=== PATIENT | male | born 1965 | race Caucasian/White ===

== ENCOUNTER → 2020-04-09 08:10 | Outpatient (CLI) | payer OTHER, SELFPAY ==
[2020-04-08 13:08] VITALS: BMI 35.2
[2020-04-09 12:15] LABS: Absolute Lymphocyte Count 1.61 X10^3/uL (0.83-4.51); Absolute Neutrophil Count 5.6 X10^3/uL (2.0-7.7); Basophil# 0.04 X10^3/uL; Basophil% 0.5 % (0-1); Eosinophil# 0.46 X10^3/uL; Eosinophils% 5.5 % (0-5); Hematocrit 54.6 % (40-54); Hemoglobin 17.6 g/dL (13.0-16.5); Lymphocyte # 1.61 X10^3/ul (4.0); Lymphocyte % 19.3 % (19-41); Mean Corp Hgb Conc 32.2 g/dL (32-36); Mean Corpuscular Hgb 27.2 pg (27.0-32.0); Mean Corpuscular Volume 84.3 fL (80-94); Monocyte# 0.58 X10^3/uL; Monocyte% 6.9 % (0-10); NRBC Flagged by Analyzer 0 % (0-5); Neutrophil % 67.1 % (47-70); Platelet Count 259 K/mm3 (150-450); RBC Distribution Width CV 13.7 % (11.6-14.6); RBC Distribution Width SD 42.1 fl (35.1-43.9); Red Blood Count 6.48 M/mm3 (4.6-6.2); White Blood Count 8.4 K/mm3 (4.4-11.0)
[2020-04-09 12:41] LABS: Hemoglobin A1c 6.2 % (3.8-5.6)
[2020-04-09 13:09] LABS: AST(SGOT) 15 U/L (15-37); Alanine Aminotransfer ALT/SGPT 43 U/L (16-61); Albumin, Serum 3.6 g/dL (3.2-5.0); Alkaline Phosphatase 104 U/L (45-117); Anion Gap 8 (5-15); BUN 17 mg/dL (7-18); BUN/Creat Ratio 13.2 RATIO (10-20); Chloride 106 mmol/L (98-107); Cholesterol 209 mg/dL (200); Creatinine, Serum 1.29 mg/dL (0.70-1.30); EST Glomerular Filtration Rate 62 mL/min (>60); Est Glom Filt Rate - Afr Amer 75 mL/min (>60); Globulin 3.7 g/dL (2.2-4.2); Glucose 115 mg/dL (74-106); High Density Lipoprotein 46 mg/dL; PSA,Total - Annual Screen 1.01 ng/mL (0.00-4.00); Potassium 4.3 mmol/L (3.5-5.1); Protein, Total 7.3 g/dL (6.4-8.2); Sodium Level 141 mmol/L (136-145); Thyroid Stim Hormone (TSH) 1.46 uIU/mL (0.358-3.74); Triglycerides 148 mg/dL; Very Low Density Lipoprotein 30 mg/dL (5-40)
[2020-04-12 07:54] LABS: Erythropoietin 3.3 mIU/mL (2.6-18.5)
== END ==
PROVIDERS: PCP Internal Medicine; Referring Provider Internal Medicine; Visit Provider Internal Medicine
DX: I10 Essential (primary) hypertension (principal); D58.2 Other hemoglobinopathies; E66.9 Obesity, unspecified; Z12.5 Encounter for screening for malignant neoplasm of prostate
CPT/HCPCS: 36415; 80053; 80061; 82668; 83036; 84153; 84443; 85025; G0103

== ENCOUNTER → 2020-04-18 08:31 | Outpatient (CLI) | payer OTHER, SELFPAY ==
[2020-04-18 07:59] VITALS: BMI 35.3
[2020-04-18 10:15] LABS: Ferritin 308 ng/mL (26-388); Iron 86 ug/dL (65-175); Iron Binding Capacity,Total 378 ug/dL (250-450); PERCENT IRON SATURATION 22.8 % (15.0-55.0)
== END ==
PROVIDERS: PCP Internal Medicine; Referring Provider Internal Medicine; Visit Provider Internal Medicine
DX: D58.2 Other hemoglobinopathies (principal)
CPT/HCPCS: 36415; 81270; 82728; 83540; 83550

== ENCOUNTER 2020-05-10 05:55 | Day surgery (SDC) | payer OTHER, SELFPAY ==
[2020-04-18 07:59] VITALS: BMI 35.3
[2020-05-06 16:03] VITALS: BMI 35.3
[2020-05-10] VITALS (7 sets, daily range): BP systolic 97–139; BP diastolic 60–85; PULSE 52–62; RESP 16; TEMP 36.4–36.8; O2SAT 95–97; BMI 33.8
--- NOTE | 2020-05-10 | IMM_PTH ---
PATIENT: ARTEM MCDERMOTT LOC: EN U#:[id number] AGE/SX: 54/M ROOM: RE05/10/[address]: Dr. Nathan Ritchie MD : 1965 BED: DIS: 05/10/2020 SPEC #: [id number] RECD: 05/13/20 12:04 STATUS: AYDEE TORIE #: [id number] CHARLES: 05/10/20 00:[address]: Nathan Ritchie DEPT: IMMUNOHISTOCHEMISTRY RECD BY: Jackelin Watson ENTERED: 05/13/20 12:05 SP TYPE: IMMUNO OTHR DR: Dr. Debora Orourke MD Tissues: D - Rectum, NOS Procedures: P53 (initial) SMA (add) DESMIN (add) KI-67 (add) SMM (add) PHYSICIAN & INSTITUTION [place] [address] SPECIMEN INFORMATION: Tissue Source: D - Rectum polyp Clinical Info: Screening; umbilical hernia; diastasis recti; rectal bleeding, elevated hemoglobin Specimen Number: [id number] CPT code: 27114, 99657 x4 METHODOLOGY: Deparaffinized sections of prefer/formalin-fixed tissue or PAP/DQ stained slides are incubated with monoclonal/polyclonal antibodies/oligonucleotide probes. Localization is made via biotin free immunoperoxidase method. Appropriate controls are performed and reacted as expected. Results on target cell population are indicated in the following table: RESULTS: ANTIBODY / CLONE RESULT Block D P53 (DO-7) positive, 2% Ki-67 (30-9) positive, moderate Actin (1A4) negative Desmin (CE-R-11) negative Myosin (simms1) negative These tests were developed and their performance characteristics determined by [facility]. They may not have been cleared or approved by the U.S. Food and Drug Administration. The FDA has determined that such clearance or approval is not necessary. The above immunohistochemical/dualISH markers are ordered and reviewed by the Pathologist. INTERPRETATION: Asad. Rectum polyp, biopsy: Consistent with intramucosal adenocarcinoma. AM:sruthi 05/14/2020
--- NOTE | 2020-05-10 06:22 | HP.PCM_ITS ---
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 Nathan Ritchie MD) Elevated hemoglobin (Acute) Rectal bleeding (Acute) Diastasis recti (Acute) Umbilical hernia without obstruction and without gangrene (Acute) Screening for malignant neoplasm of intestine (Acute) Hypertension (Chronic) Obesity (BMI 30-39.9) (Chronic) Back pain (Acute) Knee pain (Acute) Osteoarthritis (Acute) Surgical History (Updated 04/18/20 @ 07:59 by Danielle Saavedra) Broken wrist (Acute) History of tonsillectomy (Acute) Family History (Updated 04/18/20 @ 07:59 by Danielle Saavedra) Brother Dementia Hypertension Father Hypertension Mother Hypertension Daughter Diabetes Social History (Updated 04/18/20 @ 08:[address] Nathan Ritchie MD) Smokeless tobacco user: chewing tobacco alcohol intake: never substance use type: does not use caffeine: Yes HPI HPI HPI: ARTEM MCDERMOTT, is a 54 M who presents to the office today for surgical consultation regarding need for colonoscopy. The patient is referred by Dr. Debora Orourke and a written copy of my surgical consult and recommendations will return to him. Is a 54-year-old gentleman. I have assisted his with risk issues. Also assisted the family with her carotid issue. The patient's been evaluated by Dr. Debora Orourke. There is some intermittent rectal bleeding. Patient also of note has an elevated hemoglobin hematocrit with a hemoglobin of 17.6. He does chew tobacco. Does not smoke. He denies myocardial infarction or stroke or diabetes. Is never had a DVT. He is not on any anticoagulation. He states he has not been exposed anyone with COVID-19 of which she is aware. He has not had any personal symptoms. 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 There is no family history of colon cancer. He has never had a previous colonoscopy. He does have an umbilical hernia for which she is seeing me in the past. He has had that for an extended period of time. HPI HPI HPI: ARTEM MCDERMOTT, is a 54 M who presents to the office today for ROS General General: No weight change, appetite, fatigue, colon cancer, breast cancer or weakness HEENT HEENT: No difficulty swallowing, eye injury, eye surgery, swollen glands or hoarseness Endo Endocrine: No thyroid disease, diabetes mellitus, thyroid cancer, Hair loss, heat intolerance or cold intolerance Musc Musculoskeletal: Yes back problems and arthritis; no rheumatoid arthritis, gout or joint pain Cardio Cardiovascular: Yes high blood pressure; no murmur, pacemaker, heart disease, atrial fibrillation, heart attack, heart stent, palpitations, shortness of breat with exertion or chest pain Psych Psychiatric: No depression, anxiety or hearing voices Resp Respiratory: No shortness of breath, No sleep apnea, No cough, No COPD, No asthma, No emphysema, No wheezing Gastro Gastrointestinal: No abdominal pain, No nausea or vomiting, No diarrhea, No constipation, No blood in stool, No acid reflux, No hemorrhoids, No ulcers, No gallbladder problem, No black,tarry stools Additional Details: blood on tissue intermittently Eddie Hematologic: No blood thinners, No blood disorders, No bleeding, No anemia, No blood clots Neuro Neurologic: No weakness Exam Const General: cooperative, healthy appearing, comfortable, no acute distress Nutritional Appearance: obese Orientation: alert, awake [facility] Head: normal to inspection Eyes General: appearance normal, both eyes and all related structures Resp Effort & Inspection: normal respiratory effort Auscultation: clear to auscultation bilaterally Cardio Rate: regular rate Rhythm: regular rhythm Heart Sounds: no murmurs GI Palpation: soft, no hepatosplenomegaly Other: Diastases recti noted 2 cm umbilical hernia nontender and reducible Musc Cervical Spine: normal cervical lordosis Skin General: no rashes or lesions noted Neuro Cognition: normal cognition Extrem General: no calf tenderness Psych Appearance: grossly normal Assessment & Plan Problems 1. Screening for malignant neoplasm of intestine Z12.10 2. Umbilical hernia without obstruction and without gangrene K42.9 3. Diastasis recti M62.08 4. Rectal bleeding K62.5 5. Elevated hemoglobin D58.2 Plan I recommended the patient a colonoscopy with possible biopsy or polypectomy as indicated. He is aware of the technique, benefit, risk, alternatives. Because of his elevated hemoglobin I recommend initiating low-dose aspirin therapy 81 mg orally daily. He is aware that this may aggravate rectal bleeding and if so he will need to stop. Regarding his elevated his hemoglobin I have encouraged him to continue his f ollow-up with Dr. Debora Orourke Regarding diastases recti and the umbilical hernia neither require treatment at this time. I have educated him that the diastases recti is not a surgical condition. He has had an opportunity to ask no questions answered. I very much appreciate the kind opportunity of assisting with his surgical care. We will schedule and proceed as noted. Copy: Dr. Debora Ritchie M.D., F.A.C.S. I have re-examined the patient. There are no clinical changes since date of exam. Procedure Criteria Procedure Type: Elective COVID Risk Discussion: The surgeon/proceduralist and patient have discussed in detail the risk of exposure to and/or potential harm posed by the COVID-19 virus with having a surgery/procedure at this time versus the risk of delaying the surgery/procedure. It is not possible to know either the risk of delaying the surgery or procedure or chance of getting an infection with perfect accuracy, but a joint decision was made between the patient and the surgeon/proceduralist to proceed at this time with the scheduled surgery/procedure as indicated on the consent form.
[2020-05-10] MEDS: Lactated Ringers 1,000 ML 100 ML IV (06:27)
--- NOTE | 2020-05-10 07:00 | COLBX_PTH ---
PATIENT: ARTEM MCDERMOTT LOC: EN U#:[id number] AGE/SX: 54/M ROOM: RE05/10/[address]: Dr. Nathan Ritchie MD : 1965 BED: DIS: 05/10/2020 SPEC #: [id number] RECD: 05/10/20 09:59 STATUS: AYDEE VOGT #: [id number] CHARLES: 05/10/20 07:[address]: Nathan Ritchie DEPT: SURGICAL PATHOLOGY RECD BY: Bess Guzman ENTERED: 05/10/20 11:16 SP TYPE: COLON BX OTHR DR: Dr. Debora Orourke MD Tissues: A - Transverse colon B - Transverse colon C - Sigmoid colon biopsy D - Rectum, NOS E - Rectum, NOS Procedures: Surgery Specimen Level IV HEADER OPERATION: Colonoscopy (MAC) PRE-OP DIAGNOSIS: Screening for malignant neoplasm of intestine; umbilical hernia; diastasis recti; rectal bleeding; elevated hemoglobin TISSUE SUBMITTED: A - Biopsy of proximal transverse colon polyp, B - Biopsy of distal transverse colon polyp, C - Proximal sigmoid polyp, D - Rectum polyp, E - Rectum polyp base 4 cm from anorectal verge MICROSCOPIC DIAGNOSIS A. Proximal transverse colon polyp, biopsy: Fragments of tubular adenoma. B. Distal transverse colon polyp, biopsy: Fragments of hyperplastic polyp. C. Proximal sigmoid colon polyp, biopsy: Tubular adenoma. D. 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 See comment. E. Rectal polyp base, biopsy: Benign colonic tissue. See comment. AM:sruthi 05/17/2020 COMMENT D. Immunohistochemistry ([id number]) supports the above diagnosis. The intramucosal adenocarcinoma measures 3 mm in greatest dimension and is present close to the luminal surface.This case is reviewed in consultation with of [facility] (complete report viewable in EMR). E. Adenomatous change is not identified. There is no evidence of carcinoma. MICROSCOPIC DESCRIPTION Slides are reviewed. GROSS DESCRIPTION A - Received in fixative is one container labeled with the patient's name and designated proximal transverse colon polyp. The specimen consists of two irregular fragments of light glasgow soft tissue that in aggregate measure 0.6 x 0.5 x 0.1 cm. The specimen is totally submitted in one cassette. B - Received in fixative is one container labeled with the patient's name and designated distal transverse colon polyp biopsy. The specimen consists of multiple irregular fragments of light glasgow soft tissue that in aggregate measure 0.6 x 0.3 x 0.1 cm. The specimen is totally submitted in one cassette. C - Received in fixative is one container labeled with the patient's name and designated proximal sigmoid polyp. The specimen consists of one irregular fragment of light glasgow soft tissue that measures 0.6 x 0.5 x 0.2 cm. The specimen is totally submitted in one cassette. D - Received in fixative is one container labeled with the patient's name and designated rectum polyp. The specimen consists of multiple irregular fragments of light glasgow soft tissue ranging in size from 0.1 to 1.6 cm. The largest fragment is bisected and totally submitted along with the smaller fragments in one cassette. E - Received in fixative is one container labeled with the patient's name and designated rectal polyp base. The specimen consists of one irregular fragment of light glasgow soft tissue that measures 0.9 x 0.6 x 0.2 cm. The specimen is totally submitted in one cassette. / AM:sruthi 05/10/20 TC:0 CPT: 88112 x5
--- NOTE | 2020-05-10 08:08 | OP.CCLET_ITS ---
05/10/2020 Debora Orourke [facility] [address] [place] [address] Re : Colonoscopy procedure for Gigi Cook Dear Dr. Orourke This procedure was performed on Sunday, May 10, 2020. My impressions and recommendations are as follows: Impressions : - Non-thrombosed internal hemorrhoids and internal hemorrhoids that prolapse with straining, but require manual replacement into the anal canal (Grade III) found on digital rectal exam. - One 5 mm polyp in the proximal transverse colon. Biopsied. - One 6 mm polyp in the distal transverse colon, removed with a cold biopsy forceps. Resected and retrieved. - One 9 mm polyp in the proximal sigmoid colon, removed with a hot snare. Resected and retrieved. - One 20 mm polyp in the rectum, removed piecemeal using a hot snare. 4 cm from anal verge. Final resection sent separately and marked as base of resection. Resected and retrieved. - Diverticulosis in the sigmoid colon. Recommendations : - Discharge patient to home. - Resume previous diet. - Continue present medications. - Repeat colonoscopy in 1 year for surveillance based on pathology results. - Telephone my office for pathology results in 1 week. My findings are described in the full procedure note, which is enclosed. If I can be of further assistance, please feel free to contact me at Doctor phone number(s): Work: . Sincerely, Nathan Ritchie MD 05/10/2020 8:07:49 AM This report has been signed electronically.
--- NOTE | 2020-05-10 08:08 | OP.COLON_ITS ---
Patient Name: Gigi Cook Procedure Date: 05/10/2020 7:08 AM Date of : 1965 Age: 54 Procedure: Colonoscopy Indications: Screening for colorectal malignant neoplasm Providers: Nathan Ritchie MD Referring MD: Debora Orourke Medicines: See the Anesthesia note for documentation of the administered medications Patient Profile: Last Colonoscopy: none. The patient's first colonoscopy is today. Complications: No immediate complications. Procedure: Pre-Anesthesia Assessment: - Prior to the procedure, a History and Physical was performed, and patient medications and allergies were reviewed. The patient's tolerance of previous anesthesia was also reviewed. The risks and benefits of the procedure and the sedation options and risks were discussed with the patient. All questions were answered, and informed consent was obtained. Prior Anticoagulants: The patient has taken no previous anticoagulant or antiplatelet agents. ASA Grade Assessment: II - A patient with mild systemic disease. After reviewing the risks and benefits, the patient was deemed in satisfactory condition to undergo the procedure. After I obtained informed consent, the scope was passed under direct vision. Throughout the procedure, the patient's blood pressure, pulse, and oxygen saturations were monitored continuously. The Colonoscope was introduced through the anus and advanced to the cecum, identified by appendiceal orifice and ileocecal valve. The colonoscopy was performed without difficulty. The patient tolerated the procedure well. The quality of the bowel preparation was adequate to identify polyps. The ileocecal valve and the appendiceal orifice were photographed. The ileocecal valve and the appendiceal orifice were photographed. Scope In: 7:19:17 AM Scope Withdrawal Time 0 hours 26 minutes 36 seconds Scope Out: 7:49:32 AM Total Procedure Duration Time 0 hours 30 minutes 15 seconds Findings: The digital rectal exam findings include non-thrombosed internal hemorrhoids and internal hemorrhoids that prolapse with straining, but require manual replacement into the anal canal (Grade III). Pertinent negatives include normal prostate (size, shape, and consistency). A 5 mm polyp was found in the proximal transverse colon. The polyp was sessile. Biopsies were taken with a cold forceps for histology. A 6 mm polyp was found in the distal transverse colon. The polyp was sessile. The polyp was removed with a cold biopsy forceps. Resection and retrieval were complete. A 9 mm polyp was found in the proximal sigmoid colon. The polyp was pedunculated. The polyp was removed with a hot snare. Resection and retrieval were complete. A 20 mm polyp was found in the rectum. The polyp was sessile. The polyp was removed with a piecemeal technique using a hot snare. Resection and retrieval were complete. Multiple diverticula were found in the sigmoid colon. Impression: - Non-thrombosed internal hemorrhoids and internal hemorrhoids that prolapse with straining, but require manual replacement into the anal canal (Grade III) found on digital rectal exam. - One 5 mm polyp in the proximal transverse colon. Biopsied. - One 6 mm polyp in the distal transverse colon, removed with a cold biopsy forceps. Resected and retrieved. - One 9 mm polyp in the proximal sigmoid colon, removed with a hot snare. Resected and retrieved. - One 20 mm polyp in the rectum, removed piecemeal using a hot snare. 4 cm from anal verge. Final resection sent separately and marked as base of resection. Resected and retrieved. - Diverticulosis in the sigmoid colon. Recommendation: - Discharge patient to home. - Resume previous diet. - Continue present medications. - Repeat colonoscopy in 1 year for surveillance based on pathology results. - Telephone my office for pathology results in 1 week. Procedure Code(s): --- Professional --- 73991, Colonoscopy, flexible; with removal of tumor(s), polyp(s), or other lesion(s) by snare technique 88249, 59, Colonoscopy, flexible; with biopsy, single or multiple Diagnosis Code(s): --- Professional --- Z12.11, Encounter for screening for malignant neoplasm of colon K64.2, Third degree hemorrhoids D12.3, Benign neoplasm of transverse colon (hepatic flexure or splenic flexure) D12.5, Benign neoplasm of sigmoid colon K62.1, Rectal polyp K57.30, Diverticulosis of large intestine without perforation or abscess without bleeding CPT copyright 2017 [employer]. All rights reserved. The codes documented in this report are preliminary and upon agency appointments supervisor review may be revised to meet current compliance requirements. Nathan Ritchie MD 05/10/2020 8:07:49 AM This report has been signed electronically. Number of Addenda: 0 Note Initiated On: 05/10/2020 7:08 AM
== END 2020-05-10 08:42 | disposition home or self-care (01) ==
LOC: EN 05:56 → AC 05:56
PROVIDERS: PCP Internal Medicine; Referring Provider Internal Medicine; Visit Provider Surgery
PROC: 0DJD8ZZ Inspection of Lower Intestinal Tract, Via Natural or Artificial Opening Endoscopic (ICD-10-PCS; CPT 45378; principal; 2020-05-10 06:55)
DX: Z12.11 Encounter for screening for malignant neoplasm of colon (principal); C20 Malignant neoplasm of rectum; D12.3 Benign neoplasm of transverse colon; D12.5 Benign neoplasm of sigmoid colon; K62.1 Rectal polyp; K57.30 Diverticulosis of large intestine without perforation or abscess without bleeding; K64.2 Third degree hemorrhoids; K42.9 Umbilical hernia without obstruction or gangrene; M62.08 Separation of muscle (nontraumatic), other site; D58.2 Other hemoglobinopathies; I10 Essential (primary) hypertension; M19.90 Unspecified osteoarthritis, unspecified site; F17.220 Nicotine dependence, chewing tobacco, uncomplicated; E66.9 Obesity, unspecified; Z68.33 Body mass index [BMI] 33.0-33.9, adult; Z79.899 Other long term (current) drug therapy
CPT/HCPCS: 45380; 45385; 87426; 88305; 88341; 88342; C9803; J7120; J2405

== ENCOUNTER → 2020-06-27 13:29 | Outpatient (CLI) | payer OTHER, SELFPAY ==
[2020-05-29 16:40] VITALS: BMI 35.3
== END ==
PROVIDERS: PCP Internal Medicine; Visit Provider Internal Medicine
DX: G47.33 Obstructive sleep apnea (adult) (pediatric) (principal); I10 Essential (primary) hypertension; D58.2 Other hemoglobinopathies; E66.9 Obesity, unspecified
CPT/HCPCS: 95806

== ENCOUNTER 2020-08-23 07:24 | Day surgery (SDC) | payer OTHER, SELFPAY ==
[2020-05-29 16:40] VITALS: BMI 35.3
[2020-08-08 16:17] VITALS: BMI 35.3
[2020-08-23] VITALS (7 sets, daily range): BP systolic 93–119; BP diastolic 64–73; PULSE 52–67; RESP 16; TEMP 36.1–37; O2SAT 96–100; BMI 32.1
--- NOTE | 2020-08-23 | COLBX_PTH ---
PATIENT: ARTEM MCDERMOTT LOC: EN U#:[id number] AGE/SX: 54/M ROOM: RE08/23/[address]: Dr. Nathan Ritchie MD : 1965 BED: DIS: 08/23/2020 SPEC #: [id number] RECD: 08/23/20 12:35 STATUS: AYDEE VOGT #: [id number] CHARLES: 08/23/20 00:[address]: Nathan Ritchie DEPT: SURGICAL PATHOLOGY RECD BY: Aries Betancur ENTERED: 08/23/20 12:36 SP TYPE: COLON BX OTHR DR: Dr. Debora Orourke MD Tissues: Sigmoid colon biopsy Procedures: Surgery Specimen Level IV HEADER OPERATION: Colonoscopy (MAC) PRE-OP DIAGNOSIS: Rectal cancer TISSUE SUBMITTED: Biopsy of mid sigmoid colon MICROSCOPIC DIAGNOSIS Mid sigmoid colon, biopsy: Focal mucosal ulceration with associated acute inflammation and granulation. No evidence of malignancy. AM:sruthi 08/26/2020 COMMENT Reference is made to the previous case ([id number]) rectal polyp, biopsy with a diagnosis of moderately differentiated intramucosal adenocarcinoma. MICROSCOPIC DESCRIPTION Slides are reviewed. GROSS DESCRIPTION Received in fixative is one container labeled with the patient's name and designated biopsy of mid sigmoid colon. The specimen consists of multiple irregular fragments of light glasgow soft tissue that in aggregate measure 0.7 x 0.5 x 0.1 cm. The specimen is totally submitted in one cassette. / SJ:sruthi 08/23/20 TC:2 CPT: 38349
--- NOTE | 2020-08-23 07:47 | PCM.HP.STD ---
HPI - General General Date of Admission: 05/10/20 HPI Narrative ARTEM MCDERMOTT, is a 54 M who presents for a colonoscopy. He has had a history of invasive cancer within a rectal polyp. Intake Visit Reasons: DISCUSS PATHOLOGY RESULTS Chief Complaint: discuss c-scope Rigging Slinger Required: No Is patient in pain?: No Allergies No Known Allergies Allergy (Verified 05/22/20 15:08) [facility] Medical History (Updated 05/22/20 @ 15:[address] Nathan Ritchie MD) Rectal cancer (Acute) Elevated hemoglobin (Acute) Rectal bleeding (Acute) Diastasis recti (Acute) Umbilical hernia without obstruction and without gangrene (Acute) Screening for malignant neoplasm of intestine (Acute) Hypertension (Chronic) Obesity (BMI 30-39.9) (Chronic) Back pain (Acute) Knee pain (Acute) Osteoarthritis (Acute) Surgical History (Updated 05/22/20 @ 15:07 by Danielle Saavedra) Broken wrist (Acute) History of colonoscopy (Acute ~05/2020) History of tonsillectomy (Acute) Family History Brother Dementia Hypertension Father Hypertension Mother Hypertension Daughter Diabetes Social History (Updated 05/22/20 @ 15:[address] Nathan Ritchie MD) Smoking Status: Current every day smoker Smokeless tobacco user: chewing tobacco alcohol intake: never substance use type: does not use caffeine: Yes HPI HPI HPI: ARTEM MCDERMOTT is a 54 M who presents to the office today for postoperative discussion status post a screening colonoscopy that I performed for him on May 10, 2020. At that time for different polyps were identified. Pathology returns as follows Proximal transverse colon polyp cold forcep removed tubular adenoma Distal transverse colon polyp cold forceps removed hyperplastic polyp Proximal sigmoid colon polyp hot snare removed tubular adenoma 20 mm rectal polyp removed piecemeal with hot snare 4 cm from the anal verge with a final hot snare resection of the very base of the lesion sent separately demonstrates a 3 mm intramucosal area of moderately differentiated adenocarcinoma which arose in a tubulovillous adenoma. The malignancy is close to the luminal surface. The separately sent resection base suggests no adenomatous changes identified and no evidence of carcinoma HPI HPI HPI: ARTEM MCDERMOTT, is a 54 M who presents to the office today for Assessment & Plan Problems 1. Rectal cancer C20 Plan Intramucosal moderately differentiated adenocarcinoma 3 mm in greatest dimension with in a tubulovillous adenoma of the rectum 4 cm from the anal verge with clear resection margins I have discussed this finding with the patient. I believe that follow-up with colonoscopy at 3 months would be appropriate. Based upon the pathology suggesting this was a intramucosal lesion without penetration and with a clear endoscopic resection margin I do not believe that additional treatment will be required at this time. I recommended the patient hematology oncology referral and they request Dr. Gerson Cifuentes. We will make the appropriate referral. If there are additional concerns then I would recommend tertiary colorectal surgery referral. He has had an opportunity to ask and have questions answered. He has been provided a copy of his pathology. It is of note that I have assisted his with breast cancer. He will pursue as noted. Copy: Dr. Debora Orourke [facility] Medical History (Updated 08/20/20 @ 15:21 by Edwige Jimenez) Back pain CPAP (continuous positive airway pressure) dependence Diastasis recti Elevated hemoglobin Hypertension Knee pain Obesity (BMI 30-39.9) Osteoarthritis Plantar fasciitis, bilateral Rectal bleeding Rectal cancer Screening for malignant neoplasm of intestine Smoker Umbilical hernia without obstruction and without gangrene Wears glasses Home Medications loratadine 10 mg PO DAILY 04/30/20 [History Last Taken Unknown] lisinopril 20 mg tablet 20 mg PO BID #60 tab 07/29/20 [Rx Last Taken 08/23/20 06:00] lactobacillus combination no.9 4 billion cell capsule 4,000 mmu cells PO DAILY 08/08/20 [History Last Taken Unknown] Allergy/AdvReac Type Severity Reaction Status Date / Time No Known Allergies Allergy Verified 08/20/20 15:12 Family History Brother Dementia Hypertension Father Hypertension Mother Hypertension Daughter Diabetes Surgical History (Updated 05/27/20 @ 15:[address] Gerson Cifuentes MD) Broken wrist History of colonoscopy (~05/2020) History of tonsillectomy Social History Smoking Status: Current every day smoker Smokeless tobacco user: chewing tobacco alcohol intake: never substance use type: does not use caffeine: Yes ROS Constitutional Constitutional: Reports systems reviewed and no addt'l complaints, except as documented Cardiovascular Cardiovascular: Denies chest pain Respiratory/Chest Respiratory/Chest: Denies shortness of breath at rest Gastrointestinal Gastrointestinal: Denies abdominal pain, change in bowel habits, hematochezia or melena Physical Exam Const alert, oriented x3 and no apparent distress General Appearance: cooperative and comfortable Eyes General Eye: normal appearance of both eyes Neck General: normal visual inspection Chest inspection of chest normal Resp Effort and Inspection: able to speak in complete sentences and symmetric chest movement Auscultation: clear to auscultation bilaterally Cardio regular rate and regular rhythm GI soft to palpation, non-tender and non-distended Extremity no calf tenderness Neuro oriented x3 Psych thought process normal Assessment & Plan Assessment/Plan (1) Rectal cancer: PLAN: Plan to proceed with a colonoscopy with possible biopsy or polypectomy as indicated. The patient is aware of the technique, benefit, risk, alternatives. He has had an opportunity to ask and have questions answered. We will proceed as noted. Nathan Ritchie M.D., F.A.C.S.
[2020-08-23] MEDS: Lactated Ringers 1,000 ML 100 ML IV (07:53)
--- NOTE | 2020-08-23 09:23 | OP.COLON_ITS ---
Patient Name: Gigi Cook Procedure Date: 08/23/2020 8:50 AM Date of : 1965 Age: 54 Procedure: Colonoscopy Indications: High risk colon cancer surveillance: Personal history of colon cancer Providers: Nathan Ritchie MD Medicines: See the Anesthesia note for documentation of the administered medications Patient Profile: Last Colonoscopy: April 2018. Complications: No immediate complications. Procedure: Pre-Anesthesia Assessment: - Prior to the procedure, a History and Physical was performed, and patient medications and allergies were reviewed. The patient's tolerance of previous anesthesia was also reviewed. The risks and benefits of the procedure and the sedation options and risks were discussed with the patient. All questions were answered, and informed consent was obtained. Prior Anticoagulants: The patient has taken no previous anticoagulant or antiplatelet agents. ASA Grade Assessment: II - A patient with mild systemic disease. After reviewing the risks and benefits, the patient was deemed in satisfactory condition to undergo the procedure. After I obtained informed consent, the scope was passed under direct vision. Throughout the procedure, the patient's blood pressure, pulse, and oxygen saturations were monitored continuously. The adult colonoscope was introduced through the anus and advanced to the cecum, identified by appendiceal orifice and ileocecal valve. The colonoscopy was performed without difficulty. The patient tolerated the procedure well. The quality of the bowel preparation was adequate to identify polyps. The ileocecal valve and the appendiceal orifice were photographed. Scope In: 8:58:24 AM Scope Withdrawal Time 0 hours 13 minutes 14 seconds Scope Out: 9:15:26 AM Total Procedure Duration Time 0 hours 17 minutes 2 seconds Findings: Hemorrhoids were found on perianal exam. Multiple diverticula were found in the sigmoid colon and descending colon. Biopsies were taken with a cold forceps for histology. The exam was otherwise without abnormality. Impression: - Hemorrhoids found on perianal exam. - Diverticulosis in the sigmoid colon and in the descending colon. Biopsied as it was erythematous. - The examination was otherwise normal. Recommendation: - Discharge patient to home. - Resume previous diet. - Continue present medications. - Repeat colonoscopy in 1 year for surveillance. - Telephone my office for pathology results in 1 week. Procedure Code(s): --- Professional --- 22535, Colonoscopy, flexible; with biopsy, single or multiple Diagnosis Code(s): --- Professional --- Z85.038, Personal history of other malignant neoplasm of large intestine K64.9, Unspecified hemorrhoids K57.30, Diverticulosis of large intestine without perforation or abscess without bleeding CPT copyright 2017 [employer]. All rights reserved. The codes documented in this report are preliminary and upon manufacturing quality inspector review may be revised to meet current compliance requirements. Nathan Ritchie MD 08/23/2020 9:22:33 AM This report has been signed electronically. Number of Addenda: 0 Note Initiated On: 08/23/2020 8:50 AM
--- NOTE | 2020-08-23 09:23 | OP.CCLET_ITS ---
08/26/2020 Gerson Cifuentes [address] [place] [address] Re : Colonoscopy procedure for Gigi Cook Dear Dr. Cifuentes This procedure was performed on Sunday, August 23, 2020. My impressions and recommendations are as follows: Impressions : - Hemorrhoids found on perianal exam. - Diverticulosis in the sigmoid colon and in the descending colon. Biopsied as it was erythematous. - The examination was otherwise normal. Recommendations : - Discharge patient to home. - Resume previous diet. - Continue present medications. - Repeat colonoscopy in 1 year for surveillance. - Telephone my office for pathology results in 1 week. My findings are described in the full procedure note, which is enclosed. If I can be of further assistance, please feel free to contact me at Doctor phone number(s): Work: . Sincerely, Nathan Ritchie MD 08/23/2020 9:22:33 AM This report has been signed electronically.
== END 2020-08-23 10:27 ==
LOC: EN 07:25 → AC 07:27
PROVIDERS: PCP Internal Medicine; Referring Provider Internal Medicine; Visit Provider Surgery
PROC: 0DJD8ZZ Inspection of Lower Intestinal Tract, Via Natural or Artificial Opening Endoscopic (ICD-10-PCS; CPT 45378; principal; 2020-08-23 08:25)
DX: Z12.11 Encounter for screening for malignant neoplasm of colon (principal); K57.30 Diverticulosis of large intestine without perforation or abscess without bleeding; K64.9 Unspecified hemorrhoids; K42.9 Umbilical hernia without obstruction or gangrene; Z20.822 Contact with and (suspected) exposure to COVID-19; I10 Essential (primary) hypertension; M19.90 Unspecified osteoarthritis, unspecified site; E66.9 Obesity, unspecified; F17.200 Nicotine dependence, unspecified, uncomplicated; Z79.899 Other long term (current) drug therapy; Z85.048 Personal history of other malignant neoplasm of rectum, rectosigmoid junction, and anus
CPT/HCPCS: 45380; 87426; 88305; C9803; J7120; J2405

== ENCOUNTER 2021-05-29 13:55 | Outpatient (CLI) | payer OTHER, SELFPAY ==
[2021-05-29 15:16] LABS: Absolute Lymphocyte Count 2.06 X10^3/uL (0.83-4.51); Absolute Neutrophil Count 5.8 X10^3/uL (2.0-7.7); Basophil# 0.04 X10^3/uL; Basophil% 0.4 % (0-1); Eosinophil# 0.39 X10^3/uL; Eosinophils% 4.3 % (0-5); Hematocrit 54.3 % (40-54); Hemoglobin 17.9 g/dL (13.0-16.5); Lymphocyte # 2.06 X10^3/ul (0.83-4.51); Mean Corpuscular Volume 84.8 fL (80-94); Mean Platelet Vol. 9.6 fl (6.2-12.0); Monocyte# 0.63 X10^3/uL; NRBC Flagged by Analyzer 0 % (0-5); Neutrophil # 5.79 X10^3/uL (2.7-7.7); Neutrophil % 64.6 % (47-70); Platelet Count 263 K/mm3 (150-450); RBC Distribution Width CV 13.6 % (11.6-14.6); RBC Distribution Width SD 41.9 fl (35.1-43.9)
[2021-05-29 15:37] LABS: Hemoglobin A1c 6.1 % (3.8-5.6)
[2021-05-29 15:53] LABS: ALB/GLOB Ratio 1.1 RATIO (0.9-2.4); AST(SGOT) 28 U/L (15-37); Alanine Aminotransfer ALT/SGPT 50 U/L (16-61); Albumin, Serum 4.1 g/dL (3.2-5.0); Alkaline Phosphatase 88 U/L (45-117); Anion Gap 6 (5-15); BUN 16 mg/dL (7-18); Calcium,Total 9.2 mg/dL (8.5-10.1); Chloride 104 mmol/L (98-107); Cholesterol 223 mg/dL (200); Creatinine, Serum 1.33 mg/dL (0.70-1.30); EST Glomerular Filtration Rate 59 mL/min (>60); Est Glom Filt Rate - Afr Amer 72 mL/min (>60); Globulin 3.8 g/dL (2.2-4.2); Glucose 100 mg/dL (74-106); High Density Lipoprotein 46 mg/dL; Potassium 4.6 mmol/L (3.5-5.1); Protein, Total 7.9 g/dL (6.4-8.2); Sodium Level 134 mmol/L (136-145); Thyroid Stim Hormone (TSH) 0.95 uIU/mL (0.358-3.74); Triglycerides 133 mg/dL; Very Low Density Lipoprotein 27 mg/dL (5-40)
== END 2021-05-29 23:59 | disposition home or self-care (01) ==
LOC: BIMLAB 13:56
PROVIDERS: PCP Internal Medicine; Referring Provider Internal Medicine; Visit Provider Internal Medicine
DX: R73.09 Other abnormal glucose (principal); D58.2 Other hemoglobinopathies; I10 Essential (primary) hypertension; E66.9 Obesity, unspecified; E55.9 Vitamin D deficiency, unspecified
CPT/HCPCS: 36415; 80053; 80061; 82306; 83036; 84443; 85025

== ENCOUNTER 2021-10-17 07:45 | Day surgery (SDC) | payer OTHER, SELFPAY ==
[2021-10-17] VITALS (8 sets, daily range): BP systolic 83–147; BP diastolic 59–116; PULSE 48–65; RESP 16–18; TEMP 36.4–36.6; O2SAT 95–100; BMI 32.3
--- NOTE | 2021-10-17 | COLBX_PTH ---
PATIENT: ARTEM MCDERMOTT LOC: [facility] U#:[id number] AGE/SX: 56/M ROOM: RE10/17/[address]: Dr. Nathan Ritchie MD : 1965 BED: DIS: 10/17/2021 SPEC #: [id number] RECD: 10/17/21 12:00 STATUS: AYDEE MARINTim #: [id number] CHARLES: 10/17/21 00:[address]: Nathan Ritchie DEPT: SURGICAL PATHOLOGY RECD BY: Aries Betancur ENTERED: 10/17/21 12:00 SP TYPE: COLON BX JOSE DR: Dr. Debora Orourke MD Tissues: A - Transverse colon B - Rectum, NOS Procedures: Surgery Specimen Level IV HEADER OPERATION: Colonoscopy with polypectomy and clip application ? open access PRE-OP DIAGNOSIS: Rectal cancer TISSUE SUBMITTED: A ? Mid transverse colon polyp, B ? Rectum polyp MICROSCOPIC DIAGNOSIS A. Mid transverse colon polyp, biopsy: Tubular adenoma. B. Rectal polyp, biopsy: Colonic mucosa with hyperplastic change. AM:sruthi 10/20/2021 MICROSCOPIC DESCRIPTION Slides are reviewed. GROSS DESCRIPTION A - Received in fixative is one container labeled with the patient's name and designated mid transverse colon polyp. The specimen consists of one irregular fragment of light [place] soft tissue that measures 0.3 x 0.3 x 0.1 cm. The specimen is totally submitted in one cassette. B - Received in fixative is one container labeled with the patient's name and designated rectum polyp. The specimen consists of two irregular fragments of light [place] soft tissue that in aggregate measure 0.4 x 0.3 x 0.1 cm. The specimen is totally submitted in one cassette. / SJ:sruthi 10/17/2021 TC:5 [facility]: [id number] x2
[2021-10-17] MEDS: Lactated Ringers 1,000 ML 15 ML IV (08:00)
--- NOTE | 2021-10-17 08:25 | PCM.HP.STD ---
[facility] - General General Date of Service: 10/17/21 Chief Complaint: History of rectal cancer [facility] Narrative ARTEM MCDERMOTT, is a 56 M who presents for a surveillance colonoscopy. He presents via open access. August 26, 2020 I did a colonoscopy and detected a rectal polyp which was a tubulovillous adenoma with a 3 mm area of intramucosal rectal carcinoma. He presents for follow-up. He has no specific complaints. Otherwise feeling well. No abdominal pain no bright red blood per rectum no melena. [facility] Medical History (Updated 10/15/21 @ 12:36 by Hailee Brewer) Back pain Back pain CPAP (continuous positive airway pressure) dependence Diastasis recti Hypertension Knee pain Loose, teeth Obesity (BMI 30-39.9) SOPHIE (obstructive sleep apnea) Osteoarthritis Plantar fasciitis, bilateral 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, secondary Rectal bleeding Rectal cancer Screening for malignant neoplasm of intestine Smoker Umbilical hernia without obstruction and without gangrene Wears glasses Wears glasses Home Medications loratadine 10 mg capsule 10 mg PO DAILY 04/30/20 [History Last Taken Unknown] lactobacillus combination no.9 4 billion cell capsule (Adult 50 Plus Probiotic) 4,000 mmu cells PO DAILY 08/08/20 [History Last Taken Unknown] cholecalciferol (vitamin D3) 50 mcg (2,000 unit) capsule 50 mcg PO DAILY 08/28/21 [History Last Taken Unknown] lisinopril 20 mg tablet 20 mg PO BID #180 tabs 10/03/21 [Rx Last Taken 10/17/21] Allergy/AdvReac Type Severity Reaction Status Date / Time No Known Allergies Allergy Verified 10/15/21 12:32 Family History Brother Dementia Hypertension Father Hypertension Mother Hypertension Daughter Diabetes Surgical History Broken wrist History of colonoscopy (~05/2020) History of tonsillectomy Social History Smoking Status: Never smoker Tobacco: How many years used: 35 Smokeless tobacco user: chewing tobacco second hand exposure: No alcohol intake: never substance use type: does not use caffeine: Yes Type: coffee eating out: 1-3 times/week seatbelt use: always do you feel safe at home: Yes ROS Constitutional Constitutional: Reports systems reviewed and no addt'l complaints, except as documented Cardiovascular Cardiovascular: Denies chest pain Respiratory/Chest Respiratory/Chest: Denies shortness of breath at rest Gastrointestinal Gastrointestinal: Denies abdominal pain, change in bowel habits, hematochezia or melena Vital Signs Vital Signs Vital Signs: 10/17/21 08:20 10/17/21 08:20 Temperature 98 F Temperature Source Temporal Pulse Rate 48 L Respiratory Rate 18 Respiratory Pattern Normal Blood Pressure 117/87 H Blood Pressure Mean 97 Blood Pressure Source Monitor Blood Pressure Position Semi-Fowlers Blood Pressure Location Right Arm Pulse Ox 97 Oxygen Delivery Method Room Air Weight Weight: 232 lb Body Mass Index (BMI) 32.3 Physical Exam Const alert, oriented x3 and no apparent distress General Appearance: cooperative and comfortable Eyes General Eye: normal appearance of both eyes Neck General: normal visual inspection Chest inspection of chest normal Resp Effort and Inspection: able to speak in complete sentences and symmetric chest movement Auscultation: clear to auscultation bilaterally Cardio regular rate and regular rhythm GI soft to palpation, non-tender and non-distended Extremity no calf tenderness Neuro oriented x3 Psych thought process normal Assessment & Plan Assessment/Plan (1) Rectal cancer: PLAN: 56-year-old gentleman with a personal history of rectal cancer. Previous colonoscopy August 26, 2020. Rectal cancer resected May 2020. He is aware of the technique, benefit, risk, alternatives. He presents via open access. We will proceed as noted. Nathan Ritchie M.D., F.A.C.S.
--- NOTE | 2021-10-17 10:28 | OP.COLON_ITS ---
Patient Name: Gigi Cook Procedure Date: 10/17/2021 9:55 AM Date of : 1965 Age: 56 Procedure: Colonoscopy Indications: High risk colon cancer surveillance: Personal history of colon cancer Providers: Nathan Ritchie MD Medicines: See the Anesthesia note for documentation of the administered medications Patient Profile: Last Colonoscopy: 1 year ago. Complications: No immediate complications. Procedure: Pre-Anesthesia Assessment: - Prior to the procedure, a History and Physical was performed, and patient medications and allergies were reviewed. The patient's tolerance of previous anesthesia was also reviewed. The risks and benefits of the procedure and the sedation options and risks were discussed with the patient. All questions were answered, and informed consent was obtained. Prior Anticoagulants: The patient has taken no previous anticoagulant or antiplatelet agents. ASA Grade Assessment: II - A patient with mild systemic disease. After reviewing the risks and benefits, the patient was deemed in satisfactory condition to undergo the procedure. After I obtained informed consent, the scope was passed under direct vision. Throughout the procedure, the patient's blood pressure, pulse, and oxygen saturations were monitored continuously. The Colonoscope was introduced through the anus and advanced to the cecum, identified by appendiceal orifice and ileocecal valve. The colonoscopy was performed without difficulty. The patient tolerated the procedure well. The quality of the bowel preparation was good. The ileocecal valve and the appendiceal orifice were photographed. Scope In: 9:58:37 AM Scope Withdrawal Time 0 hours 18 minutes 48 seconds Scope Out: 10:21:39 AM Total Procedure Duration Time 0 hours 23 minutes 2 seconds Findings: The digital rectal exam findings include non-thrombosed external hemorrhoids, non-thrombosed internal hemorrhoids and internal hemorrhoids that prolapse with straining, but spontaneously regress to the resting position (Grade II). Pertinent negatives include normal prostate (size, shape, and consistency). A 5 mm polyp was found in the mid transverse colon. The polyp was sessile. The polyp was removed with a hot snare. Resection and retrieval were complete. To prevent bleeding post-intervention, one hemostatic clip was successfully placed. There was no bleeding at the end of the procedure. A 6 mm polyp was found in the rectum. The polyp was sessile. The polyp was removed with a cold biopsy forceps. Resection and retrieval were complete. The exam was otherwise without abnormality. Impression: - Non-thrombosed external hemorrhoids, non-thrombosed internal hemorrhoids and internal hemorrhoids that prolapse with straining, but spontaneously regress to the resting position (Grade II) found on digital rectal exam. - One 5 mm polyp in the mid transverse colon, removed with a hot snare. Resected and retrieved. Clip was placed. - One 6 mm polyp in the rectum, removed with a cold biopsy forceps. Resected and retrieved. - The examination was otherwise normal. Recommendation: - Discharge patient to home. - Resume previous diet. - Continue present medications. - Telephone my office for pathology results in 1 week. - Repeat colonoscopy in 1 year for surveillance based on pathology results. Procedure Code(s): --- Professional --- 28027, Colonoscopy, flexible; with removal of tumor(s), polyp(s), or other lesion(s) by snare technique 05781, 59, Colonoscopy, flexible; with biopsy, single or multiple Diagnosis Code(s): --- Professional --- Z85.038, Personal history of other malignant neoplasm of large intestine K64.1, Second degree hemorrhoids K64.4, Residual hemorrhoidal skin tags D12.3, Benign neoplasm of transverse colon (hepatic flexure or splenic flexure) K62.1, Rectal polyp CPT copyright 2017 [employer]. All rights reserved. The codes documented in this report are preliminary and upon production weigher review may be revised to meet current compliance requirements. Nathan Ritchie MD 10/17/2021 10:27:47 AM This report has been signed electronically. Number of Addenda: 0 Note Initiated On: 10/17/2021 9:55 AM
--- NOTE | 2021-10-17 10:29 | OP.CCLET_ITS ---
10/17/2021 Debora Orourke [facility] [address] [place] [address] Re : Colonoscopy procedure for Gigi Cook Dear Dr. Orourke This procedure was performed on Sunday, October 17, 2021. My impressions and recommendations are as follows: Impressions : - Non-thrombosed external hemorrhoids, non-thrombosed internal hemorrhoids and internal hemorrhoids that prolapse with straining, but spontaneously regress to the resting position (Grade II) found on digital rectal exam. - One 5 mm polyp in the mid transverse colon, removed with a hot snare. Resected and retrieved. Clip was placed. - One 6 mm polyp in the rectum, removed with a cold biopsy forceps. Resected and retrieved. - The examination was otherwise normal. Recommendations : - Discharge patient to home. - Resume previous diet. - Continue present medications. - Telephone my office for pathology results in 1 week. - Repeat colonoscopy in 1 year for surveillance based on pathology results. My findings are described in the full procedure note, which is enclosed. If I can be of further assistance, please feel free to contact me at Doctor phone number(s): Work: . Sincerely, Nathan Ritchie MD 10/17/2021 10:27:47 AM This report has been signed electronically.
== END 2021-10-17 11:19 | disposition home or self-care (01) ==
LOC: EN 07:46 → AC 08:05
PROVIDERS: PCP Internal Medicine; Referring Provider Internal Medicine; Visit Provider Surgery
PROC: 0DJD8ZZ Inspection of Lower Intestinal Tract, Via Natural or Artificial Opening Endoscopic (ICD-10-PCS; CPT 45378; principal; 2021-10-17 08:55)
DX: Z12.11 Encounter for screening for malignant neoplasm of colon (principal); D12.3 Benign neoplasm of transverse colon; I10 Essential (primary) hypertension; K63.5 Polyp of colon; K62.1 Rectal polyp; K64.1 Second degree hemorrhoids; K64.4 Residual hemorrhoidal skin tags; G47.33 Obstructive sleep apnea (adult) (pediatric); Z79.899 Other long term (current) drug therapy; Z90.49 Acquired absence of other specified parts of digestive tract; Z85.048 Personal history of other malignant neoplasm of rectum, rectosigmoid junction, and anus
CPT/HCPCS: 45385; 45380; 88305; J7120; J2405

== ENCOUNTER → 2022-05-26 | Outpatient (CLI) | payer OTHER, SELFPAY ==
[2022-05-26 16:10] LABS: Hemoglobin A1c 6.4 % (3.8-5.6)
[2022-05-26 16:27] LABS: Insulin 230.4 mU/L (2.6-37.6)
== END | disposition home or self-care (01) ==
LOC: PAVLAB 15:24
PROVIDERS: PCP Internal Medicine; Referring Provider Internal Medicine; Visit Provider Internal Medicine
DX: R73.9 Hyperglycemia, unspecified (principal); E88.81 Metabolic syndrome and other insulin resistance
CPT/HCPCS: 36415; 83036; 83525

== ENCOUNTER 2022-10-16 07:13 | Day surgery (SDC) | payer OTHER, SELFPAY ==
[2022-10-16] VITALS (7 sets, daily range): BP systolic 78–127; BP diastolic 43–86; PULSE 60–75; RESP 16–20; TEMP 36.2; O2SAT 93–96; BMI 34.1
[2022-10-16] MEDS: Lactated Ringers 1,000 ML 15 ML IV (07:43)
--- NOTE | 2022-10-16 08:09 | HP.PCM_ITS ---
[facility] - General General Date of Service: 10/16/22 Chief Complaint: Personal history of colon polyps, surveillance colonoscopy, history of rectal cancer [facility] Narrative ARTEM MCDERMOTT, is a 57 M who presents via open access for surveillance colonoscopy. He has a personal history of rectal cancer and personal history of colon polyps. He has been in good health. Has no complaints. No change in bowel habits. He denies any cardiopulmonary issues. [facility] Medical History (Updated 10/14/22 @ 12:09 by Edwige Jimenez) Back pain Back pain Chewing tobacco nicotine dependence CPAP (continuous positive airway pressure) dependence Diastasis recti Hypertension Knee pain Loose, teeth Obesity (BMI 30-39.9) SOPHIE (obstructive sleep apnea) Osteoarthritis Plantar fasciitis, bilateral 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, secondary Rectal bleeding Rectal cancer Screening for malignant neoplasm of intestine Umbilical hernia without obstruction and without gangrene Wears glasses Home Medications loratadine 10 mg capsule 10 mg PO DAILY 04/30/20 [History Last Taken Unknown] lactobacillus combination no.9 4 billion cell capsule (Adult 50 Plus Probiotic) 4,000 mmu cells PO DAILY 08/08/20 [History Last Taken Unknown] cholecalciferol (vitamin D3) 50 mcg (2,000 unit) capsule 50 mcg PO DAILY 08/28/21 [History Last Taken Unknown] aspirin 81 mg tablet,delayed release (Adult Low Dose Aspirin) 81 mg PO DAILY 02/26/22 [History Last Taken Unknown] lisinopril 20 mg tablet 20 mg PO BID #180 tabs 05/28/22 [Rx Last Taken 10/16/22] Allergy/AdvReac Type Severity Reaction Status Date / Time No Known Allergies Allergy Verified 10/16/22 07:34 Family History Brother Dementia Hypertension Father Hypertension Mother Hypertension Daughter Diabetes Surgical History Broken wrist History of colonoscopy (~05/2020) History of tonsillectomy Social History Smoking Status: Never smoker Tobacco: How many years used: 35 Smokeless tobacco user: chewing tobacco second hand exposure: No alcohol intake: never substance use type: does not use caffeine: Yes Type: coffee eating out: 1-3 times/week seatbelt use: always do you feel safe at home: Yes ROS Constitutional Constitutional: Reports systems reviewed and no addt'l complaints, except as documented Cardiovascular Cardiovascular: Denies chest pain Respiratory/Chest Respiratory/Chest: Denies shortness of breath at rest Gastrointestinal Gastrointestinal: Denies abdominal pain, change in bowel habits, hematochezia or melena Vital Signs Vital Signs Vital Signs: 10/16/22 07:35 10/16/22 07:35 Temperature 97.2 F L Temperature Source Temporal Pulse Rate 60 Respiratory Rate 20 H Respiratory Pattern Normal Blood Pressure 127/86 H Blood Pressure Mean 99 Blood Pressure Source Monitor Blood Pressure Position Semi-Fowlers Blood Pressure Location Right Arm Pulse Ox 96 Oxygen Delivery Method Room Air Weight Weight: 244 lb 7.882 oz Body Mass Index (BMI) 34.1 Physical Exam Const alert, oriented x3 and no apparent distress General Appearance: cooperative and comfortable Eyes General Eye: normal appearance of both eyes Neck General: normal visual inspection Chest inspection of chest normal Resp Effort and Inspection: able to speak in complete sentences and symmetric chest movement Auscultation: clear to auscultation bilaterally Cardio regular rate and regular rhythm GI soft to palpation, non-tender and non-distended Extremity no calf tenderness Neuro oriented x3 Psych thought process normal Assessment & Plan Assessment/Plan (1) Rectal cancer: PLAN: Patient presents for a surveillance colonoscopy with a personal history of colon cancer. I recommend to him a colonoscopy with possible biopsy or polypectomy as indicated. He presents via open access. Previous colonoscopy was October 17, 2021. Nathan Ritchie M.D., F.A.C.S.
--- NOTE | 2022-10-16 08:15 | COLBX_PTH ---
PATIENT: ARTEM MCDERMOTT LOC: EN U#:[id number] AGE/SX: 57/M ROOM: RE10/16/[address]: Dr. Nathan Ritchie MD : 1965 BED: DIS: 10/16/2022 SPEC #: [id number] RECD: 10/16/22 09:56 STATUS: AYDEE MARINTim #: [id number] CHARLES: 10/16/22 08:[address]: Nathan Ritchie DEPT: SURGICAL PATHOLOGY RECD BY: Bess Guzman ENTERED: 10/16/22 10:52 SP TYPE: COLON BX OTHR DR: Dr. Debora Orourke MD Tissues: SPLENIC FLEXURE Procedures: Surgery Specimen Level IV HEADER OPERATION: Colonoscopy with biopsy - open access (MAC) PRE-OP DIAGNOSIS: Rectal cancer TISSUE SUBMITTED: Splenic flexure biopsy MICROSCOPIC DIAGNOSIS Splenic flexure, biopsy: Tubular adenoma. SJ: 10/19/2022 MICROSCOPIC DESCRIPTION Slides are reviewed. GROSS DESCRIPTION Received in fixative is one container labeled with the patient's name and designated splenic flexure biopsy. The specimen consists of one irregular fragment of light glasgow soft tissue that measures 04 x 0.3 x 0.1 cm. The specimen is totally submitted in one cassette. / SJ:rg 10/16/2022 TC:1 CPT: 09454
--- NOTE | 2022-10-16 08:40 | OP.COLON_ITS ---
Patient Name: Gigi Cook Procedure Date: 10/16/2022 8:11 AM Date of : 1965 Age: 57 Procedure: Colonoscopy Indications: High risk colon cancer surveillance: Personal history of colon cancer Providers: Nathan Ritchie MD Referring MD: Debora Orourke Medicines: See the Anesthesia note for documentation of the administered medications Patient Profile: Last Colonoscopy: 1 year ago. Complications: No immediate complications. Procedure: Pre-Anesthesia Assessment: - Prior to the procedure, a History and Physical was performed, and patient medications and allergies were reviewed. The patient's tolerance of previous anesthesia was also reviewed. The risks and benefits of the procedure and the sedation options and risks were discussed with the patient. All questions were answered, and informed consent was obtained. Prior Anticoagulants: The patient has taken no previous anticoagulant or antiplatelet agents. ASA Grade Assessment: II - A patient with mild systemic disease. After reviewing the risks and benefits, the patient was deemed in satisfactory condition to undergo the procedure. After I obtained informed consent, the scope was passed under direct vision. Throughout the procedure, the patient's blood pressure, pulse, and oxygen saturations were monitored continuously. The colonoscope was introduced through the anus and advanced to the cecum, identified by appendiceal orifice and ileocecal valve. The colonoscopy was performed without difficulty. The patient tolerated the procedure well. The quality of the bowel preparation was good. The ileocecal valve and the appendiceal orifice were photographed. Scope In: 8:20:40 AM Scope Withdrawal Time 0 hours 10 minutes 6 seconds Scope Out: 8:34:25 AM Total Procedure Duration Time 0 hours 13 minutes 45 seconds Findings: Hemorrhoids were found on perianal exam. A 5 mm polyp was found in the splenic flexure. The polyp was sessile. The polyp was removed with a cold biopsy forceps. Resection and retrieval were complete Very minimal anal irritation. No palpable or visible lesions. Impression: - Hemorrhoids found on perianal exam. - One 5 mm polyp at the splenic flexure, removed with a cold biopsy forceps. Resected and retrieved. Recommendation: - Await pathology results. - Repeat colonoscopy in 1 year for surveillance. - Telephone my office for pathology results in 1 week. - Continue present medications. Procedure Code(s): --- Professional --- 72991, Colonoscopy, flexible; with biopsy, single or multiple Diagnosis Code(s): --- Professional --- Z85.038, Personal history of other malignant neoplasm of large intestine K64.9, Unspecified hemorrhoids D12.3, Benign neoplasm of transverse colon (hepatic flexure or splenic flexure) CPT copyright 2017 [employer]. All rights reserved. The codes documented in this report are preliminary and upon servicing rep review may be revised to meet current compliance requirements. Nathan Ritchie MD 10/16/2022 8:40:13 AM This report has been signed electronically. Number of Addenda: 0 Note Initiated On: 10/16/2022 8:11 AM
--- NOTE | 2022-10-16 08:40 | OP.CCLET_ITS ---
10/16/2022 Gerson Cifuentes [address] [place] [address] Re : Colonoscopy procedure for Gigi Cook Dear Dr. Cifuentes This procedure was performed on Sunday, October 16, 2022. My impressions and recommendations are as follows: Impressions : - Hemorrhoids found on perianal exam. - One 5 mm polyp at the splenic flexure, removed with a cold biopsy forceps. Resected and retrieved. Recommendations : - Await pathology results. - Repeat colonoscopy in 1 year for surveillance. - Telephone my office for pathology results in 1 week. - Continue present medications. My findings are described in the full procedure note, which is enclosed. If I can be of further assistance, please feel free to contact me at Doctor phone number(s): Work: . Sincerely, Nathan Ritchie MD 10/16/2022 8:40:13 AM This report has been signed electronically.
== END 2022-10-16 09:19 | disposition home or self-care (01) ==
LOC: EN 07:16 → AC 07:17
PROVIDERS: PCP Internal Medicine; Referring Provider Internal Medicine; Visit Provider Surgery
PROC: 0DJD8ZZ Inspection of Lower Intestinal Tract, Via Natural or Artificial Opening Endoscopic (ICD-10-PCS; CPT 45378; principal; 2022-10-16 08:10)
DX: Z12.11 Encounter for screening for malignant neoplasm of colon (principal); Z85.038 Personal history of other malignant neoplasm of large intestine; Z86.010 Personal history of colon polyps; I10 Essential (primary) hypertension; K64.9 Unspecified hemorrhoids; Z79.82 Long term (current) use of aspirin; Z79.899 Other long term (current) drug therapy; D12.3 Benign neoplasm of transverse colon; E66.9 Obesity, unspecified
CPT/HCPCS: 45380; 88305; J7120; J2405

== ENCOUNTER 2022-11-23 15:41 | Outpatient (CLI) | payer OTHER, SELFPAY ==
[2022-11-23 16:01] LABS: Absolute Lymphocyte Count 1.84 X10^3/uL (0.83-4.51); Basophil# 0.03 X10^3/uL; Basophil% 0.3 % (0-1); Eosinophil# 0.11 X10^3/uL; Eosinophils% 1.1 % (0-5); Hematocrit 51.5 % (40-54); Hemoglobin 16.9 g/dL (13.0-16.5); Lymphocyte # 1.84 X10^3/ul (0.83-4.51); Mean Corp Hgb Conc 32.8 g/dL (32-36); Mean Corpuscular Hgb 28.5 pg (27.0-32.0); Mean Corpuscular Volume 86.8 fL (80-94); Mean Platelet Vol. 9.6 fl (6.2-12.0); Monocyte# 0.65 X10^3/uL; Monocyte% 6.7 % (0-10); NRBC Flagged by Analyzer 0 % (0-5); Neutrophil # 6.99 X10^3/uL (2.7-7.7); Neutrophil % 72.2 % (47-70); Platelet Count 253 K/mm3 (150-450); RBC Distribution Width SD 44.6 fl (35.1-43.9); Red Blood Count 5.93 M/mm3 (4.6-6.2); White Blood Count 9.7 K/mm3 (4.4-11.0)
[2022-11-23 16:29] LABS: Insulin 196.8 mU/L (2.6-37.6)
[2022-11-23 16:33] LABS: Hemoglobin A1c 8.1 % (3.8-5.6)
[2022-11-23 16:35] LABS: AST(SGOT) 20 U/L (15-37); Alanine Aminotransfer ALT/SGPT 43 U/L (16-61); Albumin, Serum 3.5 g/dL (3.2-5.0); Alkaline Phosphatase 74 U/L (45-117); Anion Gap 7 (5-15); BUN 24 mg/dL (7-18); BUN/Creat Ratio 17.5 RATIO (10-20); Calcium,Total 8.7 mg/dL (8.5-10.1); Chloride 105 mmol/L (98-107); Creatinine, Serum 1.37 mg/dL (0.70-1.30); EST Glomerular Filtration Rate 57 mL/min (>60); Est Glom Filt Rate - Afr Amer 69 mL/min (>60); Estimated Creatinine Clearance 63.36 ml/min; Globulin 3.6 g/dL (2.2-4.2); Glucose 324 mg/dL (74-106); PSA,Total - Annual Screen 1.01 ng/mL (0.00-4.00); Potassium 4.2 mmol/L (3.5-5.1); Protein, Total 7.1 g/dL (6.4-8.2); Sodium Level 136 mmol/L (136-145)
== END 2022-11-23 23:59 | disposition home or self-care (01) ==
LOC: PAVLAB 15:42
PROVIDERS: PCP Internal Medicine; Referring Provider Internal Medicine; Visit Provider Internal Medicine
DX: I10 Essential (primary) hypertension (principal); E11.9 Type 2 diabetes mellitus without complications; E66.9 Obesity, unspecified; Z12.5 Encounter for screening for malignant neoplasm of prostate
CPT/HCPCS: 36415; 80053; 83036; 83525; 84153; 85025; G0103

== ENCOUNTER → 2023-03-17 | Outpatient (CLI) | payer OTHER, SELFPAY ==
[2023-03-17 17:29] LABS: Hemoglobin A1c 6.8 % (3.8-5.6)
[2023-03-17 17:55] LABS: ALB/GLOB Ratio 0.9 RATIO (0.9-2.4); AST(SGOT) 17 U/L (15-37); Alanine Aminotransfer ALT/SGPT 36 U/L (16-61); Albumin, Serum 3.5 g/dL (3.2-5.0); Alkaline Phosphatase 78 U/L (45-117); Anion Gap 6 (5-15); BUN 22 mg/dL (7-18); BUN/Creat Ratio 13.8 RATIO (10-20); Calcium,Total 9.5 mg/dL (8.5-10.1); Chloride 107 mmol/L (98-107); Creatinine, Serum 1.59 mg/dL (0.70-1.30); EST Glomerular Filtration Rate 48 mL/min (>60); Est Glom Filt Rate - Afr Amer 58 mL/min (>60); Globulin 3.7 g/dL (2.2-4.2); Glucose 226 mg/dL (74-106); Potassium 3.9 mmol/L (3.5-5.1); Protein, Total 7.2 g/dL (6.4-8.2); Sodium Level 137 mmol/L (136-145)
[2023-03-17 17:58] LABS: Insulin 140.7 mU/L (2.6-37.6)
== END | disposition home or self-care (01) ==
LOC: LAB 16:39
PROVIDERS: PCP Internal Medicine; Referring Provider Internal Medicine; Visit Provider Internal Medicine
DX: E11.9 Type 2 diabetes mellitus without complications (principal); E88.818 Other insulin resistance; E88.810 Metabolic syndrome; R79.89 Other specified abnormal findings of blood chemistry
CPT/HCPCS: 36415; 80053; 83036; 83525

== ENCOUNTER → 2023-06-14 | Outpatient (CLI) | payer OTHER, SELFPAY ==
[2023-06-14 15:45] LABS: ALB/GLOB Ratio 1.1 RATIO (0.9-2.4); AST(SGOT) 20 U/L (15-37); Alanine Aminotransfer ALT/SGPT 43 U/L (16-61); Albumin, Serum 3.9 g/dL (3.2-5.0); Alkaline Phosphatase 75 U/L (45-117); Anion Gap 7 (5-15); BUN 23 mg/dL (7-18); BUN/Creat Ratio 16.9 RATIO (10-20); Calcium,Total 10.1 mg/dL (8.5-10.1); Chloride 110 mmol/L (98-107); Creatinine, Serum 1.36 mg/dL (0.70-1.30); EST Glomerular Filtration Rate 57 mL/min (>60); Est Glom Filt Rate - Afr Amer 69 mL/min (>60); Globulin 3.4 g/dL (2.2-4.2); Glucose 154 mg/dL (74-106); Potassium 3.8 mmol/L (3.5-5.1); Protein, Total 7.3 g/dL (6.4-8.2); Sodium Level 141 mmol/L (136-145)
[2023-06-14 16:22] LABS: Hemoglobin A1c 7.3 % (3.8-5.6)
== END | disposition home or self-care (01) ==
LOC: PAVLAB 14:58
PROVIDERS: PCP Internal Medicine; Referring Provider Internal Medicine; Visit Provider Internal Medicine
DX: E11.9 Type 2 diabetes mellitus without complications (principal); E88.810 Metabolic syndrome; R79.89 Other specified abnormal findings of blood chemistry; E55.9 Vitamin D deficiency, unspecified; G47.33 Obstructive sleep apnea (adult) (pediatric)
CPT/HCPCS: 36415; 80053; 83036

== ENCOUNTER → 2023-10-09 | Outpatient (CLI) | payer OTHER, SELFPAY ==
[2023-10-09 09:40] LABS: Absolute Lymphocyte Count 2.26 X10^3/uL (0.83-4.51); Absolute Neutrophil Count 5.3 X10^3/uL (2.0-7.7); Basophil# 0.06 X10^3/uL; Basophil% 0.7 % (0-1); Eosinophil# 0.27 X10^3/uL; Eosinophils% 3.1 % (0-5); Hematocrit 49.6 % (40-54); Hemoglobin 16.1 g/dL (13.0-16.5); Lymphocyte # 2.26 X10^3/ul (0.83-4.51); Lymphocyte % 26.2 % (19-41); Mean Corp Hgb Conc 32.5 g/dL (32-36); Mean Corpuscular Hgb 28.1 pg (27.0-32.0); Mean Corpuscular Volume 86.7 fL (80-94); Mean Platelet Vol. 9.5 fl (6.2-12.0); Monocyte# 0.63 X10^3/uL; Monocyte% 7.3 % (0-10); NRBC Flagged by Analyzer 0 % (0-5); Neutrophil # 5.33 X10^3/uL (2.7-7.7); Neutrophil % 61.7 % (47-70); Platelet Count 242 K/mm3 (150-450); RBC Distribution Width CV 13.3 % (11.6-14.6); Red Blood Count 5.72 M/mm3 (4.6-6.2); White Blood Count 8.6 K/mm3 (4.4-11.0)
[2023-10-09 10:12] LABS: Hemoglobin A1c 7.1 % (3.8-5.6)
[2023-10-09 10:49] LABS: ALB/GLOB Ratio 1.1 RATIO (0.9-2.4); AST(SGOT) 17 U/L (15-37); Alanine Aminotransfer ALT/SGPT 40 U/L (16-61); Albumin, Serum 3.4 g/dL (3.2-5.0); Alkaline Phosphatase 72 U/L (45-117); Anion Gap 7 (5-15); BUN 24 mg/dL (7-18); BUN/Creat Ratio 18.6 RATIO (10-20); Calcium,Total 8.9 mg/dL (8.5-10.1); Chloride 110 mmol/L (98-107); Cholesterol 194 mg/dL (200); Creatinine, Serum 1.29 mg/dL (0.70-1.30); EST Glomerular Filtration Rate 61 mL/min (>60); Est Glom Filt Rate - Afr Amer 74 mL/min (>60); Globulin 3.2 g/dL (2.2-4.2); Glucose 118 mg/dL (74-106); High Density Lipoprotein 55 mg/dL; Potassium 4.2 mmol/L (3.5-5.1); Protein, Total 6.6 g/dL (6.4-8.2); Sodium Level 140 mmol/L (136-145); Thyroid Stim Hormone (TSH) 1.89 uIU/mL (0.358-3.74); Triglycerides 159 mg/dL; Very Low Density Lipoprotein 32 mg/dL (5-40)
[2023-10-11 08:29] LABS: Vitamin D,25 Hydroxy 44.6 ng/mL
== END | disposition home or self-care (01) ==
LOC: LAB 09:17
PROVIDERS: PCP Internal Medicine; Referring Provider Internal Medicine; Visit Provider Internal Medicine
DX: Z12.5 Encounter for screening for malignant neoplasm of prostate (principal); E11.9 Type 2 diabetes mellitus without complications; E88.810 Metabolic syndrome; I10 Essential (primary) hypertension; E66.9 Obesity, unspecified; Z13.220 Encounter for screening for lipoid disorders; E55.9 Vitamin D deficiency, unspecified
CPT/HCPCS: 36415; 80053; 80061; 82306; 83036; 84443; 85025

== ENCOUNTER 2023-10-29 05:29 | Day surgery (SDC) | payer OTHER, SELFPAY ==
[2023-10-29] VITALS (8 sets, daily range): BP systolic 85–131; BP diastolic 64–82; PULSE 55–77; RESP 14–16; TEMP 36.1–36.8; O2SAT 93–96; BMI 33.7
--- NOTE | 2023-10-29 | COLBX_PTH ---
PATIENT: ARTEM MCDERMOTT LOC: EN U#:[id number] AGE/SX: 58/M ROOM: RE10/29/[address]: Dr. Nathan Ritchie MD : 1965 BED: DIS: 10/29/2023 SPEC #: [id number] RECD: 10/29/23 13:46 STATUS: AYDEE RETim #: [id number] CHARLES: 10/29/23 00:[address]: Nathan Ritchie DEPT: SURGICAL PATHOLOGY RECD BY: Aries Betancur ENTERED: 10/29/23 13:46 SP TYPE: COLON BX OTHR DR: Dr. Debora Orourke MD Tissues: Rectum, NOS Procedures: Surgery Specimen Level IV HEADER OPERATION: Colonoscopy with biopsy PRE-OP DIAGNOSIS: Encounter for screening for malignant neoplasm of colon TISSUE SUBMITTED: Rectal biopsy MICROSCOPIC DIAGNOSIS Rectal biopsy: Fragments of anorectal mucosa with focal congestion, hemorrhage and nonspecific chronic inflammation. SJ/ 11/01/2023 MICROSCOPIC DESCRIPTION Slides are reviewed. GROSS DESCRIPTION Received in fixative is one container labeled with the patient's name and designated Rectal biopsy. The specimen consists of multiple irregular fragments of light glasgow soft tissue that in aggregate measure 0.6 x 0.3 x 0.1 cm. The specimen is totally submitted in one cassette. / 10/29/2023 TC:5 CPT:97499
--- NOTE | 2023-10-29 05:53 | HP.PCM_ITS ---
[facility] - General General Date of Service: 10/29/23 HPI Narrative ARTEM MCDERMOTT, is a 58 M who presents for surveillance colonoscopy. History of rectal cancer April 2020. Most recent colonoscopy October 16, 2022. He had a 5 mm polyp at the splenic flexure at that time. He presents for an open access. He has no specific concerns or complaints at this time.He enjoys good health and has had no recent hospitalizations. [facility] Medical History Chewing tobacco nicotine dependence Wears glasses Loose, teeth Back pain 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, secondary SOPHIE (obstructive sleep apnea) CPAP (continuous positive airway pressure) dependence Plantar fasciitis, bilateral Rectal cancer Rectal bleeding Diastasis recti Umbilical hernia without obstruction and without gangrene Screening for malignant neoplasm of intestine Osteoarthritis Hypertension Obesity (BMI 30-39.9) Back pain Knee pain Home Medications ?Medication ?Instructions ?Recorded ?Last Taken ?Type loratadine 10 mg capsule 10 mg PO DAILY 04/30/20 10/28/23 History lactobacillus combination no.9 4 4,000 mmu cells PO DAILY 08/08/20 10/28/23 History billion cell capsule (Adult 50 Plus Probiotic) cholecalciferol (vitamin D3) 50 50 mcg PO DAILY 08/28/21 10/28/23 History mcg (2,000 unit) capsule aspirin 81 mg tablet,delayed 81 mg PO DAILY 02/26/22 10/26/23 History release (Adult Low Dose Aspirin) lisinopril 20 mg tablet 20 mg PO BID #180 tabs 11/25/22 10/28/23 Rx metformin 1,000 mg tablet 1,000 mg PO BID #180 tabs 06/17/23 10/27/23 Rx Allergy/AdvReac Type Severity Reaction Status Date / Time No Known Allergies Allergy Verified 10/29/23 05:49 Family History Brother Dementia Hypertension Father Hypertension Mother Hypertension Daughter Diabetes Surgical History History of colonoscopy (~05/2020) History of tonsillectomy Broken wrist Social History Smoking Status: Never smoker Tobacco: How many years used: 35 Smokeless tobacco user: chewing tobacco second hand exposure: No alcohol intake: never substance use type: does not use caffeine: Yes Type: coffee eating out: 1-3 times/week seatbelt use: always do you feel safe at home: Yes ROS Constitutional Constitutional: Reports systems reviewed and no addt'l complaints, except as documented Cardiovascular Cardiovascular: Denies chest pain Respiratory/Chest Respiratory/Chest: Denies shortness of breath at rest Gastrointestinal Gastrointestinal: Denies abdominal pain, change in bowel habits, hematochezia or melena Vital Signs Vital Signs Vital Signs: 10/29/23 05:51 Respiratory Pattern Normal Physical Exam Const alert, oriented x3 and no apparent distress General Appearance: cooperative and comfortable Eyes General Eye: normal appearance of both eyes Neck General: normal visual inspection Chest inspection of chest normal Resp Effort and Inspection: able to speak in complete sentences and symmetric chest movement Auscultation: clear to auscultation bilaterally Cardio regular rate and regular rhythm GI soft to palpation, non-tender and non-distended Extremity no calf tenderness Neuro oriented x3 Psych thought process normal Assessment & Plan Assessment/Plan (1) Encounter for screening for malignant neoplasm of colon: PLAN: The patient presents via open access today for surveillance colonoscopy. He is aware of the technique, benefit, risk and alternatives. Has had an opportunity to ask and have questions answered. We will proceed as noted. Nathan Ritchie M.D., F.A.C.S.
[2023-10-29] MEDS: Lactated Ringers 1,000 ML 15 ML IV (06:01)
--- NOTE | 2023-10-29 06:19 | PCM.PRE.AN2 ---
ASA Classification* ASA Classification ASA Classification: 2 Assessment & Plan Anesthesia* Anesthesia Assessment Anesthesia Assessment: Discussed sedation and/or anesthesia options, risks, benefits, and alternatives with patient/parents/legal guardian/POA. Questions invited. The patient/parents/legal guardian/POA seems to understand and agrees to proceed with anesthesia plan. Reviewed the physical assessment, medical history, allergy history and patient home medications list prior to surgery/procedure/anesthetic and documented any changes. Performed airway and anesthesia risk assessments. Anesthesia Type Anesthesia Type: MAC History Source History Obtained from:: Patient and Chart Anesthesia Focused Assessment* Temperature: 97.0 F Pulse Rate: 55 Blood Pressure: 131/82 Respiratory Rate: 16 Pulse Ox: 93 Airway Assessment Mouth opens: >3 cm Mallampati Score: II Teeth Condition: Intact Neck Range of motion (ROM): Full ROM Focused Labs Anesthesia Preop lab: CBC WBC 8.6 K/mm3 (4.4-11.0) 10/09/23 09:22 RBC 5.72 M/mm3 (4.6-6.2) 10/09/23 09:22 Hgb 16.1 g/dL (13.0-16.5) 10/09/23 09:22 Hct 49.6 % (40-54) 10/09/23 09:22 Plt Count 242 K/mm3 (150-450) 10/09/23 09:22 CHEMISTRY Potassium 4.2 mmol/L (3.5-5.1) 10/09/23 09:22 Sodium 140 mmol/L (136-145) 10/09/23 09:22 BUN 24 mg/dL (7-18) H 10/09/23 09:22 Creatinine 1.29 mg/dL (0.70-1.30) 10/09/23 09:22 Glucose 118 mg/dL (74-106) H 10/09/23 09:22 TSH 1.89 uIU/mL (0.358-3.74) 10/09/23 09:22 COAG Pre-Assessment Diagnosis/Proposed Procedure Planned Operative Procedure(s): CSCOPE Anesthesia History Anesthesia History - home demonstration agent: Anesthesia History - home demonstration agent Hx Hospitalization No 10/27/23 10:22 Any Problems With Anesthesia No 10/27/23 10:22 Cholinesterase deficiency No 10/27/23 10:22 You/Your Family Experience No 10/27/23 10:22 fever (hyperthermia) with Relationship Recent Exposure to Contagious No 10/29/23 05:51 Disease Does patient have nerve No 10/27/23 10:22 stimulator Patient instructed to have device shut off --Does patient have Pacemaker No 10/29/23 05:53 or ICD? When Was Last Pacemaker Check QUESTION #4 FULL TEXT: You/Your Family Experience fever (hyperthermia) with Anesthesia Last Oral Intake Last Oral intake: Last Oral Intake NPO since 02:30 10/29/23 05:53 Meds taken in AM with sips of No 10/29/23 05:53 water? Meds patient instructed to take am of surgery PONV PONV - home demonstration agent: PONV - home demonstration agent Female No 10/27/23 10:22 HX of Motion Sickness No 10/27/23 10:22 HX of N/V After Surgery No 10/27/23 10:22 Non-Smoker Yes 10/27/23 10:22 Duration of Surgery greater No 10/27/23 10:22 than 60 minutes Number of Risk Factors 1 10/27/23 10:22 PONV Score Low Risk 10/27/23 10:22 Height & Weight Height & Weight: Anesthesia: Height & Weight Height 5 ft 11 in 10/29/23 05:53 Weight: 109.86 kg 10/29/23 05:53 Body Mass Index (BMI) 33.7 10/29/23 05:53 Respiratory Assessment Respiratory Assessment - home demonstration agent: Respiratory Tract Infection Hx - home demonstration agent Hx Respiratory Tract Infection No 10/27/23 10:22 STOP Sleep Apnea STOP Sleep Apnea - home demonstration agent: STOP Sleep Apnea - home demonstration agent Hx Hypertension Yes: CONTROLLED WITH MED 10/27/23 10:22 Hx Sleep Apnea Yes 10/27/23 10:22 CPAP Yes: NONCOMPLIANT 10/27/23 10:22 BIPAP No 10/27/23 10:22 Do you snore loudly (louder than talking or can be heard Do you often feel tired/ fatigued/ sleepy during daytime? Has anyone observed you stop breathing during sleep? STOP Results Positive 10/27/23 10:22 QUESTION #5 FULL TEXT : Do you snore loudly (louder than talking or can be heard through closed doors)? Tobacco Use History Tobacco Use History - home demonstration agent: Tobacco Use History - home demonstration agent Tobacco Use Chew 08/20/20 15:12 Smoking Status Never smoker 10/27/23 10:22 Hx Tobacco Use Yes 10/27/23 10:22 Years Smoking Packs Smoked per Day Smoking Cessation Date was within the last 15 years Hx Smoking Cessation Date Hx Smoking Cessation No 10/27/23 10:22 Counseling Hematologic Medial History Hematologic Hx - home demonstration agent: Hematologic Medical Hx - documentation manager Hx of Blood Transfusion No 10/27/23 10:22 Hx of Transfusion in last 3 No 10/27/23 10:22 Months Date of Last Transfusion (if within last 3 months) Ever experience any problems No 10/27/23 10:22 with transfusion(s)? Specify any problems Hx of Preganancy in last 3 N/A 10/27/23 10:22 Months Nurse Filling Out Transfusion NBUCHER 10/27/23 10:22 & Questions: Date: 10/27/23 10/27/23 10:22 Time: 10:23 10/27/23 10:22 Patient unable to answer at this time (ie. confused, unrespo /Reproduction History /Reproductive History - home demonstration agent: /Reproductive Hx- home demonstration agent Hx Now Gestational Age (in weeks): EDC: Hx Hx Para Hx Section SAB No 10/27/23 10:22 Active Medications Active Medications: Current Medications Generic Name Dose Route Start Last Admin Trade Name Freq PRN Reason Stop Dose Admin Lactated Ringer's 1,000 mls @ 15 mls/hr 10/29/23 05:45 10/29/23 06:01 IV 15 mls/hr .Q48H SILVANA Administration PFSH Medical History Chewing tobacco nicotine dependence Wears glasses Loose, teeth Back pain 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, secondary SOPHIE (obstructive sleep apnea) CPAP (continuous positive airway pressure) dependence Plantar fasciitis, bilateral Rectal cancer Rectal bleeding Diastasis recti Umbilical hernia without obstruction and without gangrene Screening for malignant neoplasm of intestine Osteoarthritis Hypertension Obesity (BMI 30-39.9) Back pain Knee pain Home Medications ?Medication ?Instructions ?Recorded ?Last Taken ?Type loratadine 10 mg capsule 10 mg PO DAILY 04/30/20 10/28/23 History lactobacillus combination no.9 4 4,000 mmu cells PO DAILY 08/08/20 10/28/23 History billion cell capsule (Adult 50 Plus Probiotic) cholecalciferol (vitamin D3) 50 50 mcg PO DAILY 08/28/21 10/28/23 History mcg (2,000 unit) capsule aspirin 81 mg tablet,delayed 81 mg PO DAILY 02/26/22 10/26/23 History release (Adult Low Dose Aspirin) lisinopril 20 mg tablet 20 mg PO BID #180 tabs 11/25/22 10/28/23 Rx metformin 1,000 mg tablet 1,000 mg PO BID #180 tabs 06/17/23 10/27/23 Rx Allergy/AdvReac Type Severity Reaction Status Date / Time No Known Allergies Allergy Verified 10/29/23 05:49 Family History Brother Dementia Hypertension Father Hypertension Mother Hypertension Daughter Diabetes Surgical History History of colonoscopy (~05/2020) History of tonsillectomy Broken wrist Social History Smoking Status: Never smoker Tobacco: How many years used: 35 Smokeless tobacco user: chewing tobacco second hand exposure: No alcohol intake: never substance use type: does not use caffeine: Yes Type: coffee eating out: 1-3 times/week seatbelt use: always do you feel safe at home: Yes Review of Systems (Anesthesia) ROS Narrative System reviewed and no additional complaints, except as documented.
--- NOTE | 2023-10-29 06:29 | PCM.PRE.AN2 ---
ASA Classification* ASA Classification ASA Classification: 3 Assessment & Plan Anesthesia* Anesthesia Assessment Anesthesia Assessment: Discussed sedation and/or anesthesia options, risks, benefits, and alternatives with patient/parents/legal guardian/POA. Questions invited. The patient/parents/legal guardian/POA seems to understand and agrees to proceed with anesthesia plan. Reviewed the physical assessment, medical history, allergy history and patient home medications list prior to surgery/procedure/anesthetic and documented any changes. Performed airway and anesthesia risk assessments. Anesthesia Type Anesthesia Type: MAC Anesthesia Focused Assessment* Temperature: 97.0 F Pulse Rate: 55 Blood Pressure: 131/82 Respiratory Rate: 16 Pulse Ox: 93 Airway Assessment Mouth opens: >3 cm Mallampati Score: II Focused Labs Anesthesia Preop lab: CBC WBC 8.6 K/mm3 (4.4-11.0) 10/09/23 09:22 RBC 5.72 M/mm3 (4.6-6.2) 10/09/23 09:22 Hgb 16.1 g/dL (13.0-16.5) 10/09/23 09:22 Hct 49.6 % (40-54) 10/09/23 09:22 Plt Count 242 K/mm3 (150-450) 10/09/23 09:22 CHEMISTRY Potassium 4.2 mmol/L (3.5-5.1) 10/09/23 09:22 Sodium 140 mmol/L (136-145) 10/09/23 09:22 BUN 24 mg/dL (7-18) H 10/09/23 09:22 Creatinine 1.29 mg/dL (0.70-1.30) 10/09/23 09:22 Glucose 118 mg/dL (74-106) H 10/09/23 09:22 TSH 1.89 uIU/mL (0.358-3.74) 10/09/23 09:22 COAG Pre-Assessment Diagnosis/Proposed Procedure Planned Operative Procedure(s): CSCOPE Anesthesia History 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 When Was Last Pacemaker Check QUESTION #4 FULL TEXT: You/Your Family Experience fever (hyperthermia) with Anesthesia Last Oral Intake Last Oral intake: Last Oral Intake NPO since 02:30 10/29/23 05:53 Meds taken in AM with sips of No 10/29/23 05:53 water? Meds patient instructed to take am of surgery PONV PONV - seafood processor: PONV - seafood processor Female No 10/27/23 10:22 HX of Motion Sickness No 10/27/23 10:22 HX of N/V After Surgery No 10/27/23 10:22 Non-Smoker Yes 10/27/23 10:22 Duration of Surgery greater No 10/27/23 10:22 than 60 minutes Number of Risk Factors 1 10/27/23 10:22 PONV Score Low Risk 10/27/23 10:22 Height & Weight Height & Weight: Anesthesia: Height & Weight Height 5 ft 11 in 10/29/23 05:53 Weight: 109.86 kg 10/29/23 05:53 Body Mass Index (BMI) 33.7 10/29/23 05:53 Respiratory Assessment Respiratory Assessment - seafood processor: Respiratory Tract Infection Hx - seafood processor Hx Respiratory Tract Infection No 10/27/23 10:22 STOP Sleep Apnea STOP Sleep Apnea - seafood processor: STOP Sleep Apnea - seafood processor Hx Hypertension Yes: CONTROLLED WITH MED 10/27/23 10:22 Hx Sleep Apnea Yes 10/27/23 10:22 CPAP Yes: NONCOMPLIANT 10/27/23 10:22 BIPAP No 10/27/23 10:22 Do you snore loudly (louder than talking or can be heard Do you often feel tired/ fatigued/ sleepy during daytime? Has anyone observed you stop breathing during sleep? STOP Results Positive 10/27/23 10:22 QUESTION #5 FULL TEXT : Do you snore loudly (louder than talking or can be heard through closed doors)? 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 Specify any problems Hx of Preganancy in last 3 N/A 10/27/23 10:22 Months Nurse Filling Out Transfusion NBUCHER 10/27/23 10:22 & Questions: Date: 10/27/23 10/27/23 10:22 Time: 10:23 10/27/23 10:22 Patient unable to answer at this time (ie. confused, unrespo /Reproduction History /Reproductive History - seafood processor: /Reproductive Hx- seafood processor Hx Now Gestational Age (in weeks): EDC: Hx Hx Para Hx Section SAB No 10/27/23 10:22 Active Medications Active Medications: Current Medications Generic Name Dose Route Start Last Admin Trade Name Freq PRN Reason Stop Dose Admin Lactated Ringer's 1,000 mls @ 15 mls/hr 10/29/23 05:45 10/29/23 06:01 IV 15 mls/hr .Q48H SILVANA Administration PFSH Medical History Chewing tobacco nicotine dependence Wears glasses Loose, teeth Back pain 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, secondary SOPHIE (obstructive sleep apnea) CPAP (continuous positive airway pressure) dependence Plantar fasciitis, bilateral Rectal cancer Rectal bleeding Diastasis recti Umbilical hernia without obstruction and without gangrene Screening for malignant neoplasm of intestine Osteoarthritis Hypertension Obesity (BMI 30-39.9) Back pain Knee pain Home Medications ?Medication ?Instructions ?Recorded ?Last Taken ?Type loratadine 10 mg capsule 10 mg PO DAILY 04/30/20 10/28/23 History lactobacillus combination no.9 4 4,000 mmu cells PO DAILY 08/08/20 10/28/23 History billion cell capsule (Adult 50 Plus Probiotic) cholecalciferol (vitamin D3) 50 50 mcg PO DAILY 08/28/21 10/28/23 History mcg (2,000 unit) capsule aspirin 81 mg tablet,delayed 81 mg PO DAILY 02/26/22 10/26/23 History release (Adult Low Dose Aspirin) lisinopril 20 mg tablet 20 mg PO BID #180 tabs 11/25/22 10/28/23 Rx metformin 1,000 mg tablet 1,000 mg PO BID #180 tabs 06/17/23 10/27/23 Rx Allergy/AdvReac Type Severity Reaction Status Date / Time No Known Allergies Allergy Verified 10/29/23 05:49 Family History Brother Dementia Hypertension Father Hypertension Mother Hypertension Daughter Diabetes Surgical History History of colonoscopy (~05/2020) History of tonsillectomy Broken wrist Social History Smoking Status: Never smoker Tobacco: How many years used: 35 Smokeless tobacco user: chewing tobacco second hand exposure: No alcohol intake: never substance use type: does not use caffeine: Yes Type: coffee eating out: 1-3 times/week seatbelt use: always do you feel safe at home: Yes Review of Systems (Anesthesia) ROS Narrative System reviewed and no additional complaints, except as documented.
--- NOTE | 2023-10-29 06:57 | OP.COLON_ITS ---
Patient Name: Gigi Cook Procedure Date: 10/29/2023 6:19 AM Date of : 1965 Age: 58 Procedure: Colonoscopy Indications: High risk colon cancer surveillance: Personal history of colon cancer Providers: Nathan Ritchie MD Referring MD: Debora Orourke Medicines: See the Anesthesia note for documentation of the administered medications Patient Profile: Last Colonoscopy: 1 year ago. Complications: No immediate complications. Procedure: Pre-Anesthesia Assessment: - Prior to the procedure, a History and Physical was performed, and patient medications and allergies were reviewed. The patient's tolerance of previous anesthesia was also reviewed. The risks and benefits of the procedure and the sedation options and risks were discussed with the patient. All questions were answered, and informed consent was obtained. Prior Anticoagulants: The patient has taken no anticoagulant or antiplatelet agents. ASA Grade Assessment: II - A patient with mild systemic disease. After reviewing the risks and benefits, the patient was deemed in satisfactory condition to undergo the procedure. After I obtained informed consent, the scope was passed under direct vision. Throughout the procedure, the patient's blood pressure, pulse, and oxygen saturations were monitored continuously. The adult colonoscope was introduced through the anus and advanced to the cecum, identified by appendiceal orifice and ileocecal valve. The colonoscopy was performed without difficulty. The patient tolerated the procedure well. The quality of the bowel preparation was good. The ileocecal valve and the appendiceal orifice were photographed. Scope In: 6:35:21 AM Scope Withdrawal Time 0 hours 11 minutes 41 seconds Scope Out: 6:50:58 AM Total Procedure Duration Time 0 hours 15 minutes 37 seconds Findings: The digital rectal exam findings include non-thrombosed external hemorrhoids, non-thrombosed internal hemorrhoids and internal hemorrhoids that prolapse with straining, but spontaneously regress to the resting position (Grade II). Pertinent negatives include normal prostate (size, shape, and consistency). A single diverticulum was found in the sigmoid colon. A localized area of mildly erythematous mucosa was found in the distal rectum. Biopsies were taken with a cold forceps for histology. The exam was otherwise without abnormality. Impression: - Non-thrombosed external hemorrhoids, non-thrombosed internal hemorrhoids and internal hemorrhoids that prolapse with straining, but spontaneously regress to the resting position (Grade II) found on digital rectal exam. - Diverticulosis in the sigmoid colon. - Erythematous mucosa in the distal rectum. Biopsied. Findings suggest mild hemorrhoidal inflamation - The examination was otherwise normal. Recommendation: - Discharge patient to home. - Resume previous diet. - Continue present medications. - Repeat colonoscopy in 3 years for surveillance based on pathology results. - Telephone my office for pathology results in 1 week. Procedure Code(s): --- Professional --- 96970, Colonoscopy, flexible; with biopsy, single or multiple Diagnosis Code(s): --- Professional --- Z85.038, Personal history of other malignant neoplasm of large intestine K64.1, Second degree hemorrhoids K64.4, Residual hemorrhoidal skin tags K62.89, Other specified diseases of anus and rectum K57.30, Diverticulosis of large intestine without perforation or abscess without bleeding CPT copyright 2021 [employer]. All rights reserved. The codes documented in this report are preliminary and upon handstitching machine armhole feller review may be revised to meet current compliance requirements. Nathan Ritchie MD 10/29/2023 6:56:32 AM This report has been signed electronically. Number of Addenda: 0 Note Initiated On: 10/29/2023 6:19 AM
--- NOTE | 2023-10-29 06:57 | OP.CCLET_ITS ---
10/29/2023 Debora Orourke [facility] [address] [place] [address] Re : Colonoscopy procedure for Gigi Cook Dear Dr. Orourke This procedure was performed on Sunday, October 29, 2023. My impressions and recommendations are as follows: Impressions : - Non-thrombosed external hemorrhoids, non-thrombosed internal hemorrhoids and internal hemorrhoids that prolapse with straining, but spontaneously regress to the resting position (Grade II) found on digital rectal exam. - Diverticulosis in the sigmoid colon. - Erythematous mucosa in the distal rectum. Biopsied. Findings suggest mild hemorrhoidal inflamation - The examination was otherwise normal. Recommendations : - Discharge patient to home. - Resume previous diet. - Continue present medications. - Repeat colonoscopy in 3 years for surveillance based on pathology results. - Telephone my office for pathology results in 1 week. My findings are described in the full procedure note, which is enclosed. If I can be of further assistance, please feel free to contact me at Doctor phone number(s): Work: . Sincerely, Nathan Ritchie MD 10/29/2023 6:56:32 AM This report has been signed electronically.
--- NOTE | 2023-10-29 06:59 | PCM.POST.ANE ---
Anesthesia: Postop Eval I Current Vital Signs Temperature: 97.2 F Pulse Rate: 67 Blood Pressure: 85/64 Respiratory Rate: 16 Pulse Ox: 96 Oxygen Delivery Method: Room Air Assessment Airway patent: Yes Spontaneous unlabored respirations: Yes Mental status: Awake and Calm nausea: No Vomiting: No Anesthesia Complication: No Fluid Hydration Crystalloid volume administer (ml): 600 Total IV fluid infused: 600 Progress Note Anesthesia document: Postop Eval 1 completed: Yes
[2023-10-29 07:18] LABS: Bedside Glucose 121 mg/dL (74-106)
--- NOTE | 2023-10-29 07:45 | PCM.POSTANE2 ---
Anesthesia Postop Eval I Sum Postop Eval Completion status Anesthesia document: Postop Eval 1 completed: Yes Anesthesia Postop Eval I Summary Anesthesia Postop Eval I Summary: Anesthesia Postop Eval I: Assessment Summary Airway patent Yes 10/29/23 07:00 [email or web address] Spontaneous unlabored Yes 10/29/23 07:00 [email or web address] respirations Mental status Awake,Calm 10/29/23 07:00 [email or web address] nausea No 10/29/23 07:00 [email or web address] Vomiting No 10/29/23 07:00 [email or web address] Anesthesia Postop Eval I: Fluid Summary Crystalloid volume administer 600 10/29/23 07:00 [email or web address] (ml) Colloids volume administered ( ml) Blood Product volume administered (ml) Total IV fluid infused 600 10/29/23 07:00 [email or web address] Anesthesia Postop Eval I: Summary Notes Anesthesia Complication No 10/29/23 07:00 [email or web address] Anesthesia Complication Comment: Post-operative progress note Anesthesia: Postop Eval II Evaluation Mental status: Awake Pain Level: 0 nausea: No Vomiting: No
== END 2023-10-29 07:34 | disposition home or self-care (01) ==
LOC: EN 05:31 → AC 05:31
PROVIDERS: PCP Internal Medicine; Referring Provider Internal Medicine; Visit Provider Surgery
PROC: 0DJD8ZZ Inspection of Lower Intestinal Tract, Via Natural or Artificial Opening Endoscopic (ICD-10-PCS; CPT 45378; principal; 2023-10-29 06:25)
DX: Z12.11 Encounter for screening for malignant neoplasm of colon (principal); K57.30 Diverticulosis of large intestine without perforation or abscess without bleeding; Z79.82 Long term (current) use of aspirin; Z85.048 Personal history of other malignant neoplasm of rectum, rectosigmoid junction, and anus; K63.5 Polyp of colon; G47.33 Obstructive sleep apnea (adult) (pediatric); Z99.89 Dependence on other enabling machines and devices; I10 Essential (primary) hypertension; Z79.899 Other long term (current) drug therapy; K64.1 Second degree hemorrhoids; K62.89 Other specified diseases of anus and rectum; K64.4 Residual hemorrhoidal skin tags; K64.8 Other hemorrhoids
CPT/HCPCS: 45380; 82962; 88305; J7120; J2405

== ENCOUNTER → 2024-04-21 | Outpatient (CLI) | payer OTHER, SELFPAY | END | disposition home or self-care (01) | PROVIDERS: PCP Internal Medicine; Referring Provider Internal Medicine; Visit Provider Internal Medicine | DX: G47.33 Obstructive sleep apnea (adult) (pediatric) (principal); I10 Essential (primary) hypertension; E66.9 Obesity, unspecified | CPT/HCPCS: 95811 ==

== ENCOUNTER → 2024-09-25 | Outpatient (CLI) | payer OTHER, SELFPAY ==
[2024-09-25 15:31] LABS: Hemoglobin A1c 7.1 % (<=5.6)
== END | disposition home or self-care (01) ==
PROVIDERS: PCP Internal Medicine; Referring Provider Internal Medicine; Visit Provider Internal Medicine
DX: R73.9 Hyperglycemia, unspecified (principal)
CPT/HCPCS: 36415; 83036

== ENCOUNTER 2025-03-02 14:58 | Inpatient (IN) | payer OTHER, SELFPAY ==
[2025-03-02] VITALS (19 sets, daily range): BP systolic 81–94; BP diastolic 50–60; PULSE 66–80; RESP 13–23; TEMP 36.1–36.8; O2SAT 92–98; BMI 33.2; BMI 33.0
--- NOTE | 2025-03-02 15:38 | EDS_ITS ---
HPI History of Present Illness Chief Complaint: Diarrhea Informant: patient Onset/Context/Timing Onset: Days (5) Context: Sudden Onset Timing: Continuous Quality: Dull Location: Lower abdomen Worsened by: Nothing Relieved by: Nothing Narrative Narrative: Patient presents with diarrhea that has been constant for the past 5 days. Patient states it is watery. Patient states he has been having some mild pain in his lower abdomen. Patient states nothing makes it worse and nothing makes it better. Patient denies any recent travel. Patient denies any recent antibiotic use. Patient admits to questionable fever while he was driving. Patient did not take his temperature. Patient was to some mild nausea but denies any vomiting. Patient denies any melena or hematochezia. Patient states he has been feeling weak over the past couple days. [facility] Medical History Chewing tobacco nicotine dependence Wears glasses Loose, teeth Back pain 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, secondary SOPHIE (obstructive sleep apnea) CPAP (continuous positive airway pressure) dependence Plantar fasciitis, bilateral Rectal cancer Rectal bleeding Diastasis recti Umbilical hernia without obstruction and without gangrene Screening for malignant neoplasm of intestine Osteoarthritis Hypertension Obesity (BMI 30-39.9) Back pain Knee pain Home Medications ?Medication ?Instructions ?Recorded ?Last Taken ?Type lactobacillus combination no.9 4 4,000 mmu cells PO DA KENZIE 08/08/20 10/28/23 History billion cell capsule (Adult 50 Plus Probiotic) cholecalciferol (vitamin D3) 50 50 mcg PO DAILY 10/28/23 History mcg (2,000 unit) capsule aspirin 81 mg tablet,delayed 81 mg PO DAILY 02/26/22 0 10/26/23 History release (Adult Low Dose Aspirin) lisinopril 40 mg tablet 40 mg PO QDAY #90 tabs 05/25 Unknown Rx metformin 500 mg tablet 500 mg PO BID #180 tabs 01/04 Unknown Rx loratadine 10 mg capsule 10 mg PO DAILY 12/07/24 Unkn own History semaglutide 1 mg/dose (4 mg/3 mL) 1 mg (0.75 mL) subcu t QWEEK #3 mL 02/08/25 Unknown Rx subcutaneous pen injector ciprofloxacin HCl 500 mg tablet 500 mg PO BID #10 tabs 03/02/25 Unknown Rx Allergy/AdvReac Type Severity Reaction Status Date / Time No Known Allergies Allergy Verified 03/02/25 14:58 Family History Brother Dementia Hypertension Father Hypertension Mother Hypertension Daughter Diabetes Surgical History History of colonoscopy (~05/2020) History of tonsillectomy Broken wrist Social History Smoking Status: Never smoker Tobacco: How many years used: 35 Smokeless tobacco user: chewing tobacco second hand exposure: No alcohol intake: never substance use type: does not use caffeine: Yes Type: coffee eating out: 1-3 times/week seatbelt use: always do you feel safe at home: Yes ROS ROS ED Constitutional Constitutional ED: Denies chills or fever(s) Eyes Eyes: Denies blurry vision or change in vision ENT ENT ED: Denies rhinorrhea or sore throat Cardiovascular Cardiovascular: Denies chest pain or palpitations Respiratory/Chest Respiratory/Chest: Denies cough or dyspnea Gastrointestinal Gastrointestinal: Reports abdominal pain, diarrhea and nausea; Denies melena or vomiting Genitourinary Genitourinary ED: Denies dysuria or hematuria Musculoskeletal Musculoskeletal: Denies back pain or neck pain Integumentary Denies abscess or rash Neurologic Neurologic: Reports weakness; Denies headache(s) Allergic/Immunologic Allergic/Immunologic ED: Denies mouth swelling or urticaria EXAM Physical Exam Const Vital Signs: 03/02/25 14:58 03/02/25 15:41 03/02/25 15:42 Temperature 96.9 F L Temperature Source Temporal Pulse Rate 80 79 Respiratory Rate 18 15 Respiratory Effort Normal Respiratory Pattern Normal Blood Pressure 88/57 L Blood Pressure Mean 67 Pulse Ox 96 98 Oxygen Delivery Method Room Air 03/02/25 15:45 03/02/25 16:00 03/02/25 16:00 Temperature Temperature Source Pulse Rate 73 72 Respiratory Rate 13 23 H Respiratory Effort Respiratory Pattern Blood Pressure 81/60 L 86/55 L 86/55 L Blood Pressure Mean 68 65 65 Pulse Ox 92 Oxygen Delivery Method 03/02/25 16:00 03/02/25 16:15 03/02/25 16:30 Temperature Temperature Source Pulse Rate 75 72 Respiratory Rate 21 H 21 H Respiratory Effort Respiratory Pattern Blood Pressure 86/55 L 85/54 L 82/52 L Blood Pressure Mean 65 64 61 Pulse Ox Oxygen Delivery Method 03/02/25 16:41 Temperature 97.6 F L Temperature Source Oral Pulse Rate 68 Respiratory Rate 22 H Respiratory Effort Respiratory Pattern Blood Pressure 82/52 L Blood Pressure Mean 62 Pulse Ox 93 Oxygen Delivery Method Positive well nourished and well developed Constitutional Narrative: BMI is 33.2. General Appearance ED: well developed and NAD HEENT Reports moist mucous membranes Neck supple and no JVD Resp normal respiratory effort and clear to auscultation bilaterally Cardio regular rate and regular rhythm GI non-distended Palpation: soft and tender LLQ, RLQ and LUQ; Negative for guarding or rebound tenderness present Neuro oriented x3, CN's II-XII intact bilaterally and no sensory deficits noted Sensorium / Orientation: alert Motor Exam: strength 5/5 throughout Psych mental status grossly normal MDM MDM MDM Narrative Medical decision making narrative: Differential diagnosis includes dehydration, electrolyte abnormality, kidney injury, diverticulitis, colitis, diabetic ketoacidosis, urinary tract infection, and viral illness. CBC will be obtained to assess for leukocytosis and anemia. Urinalysis will be obtained to assess for urinary tract infection and hematuria. CT scan of the abdomen and pelvis will be obtained to assess for diverticulitis and colitis. Venous blood gas will be obtained to assess for acidosis. Serum lactate will be obtained to assess for sepsis and lactic acidosis. Serum ketones will be obtained to assess for ketoacidosis. Comprehensive metabolic profile was obtained as an outpatient earlier today. History & Record Review Additional record(s) reviewed:: Prior outpatient record and Prior labs Lab Data Attestation: I reviewed the patient's lab results. Lab results narrative: Comprehensive metabolic profile was reviewed from earlier today. BUN was elevated at 75 and creatinine was elevated at 5.39. CO2 was low at 14.1 and potassium is elevated at 6.0. Glucose was minimally elevated at 128. CBC was reviewed. There is a leukocytosis of 14.7. Hemoglobin slightly elevated at 17.6. Platelets were normal. Serum lactate was reviewed and was normal at 1.1. Beta hydroxybutyrate was reviewed and is minimally elevated at 0.4. Labs: Laboratory Results - last 24 hr 03/02/25 15:40 WBC 14.7 H RBC 6.22 H Hgb 17.6 H Hct 53.7 MCV 86.3 MCH 28.3 MCHC 32.8 RDW Std Deviation 45.7 H RDW Coeff of Timbo 14.8 H Plt Count 319 MPV 9.8 Immature Gran % (Auto) 1.600 H Neut % (Auto) 78.6 H Lymph % (Auto) 9.9 L Lee % (Auto) 7.6 Eos % (Auto) 1.6 Baso % (Auto) 0.7 Absolute Neuts (auto) 11.6 H Absolute Lymphs (auto) 1.46 Nucleated RBC % 0 Lactic Acid 1.1 b-Hydroxybutyric mmol/L 0.4 H ABG Data Attestation: I personally reviewed and interpreted this ABG as follows: Interpretation: Venous blood gas was reviewed. pH was 7.197. pCO2 was 37.8, pO2 was 25.7, bicarb was 14.7, and oxygen saturation was 35.3. This was a venous specimen. ABG results: ABG 03/02/25 16:36 Specimen Type JOSUE Sample Site Not entered VBG pH 7.20 L VBG pO2 26 VBG HCO3 15 L VBG Total CO2 16 L VBG O2 Sat (Calc) 35 L VBG Base Excess -13 L POC Mix VBG pCO2 Pt Tmp 37.8 L O2 Delivery Device Not entered Crit Call To/Read Back Yes Blood Gas Notified Whom ER PHYISICAN Blood Gas Notified Time 16:40:55 Radiography Diagnostic Testing: Clinical Impression(s) from Imaging Studies Abdomen/Pelvis CT 03/02/25 16:00 IMPRESSION: Acute uncomplicated descending colon diverticulitis. Reading Location: [address] scan of the abdomen and pelvis was obtained. There is evidence of diverticulitis in the descending colon. There is no abscess or perforation noted. This was interpreted by the radiologist. I also independently reviewed the images. I did not see any free air or free fluid. EKG Initial EKG: Attestation: I personally reviewed and interpreted this EKG as follows: Interpretation: Sinus Rhythm (70) and No Acute Injury Pattern Comments: EKG was obtained. On my independent interpretation, it showed a normal sinus rhythm with a rate of 70. MI interval, QRS interval, and QTc intervals were all normal. [place] was normal. There are no acute ST or T wave changes. Prior EKG tracings: not available for review Prior: No Prior Treatment and Re-Evaluation :: Patient was given IV fluids. Patient was started on Zosyn. Patient is given calcium, insulin, and glucose. Patient was advised of his findings. Patient was advised of the need for hospitalization. Case was discussed with the hospitalist. He recommended giving the patient 1/3 L of normal saline. He he also recommended giving the patient 2 ampules of bicarb. He will admit the patient to PCU. Patient and spouse understood and were agreeable with the plan. All questions were answered. Critical Care Time Critical Care Time: Yes Critical care time (excluding procedures): 30-74 minutes (34), Including time spent:, Discussing w/Patient &/or Family/Private Investigator, Discussing w/Consultants, Arranging Admission or Transfer and Performing Direct Patient Care at Bedside Discharge Plan Dx/Rx/DC Orders Clinical Impression: Acute kidney injury, Hyperkalemia, Metabolic acidosis, Diverticulitis, Type 2 diabetes mellitus Disposition Disposition: Acute Care Hospital [facility]
[2025-03-02] MEDS: 0.9% Normal Saline (1000mL) 1,000 ML 1000 ML IV ×3 (15:55→19:14)
--- NOTE | 2025-03-02 16:00 | CT_ITS ---
PROCEDURE: ABDOMEN/PELVIS WITHOUT CONT 03/02/2025 REASON FOR EXAM: DIARRHEA TECHNIQUE: Procedure Code: [id number] Modality: CT Procedure: ABDOMEN/PELVIS WITHOUT CONT Noncontrast technique limits evaluation of the abdominal and pelvic viscera. Coronal and Sagittal reconstruction series were provided. One or more dose reduction techniques were used (e.g., Automated exposure control, adjustment of the mA and/or kV according to patient size, use of iterative reconstruction technique). RADIATION DOSE SUMMARY: CTDlvol: 17 mGy DLP: 154 mGycm FINDINGS: The lung bases are clear. The peripheral soft tissues unremarkable. Normal caliber abdominal aorta. No suspicious lymphadenopathy. The liver, gallbladder, pancreas, and adrenals are unremarkable. Right kidney interpolar nonobstructive 3 mm calculus. Descending colon diverticulum with mild associated inflammatory changes compatible with acute uncomplicated descending colon diverticulitis. No evidence of obstruction. Normal caliber appendix. CT/Abdomen/Pelvis without Cont IMPRESSION: Acute uncomplicated descending colon diverticulitis. Reading Location: [id number]
[2025-03-02 16:10] LABS: Hematocrit 53.7 % (40-54); Hemoglobin 17.6 g/dL (13.0-16.5); Immature Granulocytes Count 0.230 X10^3/uL (0.0-0.0); Mean Corp Hgb Conc 32.8 g/dL (32-36); Mean Corpuscular Volume 86.3 fL (80-94); Mean Platelet Vol. 9.8 fl (6.2-12.0); NRBC Flagged by Analyzer 0 % (0-5); Platelet Count 319 K/mm3 (150-450); RBC Distribution Width CV 14.8 % (11.6-14.6); RBC Distribution Width SD 45.7 fl (35.1-43.9); Red Blood Count 6.22 M/mm3 (4.6-6.2); White Blood Count 14.7 K/mm3 (4.4-11.0)
[2025-03-02 16:31] LABS: BETA-HYDROXYBUTYRATE 0.4 mmol/L (0.0-0.3)
[2025-03-02 16:43] LABS: SITE Not entered; VBG BASE EXCESS -13 mmol/L (-1.0-3.5); VBG PO2 26 mmHg (25-40); VBG SO2 35 % (50-70); VBG TCO2 16 mmol/L (23-33)
--- NOTE | 2025-03-02 17:03 | EKG12_ITS ---
Test Reason : Blood Pressure : */* mmHG Vent. Rate : 70 BPM Atrial Rate : 70 BPM P-R Int : 150 ms QRS Dur : 96 ms QT Int : 390 ms P-R-T Axes : 8 -7 19 degrees QTcB Int : 421 ms Normal sinus rhythm Possible Anterior infarct , age undetermined Abnormal ECG Confirmed by ANN MONTENEGRO, MEGAN ([id number]), associate entertainment editor COLEEN MICHAEL ([id number]) on 03/05/2025 1:30:54 PM Referred By: Confirmed By: MEGAN JUAREZ MD
--- NOTE | 2025-03-02 17:27 | HP.PCM.HOS_ITS ---
HPI - General General Date of Admission: 03/02/25 Date of Service: 03/02/25 Chief Complaint: Profuse diarrhea with dehydration and mild abdominal pain HPI Narrative ARTEM MCDERMOTT, is a 59 M who presented to [facility] ED on 03/02/2025 with profuse diarrhea with dehydration and mild abdominal pain. Medical history significant for type 2 diabetes mellitus, diverticulitis, and hypertension. Lives at home with his , has good functional status at baseline. He began having diarrhea on Wednesday. He had roughly 15 bowel movements per day for about 3 days, and it has slowed down to 5-8 small bowel movements over the past few days. Stools have been watery brown appearing, no blood noted. He has developed some lower abdominal pain over the past 1 to 2 days now. Denies any fevers or chills. Has had decreased appetite over this time and has not been drinking much. Has had intermittent nausea but no episodes of vomiting. No recent antibiotics. No history of C. difficile. No recent sick contacts. He has been on Ozempic for type 2 diabetes since June. He did have some abdominal cramping issues when escalated to several months ago so it was backed down to a lower dose. He was then ramped back up to the highest dose about 4 weeks ago now. Denies any abdominal cramping issues or diarrhea until Wednesday. He has been on metformin for over a year now as well. In the ED he was hypotensive to the 80s over 50s, was otherwise in normal sinus rhythm, afebrile and stable on room air at rest. Labs notable for WBC count 14, sodium 134, potassium 6.0, chloride 100, bicarb 14, creatinine 5.39, BUN 75, beta-hydroxybutyrate 0.4. VBG with pH 7.20, pCO2 16. Lactic acid 1.1. CT abdomen pelvis without contrast showed acute uncomplicated descending colon diverticulitis. He was given 3 L IV fluids, IV Zosyn, 2 hours of bicarb and was treated medically for hyperkalemia. Hospitalist was not contacted for admission. I saw the patient at bedside in the ED, was present. Patient was mildly fatigued and flushed appearing but otherwise sitting back comfortably in bed, conversing normally, in no acute distress. Reports very mild lower abdominal pain currently. Last episode of diarrhea was shortly before coming to the ED. Denies any lightheadedness or dizziness. No other acute concerns currently. Will be admitted for further management. [facility] Medical History Chewing tobacco nicotine dependence Wears glasses Loose, teeth Back pain 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, secondary SOPHIE (obstructive sleep apnea) CPAP (continuous positive airway pressure) dependence Plantar fasciitis, bilateral Rectal cancer Rectal bleeding Diastasis recti Umbilical hernia without obstruction and without gangrene Screening for malignant neoplasm of intestine Osteoarthritis Hypertension Obesity (BMI 30-39.9) Back pain Knee pain Home Medications ?Medication ?Instructions ?Recorded ?Last Taken ?Type lactobacillus combination no.9 4 4,000 mmu cells PO DA KENZIE 08/08/20 10/28/23 History billion cell capsule (Adult 50 Plus Probiotic) cholecalciferol (vitamin D3) 50 50 mcg PO DAILY 10/28/23 History mcg (2,000 unit) capsule aspirin 81 mg tablet,delayed 81 mg PO DAILY 02/26/22 0 10/26/23 History release (Adult Low Dose Aspirin) lisinopril 40 mg tablet 40 mg PO QDAY #90 tabs 05/25 Unknown Rx metformin 500 mg tablet 500 mg PO BID #180 tabs 01/04 Unknown Rx loratadine 10 mg capsule 10 mg PO DAILY 12/07/24 Unkn own History semaglutide 1 mg/dose (4 mg/3 mL) 1 mg (0.75 mL) subcu t QWEEK #3 mL 02/08/25 Unknown Rx subcutaneous pen injector ciprofloxacin HCl 500 mg tablet 500 mg PO BID #10 tabs 03/02/25 Unknown Rx Allergy/AdvReac Type Severity Reaction Status Date / Time No Known Allergies Allergy Verified 03/02/25 14:58 Family History Brother Dementia Hypertension Father Hypertension Mother Hypertension Daughter Diabetes Surgical History History of colonoscopy (~05/2020) History of tonsillectomy Broken wrist Social History Smoking Status: Never smoker Tobacco: How many years used: 35 Smokeless tobacco user: chewing tobacco second hand exposure: No alcohol intake: never substance use type: does not use caffeine: Yes Type: coffee eating out: 1-3 times/week seatbelt use: always do you feel safe at home: Yes ROS Constitutional Constitutional: Denies chills, fatigue, fever(s) or weakness Eyes Eyes: Denies change in vision Cardiovascular Cardiovascular: Denies chest pain Respiratory/Chest Respiratory/Chest: Denies shortness of breath at rest Gastrointestinal Gastrointestinal: Reports abdominal pain, diarrhea and loose stools; Denies constipation, hematochezia, melena, nausea or vomiting Genitourinary Genitourinary: Denies dysuria Musculoskeletal Musculoskeletal: Denies arthralgias or myalgias Neurologic Neurologic: Denies dizziness, focal weakness or headache(s) Vital Signs Vital Signs Vital Signs: 03/02/25 14:58 03/02/25 15:41 03/02/25 15:42 Temperature 96.9 F L Temperature Source Temporal Pulse Rate 80 79 Respiratory Rate 18 15 Respiratory Effort Normal Respiratory Pattern Normal Blood Pressure 88/57 L Blood Pressure Mean 67 Pulse Ox 96 98 Oxygen Delivery Method Room Air 03/02/25 15:45 03/02/25 16:00 03/02/25 16:00 Temperature Temperature Source Pulse Rate 73 72 Respiratory Rate 13 23 H Respiratory Effort Respiratory Pattern Blood Pressure 81/60 L 86/55 L 86/55 L Blood Pressure Mean 68 65 65 Pulse Ox 92 Oxygen Delivery Method 03/02/25 16:00 03/02/25 16:15 03/02/25 16:30 Temperature Temperature Source Pulse Rate 75 72 Respiratory Rate 21 H 21 H Respiratory Effort Respiratory Pattern Blood Pressure 86/55 L 85/54 L 82/52 L Blood Pressure Mean 65 64 61 Pulse Ox Oxygen Delivery Method 03/02/25 16:41 Temperature 97.6 F L Temperature Source Oral Pulse Rate 68 Respiratory Rate 22 H Respiratory Effort Respiratory Pattern Blood Pressure 82/52 L Blood Pressure Mean 62 Pulse Ox 93 Oxygen Delivery Method Weight Weight: 107.955 kg Body Mass Index (BMI) 33.2 Physical Exam Const alert, oriented x3 and no apparent distress Constitutional Narrative: Pleasant upper middle-age male, class I obesity, mildly fatigued and flushed appearing, otherwise sitting back fairly comfortably in bed, conversing normally, in no acute distress. General Appearance: cooperative and comfortable HEENT normocephalic, head/scalp atraumatic, hearing grossly normal bilaterally, nasal mucous membranes and turbinates normal and moist oral mucous membranes Eyes PERRL, EOMs intact bilaterally and conjunctivae normal Neck full ROM Chest inspection of chest normal Resp normal respiratory effort, normal air movement, no use of accessory muscles and clear to auscultation bilaterally Cardio regular rate, regular rhythm, no murmurs and peripheral pulses 2+ throughout GI GI Narrative: Mild tenderness to palpation in lower abdomen diffusely. Abdomen otherwise soft and nondistended. Back/Spine normal ROM Extremity normal to inspection, full ROM and no pedal edema Skin no rashes or lesions noted Psych mental status grossly normal Results Lab / Micro Data 03/02/25 15:40 Labs: Laboratory Results - last 24 hr 03/02/25 15:40: WBC 14.7 H, RBC 6.22 H, Hgb 17.6 H, Hct 53.7, MCV 86.3, MCH 28.3, MCHC 32.8, RDW Std Deviation 45.7 H, RDW Coeff of Timbo 14.8 H, Plt Count 319, MPV 9.8, Immature Gran % (Auto) 1.600 H, Neut % (Auto) 78.6 H, Lymph % (Auto) 9.9 L, Nance % (Auto) 7.6, Eos % (Auto) 1.6, Baso % (Auto) 0.7, Absolute Neuts (auto) 11.6 H, Absolute Lymphs (auto) 1.46, Nucleated RBC % 0, Lactic Acid 1.1, b-Hydroxybutyric mmol/L 0.4 H ABG Data ABG results: ABG 03/02/25 16:36 Specimen Type JOSUE Sample Site Not entered VBG pH 7.20 L VBG pO2 26 VBG HCO3 15 L VBG Total CO2 16 L VBG O2 Sat (Calc) 35 L VBG Base Excess -13 L POC Mix VBG pCO2 Pt Tmp 37.8 L O2 Delivery Device Not entered Crit Call To/Read Back Yes Blood Gas Notified Whom ER PHYISICAN Blood Gas Notified Time 16:40:55 Imaging Radiology Impression Abdomen/Pelvis CT 03/02/25 16:00 IMPRESSION: Acute uncomplicated descending colon diverticulitis. Reading Location: [address] Assessment & Plan Assessment/Plan (1) Acute kidney injury: (2) Metabolic acidosis: (3) Hyperkalemia: (4) Diverticulitis: PLAN: Plan Patient is a 59-year-old male who presented to [facility] ED on 03/02/2025 with profuse diarrhea with dehydration and mild abdominal pain. 1. Severe JOE with metabolic acidosis and hyperkalemia ? Admit under inpatient status to PCU. Creatinine 5.39, BUN 75, bicarb 14, anion gap 20, potassium 6.0 on admit. VBG with pH 7.20. Baseline creatinine appears to be around 1.2-1.3. Suspect prerenal due to significant GI losses from diarrhea as below, with hyperkalemia precipitated by home lisinopril. CT abdomen pelvis with no renal or bladder abnormalities noted. Urine studies ordered. Given 3 L of IV fluids, 2 amp of bicarb and treated medically for hyperkalemia in the ED. Will obtain repeat BMP tonight, then again tomorrow morning. Monitor urine output. Hold home lisinopril. Can consider nephrology consult as needed. 2. Diarrhea and abdominal pain, acute uncomplicated diverticulitis ? Patient with profuse diarrhea with approximate 15 stools per day from 02/26- 02/28, has slowed to 5-8 stools daily since then. Stools brown and watery appearing, no dark or blood stools noted. Has had poor p.o. intake but no nausea or vomiting noted. CT abdomen pelvis with acute uncomplicated descending colon diverticulitis. 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 Stool PCR panel negative, C. difficile pending. He was escalated to full dose of Ozempic about 4 weeks prior to admission so I suspect this may be contributing. Follow-up C. difficile testing. Will treat with IV Zosyn for now. 3. Hypotension in setting of essential hypertension ? Patient hypotensive to the 80s over 50s in the ED. Given 3 L of IV fluids with only mild improvement in blood pressure to the 90s over 60s. Patient mentating well and no orthostatic symptoms noted. Will push fluids and can give further IV fluids as needed. Hold home lisinopril. 4. Type 2 diabetes mellitus ? Glucose 128 on admit. A1c 6.9%. Has been on metformin 500 mg twice daily for a little over a year. Has been on Ozempic since June; was escalated to highest dose over the summer but had abdominal cramping, so dose was lowered for a period of time and it was just increased back to highest dose about 4 weeks prior to this admission. Hold metformin and Ozempic. Will treat with sliding scale insulin with meals while inpatient, adjust as needed. 5. History of malignant rectal polyp ? Follows with oncology. 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 He is on surveillance for colon cancer with CEA every 6 months. Had surveillance colonoscopy in October 2023 with no polyps, next colonoscopy planned for 2026. No inpatient needs, continue outpatient follow-up. 6. Tobacco dependence ? Uses chewing tobacco. Nicotine replacement therapy available per patient request. Discussed cessation of discharge. 7. Class I obesity with SOPHIE ? Follows with pulmonology. Continue home PAP therapy at night. BMI 33 on admit, complicates hospital course and care. 8. Chronic secondary polycythemia ? Hemoglobin 17.6 on admit, stable at baseline. Continue home aspirin. DVT prophylaxis: Heparin subcu CODE STATUS: Full code, verified Expected disposition: Home, TBD Total clinical time spent by myself addressing the patient's medical issues, reviewing all the data, and collaborating with patient's care team: 82 minutes. Charges/Coding Visit Charges Inpatient E&M: 40173 Init Hosp L3
[2025-03-02] MEDS: Insulin Lispro 10 UNIT in Syringe 0 ML 6 UNIT IV (18:17)
[2025-03-02] MEDS: Calcium Gluconate IV 3 GM in Syringe 1 EACH IV (18:17)
--- OUTSIDE RECORDS SUMMARY | 2025-03-02 18:24 | XMS RPT_ITS | CCD ---
Author Organization [facility] Care Team Providers Care Percher Name Role Phone JENNIFER MITTAL Unavailable Unavailable JENNIFER MITTAL Unavailable Unavailable JORDYN DRISCOLL Unavailable Unavailable Dr. Debora Orourke Primary Care Provider Dr. Debora Orourke Referring Provider Dr. Gerson Cifuentes Attending Provider Traci Santizo Attending Provider Unavailable Dr. Nathan Ritchie Attending Provider Dr. Nathan Ritchie Other Provider Dr. Debora Orourke Primary Care Provider Dr. Debora Orourke Referring Provider Dr. Gerson Cifuentes Attending Provider Traci Santizo Attending Provider Unavailable Dr. Nathan Ritchie Attending Provider Dr. Nathan Ritchie Other Provider Dr. Debora Orourke Attending Provider Dr. Debora Orourke Attending Provider Dr. Tayo Carvalho Primary Care Provider [phone] Dr. Debora Orourke Primary Care Provider Dr. Debora Orourke Referring Provider Dr. Gerson Cfiuentes Attending Provider Dr. Debora Orourke MD Primary Care Provider Dr. Gerson Cifuentes MD Attending Provider Dr. Nathan Ritchie MD Referring Provider Haven MONTENEGRO, Dr. Cazares Referring Provider Haven MONTENEGRO, Dr. Cazares Attending Provider Genet WELDON-C, Re Attending Provider Haven MONTENEGRO, Dr. Cazares Primary Care Provider Haven MONTENEGRO, Dr. Cazares Attending Provider Haven MONTENEGRO, Dr. Cazares Referring Provider Vane MONTENEGRO, Dr. Nieto Attending Provider Erma MONTENEGRO, Dr. Nathan Kamara Referring Provider Debora Orourke Primary Care Unavailable Gerson Cifuentes Attending Unavailable Debora Orourke Referring Unavailable Haven, Debora Primary Care Unavailable Debora Orourke Attending Unavailable Genet WELDON, Re Attending Unavailable Haven, Debora Primary Care Unavailable Debora Orourke Referring Unavailable Gerson Cifuentes Attending Unavailable Debora Orourke Primary Care Unavailable Nathan Ritchie Referring Unavailable Gerson Cifuentes Attending Unavailable Haven, Debora Primary Care Unavailable Haven, Debora Referring Unavailable Haven, Debora Primary Care Unavailable Debora Orourke Attending Unavailable Haven, Debora Primary Care Unavailable Debora Orourke Attending Unavailable Debora Orourke Referring Unavailable IsckarGerson quintanilla Attending Unavailable Haven, Debora Primary Care Unavailable Haven, Edbora Primary Care Unavailable HavenDebora Attending Unavailable Haven, Debora Referring Unavailable Haven, Debora Referring Unavailable HavenDebora Primary Care Unavailable Debora Orourke Attending Unavailable Medications Current Medications Medication Drug Class(es) Dates Sig (Normalized) Sig (Original) aspirin 81 mg delayed release oral tablet (6 sources) Platelet Aggregation Inhibitor, Nonsteroidal Anti-inflammatory Drug Start: 02-26-2022 Aspirin (Adult Low Dose Aspirin) 81 mg tablet,delayed release (DR/EC) Active 81 mg PO DAILY February 26, 2022 1:00am cholecalciferol 0.05 mg oral capsule (7 sources) Vitamin D Start: 08-28-2021 take 1 capsule by mouth once daily Cholecalciferol (Vitamin D3) 50 mcg (2,000 unit) capsule Active 50 ug PO DAILY August 28, 2021 12:00am Lactobacillus Combination No.9 (Adult 50 Plus Probiotic) 4 billion cell capsule (7 sources) Start: 08-08-2020 take 4 capsules by mouth once daily Lactobacillus Combination No.9 (Adult 50 Plus Probiotic) 4 billion cell capsule Active 4000 NMA PO DAILY August 08, 2020 12:00am administer with a meal Start: 08-08-2020 take 4 capsules by m outh once daily Lactobacillus Combination No.9 (Adult 50 Plus Probiotic) 4 billion cell capsule Active 4000 MMU CELLS PO DAILY August 07, 2020 11:00pm administer with a meal Start: 08-08-2020 take 4 capsules by m outh once daily Lactobacillus Combination No.9 (Adult 50 Plus Probiotic) 4 billion cell capsule Active 4000 MMU CELLS PO DAILY August 08, 2020 12:00am administer with a meal lisinopril 40 mg oral tablet (20 sources) Angiotensin Converting Enzyme Inhibitor Start: 05-25-2024 take 1 tablet by mouth once daily Lisinopril 40 mg tablet Active 40 mg PO daily 90 May 25, 2024 12:37pm Start: 04-18-2020 End: 05-25-2024 take 1 tablet by mouth twice daily Lisinopril 20 mg tablet Discontinued 20 mg PO TWICE A DAY 180 December 06, 2023 3:50pm March 02, 2024 5:44pm Start: 04-08-2020 End: 04-18-2020 take 1 tablet by mouth once daily Lisinopril 20 mg tablet Discontinued 20 mg PO DAILY 30 April 08, 2020 1:00am April 18, 2020 9:00am loratadine 10 mg oral capsule (9 sources) Start: 04-30-2020 End: 12-07-2024 take 1 capsule by mouth once daily Loratadine 10 mg capsule Active 10 mg PO DAILY December 07, 2024 3:52pm metFORMIN hydrochloride 500 mg oral tablet (19 sources) Biguanide Start: 09-18-2024 take 1 tablet by mouth twice daily Metformin 500 mg tablet Active 500 mg PO TWICE A DAY 180 September 18, 2024 9:23am Start: 07-11-2024 End: 09-18-2024 Metformin 1,000 mg tablet Discontinued 500 mg PO TWICE A DAY July 11, 2024 3:28pm September 18, 2024 9:23am Start: 11-24-2022 End: 07-11-2024 take 1 tablet by mouth twice daily Metformin 1,000 mg tablet Discontinued 1000 mg PO TWICE A DAY 180 3 June 17, 2023 5:37pm July 11, 2024 3:28pm Semaglutide (5 sources) Start: 10-16-2024 Semaglutide 1 mg/dose (4 mg/3 mL) pen injector Active 1 mg SC EVERY WEEK 3 October 16, 2024 9:50am Start: 06-26-2024 End: 07-20-2024 Semaglutide 1 mg/dose (4 mg/ 3 mL) pen injector Discontinued 1 mg SC EVERY WEEK 3 June 26, 2024 9:43am July 20, 2024 4:21pm Start: 06-26-2024 End: 07-20-2024 Semaglutide 1 mg/dose (4 mg/ 3 mL) pen injector Discontinued 1 mg SC EVERY WEEK June 26, 2024 9:43am July 20, 2024 4:21pm Completed/Discontinued Medications Medication Drug Class(es) Dates Sig (Normalized) Sig (Original) ciprofloxacin 500 mg oral tablet (7 sources) Quinolone Antimicrobial Start: 08-23-2020 End: 11-27-2020 take 1 tablet by mouth twice daily Ciprofloxacin Hcl (Cipro) 500 mg tablet Discontinued 500 mg PO TWICE A DAY 14 August 23, 2020 12:00am November 27, 2020 2:50pm metroNIDAZOLE 500 mg oral tablet (7 sources) Nitroimidazole Antimicrobial Start: 08-23-2020 End: 11-27-2020 take 1 tablet by mouth three times daily Metronidazole 500 mg tablet Discontinued 500 mg PO THREE TIMES A DAY 21 August 23, 2020 12:00am November 27, 2020 2:50pm Semaglutide (6 sources) Start: 05-25-2024 End: 06-26-2024 Semaglutide (Ozempic) 0.25 mg or 0.5 mg (2 mg/3 mL) pen injector Discontinued 0.5 mg SC EVERY WEEK 3 May 25, 2024 1:01pm June 26, 2024 9:44am for 4 weeks Start: 05-25-2024 End: 06-26-2024 Semaglutide (Ozempic) 0.25 m g or 0.5 mg (2 mg/3 mL) pen injector Discontinued 0.5 mg SC EVERY WEEK 3 May 25, 2024 1:01pm June 26, 2024 9:44am for 4 weeks Start: 03-02-2024 End: 05-25-2024 Semaglutide (Ozempic) 0.25 m g or 0.5 mg (2 mg/3 mL) pen injector Discontinued 0.25 mg SC EVERY WEEK 3 March 02, 2024 1:00am May 25, 2024 1:02pm for 4 weeks Start: 03-02-2024 End: 05-25-2024 Semaglutide (Ozempic) 0.25 m g or 0.5 mg (2 mg/3 mL) pen injector Discontinued 0.25 mg SC EVERY WEEK 3 March 02, 2024 1:00am May 25, 2024 1:02pm for 4 weeks Semaglutide 0.25 mg or 0.5 m g (2 mg/3 mL) pen injector (3 sources) Start: 07-20-2024 End: 10-16-2024 Semaglutide 0.25 mg or 0.5 m g (2 mg/3 mL) pen injector Discontinued 0.5 mg SC EVERY WEEK 3 July 20, 2024 4:20pm October 16, 2024 9:51am Start: 07-20-2024 Semaglutide 0. 25 mg or 0.5 mg (2 mg/3 mL) pen injector Active 0.5 mg SC EVERY WEEK July 20, 2024 4:20pm Problems Active Problems Problem Classification Problem Date Documented Da te Episodic/Chronic Abdominal hernia (7 sources) Umbilical hernia; Translations: [Umbilical hernia without obstruction or gangrene] 04-18-2020 Episodic Cancer of rectum and anus (20 sources) Malignant tumor of rectum; Translations: [Malignant neoplasm of rectum] Onset: 12-20-2024 Chronic Diabetes mellitus without complication (13 sources) Type 2 diabetes mellitus; Translations: [Type 2 diabetes mellitus without complications] Onset: 03-23-2024 11-26-2022 Chronic Diabetes mellitus without complication (9 sources) High hemoglobin A1c level; Translations: [Other abnormal glucose] Onset: 2024 05-29-2020 Episodic Essential hypertension (13 sources) Hypertensive disorder; Translations: [Essential (primary) hypertension] Onset: 03-23-2024 08-20-2020 Chronic Comment on above: CONTROLLED WITH MED Fracture of upper limb (9 sources) Displaced comminuted fracture of shaft of radius, left arm, initial encounter for closed fracture; Translations: [Displaced fracture of left ulna styloid process, initial encounter for closed fracture] Onset: 05-26-2017 05-10-2020 Episodic Gastrointestinal hemorrhage (7 sources) Rectal hemorrhage; Translations: [Hemorrhage of anus and rectum] 04-18-2020 Episodic Nutritional deficiencies (12 sources) Vitamin D deficiency; Translations: [Vitamin D deficiency, unspecified] Onset: 12-20-2024 11-20-2021 Chronic Other connective tissue disease (7 sources) Plantar fasciitis; Translations: [Plantar fascial fibromatosis] 08-08-2020 Episodic Other connective tissue disease (7 sources) Diastasis recti; Translations: [Separation of muscle (nontraumatic), other site] 04-18-2020 Episodic Other hematologic conditions (8 sources) Secondary polycythemia; Translations: [Secondary polycythemia] 05-29-2021 Episodic Comment on above: SOPHIE Other non-traumatic joint disorders (7 sources) Pain in unspecified knee; Translations: [Knee pain] 05-10-2020 Episodic Other nutritional; endocrine; and metabolic disorders (9 sources) Body mass index 30+ - obesity; Translations: [Obesity, unspecified] 05-10-2020 Chronic Other nutritional; endocrine; and metabolic disorders (10 sources) Insulin resistance; Translations: [Metabolic syndrome] 05-22-2022 Chronic Other nutritional; endocrine; and metabolic disorders (2 sources) Metabolic syndrome; Translations: [Dysmetabolic syndrome X] Onset: 12-20-2024 11-25-2022 Chronic Other nutritional; endocrine; and metabolic disorders (3 sources) Obesity, unspecified; Translations: [Obesity, unspecified] Onset: 03-23-2024 11-25-2022 Chronic Other screening for suspected conditions (not mental disorders or infectious disease) (20 sources) Patient encounter status; Translations: [Encounter for screening for malignant neoplasm of colon] Onset: 12-20-2024 09-01-2021 Episodic Residual codes; unclassified (10 sources) Obstructive sleep apnea syndrome; Translations: [Obstructive sleep apnea (adult) (pediatric)] 10-14-2022 Chronic Comment on above: BiPAP 8/5 Residual codes; unclassified (2 sources) Obstructive sleep apnea (adult) (pediatric); Translations: [Obstructive sleep apnea (adult)(pediatric)] Onset: 05-15-2024 Chronic Residual codes; unclassified (1 source) Sleep apnea, unspecified; Translations: [Sleep apnea, unspecified] Onset: 03-23-2024 Chronic Spondylosis; intervertebral disc disorders; other back problems (7 sources) Backache; Translations: [Dorsalgia, unspecified] 08-20-2020 Episodic Comment on above: CHRONIC Unclassified (1 source) Insulin resistance, unspecified; Translations: [Insulin resistance, unspecified] Onset: 03-23-2024 Past or Other Problems Problem Classification Problem Date Documented Da te Episodic/Chronic Other hematologic conditions (6 sources) Secondary polycythemia; Translations: [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, secondary] Onset: 03-23-2024 Episodic Results Test Name Value Interpretation Reference Range Facility Oncology Visit Reporton 12-11 Oncology Visit Report [facility] [address] [address] OFFICE VISIT Date of Service: 12/20/24 1552 MR#: [id number] Acct: [id number] Name: ARTEM MCDERMOTT Rep #: [id number] : 1965 From: Gerson Cifuentes MD Age/Sex: 59/M [place] [facility] [place]: Signed HPI Subjective Date of Service 12/20/24 Chief Complaint Rectal cancer follow-up History of Present Illness 58 YOM with no FH of colon cancer who underwent his first screening colonoscopy 2020 MICROSCOPIC DIAGNOSIS A. Proximal transverse colon polyp, biopsy: Fragments of tubular adenoma. B. Distal transverse colon polyp, biopsy: Fragments of hyperplastic polyp. C. Proximal sigmoid colon polyp, biopsy: Tubular adenoma. D. 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 See comment. E. Rectal polyp base, biopsy: Benign colonic tissue. COMMENT D. Immunohistochemistry ([id number]) supports the above diagnosis. The intramucosal adenocarcinoma measures 3 mm in greatest dimension and is present close to the luminal surface. [facility] Medical History Chewing tobacco nicotine dependence Wears glasses Loose, teeth Back pain 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, secondary SOPHIE (obstructive sleep apnea) CPAP (continuous positive airway pressure) dependence Plantar fasciitis, bilateral Rectal cancer Rectal bleeding Diastasis recti Umbilical hernia without obstruction and without gangrene Screening for malignant neoplasm of intestine Osteoarthritis Hypertension Obesity (BMI 30-39.9) Back pain Knee pain Surgical History History of colonoscopy ( 05/2020) History of tonsillectomy Broken wrist Family History Brother Dementia Hypertension Father Hypertension Mother Hypertension Daughter Diabetes Social History Smoking Status: Never smoker Tobacco: How many years used: 35 Smokeless tobacco user: chewing tobacco second hand exposure: No alcohol intake: never substance use type: does not use caffeine: Yes Type: coffee eating out: 1-3 times/week seatbelt use: always do you feel safe at home: Yes ROS ROS Narrative Started using CPAP almost daily April 2024 Constitutional Constitutional: Reports systems reviewed and no addt'l complaints, except as documented; Denies anorexia, fatigue or fever(s) Eyes Eyes: Reports systems reviewed and no addt'l complaints, except as documented ENT HEENT: Reports systems reviewed and no addt'l complaints, except as documented; Denies headache(s) Cardiovascular Cardiovascular: Reports systems reviewed and no addt'l complaints, except as documented; Denies chest pain with activity or edema Respiratory/Chest Respiratory/Chest: Reports systems reviewed and no addt'l complaints, except as documented; Denies cough or dyspnea on exertion Gastrointestinal Gastrointestinal: Reports systems reviewed and no addt'l complaints, except as documented and other; Denies abdominal pain, change in bowel habits, hematochezia or melena Genitourinary Genitourinary: Reports systems reviewed and no addt'l complaints, except as documented; Denies dysuria Musculoskeletal Musculoskeletal: Reports systems reviewed and no addt'l complaints, except as documented, back pain and other Details: Chronic back pain, has good days and bad days Integumentary Integumentary: Reports systems reviewed and no addt'l complaints, except as documented; Denies rash Neurologic Neurologic: Reports systems reviewed and no addt'l complaints, except as documented; Denies focal weakness Psychiatric Psychiatric: Reports systems reviewed and no addt'l complaints, except as documented Endocrine Endocrinology: Reports systems reviewed and no addt'l complaints, except as documented Hematologic/Lymphatic Hematologic/Lymphatic: Reports systems reviewed and no addt'l complaints, except as documented Allergic/Immunologic Allergic/Immunologic: Reports systems reviewed and no addt'l complaints, except as documented Intake Vital Signs 06/07/24 15:30 12/07/24 15:53 12/20/24 15:54 12/20/24 15:59 Height 5 ft 11 in 5 ft 11 in 5 ft 11 in 5 ft 11 in Weight: 109.826 kg BMI 33.7 BP 131/79 H Blood Pressure Location Lt brachial Position Sitting Respiration 16 Pulse 68 Pulse Source Monitor Temp 98.0 F Temperature Source Temporal Artery Pulse Oximetry (%) 95 Oxygen Delivery Method room air Intake Allergies No Known Allergies Allergy (Verified 12/20/24 15:57) Medications ???Medication ???Instructions ???Recorded ???Confirmed ???Type lactobacillus combination no.9 4 4,000 mmu cells PO (more content not included)... Normal [facility] MR/BMS.Bon 12-07-2024 MR/BMS.IMB [facility] [address] [place] [address] OFFICE VISIT Date of Service: 12/07/24 MR#: [id number] Acct: [id number] Name: ARTEM MCDERMOTT Rep #: [id number] : 1965 Provider: Dr. 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 Accompanied by: Self Is patient in pain?: No Allergies No Known Allergies Allergy (Verified 12/07/24 15:50) Medications ???Medication ???Instructions ???Recorded ???Confirmed ???Type lactobacillus combination no.9 4 4,000 mmu cells PO DAILY 08/08/20 12/07/24 History billion cell capsule (Adult 50 Plus Probiotic) cholecalciferol (vitamin D3) 50 50 mcg PO DAILY 08/28/21 12/07/24 History mcg (2,000 unit) capsule aspirin 81 mg tablet,delayed 81 mg PO DAILY 02/26/22 12/07/24 H istory release (Adult Low Dose Aspirin) lisinopril 40 mg tablet 40 mg PO QDAY #90 tabs 05/25/24 Rx metformin 500 mg tablet 500 mg PO BID #180 tabs 09/18/24 0 12/07/24 Rx semaglutide 1 mg/dose (4 mg/3 mL) 1 mg (0.75 mL) subcut QWEEK #3 mL 10/16/24 12/07/24 Rx subcutaneous pen injector loratadine 10 mg capsule 10 mg PO DAILY 12/07/24 12/07/24 H istory PFSH Medical History Chewing tobacco nicotine dependence Wears glasses Loose, teeth Back pain 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, secondary SOPHIE (obstructive sleep apnea) CPAP (continuous positive airway pressure) dependence Plantar fasciitis, bilateral Rectal cancer Rectal bleeding Diastasis recti Umbilical hernia without obstruction and without gangrene Screening for malignant neoplasm of intestine Osteoarthritis Hypertension Obesity (BMI 30-39.9) Back pain Knee pain Surgical History History of colonoscopy ( 05/2020) History of tonsillectomy Broken wrist Family History Brother Dementia Hypertension Father Hypertension Mother Hypertension Daughter Diabetes Social History Smoking Status: Never smoker Tobacco: How many years used: 35 Smokeless tobacco user: chewing tobacco second hand exposure: No alcohol intake: never substance use type: does not use caffeine: Yes Type: coffee eating out: 1-3 times/week seatbelt use: always do you feel safe at home: Yes HPI HPI Details: ARTEM MCDERMOTT, is a 59 M who presents to the office today for 6-month follow-up, diabetic, insulin resistance, vitamin D deficiency. He also has SOPHIE which is doing much better on CPAP. Hypertension overall stable, doing better. He remains on metformin 500 mg p.o. twice daily, lisinopril 40 mg daily, vitamin D, aspirin for primary prevention and Ozempic, currently at 1 mg. At 1 point, we went through the titration he was doing well but started to have some side effects at 1 mg and we reduced it to 0.5, subsequently able to go back to 1. He is noting some constipation symptoms for 2 sometimes up to 3 days postinjection that is getting a bit bothersome. He has lost about 26 pounds. His current A1c is at 7.1. He continues to be largely eating a good high-quality diet. Recently had a trip, and on the road was not eating as well he states but generally speaking he eats adequate fruits and vegetables now and is feeling much better, particularly in terms of the waist, and has improved a number of sizes down to a 36. No other concerns right now. Review of systems per chart. Physical exam. Vital signs on chart. No cervical or supraclavicular lymph nodes enlarged or tender. No clear thyromegaly. No thyroid nodules readily palpable. Lungs are without wheeze, rhonchi, rales. No E/A changes are heard. Heart is regular. Not tachycardic. No clear murmur, rub, or gallop is identified. The abdomen is soft. Bowel sounds are present. Nontender nondistended abdomen. N ROS Const Constitutional: No body ache, chills, excessive sweating, fatigue, fever(s), frequent falls, headache(s), snoring, weakness or change in appetite Eyes Eyes: No blurry vision, change in vision, eye pain or Light sensitivity ENT ENT: No abnormal hearing, ear or mastoid pain, tinnitu (more content not included)... Normal [facility] Carcinoembryonic Antigenon 0 12-06-2024 CEA 1.9 ng/mL Normal 0.0-4.7 [facility] Comment on above: Result Comment: Nons mokers <3.9 Smokers <5.6 [facility] Electrochemiluminescence Immunoassay (ECLIA) Values obtained with different assay methods or kits cannot be used interchangeably. Results cannot be interpreted as absolute evidence of the presence or absence of malignant disease. Performed at: [facility] [id number] Tableau Report Developer: Esteban Page PhD, Phone: [phone] Performed By: #### L 3100.8638, L500.5260, L100.0100 #### [facility] [address] [place], [address] Absolute lymphocyte countOrd ered By: Gerson Cifuentes on 12-04-2024 Lymphocytes Auto (Unsp spec) [#/Vol] 1.67 10*3/uL 0.83-4.51 [facility] Absolute neutrophil countOrd ered By: Gerson Cifuentes on 12-04-2024 Neutrophils (Bld) [#/Vol] 7.5 10*3/uL 2.0-7.7 [facility] Anion gap in Serum or Plasma Ordered By: Gerson Cifuentes on 12-04-2024 Anion gap [Moles/Vol] 15 mmol/L 5-15 [facility] Automated lymphocyte count a s percentage of total leukocytesOrdered By: Gerson Cifuentes on 12-04-2024 Lymphocytes/100 WBC Auto (Unsp spec) 16.4 % Low 19-41 [facility] BUN/creatinine ratioOrdered By: Gerson Cifuentes on 12-04-2024 Urea nitrogen/Creatinine [Mass ratio] 16.8 mg/mg 10-20 [facility] Basophil percentageOrdered B y: Gerson Cifuentes on 12-04-2024 Basophils/100 WBC (Bld) 0.4 % 0-1 [facility] Bilirubin, totalOrdered By: Gerson Cifuentes on 12-04-2024 Bilirubin [Mass/Vol] 0.36 mg/dL 0.00-1.30 [facility] CBC W/Diff, Automatedon 11-11 Absolute Lymph 1.67 X10 3/uL Normal 0.83-4.51 [facility] Comment on above: Performed By: #### L 3100.2300, L500.4050, L100.0100 #### [facility] [address] [place], [address] Absolute Neut 7.5 X10 3/uL Normal 2.0-7.7 [facility] Comment on above: Performed By: #### L 3100.2300, L500.4050, L100.0100 #### [facility] [address] [place], [address] Basophils/100 WBC (Bld) 0.4 % Normal 0-1 [facility] Comment on above: Performed By: #### L 3100.2300, L500.4050, L100.0100 #### [facility] [address] [place], [address] Eosinophils/100 WBC (Bld) 2.3 % Normal 0-5 [facility] Comment on above: Performed By: #### L 3100.2300, L500.4050, L100.0100 #### [facility] [address] [place], [address] Erythrocyte distribution width (RBC) [Ratio] 14.3 % Normal 11.6-14.6 [facility] Comment on above: Performed By: #### L 3100.2300, L500.4050, L100.0100 #### [facility] [address] [place], [address] Hematocrit (Bld) [Volume fraction] 50.5 % Normal 40-54 [facility] Comment on above: Performed By: #### L 3100.2300, L500.4050, L100.0100 #### [facility] [address] [place], [address] Hemoglobin (Bld) [Mass/Vol] 17.1 g/dL High 13.0-16.5 [facility] Comment on above: Performed By: #### L 3100.2300, L500.4050, L100.0100 #### [facility] [address] [place], [address] IG% 0.600 Normal 0.0-0.9 [facility] Comment on above: Result Comment: IG% - Immature Granulocytes (promyelocytes, myelocytes and metamyelocytes) > 1% indicates that a LEFT SHIFT is Present. Performed By: #### L 3100.2300, L500.4050, L100.0100 #### [facility] [address] [place], [address] Lymphocytes/100 WBC (Bld) 16.4 % Low 19-41 [facility] Comment on above: Performed By: #### L 3100.2300, L500.4050, L100.0100 #### [facility] [address] [place], [address] MCH (RBC) [Entitic mass] 28.4 pg Normal 27.0-32.0 [facility] Comment on above: Performed By: #### L 3100.2300, L500.4050, L100.0100 #### [facility] [address] [place], [address] MCHC (RBC) [Mass/Vol] 33.9 g/dL Normal 32-36 [facility] Comment on above: Performed By: #### L 3100.2300, L500.4050, L100.0100 #### [facility] [address] [place], [address] MCV (RBC) [Entitic vol] 83.9 fL Normal 80-94 [facility] Comment on above: Performed By: #### L 3100.2300, L500.4050, L100.0100 #### [facility] [address] [place], [address] Monocytes/100 WBC (Bld) 7.3 % Normal 0-10 [facility] Comment on above: Performed By: #### L 3100.2300, L500.4050, L100.0100 #### [facility] [address] [place], [address] Neutrophils/100 WBC (Bld) 73.0 % High 47-70 [facility] Comment on above: Performed By: #### L 3100.2300, L500.4050, L100.0100 #### [facility] [address] [place], [address] Nucleated RBC (Bld) [#/Vol] 0 10*3/uL Normal 0-5 [facility] Comment on above: Performed By: #### L 3100.2300, L500.4050, L100.0100 #### [facility] [address] [place], [address] Platelet mean volume (Bld) [Entitic vol] 9.4 fL Normal 6.2-12.0 [facility] Comment on above: Performed By: #### L 3100.2300, L500.4050, L100.0100 #### [facility] [address] [place], [address] Platelets (Bld) [#/Vol] 292 10*3/uL Normal 150-450 [facility] Comment on above: Performed By: #### L 3100.2300, L500.4050, L100.0100 #### [facility] [address] [place], [address] RBC (Bld) [#/Vol] 6.02 10*6/uL Normal 4.6-6.2 [facility] Comment on above: Performed By: #### L 3100.2300, L500.4050, L100.0100 #### [facility] [address] [place], [address] RDW SD 43.4 fl Normal 35.1-43.9 [facility] Comment on above: Performed By: #### L 3100.2300, L500.4050, L100.0100 #### [facility] [address] [place], [address] WBC (Bld) [#/Vol] 10.2 10*3/uL Normal 4.4-11.0 [facility] Comment on above: Performed By: #### L 3100.2300, L500.4050, L100.0100 #### [facility] [address] [place], [address] Calculated very low density lipoprotein (VLDL) cholesterol measurementOrdered By: Debora Orourke on 12-04-2024 Calculated very low density lipoprotein (VLDL) cholesterol measurement 42 mg/dL High 5-40 [facility] Carbon dioxide, total [Moles /volume] in Central venous bloodOrdered By: Gerson Cifuentes on 12-04-2024 CO2 [Moles/Vol] 21.3 mmol/L 21.0-32.0 [facility] Chloride assayOrdered By: Robin Cifuentes on 12-04-2024 Chloride [Moles/Vol] 103 mmol/L 98-108 [facility] Comprehensive Metabolic Prof ilon 12-04-2024 Albumin [Mass/Vol] 4.2 g/dL Normal 3.5-5.0 [facility] Comment on above: Performed By: #### L 3100.2300, L500.4050, L100.0100 #### [facility] [address] [place], [address] Albumin/Globulin [Mass ratio] 1.7 {ratio} Normal 0.9-2.4 [facility] Comment on above: Performed By: #### L 3100.2300, L500.4050, L100.0100 #### [facility] [address] [place], [address] ALK PHOS 81 U/L Normal 40-129 [facility] Comment on above: Performed By: #### L 3100.2300, L500.4050, L100.0100 #### [facility] [address] [place], [address] ALT [Catalytic activity/Vol] 27 U/L Normal <=46 [facility] Comment on above: Performed By: #### L 3100.2300, L500.4050, L100.0100 #### [facility] [address] [place], [address] AST [Catalytic activity/Vol] 26 U/L Normal <=37 [facility] Comment on above: Performed By: #### L 3100.2300, L500.4050, L100.0100 #### [facility] [address] [place], [address] Bilirubin [Mass/Vol] 0.36 mg/dL Normal 0.00-1.30 [facility] Comment on above: Performed By: #### L 3100.2300, L500.4050, L100.0100 #### [facility] [address] [place], [address] BUN/CRE 16.8 RATIO Normal 10-20 [facility] Comment on above: Performed By: #### L 3100.2300, L500.4050, L100.0100 #### [facility] [address] [place], [address] Calcium [Mass/Vol] 9.2 mg/dL Normal 7.6-11.0 [facility] Comment on above: Performed By: #### L 3100.2300, L500.4050, L100.0100 #### [facility] [address] [place], [address] Chloride [Moles/Vol] 103 mmol/L Normal 98-108 [facility] Comment on above: Performed By: #### L 3100.2300, L500.4050, L100.0100 #### [facility] [address] [place], [address] CO2 [Moles/Vol] 21.3 mmol/L Normal 21.0-32.0 [facility] Comment on above: Performed By: #### L 3100.2300, L500.4050, L100.0100 #### [facility] [address] [place], [address] Creatinine [Mass/Vol] 1.20 mg/dL Normal 0.70-1.20 [facility] Comment on above: Performed By: #### L 3100.2300, L500.4050, L100.0100 #### [facility] [address] [place], [address] ECRCL 85.45 ml/min Normal 50-250 [facility] Comment on above: Performed By: #### L 3100.2300, L500.4050, L100.0100 #### [facility] [address] [place], [address] GAP 15 Normal 5-15 [facility] Comment on above: Performed By: #### L 3100.2300, L500.4050, L100.0100 #### [facility] [address] [place], [address] GFR/1.73 sq M.predicted among non-blacks MDRD (S/P/Bld) [Vol rate/Area] 70 mL/min/{1.73_m2} Normal >60 [facility] Comment on above: Result Comment: mL/m in/1.73m2 CKD-EPI Creatinine Equation (2020) Performed By: #### L 3100.2300, L500.4050, L100.0100 #### [facility] [address] [place], [address] Globulin (S) [Mass/Vol] 2.5 g/dL Normal 2.2-4.2 [facility] Comment on above: Performed By: #### L 3100.2300, L500.4050, L100.0100 #### [facility] [address] [place], [address] Glucose [Mass/Vol] 169 mg/dL High 70-99 [facility] Comment on above: Performed By: #### L 3100.2300, L500.4050, L100.0100 #### [facility] [address] [place], [address] Potassium [Moles/Vol] 4.5 mmol/L Normal 3.3-5.1 [facility] Comment on above: Performed By: #### L 3100.2300, L500.4050, L100.0100 #### [facility] [address] [place], [address] Sodium [Moles/Vol] 140 mmol/L Normal 133-145 [facility] Comment on above: Performed By: #### L 3100.2300, L500.4050, L100.0100 #### [facility] [address] [place], [address] T PROT 6.7 g/dL Normal 5.9-8.4 [facility] Comment on above: Performed By: #### L 3100.2300, L500.4050, L100.0100 #### [facility] [address] [place], [address] Urea nitrogen [Mass/Vol] 20 mg/dL High 4-19 [facility] Comment on above: Performed By: #### L 3100.2300, L500.4050, L100.0100 #### [facility] [address] [place], [address] Eosinophil percentageOrdered By: Gerson Cifuentes on 12-04-2024 Eosinophils/100 WBC (Bld) 2.3 % 0-5 [facility] Erythrocyte distribution wid th ratioOrdered By: [facility] on 12-04-2024 Erythrocyte distribution width (RBC) [Ratio] 14.3 % 11.6-14.6 [facility] Erythrocyte distribution wid th standard deviationOrdered By: [facility]ane on 12-04-2024 Erythrocyte distribution width (RBC) [Ratio] 43.4 fl 35.1-43.9 [facility] Glomerular filtration rate ( GFR) estimation/1.73 sq m using serum, plasma, or whole bOrdered By: [facility] on 12-04-2024 GFR/1.73 sq M.predicted among non-blacks MDRD (S/P/Bld) [Vol rate/Area] 70 mL/min/{1.73_m2} >60 [facility] Comment on above: mL/min/1.73m2 CKD-EP I Creatinine Equation (2020) Hematocrit Auto (Bld) [Volum e fraction]Ordered By: Gerson Cifuentes on 12-04-2024 Hematocrit (Bld) [Volume fraction] 50.5 % 40-54 [facility] Hemoglobin A1con 12-04-2024 HbA1c (Bld) [Mass fraction] 7.1 % High <=5.6 [facility] Comment on above: Result Comment: Norm al < 5.7 % Prediabetic 5.7 - 6.4 % Diabetic >or= 6.5 % Please note range changes. Performed By: #### L 3100.2300 #### [facility] [address] [place], [address] Hemoglobin A1c percentageOrd ered By: Debora Orourke on 12-04-2024 HbA1c (Bld) [Mass fraction] 7.1 % High <5.7 [facility] Comment on above: Normal < 5.7 % Predi abetic 5.7 - 6.4 % Diabetic >or= 6.5 % Please note range changes. Hemoglobin measurementOrdere d By: Gerson Cifuentes on 12-04-2024 Hemoglobin (Bld) [Mass/Vol] 17.1 g/dL High 13.0-16.5 [facility] Immature granulocytes/100 WB C Auto (Bld)Ordered By: Gerson Cifuentes on 12-04-2024 Immature granulocytes/100 WBC (Bld) 0.600 % 0.0-0.9 [facility] Comment on above: IG% - Immature Granu locytes (promyelocytes, myelocytes and metamyelocytes) > 1% indicates that a LEFT SHIFT is Present. LDL calc ser/plasOrdered By: Debora Orourke on 12-04-2024 Cholesterol in LDL [Mass/Vol] 106 mg/dL [facility] Comment on above: Jbkbbxtbuj=262-740 m g/dL & Higher Bqvl=622 mg/dL or greaterFriedwald Equation for LDL-C Laboratory - Chemistry and C hemistry - challengeOrdered By: Gerson Cifuentes on 12-04-2024 AST [Catalytic activity/Vol] 26 U/L <38 [facility] Lipid Profileon 12-04-2024 CHOL:HDL 3.66 Normal [facility] Comment on above: Performed By: #### L 500.4100, L501.9985, L501.9910, L506.1001, L501.9520 #### [facility] [address] [place], [address] Cholesterol [Mass/Vol] 204 mg/dL High <=200 [facility] Comment on above: Result Comment: Chol esterol level, Desirable <200 mg/dL Borderline high cholesterol 200-239 mg/dL High cholesterol >=240 mg/dL Recommendations of the NCEP Adult Treatment Panel for the following risk-cutoff thresholds for the [place] population. Performed By: #### L 500.4100, L501.9985, L501.9910, L506.1001, L501.9520 #### [facility] [address] [place], [address] Cholesterol in HDL [Mass/Vol] 56 mg/dL Normal [facility] Comment on above: Result Comment: Thea onal Cholesterol Education Program (NCEP) guidelines: <40 mg/dL: Low HDL-cholesterol (major risk factor for CHD) >= 60 mg/dL: High HDL-cholesterol (negative risk factor for CHD) HDL-cholesterol is affected by a number of factors, e.g. smoking, exercise, hormones, sex and age. Performed By: #### L 500.4100, L501.9985, L501.9910, L506.1001, L501.9520 #### [facility] [address] [place], [address] Cholesterol in LDL [Mass/Vol] 106 mg/dL Normal [facility] Comment on above: Result Comment: Bord pkjifn=596-394 mg/dL Higher Bmhh=842 mg/dL or greater Friedwald Equation for LDL-C Performed By: #### L 500.4100, L501.9985, L501.9910, L506.1001, L501.9520 #### [facility] [address] [place], [address] Cholesterol in VLDL [Mass/Vol] 42 mg/dL High 5-40 [facility] Comment on above: Performed By: #### L 500.4100, L501.9985, L501.9910, L506.1001, L501.9520 #### [facility] [address] [place], [address] Triglyceride [Mass/Vol] 212 mg/dL High [facility] Comment on above: Result Comment: The drugs N-Acetylcysteine and Metamizole may falsely depress this assay. Normal range: <150 mg/dL Borderline High: 150-199 mg/dL High: 200-499 mg/dL Very High: >500 mg/dL Performed By: #### L 500.4100, L501.9985, L501.9910, L506.1001, L501.9520 #### [facility] [address] [place], [address] MCV (mean corpuscular volume ) determinationOrdered By: Andieloyd Cifuentes on 12-04-2024 MCV (RBC) [Entitic vol] 83.9 fL 80-94 [facility] Mean corpuscular hemoglobin (MCH) determinationOrdered By: Andieloyd Cifuentes on 12-04-2024 MCH (RBC) [Entitic mass] 28.4 pg 27.0-32.0 [facility] Mean corpuscular hemoglobin concentration (MCHC) determinationOrdered By: Andieloyd Cifuentes on 12-04-2024 MCHC (RBC) [Mass/Vol] 33.9 g/dL 32-36 [facility] Mean platelet volume determi nationOrdered By: Andieloyd Cifuentes on 12-04-2024 Platelet mean volume (Bld) [Entitic vol] 9.4 fL 6.2-12.0 [facility] Monocyte percentageOrdered B y: Andieloyd Cifuentes on 12-04-2024 Monocytes/100 WBC (Bld) 7.3 % 0-10 [facility] Neutrophil percentageOrdered By: [facility] on 12-04-2024 Neutrophils/100 WBC (Bld) 73.0 % High 47-70 [facility] Nucleated red blood cell per centageOrdered By: [facility] on 12-04-2024 Nucleated RBC/100 WBC (Bld) [Ratio] 0 % 0-5 [facility] PSA,Total - Annual Screenon 12-04-2024 PSA,TOT SCREEN 1.05 ng/mL Normal 0.02-4.00 [facility] Comment on above: Result Comment: This test was performed using the [employer] tPSA method. Measured values of a patient??sample can vary depending on the testing procedure used. PSA values determined on patient samples by different testing procedures cannot be used interchangeably. If there is a change in PSA assays while monitoring therapy, sequential testing should be performed to confirm baseline values. Performed By: #### L 3100.2300 #### [facility] [address] [place], [address] Platelet countOrdered By: Robin Cifuentes on 12-04-2024 Platelets (Bld) [#/Vol] 292 10*3/uL 150-450 [facility] Potassium measurement (mass/ volume)Ordered By: Gerson Cifuentes on 12-04-2024 Potassium (Unsp spec) [Mass/Vol] 4.5 mmol/L 3.3-5.1 [facility] RBC Auto (Bld) [#/Vol]Ordere d By: Gerson Cifuentes on 12-04-2024 RBC (Bld) [#/Vol] 6.02 10*6/uL 4.6-6.2 [facility] Screening total cholesterol/ high density lipoprotein (HDL) cholesterol ratioOrdered By: Debora Orourke on 12-04-2024 Cholesterol.total/Cho lesterol in HDL [Mass ratio] 3.66 {ratio} [facility] Serum creatinine measurement (mass/volume)Ordered By: Gerson Cifuentes on 12-04-2024 Creatinine [Mass/Vol] 1.20 mg/dL 0.70-1.20 [facility] Serum globulin measurementOr dered By: Gerson Cifuentes on 12-04-2024 Globulin (S) [Mass/Vol] 2.5 g/dL 2.2-4.2 [facility] Serum glucose measurement (m ass/volume)Ordered By: Gerson Cifuentes on 12-04-2024 Glucose [Mass/Vol] 169 mg/dL High 70-99 [facility] Serum or plasma alanine rodriguez otransferase (ALT) measurementOrdered By: Gerson Cifuentes on 12-04-2024 ALT [Catalytic activity/Vol] 27 U/L <47 [facility] Serum or plasma albumin ivelisse urement (mass/volume)Ordered By: Gerson Cifuentes on 12-04-2024 Albumin [Mass/Vol] 4.2 g/dL 3.5-5.0 [facility] Serum or plasma albumin/glob ulin mass ratioOrdered By: Gerson Cifuentes on 12-04-2024 Albumin/Globulin [Mass ratio] 1.7 {ratio} 0.9-2.4 [facility] Serum or plasma alkaline ilir sphatase measurementOrdered By: Gerson Cifuentes on 12-04-2024 ALP [Catalytic activity/Vol] 81 U/L 40-129 [facility] Serum or plasma calcium ivelisse urement (mass/volume)Ordered By: Gerson Cifuentes on 12-04-2024 Calcium [Mass/Vol] 9.2 mg/dL 7.6-11.0 [facility] Serum or plasma carcinoembry onic antigen measurement (mass/volume)Ordered By: Gerson Cifuentes on 12-04-2024 Carcinoembryonic Ag [Mass/Vol] 1.9 ng/mL 0.0-4.7 [facility] Comment on above: Nonsmokers <3.9 Smok ers <5.6[employer] Electrochemiluminescence Immunoassay(ECLIA)Values obtained with different assay methods or kitscannot be used interchangeably. Results cannot beinterpreted as absolute evidence of the presence orabsence of malignant disease.Performed at: [facility] [id number] Director: Esteban Page PhD, Phone: [phone] Serum or plasma cholesterol in HDL measurement (mass/volume)Ordered By: Debora Orourke on 12-04-2024 Cholesterol in HDL [Mass/Vol] 56 mg/dL >40 [facility] Comment on above: National Cholesterol Education Program (NCEP) guidelines:<40 mg/dL: Low HDL-cholesterol (major risk factor for CHD)>= 60 mg/dL: High HDL-cholesterol (negative risk factor for CHD)HDL-cholesterol is affected by a number of factors, e.g. smoking, exercise, hormones, sex and age. Serum or plasma cholesterol measurement (mass/volume)Ordered By: Debora Orourke on 12-04-2024 Cholesterol [Mass/Vol] 204 mg/dL High <201 [facility] Comment on above: Cholesterol level, D esirable <200 mg/dLBorderline high cholesterol 200-239 mg/dLHigh cholesterol >=240 mg/dLRecommendations of the NCEP Adult Treatment Panel for the following risk-cutoff thresholds for the [place] population. Serum or plasma urea nitroge n measurement (mass/volume)Ordered By: Gerson Cifuentes on 12-04-2024 Urea nitrogen [Mass/Vol] 20 mg/dL High 4-19 [facility] Sodium levelOrdered By: Andie Cifuentes on 12-04-2024 Sodium [Moles/Vol] 140 mmol/L 133-145 [facility] TSH DL <= 0.005 mIU/L QnOrde red By: Debora Orourke on 12-04-2024 TSH Qn 0.923 uIU/mL 0.300-4.20 0 [facility] Thyroid Stim Hormone (TSH)on 12-04-2024 TSH 0.923 uIU/mL Normal 0.300-4.20 0 [facility] Comment on above: Performed By: #### L 500.4100, L501.9985, L501.9910, L506.1001, L501.9520 #### [facility] [address] [place], [address] Total proteinOrdered By: Kevin Cifuentes on 12-04-2024 Protein [Mass/Vol] 6.7 g/dL 5.9-8.4 [facility] Triglycerides measurementOrd ered By: Debora Orourke on 12-04-2024 Triglyceride [Mass/Vol] 212 mg/dL High <199 [facility] Comment on above: The drugs N-Acetylcy steine and Metamizole may falsely depress this assay. Normal range: <150 mg/dLBorderline High: 150-199 mg/dLHigh: 200-499 mg/dLVery High: >500 mg/dL Vitamin D,25 Hydroxyon 12-04 Vitamin D 25-OH 46.7 ng/mL Normal 30-100 [facility] Comment on above: Result Comment: Danae min D Status Deficiency: <20 ng/mL (50nmol/L) Insufficiency: 20-30 ng/mL (50-75 nmol/L) Sufficiency: 30-100 ng/mL (75-250 nmol/L) Toxicity: >100 ng/mL (>250 nmol/L) Performed By: #### L 3100.2300 #### [facility] [address] [place], [place], [address] White blood cell (WBC) count Ordered By: Gerson Cifuentes on 12-04-2024 WBC (Bld) [#/Vol] 10.2 10*3/uL 4.4-11.0 [facility] Hemoglobin A1con 09-25-2024 HbA1c (Bld) [Mass fraction] 7.1 % High <=5.6 [facility] Comment on above: Result Comment: Norm al < 5.7 % Prediabetic 5.7 - 6.4 % Diabetic >or= 6.5 % Please note range changes. Performed By: #### L 501.9985 #### [facility] [address] [place], [address] Hemoglobin A1c percentageOrd ered By: Debora Orourke on 09-25-2024 HbA1c (Bld) [Mass fraction] 7.1 % High <5.7 [facility] Comment on above: Normal < 5.7 % Predi abetic 5.7 - 6.4 % Diabetic >or= 6.5 % Please note range changes. Pulmonary Visit Reporton Pulmonary Visit Report [facility] [address] [place] [address] OFFICE VISIT Date of Service: 07/11/24 MR#: [id number] Acct: [id number] Name: BALDEMARARTEM OROZCO Rep #: [id number] : 1965 Provider: CHIQUITA De León Age/Sex: 58/M Location: [facility] Status: Signed Assessment and Plan Assessment and Plan (1) SOPHIE (obstructive sleep apnea): Status: Chronic Comment: BiPAP 11/14 Plan: He is using and benefiting from Pap therapy. No indication for titration study at this time. Encourage a minimum of 4 hours nightly, ideally he should wear the BiPAP any time spent sleeping. Contact the office for any new or worsening symptoms in the meantime. Follow-up in March. (2) Obesity (BMI 30-39.9): Status: Chronic Plan: We discussed relationship between obesity and obstructive sleep apnea. Encourage healthy weight loss. He is currently on his semaglutide, with at least a 20% weight loss he may be able to utilize a lower pressure. Ultimately, with enough weight loss he could eliminate his obstructive sleep apnea. (3) Type 2 diabetes mellitus: Status: Chronic Qualifiers: Diabetes mellitus terminal operations supervisor insulin use: without terminal operations supervisor use Diabetes mellitus complication status: without complication Qualified Code(s): E11.9 - Type 2 diabetes mellitus without complications Plan: Better compliance with PAP therapy could have a positive impact on the control of his type 2 diabetes. We discussed the relationship and the office visit today. He conveys understanding. (4) 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, secondary: Status: Chronic Comment: SOPHIE Plan: Monitored by hematology. Better compliance with PAP therapy will have a positive impact on hemoglobin count. (5) Hypertension: Status: Chronic Qualifiers: Hypertension type: primary hypertension Qualified Code(s): I10 - Essential (primary) hypertension Comment: CONTROLLED WITH MED Plan: Complicates exam, plan, care and prognosis. Discussed with the patient that better compliance with PAP therapy will have a positive impact on hypertension, ultimately he could have medications reduced. Plan Details Follow Up: 03/12/25 ([facility]) HPI Sleep concern Chief Complaint: Sleep apnea HPI Comments Details: This patient presents to the office today for initial consultation regarding concern for obstructive sleep apnea. He is ambulatory and currently on room air. The patient reports he was initially diagnosed with obstructive sleep apnea approximately 4 years ago. He was first treated with a CPAP and had a difficult time tolerating it. In April, he was prescribed BiPAP. He reports that he is doing much better acclimating to the BiPAP. He is using a nasal interface. At times, the nasal interface seems to stick to the inside of the nostrils which can be uncomfortable. Overall, he wakes feeling more rested and refreshed. He is not requiring naps. He is not nodding off to sleep unintentionally. He is not snoring through the device. He has about 1 episode of nocturia nightly. He denies any difficulty with morning headaches. 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 He also reports that in the very near future he will be very busy with work and will not be able to follow-up in the office until likely March. He has never been seen by a solar tech. He is a lifelong never smoker. He has never been prescribed an inhaler. Past medical family history is significant for: Mother has hypertension. Father has diabetes type 2, hypertension. His brother 3 years ago of early onset dementia. He has a sister who has had female problems and gallbladder issues. He has 3 daughters, one of them was diagnosed with juvenile diabetes at the age of 9. The other 2 daughters have experience some difficulty with miscarriages due to some genetic gene that my and I both have. He denies any difficulty with shortness of breath. He denies any cough, sputum production or hemoptysis. He denies any wheezing, chest tightness, chest pain or palpitations. He has not had any fever, chills or body aches. Compliance report available for review shows 100% use for the past 30 days with an average use of 4 hours and 34 minutes per night. Current setting is 8/5 cmH2O with residual AHI 1.2 events per hour. Leaks do not appear to be problematic. Intake Vital Signs 03/02/24 15:53 07/11/24 08:55 Height 5 ft 11 in 5 ft 11 in Weight: 248 lb BMI 34.5 BP 142/92 H Blood Pressure Location Lt brachial Position Sitting Respiration 18 Pulse 64 Pulse Source Monitor Temp 97.4 F L Temperature Source Temporal Artery Pulse Oxi (more content not included)... Normal [facility] MR/BMS.[facility] 06-07-2024 MR/BMS.[facility] [address] [place] [address] OFFICE VISIT Date of Service: 06/07/24 MR#: [id number] Acct: [id number] Name: ARTEM MCDERMOTT Rep #: [id number] : 1965 Provider: Dr. 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 Accompanied by: Self Is patient in pain?: No Allergies No Known Allergies Allergy (Verified 06/07/24 16:02) Medications ???Medication ???Instructions ???Recorded ???Confirmed ???Type loratadine 10 mg capsule 10 mg PO DAILY 04/30/20 06/07/24 H istory lactobacillus combination no.9 4 4,000 mmu cells PO DAILY 08/08/20 06/07/24 History billion cell capsule (Adult 50 Plus Probiotic) cholecalciferol (vitamin D3) 50 50 mcg PO DAILY 08/28/21 06/07/24 History mcg (2,000 unit) capsule aspirin 81 mg tablet,delayed 81 mg PO DAILY 02/26/22 06/07/24 H istory release (Adult Low Dose Aspirin) metformin 1,000 mg tablet 1,000 mg PO BID #180 tabs 06/17/23 06/07/24 Rx lisinopril 40 mg tablet 40 mg PO QDAY #90 tabs 05/25/24 Rx semaglutide 0.25 mg or 0.5 mg (2 0.5 mg (0.736 mL) subcut QWEEK #3 05/25/24 06/07/24 Rx mg/3 mL) subcutaneous pen injector mL (Ozempic) [facility] Medical History Chewing tobacco nicotine dependence Wears glasses Loose, teeth Back pain 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, secondary SOPHIE (obstructive sleep apnea) CPAP (continuous positive airway pressure) dependence Plantar fasciitis, bilateral Rectal cancer Rectal bleeding Diastasis recti Umbilical hernia without obstruction and without gangrene Screening for malignant neoplasm of intestine Osteoarthritis Hypertension Obesity (BMI 30-39.9) Back pain Knee pain Surgical History History of colonoscopy ( 05/2020) History of tonsillectomy Broken wrist Family History Brother Dementia Hypertension Father Hypertension Mother Hypertension Daughter Diabetes Social History Smoking Status: Never smoker Tobacco: How many years used: 35 Smokeless tobacco user: chewing tobacco second hand exposure: No alcohol intake: never substance use type: does not use caffeine: Yes Type: coffee eating out: 1-3 times/week seatbelt use: always do you feel safe at home: Yes HPI HPI Chief Complaint: 3 M FU Details: ARTEM MCDERMOTT, is a 58 M who presents to the office today for short-term follow-up, after starting Ozempic. We initially started with 0.25 for a month, now he is on the first dose of the 0.5 regimen. Thus far, no significant difficulties or intolerance has been noted. He is not having any nausea, vomiting. He has noted a little bit of decrease in appetite, and some element of early satiety, feeling of fullness, and overall then eating less. He just notes that for several days, after the dose and then it starts to wane. That was on the low dose. Again thus far just had 1 dose of the 0.5 regimen. We discussed that extensively. The intent is to try and get up to 1 mg after the 0.5 for 1 month. He has appropriate number of syringes. He would update us in 3 weeks on how he is doing with that and we can increase at that point if no difficulties. He has reduced the metformin to 500 mg p.o. twice daily and at this point would likely keep it there for now. He is continuing to do good high-quality diet for the most part. Review of systems per chart. Has noticed some sense of irritability, particularly in the afternoons apparently. Has not caused any issues but he just notes that he gets snappy and irritable at times. He does have a fair amount of stress at work, as well as family, particularly with his aging parents. Apparently has been infrequently reported with Ozempic so it is at least a consideration. Will continue monitoring for now. Physical exam. Vital signs on chart. I have not performed any significant physical exam today. See my previous notes. His this was a visit to follow-up Ozempic started up. ROS Const Constitutional: No body ache, chills, excessive sweating, fatigue, fever(s), frequent falls, headache(s), snoring, weakness or change in appetite Eyes Eyes: No blurry vision, change in vision, eye pain or Light sensitivity (more content not included)... Normal [facility] Oncology Visit Reporton 05-14 Oncology Visit Report [facility] [address] [place] [address] OFFICE VISIT Date of Service: 06/07/24 1525 MR#: [id number] Acct: [id number] Name: ARTEM MCDERMOTT Rep #: [id number] : 1965 From: Gerson Cifuentes MD Age/Sex: 58/M [place] [facility]: Signed HPI Subjective Date of Service 06/07/24 Chief Complaint Rectal cancer follow-up History of Present Illness 58 YOM with no FH of colon cancer who underwent his first screening colonoscopy 2020 MICROSCOPIC DIAGNOSIS A. Proximal transverse colon polyp, biopsy: Fragments of tubular adenoma. B. Distal transverse colon polyp, biopsy: Fragments of hyperplastic polyp. C. Proximal sigmoid colon polyp, biopsy: Tubular adenoma. D. 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 See comment. E. Rectal polyp base, biopsy: Benign colonic tissue. COMMENT D. Immunohistochemistry ([id number]) supports the above diagnosis. The intramucosal adenocarcinoma measures 3 mm in greatest dimension and is present close to the luminal surface. [facility] Medical History Chewing tobacco nicotine dependence Wears glasses Loose, teeth Back pain 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, secondary SOPHIE (obstructive sleep apnea) CPAP (continuous positive airway pressure) dependence Plantar fasciitis, bilateral Rectal cancer Rectal bleeding Diastasis recti Umbilical hernia without obstruction and without gangrene Screening for malignant neoplasm of intestine Osteoarthritis Hypertension Obesity (BMI 30-39.9) Back pain Knee pain Surgical History History of colonoscopy ( 05/2020) History of tonsillectomy Broken wrist Family History Brother Dementia Hypertension Father Hypertension Mother Hypertension Daughter Diabetes Social History Smoking Status: Never smoker Tobacco: How many years used: 35 Smokeless tobacco user: chewing tobacco second hand exposure: No alcohol intake: never substance use type: does not use caffeine: Yes Type: coffee eating out: 1-3 times/week seatbelt use: always do you feel safe at home: Yes KARMEN Tolentino Started using CPAP almost daily April 2024 Constitutional Constitutional: Reports systems reviewed and no addt'l complaints, except as documented; Denies anorexia, fatigue or fever(s) Eyes Eyes: Reports systems reviewed and no addt'l complaints, except as documented ENT HEENT: Reports systems reviewed and no addt'l complaints, except as documented; Denies headache(s) Cardiovascular Cardiovascular: Reports systems reviewed and no addt'l complaints, except as documented; Denies chest pain with activity or edema Respiratory/Chest Respiratory/Chest: Reports systems reviewed and no addt'l complaints, except as documented; Denies cough or dyspnea on exertion Gastrointestinal Gastrointestinal: Reports systems reviewed and no addt'l complaints, except as documented and other; Denies abdominal pain, change in bowel habits, hematochezia or melena Genitourinary Genitourinary: Reports systems reviewed and no addt'l complaints, except as documented; Denies dysuria Musculoskeletal Musculoskeletal: Reports systems reviewed and no addt'l complaints, except as documented, back pain and other Details: Chronic back pain, has good days and bad days Integumentary Integumentary: Reports systems reviewed and no addt'l complaints, except as documented; Denies rash Neurologic Neurologic: Reports systems reviewed and no addt'l complaints, except as documented; Denies focal weakness Psychiatric Psychiatric: Reports systems reviewed and no addt'l complaints, except as documented Endocrine Endocrinology: Reports systems reviewed and no addt'l complaints, except as documented Hematologic/Lymphatic Hematologic/Lymphatic: Reports systems reviewed and no addt'l complaints, except as documented Allergic/Immunologic Allergic/Immunologic: Reports systems reviewed and no addt'l complaints, except as documented Intake Vital Signs 03/02/24 15:53 06/07/24 15:28 06/07/24 15:30 Height 5 ft 11 in 5 ft 11 in 5 ft 11 in Weight: 116.63 kg 114.929 kg BMI 35.9 35.3 BP 135/88 H 141/90 H Blood Pressure Location Lt brachial Lt brachial Position Sitting Sitting Respiration 16 16 Pulse 77 73 Pulse Source Monitor Monitor Temp 98.0 F 98.0 F Temperature Source Temporal Artery Pulse Oximetry (%) 92 93 Oxygen Delivery Method room air room air Intake Is patient in pain?: No Allergies No Known Allergies Allergy (Verified 06/07/24 15:27) Medications ???Medication ???Instructions ???Recorded ? (more content not included)... Normal [facility] Carcinoembryonic Antigenon 0 06-03-2024 CEA 1.6 ng/mL Normal 0.0-4.7 [facility] Comment on above: Result Comment: Nons mokers <3.9 Smokers <5.6 [facility] Electrochemiluminescence Immunoassay (ECLIA) Values obtained with different assay methods or kits cannot be used interchangeably. Results cannot be interpreted as absolute evidence of the presence or absence of malignant disease. Performed at: [facility] [address] [id number] Tableau Report Developer: Esteban Page PhD, Phone: [phone] Performed By: #### L 3100.2300 #### [facility] [address] [place], [address] Albumin to globulin ratioOrd ered By: Debora Orourke on 06-01-2024 Albumin/Globulin [Mass ratio] 0.9 {ratio} 0.9-2.4 [facility] Bilirubin, totalOrdered By: Debora Orourke on 06-01-2024 Bilirubin [Mass/Vol] 0.40 mg/dL 0.20-1.00 [facility] Comment on above: For patients on eltr ombopag therapy, use of Dimension Herrick TBIL is not recommended. Blood urea nitrogen (BUN)/cr eatinine ratioOrdered By: Debora Orourke on 06-01-2024 Urea nitrogen/Creatinine [Mass ratio] 16.9 mg/mg 10- [facility] Carbon dioxide measurementOr dered By: Debora Orourke on 06-01-2024 CO2 [Moles/Vol] 24.0 mmol/L 21.0-32.0 [facility] Chloride measurementOrdered By: Debora Orourke on 06-01-2024 Chloride [Moles/Vol] 107 mmol/L 98-107 [facility] Comprehensive Metabolic Prof ilon 06-01-2024 Albumin [Mass/Vol] 3.5 g/dL Normal 3.2-5.0 [facility] Comment on above: Performed By: #### L 500.4050, L501.9985 #### [facility] [address] [place], [address] Albumin/Globulin [Mass ratio] 0.9 {ratio} Normal 0.9-2.4 [facility] Comment on above: Performed By: #### L 500.4050, L501.9985 #### [facility] [address] [place], [address] ALK P 84 U/L Normal 45-117 [facility] Comment on above: Performed By: #### L 500.4050, L501.9985 #### [facility] [address] [place], [address] ALT [Catalytic activity/Vol] 44 U/L Normal 16-61 [facility] Comment on above: Performed By: #### L 500.4050, L501.9985 #### [facility] [address] [place], [address] AST [Catalytic activity/Vol] 17 U/L Normal 15-37 [facility] Comment on above: Performed By: #### L 500.4050, L501.9985 #### [facility] [address] [place], [address] Bilirubin [Mass/Vol] 0.40 mg/dL Normal 0.20-1.00 [facility] Comment on above: Result Comment: For patients on eltrombopag therapy, use of Dimension Herrick TBIL is not recommended. Performed By: #### L 500.4050, L501.9985 #### [facility] [address] [place], [address] BUN/CRE 16.9 RATIO Normal 10-20 [facility] Comment on above: Performed By: #### L 500.4050, [id number] #### [facility] [address] [place], [address] CA,Total 9.4 mg/dL Normal 8.5-10.1 [facility] Comment on above: Performed By: #### L 500.4050, [id number] #### [facility] [address] [place], [address] Chloride [Moles/Vol] 107 mmol/L Normal 98-107 [facility] Comment on above: Performed By: #### L 500.4050, [id number] #### [facility] [address] [place], [address] CO2 [Moles/Vol] 24.0 mmol/L Normal 21.0-32.0 [facility] Comment on above: Performed By: #### L 500.4050, L501.9985 #### [facility] [address] [place], [address] Creatinine [Mass/Vol] 1.54 mg/dL High 0.70-1.30 [facility] Comment on above: Result Comment: The validity of the calculated GFR GFRAA in patients over 70 years has not been determined. Clinical correlation is essential. Performed By: #### L 500.4050, [id number] #### [facility] [address] [place], [address] ECRCL 67.43 ml/min Normal [facility] Comment on above: Performed By: #### L 500.4050, [id number] #### [facility] [address] [place], [address] EST GFR - AA 60 mL/min Normal >60 [facility] Comment on above: Result Comment: Afri can Norwegian GFR Calc Performed By: #### L 500.4050, [id number] #### [facility] [address] [place], [address] GAP 8 Normal 5-15 [facility] Comment on above: Performed By: #### L 500.4050, [id number] #### [facility] [address] [place], [address] GFR/1.73 sq M.predicted among non-blacks MDRD (S/P/Bld) [Vol rate/Area] 49 mL/min/{1.73_m2} Low >60 [facility] Comment on above: Result Comment: Non- GFR Calc Performed By: #### L 500.4050, L501.9985 #### [facility] [address] [place], [address] Globulin (S) [Mass/Vol] 3.7 g/dL Normal 2.2-4.2 [facility] Comment on above: Performed By: #### L 500.4050, [id number] #### [facility] [address] [place], [address] Glucose [Mass/Vol] 231 mg/dL High 74-106 [facility] Comment on above: Result Comment: Gluc ose result greater than or equal to 200 mg/dL suggests DIABETES MELLITUS per A.D.A. criteria. Performed By: #### L 500.4050, L501.9985 #### [facility] [address] [place], [address] Potassium [Moles/Vol] 4.0 mmol/L Normal 3.5-5.1 [facility] Comment on above: Performed By: #### L 500.4050, [id number] #### [facility] [address] [place], [address] Sodium [Moles/Vol] 139 mmol/L Normal 136-145 [facility] Comment on above: Performed By: #### L 500.4050, [id number] #### [facility] [address] [place], [address] T PROT 7.2 g/dL Normal 6.4-8.2 [facility] Comment on above: Performed By: #### L 500.4050, [id number] #### [facility] [address] [place], [address] Urea nitrogen [Mass/Vol] 26 mg/dL High 7-18 [facility] Comment on above: Performed By: #### L 500.4050, [id number] #### [facility] [address] [place], [address] Glomerular filtration rate ( GFR) estimationOrdered By: Debora Orourke on 06-01-2024 GFR/1.73 sq M.predicted among non-blacks MDRD (S/P/Bld) [Vol rate/Area] 49 mL/min/{1.73_m2} Low >60 [facility] Comment on above: Non- GFR Calc Glucose measurementOrdered B y: Debora Orourke on 06-01-2024 Glucose [Mass/Vol] 231 mg/dL High 74-106 [facility] Comment on above: Glucose result great er than or equal to 200 mg/dLsuggests DIABETES MELLITUS per A.D.A. criteria. Hemoglobin A1con 06-01-2024 HbA1c (Bld) [Mass fraction] 7.8 % High 3.8-5.6 [facility] Comment on above: Result Comment: Norm al < 5.7 % Prediabetic 5.7 - 6.4 % Diabetic >or= 6.5 % Please note range changes. Performed By: #### L 500.4050, L501.9985 #### [facility] [address] [place], [address] Hemoglobin A1c percentageOrd ered By: Debora Orourke on 06-01-2024 HbA1c (Bld) [Mass fraction] 7.8 % High 3.8-5.6 [facility] Comment on above: Normal < 5.7 % Predi abetic 5.7 - 6.4 % Diabetic >or= 6.5 % Please note range changes. Laboratory - Chemistry and C hemistry - challengeOrdered By: Debora Orourke on 06-01-2024 AST [Catalytic activity/Vol] 17 U/L 15-37 [facility] Potassium measurementOrdered By: Debora Orourke on 06-01-2024 Potassium [Moles/Vol] 4.0 mmol/L 3.5-5.1 [facility] Serum anion gap measurementO rdered By: Debora Orourke on 06-01-2024 Anion gap [Moles/Vol] 8 mmol/L 5-15 [facility] Serum globulin measurementOr dered By: Debora Orourke on 06-01-2024 Globulin (S) [Mass/Vol] 3.7 g/dL 2.2-4.2 [facility] Serum or plasma alanine rodriguez otransferase (ALT) measurementOrdered By: Debora Orourke on 06-01-2024 ALT [Catalytic activity/Vol] 44 U/L 16-61 [facility] Serum or plasma albumin ivelisse urement (mass/volume)Ordered By: Debora Orourke on 06-01-2024 Albumin [Mass/Vol] 3.5 g/dL 3.2-5.0 [facility] Serum or plasma alkaline ilir sphatase measurementOrdered By: Debora Orourke on 06-01-2024 ALP [Catalytic activity/Vol] 84 U/L 45-117 [facility] Serum or plasma calcium ivelisse urement (mass/volume)Ordered By: Debora Orourke on 06-01-2024 Calcium [Mass/Vol] 9.4 mg/dL 8.5-10.1 [facility] Serum or plasma carcinoembry onic antigen measurement (mass/volume)Ordered By: Gerson Cifuentes on 06-01-2024 Carcinoembryonic Ag [Mass/Vol] 1.6 ng/mL 0.0-4.7 [facility] Comment on above: Nonsmokers <3.9 Smok ers <5.6[facility] Electrochemiluminescence Immunoassay(ECLIA)Values obtained with different assay methods or kitscannot be used interchangeably. Results cannot beinterpreted as absolute evidence of the presence orabsence of malignant disease.Performed at: [facility] [address] [id number] Director: Esteban Page PhD, Phone: [phone] Serum or plasma creatinine m easurement (mass/volume)Ordered By: Debora Orourke on 06-01-2024 Creatinine [Mass/Vol] 1.54 mg/dL High 0.70-1.30 [facility] Comment on above: The validity of the calculated GFR & GFRAA in patients over 70 years has not been determined. Clinical correlation is essential. Serum or plasma urea nitroge n measurement (mass/volume)Ordered By: Debora Orourke on 06-01-2024 Urea nitrogen [Mass/Vol] 26 mg/dL High 7-18 [facility] Sodium levelOrdered By: Calista Orourke on 06-01-2024 Sodium [Moles/Vol] 139 mmol/L 136-145 [facility] Total proteinOrdered By: Sarah Orourke on 06-01-2024 Protein [Mass/Vol] 7.2 g/dL 6.4-8.2 [facility] MR/BMS.[facility] 03-02-2024 MR/BMS.[facility] [address] [place] [address] OFFICE VISIT Date of Service: 03/02/24 MR#: [id number] Acct: [id number] Name: ARTEM MCDERMOTT Rep #: [id number] : 1965 Provider: Dr. 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 Accompanied by: Self Is patient in pain?: No Allergies No Known Allergies Allergy (Verified 03/02/24 15:51) Medications ???Medication ???Instructions ???Recorded ???Confirmed ???Type loratadine 10 mg capsule 10 mg PO DAILY 04/30/20 03/02/24 History lactobacillus combination no.9 4 4,000 mmu cells PO DAILY 08/08/20 03/02/24 History billion cell capsule (Adult 50 Plus Probiotic) cholecalciferol (vitamin D3) 50 50 mcg PO DAILY 08/28/21 03/02/24 History mcg (2,000 unit) capsule aspirin 81 mg tablet,delayed 81 mg PO DAILY 02/26/22 03/02/24 History release (Adult Low Dose Aspirin) metformin 1,000 mg tablet 1,000 mg PO BID #180 tabs 06/17/23 03/02/24 Rx lisinopril 20 mg tablet 20 mg PO BID #180 tabs 03/02/24 03/02/24 Rx semaglutide 0.25 mg or 0.5 mg (2 0.25 mg (0.368 mL) subcut QWEEK #3 03/02/24 03/02/24 Rx mg/3 mL) subcutaneous pen injector mL (Ozempic) [facility] Medical History Chewing tobacco nicotine dependence Wears glasses Loose, teeth Back pain 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, secondary SOPHIE (obstructive sleep apnea) CPAP (continuous positive airway pressure) dependence Plantar fasciitis, bilateral Rectal cancer Rectal bleeding Diastasis recti Umbilical hernia without obstruction and without gangrene Screening for malignant neoplasm of intestine Osteoarthritis Hypertension Obesity (BMI 30-39.9) Back pain Knee pain Surgical History History of colonoscopy ( 05/2020) History of tonsillectomy Broken wrist Family History Brother Dementia Hypertension Father Hypertension Mother Hypertension Daughter Diabetes Social History Smoking Status: Never smoker Tobacco: How many years used: 35 Smokeless tobacco user: chewing tobacco second hand exposure: No alcohol intake: never substance use type: does not use caffeine: Yes Type: coffee eating out: 1-3 times/week seatbelt use: always do you feel safe at home: Yes HPI HPI Chief Complaint: 4 m fu Details: ARTEM BALDEMAR, is a 58 M who presents to the office today for 4-month follow-up. Type 2 diabetes, insulin resistance, hypertension. He has obstructive sleep apnea but has been somewhat intolerant to his CPAP. 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 He would like to do more full evaluation so hopefully he can get back onto treatment for the sleep apnea. He would like to do studies in the wintertime while he has more time away from work. April. I will place order and then he will schedule at his convenience. In regards to his diabetes, generally things have been about stable. He is unfortunately continuing to slowly gain weight. He tries to eat a good high-quality dietary pattern although very active throughout the summer, with a fair amount of travel for work, that has impacted his diet. When he is at home he does pretty well but he does again eat some food on the road so to speak that has hampered things and probably is led to increased weight gain as well. He is on metformin we discussed options. We discussed starting Ozempic for better diabetes control but also hopefully the secondary benefits of potential weight stability or weight loss and improvement of insulin resistance from that standpoint, depending on how he does. He would be in agreement with starting medication i.e. GLP-1 agonist. I would not expect any specific problems with doing so. Review of systems per chart. Physical exam. Vital signs on chart. PERRLA. Sclera are clear. TMs are unremarkable with normal light reflexes. Canals are unremarkable. Posterior pharynx is unremarkable. Good dentition. No cervical or supraclavicular lymph nodes enlarged or tender. No clear thyromegaly. No thyroid nodules readily palpable. Lungs are without wheeze, rhonchi, rales. No E/A changes are heard. Heart is regular. Not tachycardic. No clear murmur, rub, or hudson (more content not included)... Normal [facility] Oncology Visit Reporton 12-12 Oncology Visit Report [facility] [facility] [address] [place] [address] OFFICE VISIT Date of Service: 01/04/24 1525 MR#: [id number] Acct: [id number] Name: ARTEM MCDERMOTT Rep #: [id number] : 1965 From: Gerson Cifuentes MD Age/Sex: 58/M Location: [facility] Status: Signed HPI Subjective Date of Service 01/04/24 Chief Complaint Rectal cancer follow-up History of Present Illness 58 YOM with no FH of colon cancer who underwent his first screening colonoscopy 2020 MICROSCOPIC DIAGNOSIS A. Proximal transverse colon polyp, biopsy: Fragments of tubular adenoma. B. Distal transverse colon polyp, biopsy: Fragments of hyperplastic polyp. C. Proximal sigmoid colon polyp, biopsy: Tubular adenoma. D. 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 See comment. E. Rectal polyp base, biopsy: Benign colonic tissue. COMMENT D. Immunohistochemistry ([id number]) supports the above diagnosis. The intramucosal adenocarcinoma measures 3 mm in greatest dimension and is present close to the luminal surface. [facility] Medical History Chewing tobacco nicotine dependence Wears glasses Loose, teeth Back pain 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, secondary SOPHIE (obstructive sleep apnea) CPAP (continuous positive airway pressure) dependence Plantar fasciitis, bilateral Rectal cancer Rectal bleeding Diastasis recti Umbilical hernia without obstruction and without gangrene Screening for malignant neoplasm of intestine Osteoarthritis Hypertension Obesity (BMI 30-39.9) Back pain Knee pain Surgical History History of colonoscopy ( 05/2020) History of tonsillectomy Broken wrist Family History Brother Dementia Hypertension Father Hypertension Mother Hypertension Daughter Diabetes Social History Smoking Status: Never smoker Tobacco: How many years used: 35 Smokeless tobacco user: chewing tobacco second hand exposure: No alcohol intake: never substance use type: does not use caffeine: Yes Type: coffee eating out: 1-3 times/week seatbelt use: always do you feel safe at home: Yes ROS Constitutional Constitutional: Reports systems reviewed and no addt'l complaints, except as documented, snoring and weight loss; Denies anorexia, fatigue or fever(s) Eyes Eyes: Reports systems reviewed and no addt'l complaints, except as documented ENT HEENT: Reports systems reviewed and no addt'l complaints, except as documented; Denies headache(s) Cardiovascular Cardiovascular: Reports systems reviewed and no addt'l complaints, except as documented; Denies chest pain with activity or edema Respiratory/Chest Respiratory/Chest: Reports systems reviewed and no addt'l complaints, except as documented; Denies cough or dyspnea on exertion Gastrointestinal Gastrointestinal: Reports systems reviewed and no addt'l complaints, except as documented and other; Denies abdominal pain, change in bowel habits, hematochezia or melena Genitourinary Genitourinary: Reports systems reviewed and no addt'l complaints, except as documented; Denies dysuria Musculoskeletal Musculoskeletal: Reports systems reviewed and no addt'l complaints, except as documented, back pain and other Details: Chronic back pain, has good days and bad days Integumentary Integumentary: Reports systems reviewed and no addt'l complaints, except as documented; Denies rash Neurologic Neurologic: Reports systems reviewed and no addt'l complaints, except as documented; Denies focal weakness Psychiatric Psychiatric: Reports systems reviewed and no addt'l complaints, except as documented Endocrine Endocrinology: Reports systems reviewed and no addt'l complaints, except as documented Hematologic/Lymphatic Hematologic/Lymphatic: Reports systems reviewed and no addt'l complaints, except as documented Allergic/Immunologic Allergic/Immunologic: Reports systems reviewed and no addt'l complaints, except as documented Intake Vital Signs 06/02/23 15:08 10/29/23 05:53 01/04/24 15:30 01/04/24 15:33 Height 5 ft 11 in 5 ft 11 in 5 ft 11 in 5 ft 11 in Weight: 114.986 kg BMI 35.3 BP 149/84 H Blood Pressure Location Lt brachial Position Sitting Respiration 16 Pulse 70 Pulse Source Monitor Temp 98.5 F Temperature Source Temporal Artery Pulse Oximetry (%) 94 Oxygen Delivery Method room air Intake Is patient in pain?: No Allergies No Known Allergies Allergy (Verified 01/04/24 15:28) Medications ???Medication ???Instructions ???Recorded ???Confirmed ???Type loratadine 10 mg capsule 10 mg PO DAILY 04/30/20 01/04/24 Histo (more content not included)... Normal [facility] Carcinoembryonic Antigenon 0 01-01-2024 CEA 1.8 ng/mL Normal 0.0-4.7 [facility] Comment on above: Result Comment: Nons mokers <3.9 Smokers <5.6 [facility] Electrochemiluminescence Immunoassay (ECLIA) Values obtained with different assay methods or kits cannot be used interchangeably. Results cannot be interpreted as absolute evidence of the presence or absence of malignant disease. Performed at: [facility] [id number] Tableau Report Developer: Esteban Page PhD, Phone: [phone] Performed By: #### L 3100.2300 #### [facility] [address], [address] Basophil percentageOrdered B y: Debora Orourke on 06-14-2023 Bilirubin [Mass/Vol] 0.60 mg/dL 0.20-1.00 [facility] Comment on above: For patients on eltr ombopag therapy, use of Dimension Herrick TBIL is not recommended. Chloride [Moles/Vol] 110 mmol/L 98-107 [facility] Glucose [Mass/Vol] 154 mg/dL 74-106 [facility] Comment on above: Fasting Glucose resu lt greater than or equal to 126 mg/dL suggests DIABETES MELLITUS per A.D.A. criteria. Potassium [Moles/Vol] 3.8 mmol/L 3.5-5.1 [facility] Protein [Mass/Vol] 7.3 g/dL 6.4-8.2 [facility] Sodium [Moles/Vol] 141 mmol/L 136-145 [facility] - Chemistry and C hemistry - challengeOrdered By: Debora Orourke on 06-14-2023 Albumin/Globulin [Mass ratio] 1.1 {ratio} 0.9-2.4 [facility] ALP [Catalytic activity/Vol] 75 U/L 45-117 [facility] ALT [Catalytic activity/Vol] 43 U/L 16-61 [facility] CO2 [Moles/Vol] 24.0 mmol/L 21.0-32.0 [facility] Globulin (S) [Mass/Vol] 3.4 g/dL 2.2-4.2 [facility] Urea nitrogen/Creatinine [Mass ratio] 16.9 mg/mg 10-20 [facility] No Panel InformationOrdered By: Debora Orourke on 06-14-2023 Estimated GFR (MDRD) Amer 69 mL/min >60 [facility] Comment on above: GFR Calc Estimated GFR (MDRD) Non-Af Amer 57 mL/min >60 [facility] Comment on above: Non- GFR Calc Serum or plasma calcium ivelisse urement (mass/volume)Ordered By: Debora Orourke on 06-14-2023 Calcium [Mass/Vol] 10.1 mg/dL 8.5-10.1 [facility] Serum or plasma creatinine m easurement (mass/volume)Ordered By: Debora Orourke on 06-14-2023 Creatinine [Mass/Vol] 1.36 mg/dL 0.70-1.30 [facility] Comment on above: The validity of the calculated GFR & GFRAA in patients over 70 years has not been determined. Clinical correlation is essential. Serum or plasma urea nitroge n measurement (mass/volume)Ordered By: Debora Orourke on 06-14-2023 Urea nitrogen [Mass/Vol] 23 mg/dL 7-18 [facility] Thin prep Papanicolaou smear with manual screeningOrdered By: Debora Orourke on 06-14-2023 Thin prep Papanicolaou smear with manual screening 3.9 g/dL 3.2-5.0 [facility] Thin prep Papanicolaou smear with manual screening 20 U/L 15-37 [facility] Thin prep Papanicolaou smear with manual screening 7 5-15 [facility] Whole blood hemoglobin A1c/t otal hemoglobin ratio (mass fraction)Ordered By: Debora Orourke on 06-14-2023 HbA1c (Bld) [Mass fraction] 7.3 % 3.8-5.6 [facility] Comment on above: Normal < 5.7 % Predi abetic 5.7 - 6.4 % Diabetic >or= 6.5 % Please note range changes. Serum or plasma carcinoembry onic antigen measurement (mass/volume)Ordered By: Gerson Cifuentes on 05-27-2023 Carcinoembryonic Ag [Mass/Vol] 1.8 ng/mL 0.0-4.7 [facility] Comment on above: Nonsmokers <3.9 Smok ers <5.6[facility] Electrochemiluminescence Immunoassay(ECLIA)Values obtained with different assay methods or kitscannot be used interchangeably. Results cannot beinterpreted as absolute evidence of the presence orabsence of malignant disease.Performed at: - [address] [id number] Director: Esteban Page PhD, Phone: [phone] Basophil percentageOrdered B y: Debora Orourke on 03-17-2023 Bilirubin [Mass/Vol] 0.60 mg/dL 0.20-1.00 [facility] Comment on above: For patients on eltr ombopag therapy, use of Dimension Herrick TBIL is not recommended. Chloride [Moles/Vol] 107 mmol/L 98-107 [facility] Glucose [Mass/Vol] 226 mg/dL 74-106 [facility] Comment on above: Glucose result great er than or equal to 200 mg/dLsuggests DIABETES MELLITUS per A.D.A. criteria. Potassium [Moles/Vol] 3.9 mmol/L 3.5-5.1 [facility] Protein [Mass/Vol] 7.2 g/dL 6.4-8.2 [facility] Sodium [Moles/Vol] 137 mmol/L 136-145 [facility] - Chemistry and C hemistry - challengeOrdered By: Debora Orourke on 03-17-2023 ALP [Catalytic activity/Vol] 78 U/L 45-117 [facility] ALT [Catalytic activity/Vol] 36 U/L 16-61 [facility] CO2 [Moles/Vol] 24.0 mmol/L 21.0-32.0 [facility] Globulin (S) [Mass/Vol] 3.7 g/dL 2.2-4.2 [facility] Urea nitrogen/Creatinine [Mass ratio] 13.8 mg/mg 10-20 [facility] No Panel InformationOrdered By: Debora Orourke on 03-17-2023 Estimated GFR (MDRD) Amer 58 mL/min >60 [facility] Comment on above: GFR Calc Estimated GFR (MDRD) Non-Af Amer 48 mL/min >60 [facility] Comment on above: Non- GFR Calc Insulin Level 140.7 mU/L 2.6-37.6 [facility] Serum or plasma albumin ivelisse urement (mass/volume)Ordered By: Debora Orourke on 03-17-2023 Albumin [Mass/Vol] 3.5 g/dL 3.2-5.0 [facility] Serum or plasma albumin/glob ulin mass ratioOrdered By: Debora Orourke on 03-17-2023 Albumin/Globulin [Mass ratio] 0.9 {ratio} 0.9-2.4 [facility] Serum or plasma calcium ivelisse urement (mass/volume)Ordered By: Debora Orourke on 03-17-2023 Calcium [Mass/Vol] 9.5 mg/dL 8.5-10.1 [facility] Serum or plasma creatinine m easurement (mass/volume)Ordered By: Debora Orourke on 03-17-2023 Creatinine [Mass/Vol] 1.59 mg/dL 0.70-1.30 [facility] Comment on above: The validity of the calculated GFR & GFRAA in patients over 70 years has not been determined. Clinical correlation is essential. Serum or plasma urea nitroge n measurement (mass/volume)Ordered By: Debora Orourke on 03-17-2023 Urea nitrogen [Mass/Vol] 22 mg/dL 7-18 [facility] Thin prep Papanicolaou smear with manual screeningOrdered By: Debora Orourke on 03-17-2023 Thin prep Papanicolaou smear with manual screening 17 U/L 15-37 [facility] Thin prep Papanicolaou smear with manual screening 6 5-15 [facility] Whole blood hemoglobin A1c/t otal hemoglobin ratio (mass fraction)Ordered By: Debora Orourke on 03-17-2023 HbA1c (Bld) [Mass fraction] 6.8 % 3.8-5.6 [facility] Comment on above: Normal < 5.7 % Predi abetic 5.7 - 6.4 % Diabetic >or= 6.5 % Please note range changes. Absolute lymphocyte countOrd ered By: Debora Orourke on 11-23-2022 Lymphocytes Auto (Unsp spec) [#/Vol] 1.84 10*3/uL 0.83-4.51 [facility] Basophil percentageOrdered B y: Debora Orourke on 11-23-2022 Basophils/100 WBC (Bld) 0.3 % 0-1 [facility] Bilirubin [Mass/Vol] 0.40 mg/dL 0.20-1.00 [facility] Comment on above: For patients on eltr ombopag therapy, use of Dimension Herrick TBIL is not recommended. Chloride [Moles/Vol] 105 mmol/L 98-107 [facility] Eosinophils/100 WBC (Bld) 1.1 % 0-5 [facility] Glucose [Mass/Vol] 324 mg/dL 74-106 [facility] Comment on above: Glucose result great er than or equal to 200 mg/dLsuggests DIABETES MELLITUS per A.D.A. criteria. Neutrophils (Bld) [#/Vol] 7.0 10*3/uL 2.0-7.7 [facility] Neutrophils/100 WBC (Bld) 72.2 % 47-70 [facility] Potassium [Moles/Vol] 4.2 mmol/L 3.5-5.1 [facility] Comment on above: Slight Hemolysis, Re sult may be falsely increased. Protein [Mass/Vol] 7.1 g/dL 6.4-8.2 [facility] Sodium [Moles/Vol] 136 mmol/L 136-145 [facility] WBC (Bld) [#/Vol] 9.7 10*3/uL 4.4-11.0 [facility] Blood erythrocytes count (nu mber/volume)Ordered By: Debora Orourke on 11-23-2022 RBC (Bld) [#/Vol] 5.93 10*6/uL 4.6-6.2 [facility] Blood hemoglobin measurement (mass/volume)Ordered By: Debora Orourke on 11-23-2022 Hemoglobin (Bld) [Mass/Vol] 16.9 g/dL 13.0-16.5 [facility] Blood lymphocytes/100 leukoc ytesOrdered By: Debora Orourke on 11-23-2022 Lymphocytes/100 WBC (Bld) 19.0 % 19-41 [facility] Blood monocytes/100 leukocyt esOrdered By: Debora Orourke on 11-23-2022 Monocytes/100 WBC (Bld) 6.7 % 0-10 [facility] Blood platelet mean volumeOr dered By: Debora Orourke on 11-23-2022 Platelet mean volume (Bld) [Entitic vol] 9.6 fL 6.2-12.0 [facility] Determination of erythrocyte mean corpuscular volume (MCV)Ordered By: Debora Orourke on 11-23-2022 MCV (RBC) [Entitic vol] 86.8 fL 80-94 [facility] Hematocrit Auto (Bld) [Volum e fraction]Ordered By: Debora Orourke on 11-23-2022 Hematocrit (Bld) [Volume fraction] 51.5 % 40-54 [facility] - Chemistry and C hemistry - challengeOrdered By: Debora Orourke on 11-23-2022 ALP [Catalytic activity/Vol] 74 U/L 45-117 [facility] ALT [Catalytic activity/Vol] 43 U/L 16-61 [facility] CO2 [Moles/Vol] 24.0 mmol/L 21.0-32.0 [facility] Globulin (S) [Mass/Vol] 3.6 g/dL 2.2-4.2 [facility] Urea nitrogen/Creatinine [Mass ratio] 17.5 mg/mg 10-20 [facility] - Hematology and Cell countsOrdered By: Debora Orourke on 11-23-2022 Erythrocyte distribution width (RBC) [Entitic vol] 44.6 fL 35.1-43.9 [facility] Erythrocyte distribution width (RBC) [Ratio] 14.0 % 11.6-14.6 [facility] Immature granulocytes/100 WBC (Bld) 0.700 % 0.0-0.9 [facility] Comment on above: IG% - Immature Granu locytes (promyelocytes, myelocytes and metamyelocytes) > 1% indicates that a LEFT SHIFT is Present. MCH (RBC) [Entitic mass] 28.5 pg 27.0-32.0 [facility] Nucleated RBC/100 WBC (Bld) [Ratio] 0 % 0-5 [facility] Auto (RBC) [Mass/Vol]Or dered By: Debora Orourke on 11-23-2022 MCHC (RBC) [Mass/Vol] 32.8 g/dL 32-36 [facility] No Panel InformationOrdered By: Debora Orourke on 11-23-2022 Estimated Creatinine Clearance Calc 63.36 ml/min [facility] Estimated GFR (MDRD) Amer 69 mL/min >60 [facility] Comment on above: GFR Calc Estimated GFR (MDRD) Non-Af Amer 57 mL/min >60 [facility] Comment on above: Non- GFR Calc Insulin Level 196.8 mU/L 2.6-37.6 [facility] Prostate Specific Antigen Screen 1.01 ng/mL 0.00-4.00 [facility] Comment on above: This test was perfor med using the TPSA assay method for [employer] system. Values obtained with differentassay methods cannot be used interchangably.When changing PSA assays in the course of monitoring apatient, additional sequential testing should be carriedout to confirm baseline values. Platelets bldOrdered By: Sarah Orourke on 11-23-2022 Platelets (Bld) [#/Vol] 253 10*3/uL 150-450 [facility] Serum or plasma albumin vielisse urement (mass/volume)Ordered By: Debora Orourke on 11-23-2022 Albumin [Mass/Vol] 3.5 g/dL 3.2-5.0 [facility] Serum or plasma albumin/glob ulin mass ratioOrdered By: Debora Orourke on 11-23-2022 Albumin/Globulin [Mass ratio] 1.0 {ratio} 0.9-2.4 [facility] Serum or plasma calcium ivelisse urement (mass/volume)Ordered By: Debora Orourke on 11-23-2022 Calcium [Mass/Vol] 8.7 mg/dL 8.5-10.1 [facility] Serum or plasma creatinine m easurement (mass/volume)Ordered By: Debora Orourke on 11-23-2022 Creatinine [Mass/Vol] 1.37 mg/dL 0.70-1.30 [facility] Comment on above: The validity of the calculated GFR & GFRAA in patients over 70 years has not been determined. Clinical correlation is essential. Serum or plasma urea nitroge n measurement (mass/volume)Ordered By: Debora Orourke on 11-23-2022 Urea nitrogen [Mass/Vol] 24 mg/dL 10-27 [facility] Thin prep Papanicolaou smear with manual screeningOrdered By: Debora Orourke on 11-23-2022 Thin prep Papanicolaou smear with manual screening 20 U/L [facility] Comment on above: Slight Hemolysis, Re sult may be falsely increased. Thin prep Papanicolaou smear with manual screening 7 - [facility] Whole blood hemoglobin A1c/t otal hemoglobin ratio (mass fraction)Ordered By: Debora Orourke on 11-23-2022 HbA1c (Bld) [Mass fraction] 8.1 % 3.8-5.6 [facility] Comment on above: Normal < 5.7 % Predi abetic 5.7 - 6.4 % Diabetic >or= 6.5 % Please note range changes. Serum or plasma carcinoembry onic antigen measurement (mass/volume)Ordered By: Gerson Cifuentes on 09-17-2022 Carcinoembryonic Ag [Mass/Vol] 1.6 ng/mL 0.0-4.7 [facility] Comment on above: Nonsmokers <3.9 Smok ers <5.6[facility] Electrochemiluminescence Immunoassay(ECLIA)Values obtained with different assay methods or kitscannot be used interchangeably. Results cannot beinterpreted as absolute evidence of the presence orabsence of malignant disease.Performed at: [facility] [id number] Director: Esteban Page PhD, Phone: [phone] Basophil percentageOrdered B y: Debora Orourke on 05-21-2022 Chloride [Moles/Vol] 104 mmol/L 98-107 [facility] Glucose [Mass/Vol] 192 mg/dL 74-106 [facility] Comment on above: Fasting Glucose resu lt greater than or equal to 126 mg/dL suggests DIABETES MELLITUS per A.D.A. criteria. Potassium [Moles/Vol] 3.9 mmol/L 3.5-5.1 [facility] Sodium [Moles/Vol] 140 mmol/L 136-145 [facility] - Chemistry and C hemistry - challengeOrdered By: Debora Orourke on 05-21-2022 CO2 [Moles/Vol] 25.0 mmol/L 21.0-32.0 [facility] Urea nitrogen/Creatinine [Mass ratio] 11.6 mg/mg 10-20 [facility] No Panel InformationOrdered By: Debora Orourke on 05-21-2022 Estimated Creatinine Clearance Calc 59.76 ml/min [facility] Estimated GFR (MDRD) Amer 64 mL/min >60 [facility] Comment on above: GFR Calc Estimated GFR (MDRD) Non-Af Amer 53 mL/min >60 [facility] Comment on above: Non- GFR Calc Serum or plasma calcium ivelisse urement (mass/volume)Ordered By: Debora Orourke on 05-21-2022 Calcium [Mass/Vol] 9.1 mg/dL 8.5-10.1 [facility] Serum or plasma creatinine m easurement (mass/volume)Ordered By: Debora Orourke on 05-21-2022 Creatinine [Mass/Vol] 1.47 mg/dL 0.70-1.30 [facility] Comment on above: The validity of the calculated GFR & GFRAA in patients over 70 years has not been determined. Clinical correlation is essential. Serum or plasma urea nitroge n measurement (mass/volume)Ordered By: Debora Orourke on 05-21-2022 Urea nitrogen [Mass/Vol] 17 mg/dL 7-18 [facility] Thin prep Papanicolaou smear with manual screeningOrdered By: Debora Orourke on 05-21-2022 Thin prep Papanicolaou smear with manual screening 11 5-15 [facility] Absolute lymphocyte countOrd ered By: Debora Orourke on 11-24-2021 Lymphocytes Auto (Unsp spec) [#/Vol] 1.70 10*3/uL 0.83-4.51 [facility] Basophil percentageOrdered B y: Debora Orourke on 11-24-2021 Basophils/100 WBC (Bld) 0.7 % 0-1 [facility] Bilirubin [Mass/Vol] 0.60 mg/dL 0.20-1.00 [facility] Comment on above: For patients on eltr ombopag therapy, use of Dimension Herrick TBIL is not recommended. Eosinophils/100 WBC (Bld) 4.3 % 0-5 [facility] Neutrophils (Bld) [#/Vol] 4.8 10*3/uL 2.0-7.7 [facility] Neutrophils/100 WBC (Bld) 64.7 % 47-70 [facility] Protein [Mass/Vol] 7.3 g/dL 6.4-8.2 [facility] WBC (Bld) [#/Vol] 7.4 10*3/uL 4.4-11.0 [facility] Blood erythrocytes count (nu mber/volume)Ordered By: Debora Orourke on 11-24-2021 RBC (Bld) [#/Vol] 6.28 10*6/uL High 4.6-6.2 [facility] Blood hemoglobin measurement (mass/volume)Ordered By: Debora Orourke on 11-24-2021 Hemoglobin (Bld) [Mass/Vol] 17.5 g/dL High 13.0-16.5 [facility] Blood lymphocytes/100 leukoc ytesOrdered By: Debora Orourke on 11-24-2021 Lymphocytes/100 WBC (Bld) 23.1 % 19-41 [facility] Blood monocytes/100 leukocyt esOrdered By: Debora Orourke on 11-24-2021 Monocytes/100 WBC (Bld) 6.7 % 0-10 [facility] Blood platelet mean volumeOr dered By: Debora Orourke on 11-24-2021 Platelet mean volume (Bld) [Entitic vol] 9.2 fL 6.2-12.0 [facility] Determination of erythrocyte mean corpuscular volume (MCV)Ordered By: Debora Orourke on 11-24-2021 MCV (RBC) [Entitic vol] 84.1 fL 80-94 [facility] Hematocrit Auto (Bld) [Volum e fraction]Ordered By: Debora Orourke on 11-24-2021 Hematocrit (Bld) [Volume fraction] 52.8 % 40-54 [facility] - Chemistry and C hemistry - challengeOrdered By: Debora Orourke on 11-24-2021 ALP [Catalytic activity/Vol] 92 U/L 45-117 [facility] ALT [Catalytic activity/Vol] 40 U/L 16-61 [facility] Globulin (S) [Mass/Vol] 3.6 g/dL 2.2-4.2 [facility] - Hematology and Cell countsOrdered By: Debora Orourke on 11-24-2021 Erythrocyte distribution width (RBC) [Entitic vol] 40.5 fL 35.1-43.9 [facility] Erythrocyte distribution width (RBC) [Ratio] 13.2 % 11.6-14.6 [facility] Immature granulocytes/100 WBC (Bld) 0.500 % 0.0-0.9 [facility] Comment on above: IG% - Immature Granu locytes (promyelocytes, myelocytes and metamyelocytes) > 1% indicates that a LEFT SHIFT is Present. MCH (RBC) [Entitic mass] 27.9 pg 27.0-32.0 [facility] Nucleated RBC/100 WBC (Bld) [Ratio] 0 % 0-5 [facility] MCHC Auto (RBC) [Mass/Vol]Or dered By: Debora Orourke on 11-24-2021 MCHC (RBC) [Mass/Vol] 33.1 g/dL 32-36 [facility] No Panel InformationOrdered By: Debora Orourke on 11-24-2021 Vitamin D 25-Hydroxy 66.3 ng/mL [facility] Comment on above: Vitamin D 25(OH) Sta tus Range Deficiency <20 ng/mL (50nmol/L) Insufficiency 20 - 30 ng/mL (50 - 75 nmol/L) Sufficiency 30 - 100 ng/mL (75 - 250 nmol/L) Toxicity >100 ng/mL (>250 nmol/L) Platelets bldOrdered By: Sarah Orourke on 11-24-2021 Platelets (Bld) [#/Vol] 227 10*3/uL 150-450 [facility] Serum or plasma albumin ivelisse urement (mass/volume)Ordered By: Debora Orourke on 11-24-2021 Albumin [Mass/Vol] 3.7 g/dL 3.2-5.0 [facility] Serum or plasma albumin/glob ulin mass ratioOrdered By: Debora Orourke on 11-24-2021 Albumin/Globulin [Mass ratio] 1.0 {ratio} 0.9-2.4 [facility] Thin prep Papanicolaou smear with manual screeningOrdered By: Debora Orourke on 11-24-2021 Thin prep Papanicolaou smear with manual screening 21 U/L 1537 [facility] Whole blood hemoglobin A1c/t otal hemoglobin ratio (mass fraction)Ordered By: Debora Orourke on 11-24-2021 HbA1c (Bld) [Mass fraction] 5.9 % 3.8-5.6 [facility] Comment on above: Normal < 5.7 % Predi abetic 5.7 - 6.4 % Diabetic >or= 6.5 % Please note range changes. Serum or plasma carcinoembry onic antigen measurement (mass/volume)on 08-20-2021 Carcinoembryonic Ag [Mass/Vol] 1.7 ng/mL 0.0-4.7 [facility] Work Phone: Comment on above: Nonsmokers <3.9 Smok ers <5.6[facility] Electrochemiluminescence Immunoassay(ECLIA)Values obtained with different assay methods or kitscannot be used interchangeably. Results cannot beinterpreted as absolute evidence of the presence orabsence of malignant disease.Performed at: [address] [id number] Director: Esteban Page PhD, Phone: [phone] [facility] Intraop Recordon 06-01-2017 [facility] Intraop Record Normal [facility] ([place]) Anesthesiology Consultationo n 06-01-2017 Anesthesiology Consultation Normal [facility]) Depart Summaryon 06-01-2017 Depart Summary Normal [facility]) [place] Operative Reporton 06-01-2017 [place] Operative Report Normal [facility]) [place] Outpatient Patient Summaryon 06-01-2017 [place] [facility]patient Patient Summary Normal [facility]) XR FLUORO 1-2 HRS TECH TIMEo n 06-01-2017 XR FLUORO 1-2 HRS TECH TIME ORIGINAL Images acquired, not reported on this accession number. Normal [facility] ([place]) XR WRIST MINIMUM 3 VIEWS LEF Ton 06-01-2017 XR WRIST MINIMUM 3 VIEWS LEFT ORIGINALXR WRIST MINIMUM 3 VIEWS LEFT CLINICAL STATEMENT: Status Post Surgical Procedure COMPARISON: None FINDINGS:3 images of the left wrist demonstrate postsurgical change to the distal radius with orthopedic fixation plate and screws fixating a comminuted intra-articular distal radial fracture. Ulnar styloid fracture fragment is noted. IMPRESSION:Post open reduction and internal fixation Interpreted By: Elana Odellreliminary Report By: Elana Odell MDElectronically Signed By: Elana Odell MD Dictated Date: 06/01/2017 1:57:49 PM Prelim Date: 06/01/2017 1:57:49 PM Sign Date: 06/01/2017 1:58:12 PM [facility] ([place]) X[place] WRIST TWO VIEWS LEFTon XR WRIST TWO VIEWS LEFT ORIGINALXR WRIST TWO VIEWS LEFT CLINICAL STATEMENT: orif lt wrist COMPARISON: None FINDINGS:C-arm images demonstrate orthopedic fixation plate and screw fixation of a distal radial fracture with 3 intraoperative images were recorded. 28.4 seconds of fluoroscopic time was utilized IMPRESSION:Open reduction and internal fixation distal left radial fracture Interpreted By: Elana Odelliminary Report By: Elana Odell MDElectronically Signed By: Elana Odell MD Dictated Date: 06/01/2017 1:55:13 PM Prelim Date: 06/01/2017 1:55:13 PM Sign Date: 06/01/2017 1:56:23 PM [facility]) ED NOTEon 05-26-2017 ED NOTE HNO ID: [id number] thor: Jordyn RosenoliService: Emergency MedicineAuthor Type: PhysicianType: ED NotesFiled: 05/29/2017 9:00 PMNote Text:Emergency Services: ED Call Back QuestionnaireSERVICE DATE: 05/26/2017Are you feeling better? YesAny questions about discharge instructions and follow-up care? NoWere you able to make a follow up appointment? YesDo you have any further questions? NoIs there anything that we could have done differently to improve your EDvisit? NoSIGNATURE: Jordyn Driscoll MD PATIENT NAME: Artem PlattTE: May 29, 2017 : 6:28 PM [facility] ED NOTE HNO ID: [id number] thor: Jordyn Burciagaervice: Emergency MedicineAuthor Type: PhysicianType: ED NotesFiled: 05/29/2017 6:30 PMNote Text:Emergency Services: ED Call Back QuestionnaireSERVICE DATE: 05/26/2017Are you feeling better? YesAny questions about discharge instructions and follow-up care? NoWere you able to make a follow up appointment? YesDo you have any further questions? NoIs there anything that we could have done differently to improve your EDvisit? NoSIGNATURE: Jordyn Driscoll MD PATIENT NAME: Artem PlattTE: May 29, 2017 : 6:28 PM [facility] ED NOTE HNO ID: [id number] Author: Lillie RangelRn) IRINEO Frazier Service: (none) Author Type: Registered Nurse Type: ED Notes Filed: 05/26/2017 10:54 AM Note Text: Pt taken to radiology with tech via [facility] ED NOTE HNO ID: [id number] Author: Lillie RangelRn) IRINEO Frazier Service: (none) Author Type: Registered Nurse Type: ED Notes Filed: 05/26/2017 10:32 AM Note Text: Pt splinted by Dr Driscoll [facility] ED NOTE HNO ID: [id number] Author: Lillie RangelRn) IRINEO Frazier Service: (none) Author Type: Registered Nurse Type: ED Notes Filed: 05/26/2017 10:20 AM Note Text: Radiology at bedside portable xray [facility] ED NOTE HNO ID: [id number] Author: Lillie RangelRn) IRINEO Frazier Service: (none) Author Type: Registered Nurse Type: ED Notes Filed: 05/26/2017 7:32 AM Note Text: Pt taken to radiology with tech via [facility] ED NOTE HNO ID: [id number] thor: Newton RangelRn) SHABANA Binghamervice: (none)Author Type: Registered NurseType: ED NotesFiled: 05/26/2017 7:10 AMNote Text:Pt presents today complaining of left arm/wrist injury. Pt states hetripped over a bucket and fell, denies any LOC. Pain is # 10 /10 on painscale.Plan of care-Monitor Patient's Vital signs for changes in condition-Monitor patient for changes in pain-Maintain patient safety and privacy-Provide comfort measures [facility] ED PROV NOTEon 05-26-2017 ED PROV NOTE HNO ID: [id number] thor: Jordyn Carlosice: Emergency MedicineAuthor Type: PhysicianType: ED Provider NotesFiled: 05/27/2017 8:52 AMNote Text:ED Provider NotePatient Name: Artem McdermottMRN: [id number] DATE: 05/26/17HistoryPatient presents with:Arm Injury: leftHPI Comments: 51 year old male presenting with left wrist pain. Suddenonset, sharp, non-radiating, left distal wrist location, states severe,context- tripped and fell onto out-stretched hand. No other injury, noLOC. RHD.Allergies: NKDAMedications: nonePertinent Medical/Surgical: deniesSocial: No smoke, no etohHistory provided by: PatientLanguage human resources representative used: NoNo past medical history on file.No past surgical history on file.No family history on file.Social HistorySocial History Main Topics- Smoking status: Never Smoker- Smokeless tobacco: Never Used- Alcohol use No- Drug use: No- Sexual activity: Not AskedALLERGIESNo Known AllergiesReview of SystemsConstitutional: Negative for chills and fever.HENT: Negative for sore throat.Eyes: Negative for visual disturbance.Respiratory: Negative for shortness of breath.Cardiovascular: Negative for chest pain.Gastrointestinal: Negative for abdominal pain, diarrhea, nausea andvomiting.Endocrine: Negative for polyuria.Genitourinary: Negative for dysuria.Musculoskeletal: Positive for arthralgias. Negative for back pain and gaitproblem.Skin: Negative for rash and wound.Neurological: Negative for syncope and headaches.Psychiatric/Behavi oral: Negative for confusion.Physical ExamBP 122/86 Pulse 66 Temp (Src) 97.6 (Oral) Resp 16 Ht 5' 11(1.80m) Wt 250 lb (113.4kg) SpO2 97% BMI 34.88 kg/(m2).Physical ExamConstitutional: He is oriented to person, place, and time. He appearswell-developed and well-nourished. No distress.Patient sitting in bed converses easily in full sentences, no visible signof distress or discomfort.HENT:Head: Normocephalic and atraumatic.Mouth/Throat: Oropharynx is clear and moist. No oropharyngeal exudate.Eyes: Conjunctivae are normal. Pupils are equal, round, and reactive tolight. Right eye exhibits no discharge. Left eye exhibits no discharge.Neck: Normal range of motion. Neck supple. No tracheal deviation present.Cardiovascular: Normal rate, regular rhythm and intact distal pulses.Exam reveals no gallop and no friction rub.No murmur heard.Pulmonary/Chest: Effort normal and breath sounds normal. He has nowheezes. He has no rales.Abdominal: Soft. Bowel sounds are normal. He exhibits no distension. Thereis no tenderness. There is no rebound and no guarding.Musculoskeletal: He exhibits tenderness and deformity. He exhibits noedema.L wrist distal deformity; hand CSM fully intact, no snuffbox ttp. No painat elbow, full ROM.Neurological: He is alert and oriented to person, place, and time.Skin: Skin is warm and dry. No rash noted. He is not diaphoretic. Noerythema.Psychiatric: He has a normal mood and affect. His behavior is normal.Nursing note and vitals reviewed.Diagnostic TestingED Labs Ordered and Reviewed - No data to displayORTHOPEDIC INJURY - FRACTURE/DISLOCATIONDate/Francisco Javier e: 05/26/2017 8:49 AMPerformed by: BRENDON DRISCOLLuthorized by: Miguel Angel DRISCOLLent: Consent obtained: Verbal Consent given by: Patient Risks discussed: Nerve damage, pain and vascular damage Alternatives discussed: No treatment and delayed treatmentUniversal protocol: Procedure explained and questions answered to patient or proxy'ssatisfaction: yes Relevant documents present and verified: yes Test results available and properly labeled: yes Imaging studies available: yes Required blood products, implants, devices, and special equipmentavailable: yes Site/side marked: yes Immediately prior to procedure, a time out was called: yes Patient identity confirmed: Verbally with patient and arm bandInjury: Injury location: Forearm Forearm injury location: L forearm Forearm fracture type: distal radialPre-procedure assessment: Neurological function: normal Distal perfusion: normal Range of motion: reduced Range of motion comment: 2/2 painSedation: Sedation type: none.Anesthesia (see MAR for exact dosages): Anesthesia method: Local infiltration Local anesthetic: Lidocaine 2% w/o epi (hematoma block under steriletechnique (3 chloraprep cleanse, sterile gloves/mask, inserted needleuntil hematoma aspirated, instillation of 6cc))Procedure details: Manipulation performed: yes Skin traction used: no Skeletal traction used: yes Pin inserted: no Reduction successful: yes X-ray confirmed reduction: yes Immobilization: Sling and splint Splint type: [employer] Supplies used: Duwvw-EwvbvVmzc-clojxqlgg assessment: Neurological function: normal Distal perfusion: normal Range of motion comment: Splinted Patient tolerance of procedure: Tolerated well, no immediatecomplicationsMedica l Decision Making / ED CourseED [id number] with L wrist deformity c/w fracture. Given morphine for pain, zofranto control nausea, IVF in preparation for reduction. XR L elbow, wrist,hand personally reviewed with melquiades delatorre, comminuted distal radius fracturewith intra-articular extension, ulnar styloid fracture. Hematoma blockwith 2% lidocaine achieves excellent anesthesia; hung in finger traps forreduction as above, minimal manipulation required. XR L wristpost-reductoin personally reviewed with melquiades delatorre, reduction withimprovement in alignment of radius fracture; splinted without incident.Hand CSM fully intact after reduction/splint; taught patient and caprefill, home-exam for any issues.Encounter Diagnosis ICD-10-CM1. Closed displaced comminuted fracture of shaft of left radius, initialencounter S52.352A HYDROcodone-acetaminophen (NORCO) 5-325 mg per tablet DISCONTINUED: HYDROcodone-acetaminophen (NORCO) 5-325 mg per tablet2. Closed displaced fracture of styloid process of left ulna, initialencounter S52.612A HYDROcodone-acetaminophen (NORCO) 5-325 mg per tablet DISCONTINUED: HYDROcodone-acetaminophen (NORCO) 5-325 mg per tabletPlanThe Patient was discharged homeCondition at time of disposition: improved and stableWe discussed workup results and the need for f/u Ortho. Patient wasprovided with education and materials for this appropriate followup careas well as changes in condition that should prompt their return to theEmergency Department. All questions were answered, they wereunderstanding and agreeable to plan.Thank you,Jordyn Driscoll MDEmergency DepartmentSelect Medical Specialty Hospital - CantonATURE: Jordyn Driscoll, [facility] Hospitalnga Mhljirp12/15/18 0852 [facility] XR ELBOW 2V AP/LAT LTon 05-13 XR ELBOW 2V AP/LAT LT * * *Final Report* * *DATE OF EXAM: May 26 2017 7:47AM MMX [id number] - XR ELBOW 2V AP/LAT LT / REASON: Deformity of left wrist * * * * Physician Interpretation * * * * Clinical Information: Injury, painAP and lateral views of the left elbow were obtained.There is no fracture or dislocation. No lytic or blastic lesions identified. Elbow joint space is maintained. Spurring involving the olecranon and lateral humeral epicondyle. No joint effusion is seen.IMPRESSION:No acute abnormality identified.Physician Primary Care Sports Medicine: JANNIE Transcribe Date/Time: May 26 2017 7:58ADictated by : YARA KING MDThis examination was interpreted and the report reviewed and electronically signed by: YARA KING MD on May 26 2017 7:59AM [id number] [facility] XR HAND 3V PA/LAT/OBL LTon 0 05-26-2017 XR HAND 3V PA/LAT/OBL LT * * *Final Report* * *DATE OF EXAM: May 26 2017 7:49AM [id number] [id number] - XR HAND 3V PA/LAT/OBL LT / REASON: Deformity of left wrist * * * * Physician Interpretation * * * * Clinical Information: Injury, pain, deformityAP, lateral, and oblique views of the left hand and left wrist were obtained.There is an acute comminuted fracture involving the distal radial metaphysis with extension into the radiocarpal joint. There is dorsal displacement and angulation of the distal fracture component.Fracture of the ulnar styloid.Joint spaces are maintained. No lytic or blastic lesions are identified.No soft tissue abnormalities are seen.IMPRESSION:Acute comminuted distal radial fracture with intra-articular extension into the radiocarpal joint, dorsal displacement and angulation of the distal fracture component.Ulnar styloid fracture.Physician Primary Care Sports Medicine: [facility] Transcribe Date/Time: May 26 2017 7:59ADictated by : Aman ESCOBAR examination was interpreted and the report reviewed and electronically signed by: YARA KING MD on May 26 2017 8:07AM [id number] Health [facility] W[facility]ST 3V PA/LAT/OBL LTon 05-26-2017 XR WRIST 3V PA/LAT/OBL LT * * *Final Report* * *DATE OF EXAM: May 26 2017 10:36AM MMX [id number] - XR WRIST 3V PA/LAT/OBL LT / REASON: Fracture * * * * Physician Interpretation * * * * 2 VIEWS OF THE LEFT WRISTCOMPARISON:Earlier the same day.CLINICAL INDICATION: Left wrist fracture.RESULT:Again identified is acute comminuted fracture involving the distal radial metaphysis with extension into the radiocarpal joint. There is dorsal displacement and angulation of the distal fracture component.Fracture of the ulnar styloid.Joint spaces are maintained.Moderate amount of soft tissue swelling is noted around the ankle joint.IMPRESSION:Acute comminuted distal radial fracture with intra-articular extension into the radiocarpal joint, dorsal displacement and angulation of the distal fracture component. No significant change in alignment, allowing for the difference in technique and positioning.Ulnar styloid fracture.Physician Primary Care Sports Medicine: [facility] Transcribe Date/Time: May 26 2017 10:37ADictated by : Aman ANGUIANO examination was interpreted and the report reviewed and electronically signed by: RUBY MCINTOSH MD on May 26 2017 10:39AM [id number] [facility] XR WRIST 4V PA/LAT/OBL/SCAPH LTon 05-26-2017 XR WRIST 4V PA/LAT/OBL/SCAPH LT * * *Final Report* * *DATE OF EXAM: May 26 2017 11:04AM MMX [id number] - XR WRIST 4V PA/LAT/OBL/SCAPH LT / REASON: H/O reduction of closed fracture * * * * Physician Interpretation * * * * 3 VIEWS OF THE LEFT WRISTCOMPARISON:Earlier the same day.CLINICAL INDICATION: Status post reduction.RESULT:Interval placement of a cast. Interval reduction of the distal radius fracture. There is improvement in anatomic alignment of the fracture fragments. The fracture fragments are reasonably well aligned. Intra-articular extension of the distal radial fracture is noted. Mildly displaced fracture of the ulnar styloid. The carpal bones are well aligned.-IMPRESSION:Interval reduction of the distal radius fracture and placement of cast.Physician Primary Care Sports Medicine: JANNIE Transcribe Date/Time: May 26 2017 11:17ADictated by : RUBY MCINTOSH MDThiantoni examination was interpreted and the report reviewed and electronically signed by: RUBY MCINTOSH MD on May 26 2017 11:21AM [id number] [facility] XR WRIST 4V PA/LAT/OBL/SCAPH LT * * *Final Report* * *DATE OF EXAM: May 26 2017 7:48AM MMX [id number] - XR WRIST 4V PA/LAT/OBL/SCAPH LT / REASON: Deformity of left wrist * * * * Physician Interpretation * * * * Clinical Information: Injury, pain, deformityAP, lateral, and oblique views of the left hand and left wrist were obtained.There is an acute comminuted fracture involving the distal radial metaphysis with extension into the radiocarpal joint. There is dorsal displacement and angulation of the distal fracture component.Fracture of the ulnar styloid.Joint spaces are maintained. No lytic or blastic lesions are identified.No soft tissue abnormalities are seen.IMPRESSION:Acute comminuted distal radial fracture with intra-articular extension into the radiocarpal joint, dorsal displacement and angulation of the distal fracture component.Ulnar styloid fracture.Physician [facility] Transcribe Date/Time: May 26 2017 7:59ADictated by : YARA KING MDThiantoni examination was interpreted and the report reviewed and electronically signed by: YARA KING MD on May 26 2017 8:07AM [id number] [facility] Vital Signs Date Time Vital Sign Value Performing Clinician Juliette [email or web address] 12-20-2024 15:59-0400 Body height 180.[address] Debora Orourke MD Work Phone: [facility] 12-20-2024 15:59-0400 Body mass index (BMI) [Ratio] 33.7 kg/m2 Dr. Debora Orourke MD Work Phone: [facility] 12-20-2024 15:59-0400 Body temperature 98 [degF] Dr. Debora Orourke MD Work Phone: [facility] 12-20-2024 15:59-0400 Body weight 109.[address] Debora Orourke MD Work Phone: [facility] 12-20-2024 15:59-0400 Diastolic blood pressure 79 mm[Hg] Dr. Debora Orourke MD Work Phone: [facility] 12-20-2024 15:59-0400 Heart rate 68 /min Dr. Debora Orourke MD Work Phone: [phone] [place] [address] 12-20-2024 15:59-0400 Respiratory rate 16 /min Dr. Debora Orourke MD Work Phone: [facility] 12-20-2024 15:59-0400 SaO2% (BldA) [Mass fraction] 95 % Dr. Debora Orourke MD Work Phone: [facility] 12-20-2024 15:59-0400 Systolic blood pressure 131 mm[Hg] Dr. Debora Orourke MD Work Phone: [facility] 12-07-2024 15:53-0400 Body height 180.[address] Debora Orourke MD Work Phone: [facility] 12-07-2024 15:53-0400 Body mass index (BMI) [Ratio] 33.6 kg/m2 Dr. Debora Orourke MD Work Phone: [facility] 12-07-2024 15:53-0400 Body temperature 98.2 [degF] Dr. Debora Orourke MD Work Phone: [facility] 12-07-2024 15:53-0400 Body weight 109.[address] Debora Orourke MD Work Phone: [facility] 12-07-2024 15:53-0400 Diastolic blood pressure 87 mm[Hg] Dr. Debora Orourke MD Work Phone: [facility] 12-07-2024 15:53-0400 Heart rate 70 /min Dr. Debora Orourke MD Work Phone: [facility] 12-07-2024 15:53-0400 Respiratory rate 16 /min Dr. Debora Orourke MD Work Phone: [facility] 12-07-2024 15:53-0400 SaO2% (BldA) [Mass fraction] 94 % Dr. Debora Orourke MD Work Phone: [facility] 12-07-2024 15:53-0400 Systolic blood pressure 144 mm[Hg] Dr. Debora Orourke MD Work Phone: [facility] 07-11-2024 08:55-0400 Body mass index (BMI) [Ratio] 34.5 kg/m2 Dr. Debora Orourke MD Work Phone: [facility] 07-11-2024 08:55-0400 Body temperature 97.4 [degF] Dr. Debora Orourke MD Work Phone: [facility] 07-11-2024 08:55-0400 Body weight 112.[address] Debora Orourke MD Work Phone: [facility] 07-11-2024 08:55-0400 Diastolic blood pressure 92 mm[Hg] Dr. Debora Orourke MD Work Phone: [facility] 07-11-2024 08:55-0400 Heart rate 64 /min Dr. Debora Orourke MD Work Phone: [facility] 07-11-2024 08:55-0400 Respiratory rate 18 /min Dr. Debora Orourke MD Work Phone: [facility] 07-11-2024 08:55-0400 SaO2% (BldA) [Mass fraction] 94 % Dr. Debora Orourke MD Work Phone: [facility] 07-11-2024 08:55-0400 Systolic blood pressure 142 mm[Hg] Dr. Debora Orourke MD Work Phone: [facility] 06-07-2024 16:06-0500 Body height 180.[address] Debora Orourke MD Work Phone: [facility] 06-07-2024 16:06-0500 Body mass index (BMI) [Ratio] 35.2 kg/m2 Dr. Debora Orourke MD Work Phone: [facility] 06-07-2024 16:06-0500 Body temperature 98 [degF] Dr. Debora Orourke MD Work Phone: [facility] 06-07-2024 16:06-0500 Body weight 114.[address] Debora Orourke MD Work Phone: [facility] 06-07-2024 16:06-0500 Diastolic blood pressure 87 mm[Hg] Dr. Debora Orourke MD Work Phone: [facility] 06-07-2024 16:06-0500 Heart rate 68 /min Dr. Debora Orourke MD Work Phone: [facility] 06-07-2024 16:06-0500 Respiratory rate 16 /min Dr. Debora Orourke MD Work Phone: [facility] 06-07-2024 16:06-0500 SaO2% (BldA) [Mass fraction] 92 % Dr. Debora Orourke MD Work Phone: [facility] 06-07-2024 16:06-0500 Systolic blood pressure 136 mm[Hg] Dr. Debora Orourke MD Work Phone: [facility] 06-07-2024 15:28-0500 Body mass index (BMI) [Ratio] 35.3 kg/m2 Dr. Debora Orourke MD Work Phone: [facility] 06-07-2024 15:28-0500 Body temperature 98 [degF] Dr. Debora Orourke MD Work Phone: [facility] 06-07-2024 15:28-0500 Body weight 114.[address] Debora Orourke MD Work Phone: [facility] 06-07-2024 15:28-0500 Diastolic blood pressure 90 mm[Hg] Dr. Debora Orourke MD Work Phone: [facility] 06-07-2024 15:28-0500 Heart rate 73 /min Dr. Debora Orourke MD Work Phone: [facility] 06-07-2024 15:28-0500 Respiratory rate 16 /min Dr. Debora Orourke MD Work Phone: [facility] 06-07-2024 15:28-0500 SaO2% (BldA) [Mass fraction] 93 % Dr. Debora Orourke MD Work Phone: [facility] 06-07-2024 15:28-0500 Systolic blood pressure 141 mm[Hg] Dr. Debora Orourke MD Work Phone: [facility] 06-17-2023 15:01-0500 Body height 180.[address] Tayo Carvalho Work Phone: [facility] 06-17-2023 15:01-0500 Body mass index (BMI) [Ratio] 35.3 kg/m2 Dr. Tayo Carvalho Work Phone: [facility] 06-17-2023 15:01-0500 Body temperature 97.8 [degF] Dr. Tayo Carvalho Work Phone: [facility] 06-17-2023 15:01-0500 Body weight 114.[address] Tayo Carvalho Work Phone: [facility] 06-17-2023 15:01-0500 Diastolic blood pressure 97 mm[Hg] Dr. Tayo Carvalho Work Phone: [facility] 06-17-2023 15:01-0500 Heart rate 68 /min Dr. Tayo Carvalho Work Phone: [facility] 06-17-2023 15:01-0500 Respiratory rate 16 /min Dr. Tayo Carvalho Work Phone: [facility] 06-17-2023 15:01-0500 SaO2% (BldA) [Mass fraction] 94 % Dr. Tayo Carvalho Work Phone: [facility] 06-17-2023 15:01-0500 Systolic blood pressure 147 mm[Hg] Dr. Tayo Carvalho Work Phone: [facility] 06-02-2023 15:08-0500 Body mass index (BMI) [Ratio] 35.3 kg/m2 Dr. Tayo Carvalho Work Phone: [facility] 06-02-2023 15:08-0500 Body temperature 98.6 [degF] Dr. Tayo Carvalho Work Phone: [facility] 06-02-2023 15:08-0500 Body weight 114.[address] Tayo Carvalho Work Phone: [facility] 06-02-2023 15:08-0500 Diastolic blood pressure 89 mm[Hg] Dr. Tayo Carvalho Work Phone: [facility] 06-02-2023 15:08-0500 Heart rate 66 /min Dr. Tayo Carvalho Work Phone: [facility] 06-02-2023 15:08-0500 Respiratory rate 16 /min Dr. Tayo Carvalho Work Phone: [facility] 06-02-2023 15:08-0500 SaO2% (BldA) [Mass fraction] 94 % Dr. Tayo Carvalho Work Phone: [facility] 06-02-2023 15:08-0500 Systolic blood pressure 146 mm[Hg] Dr. Tayo Carvalho Work Phone: [facility] 03-17-2023 15:33-0500 Body mass index (BMI) [Ratio] 34.9 kg/m2 Dr. Tayo Carvalho Work Phone: [facility] 03-17-2023 15:33-0500 Body temperature 98.2 [degF] Dr. Tayo Carvalho Work Phone: [facility] 03-17-2023 15:33-0500 Body weight 113.[address] Tayo Carvalho Work Phone: [facility] 03-17-2023 15:33-0500 Diastolic blood pressure 83 mm[Hg] Dr. Tayo Carvalho Work Phone: [facility] 03-17-2023 15:33-0500 Heart rate 77 /min Dr. Tayo Carvalho Work Phone: [facility] 03-17-2023 15:33-0500 Respiratory rate 16 /min Dr. Tayo Carvalho Work Phone: [facility] 03-17-2023 15:33-0500 SaO2% (BldA) [Mass fraction] 93 % Dr. Tayo Carvalho Work Phone: [facility] 03-17-2023 15:33-0500 Systolic blood pressure 144 mm[Hg] Dr. Tayo Carvalho Work Phone: [facility] 11-25-2022 15:52-0400 Body height 180.[address] Debora Orourke Work Phone: [facility] 11-25-2022 15:52-0400 Body mass index (BMI) [Ratio] 35.2 kg/m2 Dr. Debora Orourke Work Phone: [facility] 11-25-2022 15:52-0400 Body temperature 98.7 [degF] Dr. Debora Orourke Work Phone: [facility] 11-25-2022 15:52-0400 Body weight 114.[address] Debora Orourke Work Phone: [facility] 11-25-2022 15:52-0400 Diastolic blood pressure 89 mm[Hg] Dr. Debora Orourke Work Phone: [facility] 11-25-2022 15:52-0400 Heart rate 71 /min Dr. Debora Orourke Work Phone: [facility] 11-25-2022 15:52-0400 Respiratory rate 16 /min Dr. Debora Orourke Work Phone: [facility] 11-25-2022 15:52-0400 SaO2% (BldA) [Mass fraction] 93 % Dr. Debora Orourke Work Phone: [facility] 11-25-2022 15:52-0400 Systolic blood pressure 148 mm[Hg] Dr. Debora Orourke Work Phone: [facility] 10-16-2022 09:00-0400 Diastolic blood pressure 63 mm[Hg] Dr. Debora Orourke Work Phone: [facility] 10-16-2022 09:00-0400 Heart rate 70 /min Dr. Debora Orourke Work Phone: [facility] 10-16-2022 09:00-0400 Respiratory rate 16 /min Dr. Debora Orourke Work Phone: [facility] 10-16-2022 09:00-0400 SaO2% (BldA) [Mass fraction] 94 % Dr. Debora Orourke Work Phone: [facility] 10-16-2022 09:00-0400 Systolic blood pressure 95 mm[Hg] Dr. Debora Orourke Work Phone: [facility] 10-16-2022 07:35-0400 Body height 180.[address] Debora Orourke Work Phone: [facility] 10-16-2022 07:35-0400 Body mass index (BMI) [Ratio] 34.1 kg/m2 Dr. Debora Orourke Work Phone: [facility] 10-16-2022 07:35-0400 Body temperature 97.2 [degF] Dr. Debora Orourke Work Phone: [facility] 10-16-2022 07:35-0400 Body weight 110.[address] Debora Orourke Work Phone: [facility] 09-24-2022 11:06-0400 Body mass index (BMI) [Ratio] 33.5 kg/m2 Dr. Debora Orourke Work Phone: [facility] 09-24-2022 11:06-0400 Body weight 108.[address] Debora Orourke Work Phone: [facility] 09-23-2022 15:23-0400 Diastolic blood pressure 92 mm[Hg] Dr. Debora Orourke Work Phone: [facility] 09-23-2022 15:23-0400 Systolic blood pressure 147 mm[Hg] Dr. Debora Orourke Work Phone: [facility] 09-23-2022 15:21-0400 Body mass index (BMI) [Ratio] 34.2 kg/m2 Dr. Debora Orourke Work Phone: [facility] 09-23-2022 15:21-0400 Body temperature 98.2 [degF] Dr. Debora Orourke Work Phone: [facility] 09-23-2022 15:21-0400 Body weight 111.[address] Debora Orourke Work Phone: [facility] 09-23-2022 15:21-0400 Heart rate 64 /min Dr. Debora Orourke Work Phone: [facility] 09-23-2022 15:21-0400 Respiratory rate 16 /min Dr. Debora Orourke Work Phone: [facility] 09-23-2022 15:21-0400 SaO2% (BldA) [Mass fraction] 96 % Dr. Debora Orourke Work Phone: [facility] 10-17-2021 10:55-0400 Body temperature 97.9 [degF] Dr. Debora Orourke Work Phone: [facility] Work Phone: 10-17-2021 10:55-0400 Diastolic blood pressure 79 mm[Hg] Dr. Debora Orourke Work Phone: [facility] Work Phone: 10-17-2021 10:55-0400 Heart rate 53 /min Dr. Debora Orourke Work Phone: [facility] Work Phone: 10-17-2021 10:55-0400 Respiratory rate 16 /min Dr. Debora Orourke Work Phone: [facility] Work Phone: 10-17-2021 10:55-0400 SaO2% (BldA) [Mass fraction] 99 % Dr. Debora Orourke Work Phone: [facility] Work Phone: 10-17-2021 10:55-0400 Systolic blood pressure 106 mm[Hg] Dr. Debora Orourke Work Phone: [facility] Work Phone: 10-17-2021 08:20-0400 Body height 180.[address] Debora Orourke Work Phone: [facility] Work Phone: 10-17-2021 08:20-0400 Body mass index (BMI) [Ratio] 32.3 kg/m2 Dr. Debora Orourke Work Phone: [facility] Work Phone: 10-17-2021 08:20-0400 Body weight 105.[address] Debora Orourke Work Phone: [facility] Work Phone: 09-01-2021 15:36-0400 Body mass index (BMI) [Ratio] 32.1 kg/m2 Dr. Debora Orourke Work Phone: [facility] Work Phone: 09-01-2021 15:36-0400 Body weight 104.[address] Debora Orourke Work Phone: [facility] Work Phone: 08-28-2021 15:52-0400 Body mass index (BMI) [Ratio] 33.2 kg/m2 Dr. Deobra Orourke Work Phone: [facility] Work Phone: 08-28-2021 15:52-0400 Body temperature 98.2 [degF] Dr. Debora Orourke Work Phone: [facility] Work Phone: 08-28-2021 15:52-0400 Body weight 108.[address] Debora Orourke Work Phone: [facility] Work Phone: 08-28-2021 15:52-0400 Diastolic blood pressure 82 mm[Hg] Dr. Debora Orourke Work Phone: [facility] Work Phone: 08-28-2021 15:52-0400 Heart rate 76 /min Dr. Debora Orourke Work Phone: [facility] Work Phone: 08-28-2021 15:52-0400 Respiratory rate 18 /min Dr. Debora Orourke Work Phone: [facility] Work Phone: 08-28-2021 15:52-0400 SaO2% (BldA) [Mass fraction] 93 % Dr. Debora Orourke Work Phone: [facility] Work Phone: 08-28-2021 15:52-0400 Systolic blood pressure 132 mm[Hg] Dr. Debora Orourke Work Phone: [facility] Work Phone: 08-26-2020 14:35-0400 Body mass index (BMI) [Ratio] 32.4 kg/m2 Dr. Debora Orourke Work Phone: [facility] 05-27-2020 15:28-0500 Body temperature 98.3 [degF] Dr. Debora Orourke Work Phone: [facility] 05-27-2020 15:28-0500 Body weight 113.[address] Debora Orourke Work Phone: [facility] 05-27-2020 15:28-0500 Diastolic blood pressure 100 mm[Hg] Dr. Debora Orourke Work Phone: [facility] 05-27-2020 15:28-0500 Heart rate 70 /min Dr. Debora Orourke Work Phone: [facility] 05-27-2020 15:28-0500 Respiratory rate 18 /min Dr. Debora Orourke Work Phone: [facility] 05-27-2020 15:28-0500 SaO2% (BldA) [Mass fraction] 96 % Dr. Debora Orourke Work Phone: [facility] 05-27-2020 15:28-0500 Systolic blood pressure 158 mm[Hg] Dr. Debora Orourke Work Phone: [facility] Encounters Encounter Date Encounter Type Care Provider Facility Start: 12-20-2024 End: 12-20-[address] Gerson Cifuentes MD -[facility] Work Phone: Start: 12-20-2024 End: 12-20-[address] Debora Orourke MD Work Phone: -[facility] Start: 12-07-2024 End: 12-07-[address] Debora Orourke MD -[facility] Work Phone: Start: 12-07-2024 End: 12-07-[address] Debora Orourke MD Work Phone: -[facility] Start: 12-04-[address] Gerson hyde MD -[facility] Start: 12-04-2024 ambulatory Gerson High ty:[facility] Start: 09-25-2024 End: 09-25-[address] Debora Orourke MD Work Phone: [facility] Work Phone: Start: 09-25-2024 End: 09-25-[address] Debora Orourke [facility] Start: 09-25-2024 End: 09-25-2024 ambulatory Deboraleeroy Orourke Facility:[facility] Start: 07-11-2024 End: 07-11-2024 Patient encounter procedure Re De León NP-C -[facility] Work Phone: Start: 07-11-2024 End: 07-11-2024 ambulatory Re De León [employer] Facility:[facility] Start: 06-07-2024 End: 06-07-[address] Debora Orourke MD -[facility] Work Phone: Start: 06-07-2024 End: 06-07-2024 ambulatory Debora Orourke Facility:[facility] Start: 06-01-[address] Gerson hyde MD -[facility] Start: 04-21-2024 End: 04-21-2024 ambulatory Deboraleeroy Orourke Facility:[facility] Start: 03-02-2024 End: 03-02-2024 ambulatory Deboraleeroy Orourke Facility:[facility] Start: 01-04-2024 End: 01-04-2024 ambulatory Debora Orourke Facility:[facility] Start: 06-17-2023 End: 06-17-[address] Tayo Carvalho Work Phone: [facility] Work Phone: Start: 06-14-2023 End: 06-14-[address] Tayo Carvalho Work Phone: [facility] Work Phone: Start: 06-14-2023 End: 06-14-[address] Tayo Carvalho Work Phone: [facility] Start: 06-02-2023 End: 06-02-[address] Tayo Carvalho Work Phone: [facility] Work Phone: Start: 05-27-[address] Tayo Carvalho Work Phone: [facility] Start: 03-17-2023 End: 03-17-[address] Tayo Carvalho Work Phone: [facility] Work Phone: Start: 03-17-2023 End: 03-17-[address] Tayo Carvalho Work Phone: [facility] [place] Work Phone: Start: 11-25-2022 End: 11-25-[address] Debora Orourke Work Phone: [facility] [place] Work Phone: Start: 11-23-2022 End: 11-23-[address] Debora Orourke Work Phone: [facility] Work Phone: Start: 11-23-2022 End: 11-23-[address] Debora Orourke Work Phone: [facility] Start: 10-16-2022 Non-patient / Non-visit Dr. Debora Orourke Work Phone: [facility] Start: 10-16-2022 End: 10-16-2022 Admission to same day surgery center Dr. Debora Orourke Work Phone: [facility] Work Phone: Start: 10-16-2022 End: 10-16-[address] Debora Orourke Work Phone: [facility] Work Phone: Start: 09-24-2022 Non-patient / Non-visit Dr. Debora Orourke Work Phone: [facility] Work Phone: Start: 09-23-2022 End: 09-23-[address] Debora Orourke Work Phone: [facility] Work Phone: Start: 09-17-[address] Debora Orourke Work Phone: [facility] Start: 10-17-2021 Non-patient / Non-visit Dr. Debora Orourke Work Phone: [facility] Start: 10-17-2021 End: 10-17-2021 Admission to same day surgery center Dr. Debora Orourke Work Phone: [facility] Start: 09-01-2021 Non-patient / Non-visit Dr. Debora Orourke Work Phone: [facility] Start: 08-28-2021 End: 08-28-[address] Debora Orourke Work Phone: [facility] Start: 08-20-[address] Debora Orourke Work Phone: [facility] Start: 06-01-2017 End: 06-01-2017 Ambulatory JENNIFER MITTAL Facility:[facility] Start: 05-31-2017 End: 06-01-2017 Ambulatory JENNIFER MITTAL Facility:[facility] Start: 05-26-2017 End: 05-26-2017 Emergency department patient visit [facility] Procedures Date Procedure Procedure Detail Performing Clinician Start: 12-04-[address] Debora Orourke MD Work Phone: Start: 12-04-2024 Prostate specific an tigen measurement Dr. Debora Orourke MD Work Phone: Comment on above: This test was perfor med using the [employer] tPSA method. Measured values of a patient sample can vary depending on the testing procedure used. PSA values determined on patient samples by different testing procedures cannot be used interchangeably. If there is a change in PSA assays while monitoring therapy, sequential testing should be performed to confirm baseline values. Start: 12-04-2024 Vitamin D, 25-hydrox y measurement Dr. Debora Orourke MD Work Phone: Comment on above: Vitamin D StatusDefi ciency: <20 ng/mL (50nmol/L)Insufficiency: 20-30 ng/mL (50-75 nmol/L)Sufficiency: 30-100 ng/mL (75-250 nmol/L)Toxicity: >100 ng/mL (>250 nmol/L) Start: 06-01-[address] Debora Orourke MD Work Phone: Start: 06-01-2024 Measurement of renal function Dr. Debora Orourke MD Work Phone: Comment on above: GFR Calc Start: 10-16-[address] Debora Orourke Work Phone: Start: 10-17-[address] Debora Orourke Work Phone: Plan of Treatment Date Care Activity Detail Author Start: 10-16-2022 Colonoscopy w/biopsy single/multiple COLONOSCOPY AND BIOPSY [facility] Start: 10-16-2022 Patient discharge [facility] Start: 10-17-2021 Patient discharge [facility] Work Phone: Start: 08-28-2021 Patient referral [facility] Work Phone: Carcinoembryonic Ag [Mass/volume] in Serum or Plasma [facility] Work Phone: Carcinoembryonic Ag [Mass/volume] in Serum or Plasma [facility] Carcinoembryonic Ag [Mass/volume] in Serum or Plasma [facility] Carcinoembryonic Ag [Mass/volume] in Serum or Plasma [facility] CBC W Auto Different ial panel - Blood [facility] CBC W Auto Different ial panel - Blood [facility] Colonoscopy [facility] Work Phone: Colonoscopy [facility] Comprehensive metabo lic 1999 panel - Serum or Plasma [facility] metabo lic 1999 panel - Serum or Plasma [facility] Hemoglobin A1c/Hemoglobin.total in Blood [facility] Hemoglobin A1c/Hemoglobin.total in Blood [facility] Lipid 1995 panel - S ines or Plasma [facility] Lipid 1995 panel - S ines or Plasma [facility] Patient referral [facility] Work Phone: Prostate specific an tigen measurement [facility] Serum insulin measurement [facility] Thyroid stimulating hormone measurement [facility] Vitamin D, 25-hydrox y measurement [facility] Payers Date Payer Category Payer Self-pay [id number] 2020 Unknown [id number] 2017 Unknown [id number] Private Health Insurance [id number] Unknown [id number] 2.16.8 [id number] Unknown [id number] 2.16.8 [id number] Unknown [id number] 2.16.8 [id number] Unknown [id number] 2.16.8 [id number] Unknown [id number] 2.16.8 [id number] Unknown [id number] 2.16.8 [id number] Unknown [id number] 2.16.8 [id number] Unknown [id number] 2.16.8 [id number] Unknown [id number] 2.16.8 [id number] Unknown [id number] 2.16.8 [id number] Social History Date Type Detail Facility Start: 10-15-2021 End: 06-17-2023 Tobacco smoking status NHIS Unknown if ever smoked [facility] Start: 08-20-2020 [facility] Start: 1965 Sex Assigned At Male [facility] Start: 10-27-2023 Tobacco smoking stat us MTIS Never smoked tobacco (finding) [facility] Medical Equipment Procedure Code Equipment Code Equipment Origin al Text Equipment Identifier Dates Colonoscopy Ligation clip, metallic [id number] [facility] Start: 10-17-2021 Goals Date Patient Goal Desired Activity /State Mental Status Date Assessment Result Facility 10-16-2022 Cognitive function Level Of Cons ciousness Follows Commands;[facility] Work Phone: 10-16-2022 Cognitive function Patient Orien tation Person;Place;Time [facility] Work Phone: 10-17-2021 Cognitive function Level Of Cons ciousness [facility] Work Phone: Clinical Notes 10-16-2022 to 12-20-2024 Note Date & Type Note Facility 12-20-[address] [facility] 12-20-2024 Progress note Note Date/Time December 20, 2024 4:20pm [facility] [place] [address] OFFICE VISIT Date of Service: 12/20/24 1552 MR#: [id number] Acct: [id number] Name: ARTEM MCDERMOTT Rep #: [id number] : 1965 From: Gerson samuels MD Age/Sex: 59/M Location: [facility] Status: Signed HPI Subjective Date of Service 12/20/24 Chief Complaint Rectal cancer follow-up History of Present Illness 58 YOM with no FH of colon cancer who underwent his first screening colonoscopy 2020 MICROSCOPIC DIAGNOSIS A. Proximal transverse colon polyp, biopsy: Fragments of tubular adenoma. B. Distal transverse colon polyp, biopsy: Fragments of hyperplastic polyp. C. Proximal sigmoid colon polyp, biopsy: Tubular adenoma. D. 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 See comment. E. Rectal polyp base, biopsy: Benign colonic tissue. COMMENT D. Immunohistochemistry ([id number]) supports the above diagnosis. The intramucosal adenocarcinoma measures 3 mm in greatest dimension and is present close to the luminal surface. [facility] Medical History Chewing tobacco nicotine dependence Wears glasses Loose, teeth Back pain 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, secondary SOPHIE (obstructive sleep apnea) CPAP (continuous positive airway pressure) dependence Plantar fasciitis, bilateral Rectal cancer Rectal bleeding Diastasis recti Umbilical hernia without obstruction and without gangrene Screening for malignant neoplasm of intestine Osteoarthritis Hypertension Obesity (BMI 30-39.9) Back pain Knee pain Surgical History History of colonoscopy (~05/2020) History of tonsillectomy Broken wrist Family History Brother Dementia Hypertension Father Hypertension Mother Hypertension Daughter Diabetes Social History (Reviewed 12/20/24 @ 15:58 by Pascale Andrade Smoking Status: Never smoker Tobacco: How many years used: 35 Smokeless tobacco user: chewing tobacco second hand exposure: No alcohol intake: never substance use type: does not use caffeine: Yes Type: coffee eating out: 1-3 times/week seatbelt use: always do you feel safe at home: Yes ROS ROS Narrative Started using CPAP almost daily April 2024 Constitutional Constitutional: Reports systems reviewed and no addt'l complaints, except as documented; Denies anorexia, fatigue or fever(s) Eyes Eyes: Reports systems reviewed and no addt'l complaints, except as documented ENT HEENT: Reports systems reviewed and no addt'l complaints, except as documented; Denies headache(s) Cardiovascular Cardiovascular: Reports systems reviewed and no addt'l complaints, except as documented; Denies chest pain with activity or edema Respiratory/Chest Respiratory/Chest: Reports systems reviewed and no addt'l complaints, except as documented; Denies cough or dyspnea on exertion Gastrointestinal Gastrointestinal: Reports systems reviewed and no addt'l complaints, except as documented and other; Denies abdominal pain, change in bowel habits, hematochezia or melena Genitourinary Genitourinary: Reports systems reviewed and no addt'l complaints, except as documented; Denies dysuria Musculoskeletal Musculoskeletal: Reports systems reviewed and no addt'l complaints, except as documented, back pain and other Details: Chronic back pain, has good days and bad days Integumentary Integumentary: Reports systems reviewed and no addt'l complaints, except as documented; Denies rash Neurologic Neurologic: Reports systems reviewed and no addt'l complaints, except as documented; Denies focal weakness Psychiatric Psychiatric: Reports systems reviewed and no addt'l complaints, except as documented Endocrine Endocrinology: Reports systems reviewed and no addt'l complaints, except as documented Hematologic/Lymphatic Hematologic/Lymphatic: Reports systems reviewed and no addt'l complaints, exceptas documented Allergic/Immunologic Allergic/Immunologic: Reports systems reviewed and no addt'l complaints, except as documented Intake Vital Signs 06/07/24 15:30 12/07/24 15:53 12/20/24 15:54 12/20/24 15:59 Height 5 ft 11 in 5 ft 11 in 5 ft 11 in 5 ft 11 in Weight: 109.826 kg BMI 33.7 BP 131/79 H Blood Pressure Location Lt brachial Position Sitting Respiration 16 Pulse 68 Pulse Source Monitor Temp 98.0 F Temperature Source Temporal Artery Pulse Oximetry (%) 95 Oxygen Delivery Method room air Intake Allergies No Known Allergies Allergy (Verified 12/20/24 15:57) Medications ?Medication ?Instructions ?Recorded ?Confirmed ?Type lactobacillus combination no.9 4 4,000 mmu cells PO DA KENZIE 08/08/20 12/20/24 History billion cell capsule (Adult 50 Plus Probiotic) cholecalciferol (vitamin D3) 50 50 mcg PO DAILY 12/20/24 History mcg (2,000 unit) capsule aspirin 81 mg tablet,delayed 81 mg PO DAILY 02/26/22 0 12/20/24 History release (Adult Low Dose Aspirin) lisinopril 40 mg tablet 40 mg PO QDAY #90 tabs 05/2512/20/24 Rx metformin 500 mg tablet 500 mg PO BID #180 tabs 01/0412/20/24 Rx semaglutide 1 mg/dose (4 mg/3 mL) 1 mg (0.75 mL) subcu t QWEEK #3 mL 10/16/24 12/20/24 Rx subcutaneous pen injector loratadine 10 mg capsule 10 mg PO DAILY 12/07/2412/11 History Have you fallen in the past year?: No Central Venous Access Central Venous Access: No Laboratory Tests 05/27/20 08/21/20 11/18/20 16:00 15:15 14:05 Carcinoembryonic Ag 1.8 2.1 2.3 02/24/21 05/26/21 08/20/21 14:15 08:07 15:35 Carcinoembryonic Ag 1.9 1.5 1.7 11/24/21 02/20/22 05/21/22 14:25 15:24 14:25 Carcinoembryonic Ag 1.7 1.9 1.6 09/17/22 01/21/23 05/27/23 14:59 12:05 15:40 Carcinoembryonic Ag 1.6 1.7 1.8 12/30/23 06/01/24 12/04/24 15:09 15:40 14:34 Carcinoembryonic Ag 1.8 1.6 1.9 Exam Physical Exam Const alert, oriented x3 and no apparent distress Constitutional Narrative: ECOG 0, plethoric face General Appearance: cooperative and comfortable HEENT normocephalic Head and Scalp: normal to inspection Eyes General Eye: normal appearance of both eyes Sclera: sclera normal Cornea: cornea normal Neck no lymphadenopathy and no JVD Lymph Lymphatic: no lymphadenopathy noted Chest Chest: symmetrical chest wall rise Resp clear to auscultation bilaterally Cardio regular rate and regular rhythm Jugular Venous Distention: Negative for JVD GI soft to palpation, non-tender and non-distended; Negative for hepatosplenomegaly no CVA tenderness Back/Spine no thoracic nor lumbar tenderness Extremity no clubbing, cyanosis or edema Skin no rashes or lesions noted Neuro oriented x3, CN's II-XII intact bilaterally and no focal motor deficits Coordination / Balance: [id number] test normal Speech: speech normal Gait (Neuro): normal gait Psych mental status grossly normal Coding Level of Care Code Off vis,est,level 4 Exam Problem Focused Diagnoses Rectal cancer C20 Assessment and Plan Assessment and Plan (1) Rectal cancer: Status: Acute Plan 59 YOM who on his first screening colonoscopy in 2020 was found to have a moderately differentiated intramucosal adenocarcinoma arising in a tubulovillousadenoma of the rectum. polyp completely resected at colonoscopy and carcinoma was towards lumenal surface. No FH of colon cancer. Following resection patient went on surveillance. Last colonoscopy was October 2021 tubular adenoma was removed from the mid transverse colon. Comorbid conditions: JAQUAN-2 negative polycythemia secondary to SOPHIE (has a CPAP but not using faithfully), obesity and HTN. Plan: 1-Continue survelllance for colon cnacer. 2- H&P +CEA every 6M 3-surveillance colonoscopy October 2023 no polyps, next to schedule October 2026. Patient was seen . Impression and recommendations discussed. Gerson Cifuentes MD [employer], [facility] Divisions of Medical Oncology & Hematology Department of Internal Medicine [place] [phone] This note was generated using a voice recognition system software. Although itwas reviewed by the author prior to finalization, it may still contain incorrectwords, spelling, and punctuation that were not noted when reviewing prior to saving. If a clinically significant typo or inaccurately typed phrase is noted, please notify the author. Clinical Quality Measures Falls Risk Screening/Assistive Devices Have you fallen in the past year?: No 12/20/24 1620 <Electronically signed by Gerson maria MD> Date _ Gerson Cifuentes MD Cosigner Signature: Date (if applicable) CC: Dr. Debora Orourke MD ~ [facility] Work Phone: 1(191) 286-710208-25-2025 Evaluation note* Diagnosis Onset Date Resolution Status Admit Date Rectal cancer acute November 2:26pm [facility] Work Phone: 1(468) 514-264308-25-2025 Evaluation note* Diagnosis Onset Date Resolution Status Admit Date Rectal cancer acute November 2:26pm Insulin resistance acute December 07, 2024 3:48pm Vitamin D deficiency acute 2024 3:48pm Obesity (BMI 30-39.9) chronic Nov 3:48pm SOPHIE (obstructive sleep apnea) chronic December 07 3:48pm Type 2 diabetes mellitus chronic December 07, 2024 3:48pm Rectal cancer acute December 112024 3:49pm [facility] Work Phone: 1(901) 215-939902-20-2025 Evaluation note* Diagnosis Onset Date Resolution Status Admit Date Rectal cancer acute June 012024 3:28pm Rectal cancer acute June 072024 3:22pm Insulin resistance acute 2024 3:54pm Vitamin D deficiency acute 2024 3:54pm Hypertension chronic May 3:54pm SOPHIE (obstructive sleep apnea) chroni c June 07, 2024 3:54pm Type 2 diabetes mellitus chronic June 07, 2024 3:54pm Hypertension chronic July 11 3:15pm Obesity (BMI 30-39.9) chronic Apr 2024 3:15pm SOPHIE (obstructive sleep apnea) chroni c July 11, 2024 3:15pm 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, secondary chronic A pril 2024 3:15pm Type 2 diabetes mellitus chronic July 11, 2024 3:15pm [facility] Work Phone: 1(202) 763-916507-07-2023 [facility] Onset Date Resolution Status Rectal cancer acute Rectal cancer acute SOPHIE (obstructive sleep apnea) chronic 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, secondary 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 Rectal cancer acute [facility] Work Phone: Evaluation note* Diagnosis Onset Date Resolution Status Rectal cancer acute Rectal cancer acute 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, secondary 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 Rectal cancer acute [facility] Work Phone: Evaluation note* Diagnosis Onset Date Resolution Status Rectal cancer acute Rectal cancer acute 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, secondary 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 Rectal cancer acute Insulin resistance acute Type 2 diabetes mellitus acu te Vitamin D deficiency acute Hypertension chronic Obesity (BMI 30-39.9) chroni c 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, secondary 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 [facility] Work Phone: Evaluation note* Diagnosis Onset Date Resolution Status Insulin resistance acute Type 2 diabetes mellitus acu te Vitamin D deficiency acute Hypertension chronic Obesity (BMI 30-39.9) chroni c Rectal cancer acute Rectal cancer acute 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, secondary 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 Debora Orourke MD Status:[facility] [place] [place] Location: [place] [id number] HPI - General General Date of Service: 10/16/22 Chief Complaint: Personal history of colon polyps, surveillance colonoscopy, history of rectal cancer HPI Narrative ARTEM MCDERMOTT, is a 57 M who presents via open access for surveillance colonoscopy. He has a personal history of rectal cancer and personal history of colon polyps. He has been in good health. Has no complaints. No change in bowel habits. He denies any cardiopulmonary issues. [facility] Medical History (Updated 10/14/22 @ 12:09 by Edwige Jimenez) Back pain Back pain Chewing tobacco nicotine dependence CPAP (continuous positive airway pressure) dependence Diastasis recti Hypertension Knee pain Loose, teeth Obesity (BMI 30-39.9) SOPHIE (obstructive sleep apnea) Osteoarthritis Plantar fasciitis, bilateral 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, secondary Rectal bleeding Rectal cancer Screening for malignant neoplasm of intestine Umbilical hernia without obstruction and without gangrene Wears glasses Home Medications loratadine 10 mg capsule 10 mg PO DAILY 04/30/20 [History Last Taken Unknown] lactobacillus combination no.9 4 billion cell capsule (Adult 50 Plus Probiotic) 4,000 mmu cells PO DAILY 08/08/20 [History Last Taken Unknown] cholecalciferol (vitamin D3) 50 mcg (2,000 unit) capsule 50 mcg PO DAILY 08/28/21 [History Last Taken Unknown] aspirin 81 mg tablet,delayed release (Adult Low Dose Aspirin) 81 mg PO DAILY 02/26/22 [History Last Taken Unknown] lisinopril 20 mg tablet 20 mg PO BID #180 tabs 05/28/22 [Rx Last Taken 10/16/22] Allergy/AdvReac Type Severity Reaction Status Date / Time No Known Allergies Allergy Verified 10/16/22 07:34 Family History Brother Dementia Hypertension Father Hypertension Mother Hypertension Daughter Diabetes Surgical History Broken wrist History of colonoscopy (~05/2020) History of tonsillectomy Social History Smoking Status: Never smoker Tobacco: How many years used: 35 Smokeless tobacco user: chewing tobacco second hand exposure: No alcohol intake: never substance use type: does not use caffeine: Yes Type: coffee eating out: 1-3 times/week seatbelt use: always do you feel safe at home: Yes ROS Constitutional Constitutional: Reports systems reviewed and no addt'l complaints, except as documented Cardiovascular Cardiovascular: Denies chest pain Respiratory/Chest Respiratory/Chest: Denies shortness of breath at rest Gastrointestinal Gastrointestinal: Denies abdominal pain, change in bowel habits, hematochezia ormelena Vital Signs Vital Signs Vital Signs: 10/16/22 07:35 10/16/22 07:35 Temperature 97.2 F L Temperature Source Temporal Pulse Rate 60 Respiratory Rate 20 H Respiratory Pattern Normal Blood Pressure 127/86 H Blood Pressure Mean 99 Blood Pressure Source Monitor Blood Pressure Position Semi-Fowlers Blood Pressure Location Right Arm Pulse Ox 96 Oxygen Delivery Method Room Air Weight Weight: 244 lb 7.882 oz Body Mass Index (BMI) 34.1 Physical Exam Const alert, oriented x3 and no apparent distress General Appearance: cooperative and comfortable Eyes General Eye: normal appearance of both eyes Neck General: normal visual inspection Chest inspection of chest normal Resp Effort and Inspection: able to speak in complete sentences and symmetric chest movement Auscultation: clear to auscultation bilaterally Cardio regular rate and regular rhythm GI soft to palpation, non-tender and non-distended Extremity no calf tenderness Neuro oriented x3 Psych thought process normal Assessment & Plan Assessment/Plan (1) Rectal cancer: PLAN: Patient presents for a surveillance colonoscopy with a personal history ofcolon cancer. I recommend to him a colonoscopy with possible biopsy or polypectomy as indicated. He presents via open access. Previous colonoscopy was October 17, 2021. Nathan Ritchie M.D., F.A.C.S. 10/16/22 0814 <Electronically signed by Nathan Ritchie MD> Cosigner Signature (if applicable): CC: Dr. Debora Orourke MD; Dr. Nathan Ritchie MD~ Signed [facility] Work Phone: Reason for referral (narrative)No reason for referral [facility] Work [facility]: Summary Purpose Family History No Family History Records Found Relationship Condition Age at Onset Recorded Date/T sheyla brother Dementia Unknown Hypertension Unknown father Hypertension Unknown mother Hypertension Unknown daughter Diabetes mellitus Unknown Advance Directives No Advanced Directives Records Found Advance Directive Response Recorded Date/ Time Living Will No October 15, 2021 1 2:32pm Power of Driver Merchandiser No October 15, 2021 12:32pm Advance Directive Response Recorded Date/ Time Living Will No October 14, 2022 1 2:03pm Power of Driver Merchandiser No October 14, 2022 12:03pm Advance Directive Response Recorded Date/ Time Living Will No October 14, 2022 1 1:03am Power of Driver Merchandiser No October 14, 2022 11:03am Advance Directive Response Recorded Date/ Time Living Will No August 20, 2020 3 :12pm Do you have a Healthcare Power of Driver Merchandiser? No August 20, 2020 3:12pm Chief Complaint and Reason for Visit Chief Complaint ONC/HEM 3 MO - LABS 1 WK PRIOR Amb Documentation Reason for Visit Rectal cancer Rectal cancer SOPHIE (obstructive sleep apnea) 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, secondary Rectal cancer Chief Complaint ONC/HEM 4 MO - LABS 1 WK PRIOR Amb Documentation Reason for Visit Rectal cancer Rectal cancer 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, secondary Rectal cancer Chief Complaint ONC/HEM 4 MO - LABS 1 WK PRIOR Amb Documentation 6 M FU Reason for Visit Rectal cancer Rectal cancer 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, secondary Rectal cancer Insulin resistance Type 2 diabetes mellitus Vitamin D deficiency Hypertension Obesity (BMI 30-39.9) 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, secondary Chief Complaint 3 M FU EORDERS- NOT DOING LIPID ONC/HEM 4MO LABS 1 WEEK PRIOR 3 M FU Reason for Visit Insulin resistance Type 2 diabetes mellitus Vitamin D deficiency Hypertension Obesity (BMI 30-39.9) Rectal cancer Rectal cancer 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, secondary Elevated serum creatinine Insulin resistance Rectal cancer Type 2 diabetes mellitus Vitamin D deficiency Hypertension Chief Complaint Admit Date ONC/HEM June 01, 2024 3:28pm 5MO LABS PRIOR June 07, 2024 3:22pm 3 M FU June 07, 2024 3:54pm Sleep problems July 11, 2024 3:15 pm Reason for Visit Admit Date Rectal cancer June 01, 2024 3:28pm Rectal cancer June 07, 2024 3:22pm Insulin resistance June 07, 2024 3:54pm Vitamin D deficiency June 07, 2024 3:54pm Hypertension June 07, 2024 3:54pm SOPHIE (obstructive sleep apnea) May 142024 3:54pm Type 2 diabetes mellitus February 26th, 2025 3:54pm Hypertension July 11, 2024 3:15 pm Obesity (BMI 30-39.9) July 11, 2024 3: 15pm SOPHIE (obstructive sleep apnea) July 11, 2024 3:15pm 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, secondary July 11, 2024 3:15pm Type 2 diabetes mellitus July 11, 2024 3:15pm Chief Complaint Admit Date ONC/HEM December 04, 2024 2: 26pm Annual/Physical December 07, 2024 3: 48pm Reason for Visit Admit Date Rectal cancer December 04, 2024 2: 26pm Chief Complaint Admit Date ONC/HEM December 04, 2024 2: 26pm Annual/Physical December 07, 2024 3: 48pm 6 MO - LABS 1 WK PRIOR December 20 025 3:49pm Reason for Visit Admit Date Rectal cancer December 04, 2024 2: 26pm Insulin resistance December 07, 2024 3: 48pm Vitamin D deficiency December 07, 2024 3 :48pm Obesity (BMI 30-39.9) December 07, 2024 3:48pm SOPHIE (obstructive sleep apnea) November 3:48pm Type 2 diabetes mellitus December 07 3:48pm Rectal cancer December 20, 2024 3:49pm Additional Source Comments (unrecognized sect ion and content) No Status Records FoundNo Status Records FoundNo Status Records Found INFORMATION SOURCE (unrecogn ized section and content) DATE CREATED AUTHOR 10/01/2017 [facility] ([place]) DATE CREATED AUTHOR AUTHOR'S ORGANIZ ATION 10/01/2017 [facility] DATE CREATED AUTHOR AUTHOR'S ORGANIZ ATION 12/23/2024 [facility] Care Teams (unrecognized sec tion and content) Team Status: Active Member Role Status Dates Dr. Debora Orourke MD Primary Care Provider Active Team Status: Active Member Role Status Dates Dr. Debora Orourke MD Primary Care Provider Active Start: June 01, 2024 Dr. Gerson Cifuentes MD Attending Provider Active Start: June 01, 2024 Dr. Nathan Ritchie MD Referring Provider Active Start: June 01, 2024 Team Status: Inactive Member Role Status Dates Dr. Debora Orourke MD Primary Care Provider Active Start: June 07, 2024 End: June 07, 2024 Dr. Debora Orourke MD Referring Provider Active Start: June 07, 2024 End: June 07, 2024 Dr. Gerson Cifuentes MD Attending Provider Active Start: June 07, 2024 End: June 07, 2024 Team Status: Inactive Member Role Status Dates Dr. Debora Orourke MD Primary Care Provider Active Start: June 07, 2024 End: June 07, 2024 Dr. Debora Orourke MD Attending Provider Active Start: June 07, 2024 End: June 07, 2024 Team Status: Inactive Member Role Status Dates Dr. Debora Orourke MD Primary Care Provider Active Start: July 11, 2024 End: July 11, 2024 Dr. Debora Orourke MD Referring Provider Active Start: July 11, 2024 End: July 11, 2024 Re De León NP [employer] Attending Provider Active Start: July 11, 2024 End: July 11, 2024 Team Status: Inactive Member Role Status Dates Dr. Debora Orourke MD Primary Care Provider Active Start: September 25, 2024 End: September 25, 2024 Dr. Debora Orourke MD Attending Provider Active Start: September 25, 2024 End: September 25, 2024 Dr. Debora Orourke MD Referring Provider Active Start: September 25, 2024 End: September 25, 2024 Team Status: Inactive Member Role Status Dates Dr. Debora Orourke MD Primary Care Provider, Referri ng Provider Active Dr. Gerson Cifuentes MD Attending Provider Active Team Status: Active Member Role Status Dates Dr. Debora Orourke MD Primary Care Provider Active [facility] Attending Provider Active Team Status: Active Member Role Status Dates Dr. Debora Orourke MD Primary Care Provider, Referri ng Provider Active Dr. Nathan Ritchie MD Attending Provider, Other Prov ider Active Team Status: Active Member Role Status Dates Dr. Debora Orourke MD Primary Care Provider Active Dr. Gerson Cifuentes MD Attending Provider Active Dr. Nathan Ritchie MD Referring Provider Active Team Status: Inactive Member Role Status Dates Dr. Debora Orourke MD Primary Care Provider, Referri ng Provider Active Dr. Nathan Ritchie MD Attending Provider Active Team Status: Inactive Member Role Status Dates Dr. Debora Orourke MD Primary Care Provider, Attendi ng Provider Active Team Status: Inactive Member Role Status Dates Dr. Debora Orourke MD Primary Care Pro vider, Attending Provider, Referring Provider Active Team Status: Inactive Member Role Status Dates Dr. Debora Orourke MD Attending Provider Active Dr. Tayo Carvalho DO Primary Care Provider Active Team Status: Active Member Role/Relationship Status Dates Dr. Debora Orourke MD Primary Care Provider Active Team Status: Inactive Member Role/Relationship Status Dates Dr. Debora Orourke MD Primary Care Provider Active Start: September 25, 2024 End: September 25, 2024 Dr. Debora Orourke MD Attending Provider Active Start: September 25, 2024 End: September 25, 2024 Dr. Debora Orourke MD Referring Provider Active Start: September 25, 2024 End: September 25, 2024 Team Status: Active Member Role/Relationship Status Dates Dr. Debora Orourke MD Primary Care Provider Active Start: December 04, 2024 Dr. Gerson Cifuentes MD Attending Provider Active Start: December 04, 2024 Dr. Nathan Ritchie MD Referring Provider Active Start: December 04, 2024 Team Status: Inactive Member Role/Relationship Status Dates Dr. Debora Orourke MD Primary Care Provider Active Start: December 07, 2024 End: December 07, 2024 Dr. Debora Orourke MD Attending Provider Active Start: December 07, 2024 End: December 07, 2024 Team Status: Inactive Member Role/Relationship Status Dates Dr. Debora Orourke MD Primary Care Provider Active Start: December 20, 2024 End: December 20, 2024 Dr. Debora Orourke MD Referring Provider Active Start: December 20, 2024 End: December 20, 2024 Dr. Gerson Cifuentes MD Attending Provider Active Start: December 20, 2024 End: December 20, 2024 Goals (unrecognized section and content) Goals may be documented in a n alternate sectionGoals may be documented in an alternate sectionGoals may be documented in an alternate sectionGoals may be documented in an alternate section FOR RECORDS PERTAINING TO PATIENTS WHO ARE OR HAVE BEEN ENROLLED IN A CHEMICAL DEPENDENCY/SUBSTANCEABUSE PROGRAM, SOME INFORMATION MAY BE OMITTED. This clinical summary was aggregated from multiple sources. Caution should be exercised in using it in the provision of clinical care. This summary normalizes information from multiple sources, and as a consequence, information in this document may materially change the coding, format and clinical context of patient data. In addition, data may be omitted in some cases. CLINICAL DECISIONS SHOULD BE BASED ON THE PRIMARY CLINICAL RECORDS. [employer] [facility]. provides no warranty or guarantee of the accuracy or completeness of information in this document.
[2025-03-02] MEDS: Sodium Bicarbonate 8.4% 50 ML Syringe 100 MEQ IV (18:35)
[2025-03-02] MEDS: Piperacil/Tazobactam 4.5 GM in 0.9% Normal Saline (100mL MB+) 100 ML IV (19:01)
[2025-03-02 20:50] LABS: Anion Gap 15 (5-15); BUN 76 mg/dL (4-19); BUN/Creat Ratio 15.6 RATIO (10-20); Calcium,Total 9.0 mg/dL (7.6-11.0); Carbon Dioxide 13.9 mmol/L (21.0-32.0); Chloride 105 mmol/L (98-108); Estimated Creatinine Clearance 20.41 ml/min (50-250); Glucose 178 mg/dL (70-99); Potassium 4.4 mmol/L (3.3-5.1)
[2025-03-02] MEDS: Heparin Injection (Vial) 5,000 UNIT/ML VIAL 5000 UNIT SC (21:27)
[2025-03-02 21:51] LABS: Mucous, Urine 0 SEEN /hpf (<or=2+)
[2025-03-02 22:10] LABS: Color, Urine Straw (Yellow); Glucose, Dipstick Normal (Normal); Ketone-Dipstick Negative (Negative); Leukocyte Esterase-Dipstick Negative /ul (Negative); Nitrite-Dipstick Negative (Negative); Occult Blood-Urine Negative /ul (Negative); Protein-Dipstick 15 mg/dl (Negative); Specific Gravity, Urine 1.015 (1.002-1.030); Urine Bilirubin Dipstick Negative (Negative)
[2025-03-02 22:49] LABS: Red Blood Cells-Urine 0-5 SEEN /hpf (0-5); Squamous Epithelial Cells - UA 0-5 SEEN /hpf (0-5)
[2025-03-03 03:52] VITALS: BP 85/57; PULSE 63; RESP 18; TEMP 36.6; O2SAT 97
[2025-03-03 04:53] LABS: Hematocrit 45.4 % (40-54); Hemoglobin 15.0 g/dL (13.0-16.5); Mean Corp Hgb Conc 33.0 g/dL (32-36); Mean Corpuscular Volume 85.7 fL (80-94); Mean Platelet Vol. 9.6 fl (6.2-12.0); Platelet Count 256 K/mm3 (150-450); RBC Distribution Width CV 14.6 % (11.6-14.6); RBC Distribution Width SD 45.2 fl (35.1-43.9); Red Blood Count 5.30 M/mm3 (4.6-6.2); White Blood Count 8.6 K/mm3 (4.4-11.0)
[2025-03-03] MEDS: Lactated Ringers 1,000 ML 999 ML IV ×2 (04:56→06:11)
[2025-03-03] MEDS: Piperacil/Tazobactam 3.375 GM in 0.9% Normal Saline (50mL MB+) 50 ML IV (05:00)
[2025-03-03] MEDS: 0.9% Saline Lock 10 ML Syringe IV ×2 (05:00→23:34)
[2025-03-03 05:18] LABS: Anion Gap 13 (5-15); BUN 72 mg/dL (4-19); BUN/Creat Ratio 17.1 RATIO (10-20); Calcium,Total 8.6 mg/dL (7.6-11.0); Carbon Dioxide 14.2 mmol/L (21.0-32.0); Chloride 107 mmol/L (98-108); Estimated Creatinine Clearance 23.45 ml/min (50-250); Glucose 114 mg/dL (70-99); Potassium 4.7 mmol/L (3.3-5.1)
[2025-03-03 06:11] VITALS: BP 116/78; PULSE 60; RESP 18; TEMP 36.6; O2SAT 98
[2025-03-03 07:47] VITALS: BP 101/62; PULSE 68; RESP 18; TEMP 36.4; O2SAT 98
--- NOTE | 2025-03-03 07:56 | CASEMGMT ---
Dx: JOE with metabolic acidosis due to severe diarrhea. LACE: 2 6-Clicks: 24 Medical record reviewed and patient evaluated for identification of discharge planning needs. Based on this review, at this time criteria are not present to indicate a need for discharge planning. Will remain available to assist with discharge planning needs as identified or requested. Nephrology has been consulted, follow for any recommendations.
--- NOTE | 2025-03-03 08:15 | PN.HOSP_ITS ---
Reason for Visit Chief Complaint: Profuse diarrhea with dehydration and mild abdominal pain Subjective Subjective Feeling better. No diarrhea since yesterday. Objective Data Objective Data Vital Signs: Vital Signs Temp Pulse Resp BP Pulse Ox O2 Del Method 36.4 C L 68 18 101/62 98 Room Air 03/03/25 07:47 03/03/25 07:47 03/03/25 07:47 03/03/25 07:47 03/03/25 07:47 03/03/25 07:47 Oxygen Delivery Method Room Air Weight: 107.5 kg Body Mass Index (BMI) 33.0 Intake & Output: Intake and Output for Last 24 Hours 03/01/25 03/02/25 03/03/25 23:59 23:59 23:59 Intake Total 3630 / 3630 1999 Output Total 300 / 300 Balance 3330 / 3330 1999 Lab / Micro Data 03/03/25 04:38 03/03/25 04:38 Labs: Laboratory Results - last 24 hr 03/02/25 15:40: WBC 14.7 H, RBC 6.22 H, Hgb 17.6 H, Hct 53.7, MCV 86.3, MCH 28.3, MCHC 32.8, RDW Std Deviation 45.7 H, RDW Coeff of Timbo 14.8 H, Plt Count 319, MPV 9.8, Immature Gran % (Auto) 1.600 H, Neut % (Auto) 78.6 H, Lymph % (Auto) 9.9 L, Leake % (Auto) 7.6, Eos % (Auto) 1.6, Baso % (Auto) 0.7, Absolute Neuts (auto) 11.6 H, Absolute Lymphs (auto) 1.46, Nucleated RBC % 0, Lactic Acid 1.1, b-Hydroxybutyric mmol/L 0.4 H 03/02/25 19:11: POC Glucose 162 H 03/02/25 20:17: Sodium 134, Potassium 4.4, Chloride 105, Carbon Dioxide 13.9 L, Anion Gap 15, BUN 76 H, Creatinine 4.86 H, Estim Creat Clear Calc 20.41 L, Est GFR (MDRD) Non-Af 13 L, BUN/Creatinine Ratio 15.6, Glucose 178 H, Calcium 9.0 03/02/25 21:25: Ur Random Sodium 67, Urine Creatinine 95.00, POC Glucose 71 L 03/02/25 21:35: Urine Color Straw, Urine Clarity Clear, Urine pH 5.0, Ur Specific [place] 1.015, Urine Protein 15 H, Urine Glucose (UA) Normal, Urine Ketones Negative, Urine Occult Blood Negative, Urine Nitrite Negative, Urine Bilirubin Negative, Urine Urobilinogen Normal, Ur Leukocyte Esterase Negative, Urine RBC 0-5 SEEN, Urine WBC 0-5 SEEN, Ur Squamous Epith Cells 0-5 SEEN, Urine Bacteria 0 SEEN, Urine Mucus 0 SEEN 03/03/25 04:38: WBC 8.6, RBC 5.30, Hgb 15.0, Hct 45.4, MCV 85.7, MCH 28.3, MCHC 33.0, RDW Std Deviation 45.2 H, RDW Coeff of Timbo 14.6, Plt Count 256, MPV 9.6, Sodium 135, Potassium 4.7, Chloride 107, Carbon Dioxide 14.2 L, Anion Gap 13, B UN 72 H, Creatinine 4.23 H, Estim Creat Clear Calc 23.45 L, Est GFR (MDRD) Non- Af 15 L, BUN/Creatinine Ratio 17.1, Glucose 114 H, Calcium 8.6 03/03/25 06:15: POC Glucose 103 Micro: Microbiology 03/02/25 12:20 Stool C. difficile GDH Antigen & Toxins - Final 03/02/25 12:20 Stool Clostridioides difficile (PCR) - Final ABG Data ABG results: ABG 03/02/25 16:36 Specimen Type JOSUE Sample Site Not entered VBG pH 7.20 L VBG pO2 26 VBG HCO3 15 L VBG Total CO2 16 L VBG O2 Sat (Calc) 35 L VBG Base Excess -13 L POC Mix VBG pCO2 Pt Tmp 37.8 L O2 Delivery Device Not entered Crit Call To/Read Back Yes Blood Gas Notified Whom ER PHYISICAN Blood Gas Notified Time 16:40:55 Radiography Diagnostic Testing: Radiology Impression Abdomen/Pelvis CT 03/02/25 16:00 IMPRESSION: Acute uncomplicated descending colon diverticulitis. Reading Location: [address] Physical Exam Const alert and no apparent distress Constitutional Narrative: Comfortable. Nontoxic. Resp normal respiratory effort, no retractions, no use of accessory muscles and clear to auscultation bilaterally Cardio regular rate, regular rhythm, S1 normal heart sound and S2 normal heart sound GI normal to inspection, nondistended, normoactive bowel sounds, soft to palpation, non-tender and non-distended Extremity normal to inspection and full ROM Assessment & Plan Assessment/Plan (1) Acute kidney injury: (2) Metabolic acidosis: (3) Hyperkalemia: (4) Diverticulitis: PLAN: Plan JOE * Creatinine 5.39, BUN 75, bicarb 14, anion gap 20, potassium 6.0 on admit. VBG with pH 7.20. Baseline creatinine appears to be around 1.2-1.3. * Suspect prerenal due to significant GI losses from diarrhea as below, with hyperkalemia precipitated by home lisinopril. CT abdomen pelvis with no renal or bladder abnormalities noted. Urine studies ordered. * Given 3 L of IV fluids, 2 amp of bicarb and treated medically for hyperkalemia in the ED. Improving * Continue IVF. Diarrhea and abdominal pain, acute uncomplicated diverticulitis * Patient with profuse diarrhea with approximate 15 stools per day from 02/26- 02/28, has slowed to 5-8 stools daily since then. * Enteric panel negative. C diff Ag +, toxin -, PCR positive. * Therefore, I suspect acute Cdiff colitis. Start PO vanc, IV metronidazole. DC pip/tazo. * Patient had had a history of diverticulitis in the past which he was actually asymptomatic at that time but was found on a colonoscopy. But I am concerned that this could be significant in his protracted course though he denies having been on antibiotics in the past several months. Chronic medical conditions: * Type 2 diabetes mellitus? Glucose 128 on admit. A1c 6.9%. Has been on metformin 500 mg twice daily for a little over a year. Has been on Ozempic since June; was escalated to highest dose over the summer but had abdominal cramping, so dose was lowered for a period of time and it was just increased back to highest dose about 4 weeks prior to this admission. Hold metformin and Ozempic. Will treat with sliding scale insulin with meals while inpatient, adjust as needed. * History of malignant rectal polyp? Follows with oncology. 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 He is on surveillance for colon cancer with CEA every 6 months. Had surveillance colonoscopy in October 2023 with no polyps, next colonoscopy planned for 2026. No inpatient needs, continue outpatient follow-up. * Tobacco dependence? Uses chewing tobacco. Nicotine replacement therapy available per patient request. Discussed cessation of discharge. * Class I obesity with SOPHIE? Follows with pulmonology. Continue home PAP therapy at night. BMI 33 on admit, complicates hospital course and care. * Chronic secondary polycythemia? Hemoglobin 17.6 on admit, stable at baseline. Continue home aspirin. DVT prophylaxis: Heparin subcu CODE STATUS: Full code, verified Expected disposition: Home, TBD Patient expressing ability to go home today. I did encourage him to stay another night so that we ensure that the antibiotics at home switching to her improving as well as his kidney function. He did agree to staying 1 more night. Charges/Coding Visit Charges Inpatient E&M: 10201 Subs Hosp L2
[2025-03-03] MEDS: Lactobacillis Acidophilus 1 CAP PO (09:35)
[2025-03-03] MEDS: 0.9% Normal Saline (1000mL) 1,000 ML 150 ML IV ×2 (09:35→16:43)
[2025-03-03] MEDS: Aspirin E.C. 81 MG Tablet PO (09:35)
[2025-03-03] MEDS: Heparin Injection (Vial) 5,000 UNIT/ML VIAL 5000 UNIT SC ×2 (09:35→21:18)
[2025-03-03] MEDS: Cholecalciferol (VIT D3) 25 MCG TABLET (1,000 UNITS) 50 MCG PO (09:36)
[2025-03-03] MEDS: metroNIDAZOLE 500 MG/100 ML BAG 100 MG IV ×2 (15:25→21:17)
[2025-03-03 17:37] VITALS: BP 123/64; PULSE 74; RESP 18; TEMP 36.6; O2SAT 98
[2025-03-03 21:07] VITALS: BP 122/68; PULSE 55; RESP 16; TEMP 36.7; O2SAT 95
--- NOTE | 2025-03-03 21:28 | PCM.CONS.R ---
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 Patient was found to have worsening renal function, volume depletion and admitted to hospital for further treatment. He states no diarrhea today tolerating po remains on NS at 150cc/hr no NSAIDs prior baseline scr 1.2mg/dL PFSH Medical History Chewing tobacco nicotine dependence Wears glasses Loose, teeth Back pain 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, secondary SOPHIE (obstructive sleep apnea) CPAP (continuous positive airway pressure) dependence Plantar fasciitis, bilateral Rectal cancer Rectal bleeding Diastasis recti Umbilical hernia without obstruction and without gangrene Screening for malignant neoplasm of intestine Osteoarthritis Hypertension Obesity (BMI 30-39.9) Back pain Knee pain Home Medications ?Medication ?Instructions ?Recorded ?Last Taken ?Type lactobacillus combination no.9 4 4,000 mmu cells PO QHS probiotic 08/08/20 10/28/23 History billion cell capsule (Adult 50 Plus Probiotic) cholecalciferol (vitamin D3) 50 50 mcg PO QHS supplement 08/28/21 03/01/25 22:00 History mcg (2,000 unit) capsule aspirin 81 mg tablet,delayed 81 mg PO QODAY heart 02/26/22 03/01/25 History release (Adult Low Dose Aspirin) 81 mg lisinopril 40 mg tablet 40 mg PO QDAY #90 tabs 05/25/24 03/02/25 09:00 Rx metformin 500 mg tablet 500 mg PO BID #180 tabs 09/18/24 03/02/25 09:00 Rx 500 mg loratadine 10 mg capsule 10 mg PO DAILY allergy 12/07/24 03/02/25 09:00 History 10 mg semaglutide 1 mg/dose (4 mg/3 mL) 1 mg (0.75 mL) subcut QWEEK #3 mL 02/08/25 02/24/25 09:00 Rx subcutaneous pen injector 1 mg ciprofloxacin HCl 500 mg tablet 500 mg PO BID #10 tabs 03/02/25 03/02/25 09:00 Rx 500 mg Allergy/AdvReac Type Severity Reaction Status Date / Time oxycodone Allergy Intermediate Itching Verified 03/02/25 21:01 Family History Brother Dementia Hypertension Father Hypertension Mother Hypertension Daughter Diabetes Surgical History History of colonoscopy (~05/2020) History of tonsillectomy Broken wrist Social History Smoking Status: Never smoker Tobacco: How many years used: 35 Smokeless tobacco user: chewing tobacco second hand exposure: No alcohol intake: never substance use type: does not use caffeine: Yes Type: coffee eating out: 1-3 times/week seatbelt use: always do you feel safe at home: Yes Physical Exam Narrative awake, responsive, no acute distress s1s2 regular b/s equal abdomen soft no peripehral edema Lab / Micro Data 03/03/25 04:38 03/03/25 04:38 Labs: Laboratory Results - last 24 hr 03/02/25 21:25: Ur Random Sodium 67, Urine Creatinine 95.00, POC Glucose 71 L 03/02/25 21:35: Urine Color Straw, Urine Clarity Clear, Urine pH 5.0, Ur Specific [place] 1.015, Urine Protein 15 H, Urine Glucose (UA) Normal, Urine Ketones Negative, Urine Occult Blood Negative, Urine Nitrite Negative, Urine Bilirubin Negative, Urine Urobilinogen Normal, Ur Leukocyte Esterase Negative, Urine RBC 0-5 SEEN, Urine WBC 0-5 SEEN, Ur Squamous Epith Cells 0-5 SEEN, Urine Bacteria 0 SEEN, Urine Mucus 0 SEEN 03/03/25 04:38: WBC 8.6, RBC 5.30, Hgb 15.0, Hct 45.4, MCV 85.7, MCH 28.3, MCHC 33.0, RDW Std Deviation 45.2 H, RDW Coeff of [place] 14.6, Plt Count 256, MPV 9.6, Sodium 135, Potassium 4.7, Chloride 107, Carbon Dioxide 14.2 L, Anion Gap 13, BUN 72 H, Creatinine 4.23 H, Estim Creat Clear Calc 23.45 L, Est GFR (MDRD) Non-Af 15 L, BUN/Creatinine Ratio 17.1, Glucose 114 H, Calcium 8.6 03/03/25 06:15: POC Glucose 103 03/03/25 11:59: POC Glucose 91 03/03/25 16:07: POC Glucose 99 Micro: Microbiology 03/02/25 12:20 Stool C. difficile GDH Antigen & Toxins - Final 03/02/25 12:20 Stool Clostridioides difficile (PCR) - Final
[2025-03-03] MEDS: Lactated Ringers 1,000 ML 100 ML IV (23:23)
[2025-03-04 02:23] VITALS: BP 117/72; PULSE 59; RESP 14; TEMP 36.6; O2SAT 95
[2025-03-04 06:28] LABS: Hematocrit 46.6 % (40-54); Hemoglobin 15.1 g/dL (13.0-16.5); Immature Granulocytes Count 0.070 X10^3/uL (0.0-0.0); Mean Corp Hgb Conc 32.4 g/dL (32-36); Mean Corpuscular Volume 86.8 fL (80-94); Mean Platelet Vol. 9.7 fl (6.2-12.0); NRBC Flagged by Analyzer 0 % (0-5); POSITIVE MORPHOLOGY YES; Platelet Count 230 K/mm3 (150-450); RBC Distribution Width CV 14.7 % (11.6-14.6); RBC Distribution Width SD 46.6 fl (35.1-43.9); Red Blood Count 5.37 M/mm3 (4.6-6.2); White Blood Count 6.1 K/mm3 (4.4-11.0)
[2025-03-04] MEDS: metroNIDAZOLE 500 MG/100 ML BAG 100 MG IV (06:30)
[2025-03-04 06:32] LABS: Differential Indicated SCAN CRITERIA MET
[2025-03-04 06:55] LABS: Anion Gap 10 (5-15); BUN 46 mg/dL (4-19); BUN/Creat Ratio 24.3 RATIO (10-20); Calcium,Total 8.9 mg/dL (7.6-11.0); Carbon Dioxide 19.3 mmol/L (21.0-32.0); Chloride 113 mmol/L (98-108); Estimated Creatinine Clearance 52.49 ml/min (50-250); Glucose 101 mg/dL (70-99); Potassium 4.9 mmol/L (3.3-5.1)
[2025-03-04 06:59] LABS: Reactive Lymphocyte 2+
--- NOTE | 2025-03-04 07:52 | PN.HOSP_ITS ---
Reason for Visit Chief Complaint: Profuse diarrhea with dehydration and mild abdominal pain Subjective Subjective Feeling well. Loose stools, but no diarrhea. Objective Data Objective Data Vital Signs: Vital Signs Temp Pulse Resp BP Pulse Ox O2 Del Method 36.6 C 59 L 14 117/72 95 Room Air 03/04/25 02:23 03/04/25 02:23 03/04/25 02:23 03/04/25 02:23 03/04/25 02:23 03/04/25 02:56 Oxygen Delivery Method Room Air Weight: 107.5 kg Body Mass Index (BMI) 33.0 Intake & Output: Intake and Output for Last 24 Hours 03/02/25 03/03/25 03/04/25 23:59 23:59 23:59 Intake Total 3630 / 3630 4250 / 4250 100 / 100 Output Total 300 / 300 Balance 3330 / 3330 4250 / 4250 100 / 100 Lab / Micro Data 03/04/25 05:45 03/04/25 05:45 Labs: Laboratory Results - last 24 hr 03/03/25 11:59: POC Glucose 91 03/03/25 16:07: POC Glucose 99 03/03/25 21:15: POC Glucose 136 H 03/04/25 05:45: WBC 6.1, RBC 5.37, Hgb 15.1, Hct 46.6, MCV 86.8, MCH 28.1, MCHC 32.4, RDW Std Deviation 46.6 H, RDW Coeff of [place] 14.7 H, Plt Count 230, MPV 9.7, Immature Gran % (Auto) 1.200 H, Neut % (Auto) 51.9, Lymph % (Auto) 29.3, [place] % (Auto) 11.5 H, Eos % (Auto) 5.1 H, Baso % (Auto) 1.0, Absolute Neuts (auto) 3.2, Absolute Lymphs (auto) 1.78, Nucleated RBC % 0, Reactive Lymphocytes 2+, Sodium 142, Potassium 4.9, Chloride 113 H, Carbon Dioxide 19.3 L, Anion Gap 10, BUN 46 H, Creatinine 1.89 H, Estim Creat Clear Calc 52.49, Est GFR (MDRD) Non-Af 40 L, BUN/Creatinine Ratio 24.3 H, Glucose 101 H, Calcium 8.9 03/04/25 06:33: POC Glucose 107 H Micro: Microbiology 03/02/25 12:20 Stool C. difficile GDH Antigen & Toxins - Final 03/02/25 12:20 Stool Clostridioides difficile (PCR) - Final Physical Exam Const alert and no apparent distress HEENT head/scalp atraumatic and moist oral mucous membranes Resp normal respiratory effort, no retractions, no use of accessory muscles and clear to auscultation bilaterally Cardio regular rate, regular rhythm, S1 normal heart sound and S2 normal heart sound GI normal to inspection, nondistended, normoactive bowel sounds, soft to palpation and non-tender Assessment & Plan Assessment/Plan (1) Acute kidney injury: (2) Metabolic acidosis: (3) Hyperkalemia: (4) Diverticulitis: PLAN: Plan JOE * Creatinine 5.39, BUN 75, bicarb 14, anion gap 20, potassium 6.0 on admit. VBG with pH 7.20. Baseline creatinine appears to be around 1.2-1.3. * Suspect prerenal due to significant GI losses from diarrhea as below, with hyperkalemia precipitated by home lisinopril. CT abdomen pelvis with no renal or bladder abnormalities noted. Urine studies ordered. * Improved w IVF. * Not at baseline yet, but anticipate improvement with ongoing IVF. Diarrhea and abdominal pain, 2/2 C diff colitis. * Patient with profuse diarrhea with approximate 15 stools per day from 02/26- 02/28, has slowed to 5-8 stools daily since then. * Enteric panel negative. C diff Ag +, toxin -, PCR positive. * Therefore, I suspect acute Cdiff colitis. Start PO vanc, IV metronidazole. DC pip/tazo. * Patient had had a history of diverticulitis in the past which he was actually asymptomatic at that time but was found on a colonoscopy. But I am concerned that this could be significant in his protracted course though he denies having been on antibiotics in the past several months. * Patient to complete a 10-day course of abx. Chronic medical conditions: * Type 2 diabetes mellitus? Glucose 128 on admit. A1c 6.9%. Has been on metformin 500 mg twice daily for a little over a year. Has been on Ozempic since June; was escalated to highest dose over the summer but had abdominal cramping, so dose was lowered for a period of time and it was just increased back to highest dose about 4 weeks prior to this admission. Hold metformin and Ozempic. Will treat with sliding scale insulin with meals while inpatient, adjust as needed. * History of malignant rectal polyp? Follows with oncology. 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 He is on surveillance for colon cancer with CEA every 6 months. Had surveillance colonoscopy in October 2023 with no polyps, next colonoscopy planned for 2026. No inpatient needs, continue outpatient follow-up. * Tobacco dependence? Uses chewing tobacco. Nicotine replacement therapy available per patient request. Discussed cessation of discharge. * Class I obesity with SOPHIE? Follows with pulmonology. Continue home PAP therapy at night. BMI 33 on admit, complicates hospital course and care. * Chronic secondary polycythemia? Hemoglobin 17.6 on admit, stable at baseline. Continue home aspirin. DVT prophylaxis: Heparin subcu CODE STATUS: Full code, verified Expected disposition: Home, TBD DC home.
[2025-03-04 08:20] VITALS: BP 116/81; PULSE 65; RESP 17; TEMP 36.5; O2SAT 95
[2025-03-04] MEDS: Lactated Ringers 1,000 ML 100 ML IV (08:29)
[2025-03-04] MEDS: Lactobacillis Acidophilus 1 CAP PO (08:30)
[2025-03-04] MEDS: Cholecalciferol (VIT D3) 25 MCG TABLET (1,000 UNITS) 50 MCG PO (08:30)
[2025-03-04] MEDS: Aspirin E.C. 81 MG Tablet PO (08:30)
[2025-03-04] MEDS: Heparin Injection (Vial) 5,000 UNIT/ML VIAL 5000 UNIT SC (08:32)
--- NOTE | 2025-03-04 11:20 | DS.PCM_ITS ---
Providers Date of Admission: 03/02/25 Primary Care Physician: Dr. Debora Orourke MD Consultations 03/02/25 23:06 Consult: Nephrology Routine Consulting Provider: Kaushik Ferguson Reason for Consult: severe JOE w/ metabolic acidosis EMERGENT Consult: No MD Notified: Yes Date Notified: 03/03/25 Time Notified: 08:37 Method of Notification: Answering Service Reason For Visit: JOE W/ METABOLIC ACIDOSIS DUE TO SEVERE DIARRHEA Diagnosis Discharge Diagnosis (1) Acute kidney injury: Status: Acute Code(s): N17.9 - Acute kidney failure, unspecified (2) Metabolic acidosis: Status: Acute Code(s): E87.20 - Acidosis, unspecified (3) Hyperkalemia: Status: Acute Code(s): E87.5 - Hyperkalemia (4) Diverticulitis: Status: Acute Code(s): K57.92 - Diverticulitis of intestine, part unspecified, without perforation or abscess without bleeding Plan JOE * Creatinine 5.39, BUN 75, bicarb 14, anion gap 20, potassium 6.0 on admit. VBG with pH 7.20. Baseline creatinine appears to be around 1.2-1.3. * Suspect prerenal due to significant GI losses from diarrhea as below, with hyperkalemia precipitated by home lisinopril. CT abdomen pelvis with no renal or bladder abnormalities noted. Urine studies ordered. * Improved w IVF. * Not at baseline yet, but anticipate improvement with ongoing IVF. Diarrhea and abdominal pain, 2/2 C diff colitis. * Patient with profuse diarrhea with approximate 15 stools per day from 02/26- 02/28, has slowed to 5-8 stools daily since then. * Enteric panel negative. C diff Ag +, toxin -, PCR positive. * Therefore, I suspect acute Cdiff colitis. Start PO vanc, IV metronidazole. DC pip/tazo. * Patient had had a history of diverticulitis in the past which he was actually asymptomatic at that time but was found on a colonoscopy. But I am concerned that this could be significant in his protracted course though he denies having been on antibiotics in the past several months. * Patient to complete a 10-day course of abx. Chronic medical conditions: * Type 2 diabetes mellitus? Glucose 128 on admit. A1c 6.9%. Has been on metformin 500 mg twice daily for a little over a year. Has been on Ozempic since June; was escalated to highest dose over the summer but had abdominal cramping, so dose was lowered for a period of time and it was just increased back to highest dose about 4 weeks prior to this admission. Hold metformin and Ozempic. Will treat with sliding scale insulin with meals while inpatient, adjust as needed. * History of malignant rectal polyp? Follows with oncology. 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 He is on surveillance for colon cancer with CEA every 6 months. Had surveillance colonoscopy in October 2023 with no polyps, next colonoscopy planned for 2026. No inpatient needs, continue outpatient follow-up. * Tobacco dependence? Uses chewing tobacco. Nicotine replacement therapy available per patient request. Discussed cessation of discharge. * Class I obesity with SOPHIE? Follows with pulmonology. Continue home PAP therapy at night. BMI 33 on admit, complicates hospital course and care. * Chronic secondary polycythemia? Hemoglobin 17.6 on admit, stable at baseline. Continue home aspirin. DVT prophylaxis: Heparin subcu CODE STATUS: Full code, verified Expected disposition: Home, TBD DC home. Medications at Discharge Home Medications lactobacillus combination no.9 4 billion cell capsule (Adult 50 Plus Probiotic) 4,000 mmu cells PO QHS probiotic 08/08/20 cholecalciferol (vitamin D3) 50 mcg (2,000 unit) capsule 50 mcg PO QHS supplement 08/28/21 aspirin 81 mg tablet,delayed release (Adult Low Dose Aspirin) 81 mg PO QODAY heart 02/26/22 metformin 500 mg tablet 500 mg PO BID #180 tabs 09/18/24 Held on 03/04/25. Instructions: Resume on 03/06/25. loratadine 10 mg capsule 10 mg PO DAILY allergy 12/07/24 semaglutide 1 mg/dose (4 mg/3 mL) subcutaneous pen injector 1 mg (0.75 mL) subcut QWEEK #3 mL 02/08/25 vancomycin 125 mg capsule 125 mg PO Q6H 9 days #36 caps 03/04/25 Hospital Course Operations None Procedures None Summary of Care Provided Hospital Course: Greater than 30 minutes spent on discharge This is a 59-year-old male presents with several days of voluminous diarrhea. Studies showed PCR for C. difficile as well as an antigen. The toxin was negative. Patient was started on vancomycin and was observed overnight and overall he has improved. His JOE and metabolic derangements have also improved. Patient be holding on his lisinopril for the time being as well as holding a couple days for his metformin. I do anticipate improvement of his kidney function. Weight / BMI Weight Weight: 107.5 kg Body Mass Index (BMI) 33.0 ABG / Lab / Microbiology Data 03/04/25 05:45 03/04/25 05:45 Laboratory: Laboratory Results - last 24 hr 03/03/25 11:59: POC Glucose 91 03/03/25 16:07: POC Glucose 99 03/03/25 21:15: POC Glucose 136 H 03/04/25 05:45: WBC 6.1, RBC 5.37, Hgb 15.1, Hct 46.6, MCV 86.8, MCH 28.1, MCHC 32.4, RDW Std Deviation 46.6 H, RDW Coeff of [place] 14.7 H, Plt Count 230, MPV 9.7, Immature Gran % (Auto) 1.200 H, Neut % (Auto) 51.9, Lymph % (Auto) 29.3, [place] % (Auto) 11.5 H, Eos % (Auto) 5.1 H, Baso % (Auto) 1.0, Absolute Neuts (auto) 3.2, Absolute Lymphs (auto) 1.78, Nucleated RBC % 0, Reactive Lymphocytes 2+, Sodium 142, Potassium 4.9, Chloride 113 H, Carbon Dioxide 19.3 L, Anion Gap 10, BUN 46 H, Creatinine 1.89 H, Estim Creat Clear Calc 52.49, Est GFR (MDRD) Non-Af 40 L, BUN/Creatinine Ratio 24.3 H, Glucose 101 H, Calcium 8.9 03/04/25 06:33: POC Glucose 107 H Microbiology: Microbiology 03/02/25 12:20 Stool C. difficile GDH Antigen & Toxins - Final 03/02/25 12:20 Stool Clostridioides difficile (PCR) - Final D/C Instructions DC O2, CPAP, BIPAP Needs Home O2 Discharge instructions: No Meaningful Use Info Meaningful Use Meaningful Use Diagnoses (Choose all that apply): None applicable Discharge Plan Admission Admit Date/Time: 03/02/25 17:34 Primary Reason for Your Visit: colitis. acute kidney injury Attending Provider: Beto Alford Primary Care Provider: Debora Orourke Consulting Providers: Dl Morel; Kaushik Ferguson Instructions Additional Instructions / Restrictions: You had colitis due to an infection called C. diff (Clostridiodes dificile). Please take the antibiotic (vancomycin) to completion. If you have worsening diarrhea while on the antbiotics, notify your physician or return to the emergency room. You also had kidney injury due to the diarrhea. That has improved with IVF. Please follow up with your primary care physician to have your labs followed up. Discharge Orders/Prescriptions Prescriptions: New vancomycin 125 mg capsule 125 mg PO Q6H 9 Days Qty: 36 0RF Continued Adult 50 Plus Probiotic 4 billion cell capsule 4,000 mmu cells PO QHS Rx Instructions: administer with a meal cholecalciferol (vitamin D3) 50 mcg (2,000 unit) capsule 50 mcg PO QHS aspirin [Adult Low Dose Aspirin] 81 mg tablet,delayed release (DR/EC) 81 mg PO QODAY loratadine 10 mg capsule 10 mg PO DAILY semaglutide 1 mg/dose (4 mg/3 mL) pen injector 1 mg subcut QWEEK Qty: 3 3RF Held metformin 500 mg tablet 500 mg PO BID Qty: 180 1RF Hold Instructions: Resume on 03/06/25. Discontinued lisinopril 40 mg tablet 40 mg PO QDAY Qty: 90 3RF ciprofloxacin HCl 500 mg tablet 500 mg PO BID Qty: 10 0RF Referrals / Follow Up: Debora Orourke MD [Primary Care Provider, Internal Medicine - [facility]] - Within 1 Week Disposition Disposition (needs filled in before D/C Order can be placed): Home, Self Care Charges/Coding Visit Charges Inpatient E&M: 00209 Disch Hosp >30min
[2025-03-04 12:17] VITALS: BP 134/78; PULSE 75; RESP 17; O2SAT 97
== END 2025-03-04 12:32 | disposition home or self-care (01) | DRG 683 ==
LOC: ED 17:55 → PCU 18:22
PROVIDERS: Admitting Provider Hospitalist; Emergency Provider Emergency Medicine; PCP Internal Medicine
DX: N17.9 Acute kidney failure, unspecified (principal); A04.72 Enterocolitis due to Clostridium difficile, not specified as recurrent; E87.21 Acute metabolic acidosis; K57.32 Diverticulitis of large intestine without perforation or abscess without bleeding; E11.9 Type 2 diabetes mellitus without complications; E66.811 Obesity, class 1; D75.1 Secondary polycythemia; E87.5 Hyperkalemia; I10 Essential (primary) hypertension; G47.33 Obstructive sleep apnea (adult) (pediatric); F17.220 Nicotine dependence, chewing tobacco, uncomplicated; Z68.33 Body mass index [BMI] 33.0-33.9, adult; Z79.82 Long term (current) use of aspirin; Z79.84 Long term (current) use of oral hypoglycemic drugs; Z79.85 Long-term (current) use of injectable non-insulin antidiabetic drugs; Z79.899 Other long term (current) drug therapy; Z85.048 Personal history of other malignant neoplasm of rectum, rectosigmoid junction, and anus; Z87.19 Personal history of other diseases of the digestive system
CPT/HCPCS: 36415; 74176; 80048; 81001; 82010; 82570; 82803; 82962; 83605; 84300; 85025; 85027; 87040; 87493; 93005; 94668; 99285; A4216; J0612

== ENCOUNTER → 2025-03-02 | Outpatient (CLI) | payer OTHER, SELFPAY ==
[2025-03-02 12:43] LABS: Cholesterol 217 mg/dL (<=200); Low Density Lipoprotein Calc. 139 mg/dL; Triglycerides 129 mg/dL; Very Low Density Lipoprotein 26 mg/dL (5-40); cholesterol:hdl ratio screen 3.94
[2025-03-02 12:48] LABS: AST(SGOT) 15 U/L (<=37); Alanine Aminotransfer ALT/SGPT 26 U/L (<=46); Albumin, Serum 4.0 g/dL (3.5-5.0); Alkaline Phosphatase 88 U/L (40-129); Anion Gap 20 (5-15); BUN 75 mg/dL (4-19); BUN/Creat Ratio 13.9 RATIO (10-20); Calcium,Total 10.0 mg/dL (7.6-11.0); Carbon Dioxide 14.1 mmol/L (21.0-32.0); Chloride 100 mmol/L (98-108); Globulin 3.3 g/dL (2.2-4.2); Glucose 128 mg/dL (70-99)
[2025-03-02 13:39] LABS: Potassium 6.0 mmol/L (3.3-5.1)
== END | disposition home or self-care (01) ==
LOC: MTLAB 11:03
PROVIDERS: PCP Internal Medicine; Referring Provider Internal Medicine; Visit Provider Internal Medicine
DX: Z13.220 Encounter for screening for lipoid disorders (principal); E11.65 Type 2 diabetes mellitus with hyperglycemia; E88.818 Other insulin resistance; E55.9 Vitamin D deficiency, unspecified; G47.33 Obstructive sleep apnea (adult) (pediatric); E66.9 Obesity, unspecified; K58.9 Irritable bowel syndrome, unspecified
CPT/HCPCS: 36415; 80053; 80061; 83036; 87506

== ENCOUNTER → 2025-03-21 | Outpatient (CLI) | payer OTHER, SELFPAY ==
[2025-03-21 17:46] LABS: Hematocrit 50.1 % (40-54); Hemoglobin 16.5 g/dL (13.0-16.5); Immature Granulocytes Count 0.080 X10^3/uL (0.0-0.0); Mean Corp Hgb Conc 32.9 g/dL (32-36); Mean Corpuscular Volume 85.8 fL (80-94); Mean Platelet Vol. 9.8 fl (6.2-12.0); NRBC Flagged by Analyzer 0 % (0-5); Platelet Count 325 K/mm3 (150-450); RBC Distribution Width CV 13.7 % (11.6-14.6); RBC Distribution Width SD 42.4 fl (35.1-43.9); Red Blood Count 5.84 M/mm3 (4.6-6.2); White Blood Count 12.8 K/mm3 (4.4-11.0)
[2025-03-21 18:26] LABS: AST(SGOT) 25 U/L (<=37); Alanine Aminotransfer ALT/SGPT 33 U/L (<=46); Albumin, Serum 4.3 g/dL (3.5-5.0); Alkaline Phosphatase 78 U/L (40-129); Anion Gap 16 (5-15); BUN 21 mg/dL (4-19); BUN/Creat Ratio 11.5 RATIO (10-20); Calcium,Total 9.7 mg/dL (7.6-11.0); Carbon Dioxide 21.1 mmol/L (21.0-32.0); Chloride 102 mmol/L (98-108); Globulin 2.6 g/dL (2.2-4.2); Glucose 183 mg/dL (70-99); Magnesium 1.8 mg/dL (1.5-2.2); Potassium 3.9 mmol/L (3.3-5.1); Vitamin D,25 Hydroxy 34.8 ng/mL (30-100)
[2025-03-21 20:25] LABS: Cholesterol 234 mg/dL (<=200); Low Density Lipoprotein Calc. 144 mg/dL; Triglycerides 207 mg/dL; Very Low Density Lipoprotein 41 mg/dL (5-40); cholesterol:hdl ratio screen 4.44
== END | disposition home or self-care (01) ==
LOC: MTLAB 15:30
PROVIDERS: PCP Internal Medicine; Referring Provider Internal Medicine; Visit Provider Internal Medicine
DX: N17.9 Acute kidney failure, unspecified (principal); I10 Essential (primary) hypertension; E55.9 Vitamin D deficiency, unspecified; G47.33 Obstructive sleep apnea (adult) (pediatric); R73.09 Other abnormal glucose; Z13.220 Encounter for screening for lipoid disorders
CPT/HCPCS: 36415; 80053; 80061; 82306; 83036; 83735; 84443; 85025

== ENCOUNTER → 2025-04-06 | Outpatient (CLI) | payer OTHER, SELFPAY ==
--- OUTSIDE RECORDS SUMMARY | 2025-04-06 09:27 | XMS RPT_ITS | CCD ---
Author Organization [facility] Care Team Providers Care Search Engineer Name Role Phone JENNIFER MITTAL Unavailable Unavailable [...] Debora Orourke Primary Care Provider Dr. Debora Orourek Referring Provider Dr. Gerson Cifuentes Attending Provider Dr. Debora Orourke MD Primary Care Provider Dr. Gerson Cifuentes MD Attending Provider Dr. Nathan Ritchie MD Referring Provider Haven MONTENEGRO, Dr. Cazares Referring Provider Hvaen MONTENEGRO, Dr. Cazares Attending Provider Genet WELDON-C, [...] Haven, Debora Primary Care Unavailable Haven, Debora Primary Care Unavailable HavenDebora Attending Unavailable Haven, [...] Oncology Visit Reporton 12-11 Oncology Visit Report [facility] [address] [address] OFFICE VISIT Date of Service: 12/20/24 1552 MR#: [id number] Acct: [id number] Name: ARTEM MCDERMOTT Rep #: [id number] : 1965 From: Gerson Cifuentes MD Age/Sex: 59/M Location: [facility] Status: Signed HPI Subjective Date of Service [...] is present close to the luminal surface. [facility] Medical History Chewing tobacco nicotine dependence Wears [...] cells PO (more content not included)... Normal [facility] MR/BMS.Bon 12-07-2024 MR/BMS.IMB [facility] [address] [place] [address] OFFICE VISIT Date of Service: 12/07/24 MR#: [id number] Acct: [id number] Name: ARTEM MCDERMOTT Rep #: [id number] : 1965 Provider: Dr. Debora hoskins MD Age/Sex: 59/M Location: [facility] Status: Signed Intake Vital Signs 06/07/24 [...] air room air Intake Visit Reasons: Annual/Physical Ear Flap Binder Required: No Accompanied by: Self Is patient [...] pain, tinnitu (more content not included)... Normal [facility] Carcinoembryonic Antigenon 0 12-06-2024 CEA 1.9 ng/mL Normal 0.0-4.7 [facility] Comment on above: Result Comment: Nons mokers <3.9 Smokers <5.6 [facility] Electrochemiluminescence Immunoassay (ECLIA) Values obtained with different assay methods or kits cannot be used interchangeably. Results cannot be interpreted as absolute evidence of the presence or absence of malignant disease. Performed at: [facility] [address] [id number] Delicatessen Manager: Esteban Page PhD, Phone: [phone] Performed By: #### L 3100.4813, L500.4260, L100.0100 #### [facility] [address] [place], [address] Absolute lymphocyte countOrd ered By: Gerson Cifuentes on 12-04-2024 Lymphocytes Auto (Unsp spec) [#/Vol] 1.67 10*3/uL 0.83-4.51 [facility] Absolute neutrophil countOrd ered By: Gerson Cifuentes on 12-04-2024 Neutrophils (Bld) [#/Vol] 7.5 10*3/uL 2.0-7.7 [facility] Anion gap in Serum or Plasma Ordered By: Gerson Cifuentes on 12-04-2024 Anion gap [Moles/Vol] 15 mmol/L 5-15 [facility] Automated lymphocyte count a s percentage of total leukocytesOrdered By: Gerson Cifuentes on 12-04-2024 Lymphocytes/100 WBC Auto (Unsp spec) 16.4 % Low 19-41 [facility] BUN/creatinine ratioOrdered By: Gerson Cifuentes on 12-04-2024 Urea nitrogen/Creatinine [Mass ratio] 16.8 mg/mg 10-20 [facility] Basophil percentageOrdered B y: Gerson Cifuentes on 12-04-2024 Basophils/100 WBC (Bld) 0.4 % 0-1 [facility] Bilirubin, totalOrdered By: Gerson Cifuentes on 12-04-2024 Bilirubin [Mass/Vol] 0.36 mg/dL 0.00-1.30 [facility] CBC W/Diff, Automatedon 11-11 Absolute Lymph 1.67 X10 3/uL Normal 0.83-4.51 [facility] Comment on above: Performed By: #### L 3100.2300, L500.4050, L100.0100 #### [facility] [address] [place], [address] Absolute Neut 7.5 X10 3/uL Normal 2.0-7.7 [facility] Comment on above: Performed By: #### L 3100.2300, L500.4050, L100.0100 #### [facility] [address] [place], [address] Basophils/100 WBC (Bld) 0.4 % Normal 0-1 [facility] Comment on above: Performed By: #### L 3100.2300, L500.4050, L100.0100 #### [facility] [address] [place], [address] Eosinophils/100 WBC (Bld) 2.3 % Normal 0-5 [facility] Comment on above: Performed By: #### L 3100.2300, L500.4050, L100.0100 #### [facility] [address] [place], [address] Erythrocyte distribution width (RBC) [Ratio] 14.3 % Normal 11.6-14.6 [facility] Comment on above: Performed By: #### L 3100.2300, L500.4050, L100.0100 #### [facility] [address] [place], [address] Hematocrit (Bld) [Volume fraction] 50.5 % Normal 40-54 [facility] Comment on above: Performed By: #### L 3100.2300, L500.4050, L100.0100 #### [facility] [address] [place], [address] Hemoglobin (Bld) [Mass/Vol] 17.1 g/dL High 13.0-16.5 [facility] Comment on above: Performed By: #### L 3100.2300, L500.4050, L100.0100 #### [facility] [address] [place], [address] IG% 0.600 Normal 0.0-0.9 [facility] Comment on above: Result Comment: IG% - Immature Granulocytes (promyelocytes, myelocytes and metamyelocytes) > 1% indicates that a LEFT SHIFT is Present. Performed By: #### L 3100.2300, L500.4050, L100.0100 #### [facility] [address] [place], [address] Lymphocytes/100 WBC (Bld) 16.4 % Low 19-41 [facility] Comment on above: Performed By: #### L 3100.2300, L500.4050, L100.0100 #### [facility] [address] [place], [address] MCH (RBC) [Entitic mass] 28.4 pg Normal 27.0-32.0 [facility] Comment on above: Performed By: #### L 3100.2300, L500.4050, L100.0100 #### [facility] [address] [place], [address] MCHC (RBC) [Mass/Vol] 33.9 g/dL Normal 32-36 [facility] Comment on above: Performed By: #### L 3100.2300, L500.4050, L100.0100 #### [facility] [address] [place], [address] MCV (RBC) [Entitic vol] 83.9 fL Normal 80-94 [facility] Comment on above: Performed By: #### L 3100.2300, L500.4050, L100.0100 #### [facility] [address] [place], [address] Monocytes/100 WBC (Bld) 7.3 % Normal 0-10 [facility] Comment on above: Performed By: #### L 3100.2300, L500.4050, L100.0100 #### [facility] [address] [place], [address] Neutrophils/100 WBC (Bld) 73.0 % High 47-70 [facility] Comment on above: Performed By: #### L 3100.2300, L500.4050, L100.0100 #### [facility] [address] [place], [address] Nucleated RBC (Bld) [#/Vol] 0 10*3/uL Normal 0-5 [facility] Comment on above: Performed By: #### L 3100.2300, L500.4050, L100.0100 #### [facility] [address] [place], [address] Platelet mean volume (Bld) [Entitic vol] 9.4 fL Normal 6.2-12.0 [facility] Comment on above: Performed By: #### L 3100.2300, L500.4050, L100.0100 #### [facility] [address] [place], [address] Platelets (Bld) [#/Vol] 292 10*3/uL Normal 150-450 [facility] Comment on above: Performed By: #### L 3100.2300, L500.4050, L100.0100 #### [facility] [address] [place], [address] RBC (Bld) [#/Vol] 6.02 10*6/uL Normal 4.6-6.2 [facility] Comment on above: Performed By: #### L 3100.2300, L500.4050, L100.0100 #### [facility] [address] [place], [address] RDW SD 43.4 fl Normal 35.1-43.9 [facility] Comment on above: Performed By: #### L 3100.2300, L500.4050, L100.0100 #### [facility] [address] [place], [address] WBC (Bld) [#/Vol] 10.2 10*3/uL Normal 4.4-11.0 [facility] Comment on above: Performed By: #### L 3100.2300, L500.4050, L100.0100 #### [facility] [address] [place], [address] Calculated very low density lipoprotein (VLDL) cholesterol measurementOrdered By: Debora Orourke on 12-04-2024 Calculated very low density lipoprotein (VLDL) cholesterol measurement 42 mg/dL High 5-40 [facility] Carbon dioxide, total [Moles /volume] in Central venous bloodOrdered By: Gerson Cifuentes on 12-04-2024 CO2 [Moles/Vol] 21.3 mmol/L 21.0-32.0 [facility] Chloride assayOrdered By: Robin Cifuentes on 12-04-2024 Chloride [Moles/Vol] 103 mmol/L 98-108 [facility] Comprehensive Metabolic Prof ilon 12-04-2024 Albumin [Mass/Vol] 4.2 g/dL Normal 3.5-5.0 [facility] Comment on above: Performed By: #### L 3100.2300, L500.4050, L100.0100 #### [facility] [address] [place], [address] Albumin/Globulin [Mass ratio] 1.7 {ratio} Normal 0.9-2.4 [facility] Comment on above: Performed By: #### L 3100.2300, L500.4050, L100.0100 #### [facility] [address] [place], [address] ALK PHOS 81 U/L Normal 40-129 [facility] Comment on above: Performed By: #### L 3100.2300, L500.4050, L100.0100 #### [facility] [address] [place], [address] ALT [Catalytic activity/Vol] 27 U/L Normal <=46 [facility] Comment on above: Performed By: #### L 3100.2300, L500.4050, L100.0100 #### [facility] [address] [place], [address] AST [Catalytic activity/Vol] 26 U/L Normal <=37 [facility] Comment on above: Performed By: #### L 3100.2300, L500.4050, L100.0100 #### [facility] [address] [place], [address] Bilirubin [Mass/Vol] 0.36 mg/dL Normal 0.00-1.30 [facility] Comment on above: Performed By: #### L 3100.2300, L500.4050, L100.0100 #### [facility] [address] [place], [address] BUN/CRE 16.8 RATIO Normal 10-20 [facility] Comment on above: Performed By: #### L 3100.2300, L500.4050, L100.0100 #### [facility] [address] [place], [address] Calcium [Mass/Vol] 9.2 mg/dL Normal 7.6-11.0 [facility] Comment on above: Performed By: #### L 3100.2300, L500.4050, L100.0100 #### [facility] [address] [place], [address] Chloride [Moles/Vol] 103 mmol/L Normal 98-108 [facility] Comment on above: Performed By: #### L 3100.2300, L500.4050, L100.0100 #### [facility] [address] [place], [address] CO2 [Moles/Vol] 21.3 mmol/L Normal 21.0-32.0 [facility] Comment on above: Performed By: #### L 3100.2300, L500.4050, L100.0100 #### [facility] [address] [place], [address] Creatinine [Mass/Vol] 1.20 mg/dL Normal 0.70-1.20 [facility] Comment on above: Performed By: #### L 3100.2300, L500.4050, L100.0100 #### [facility] [address] [place], [address] ECRCL 85.45 ml/min Normal 50-250 [facility] Comment on above: Performed By: #### L 3100.2300, L500.4050, L100.0100 #### [facility] [address] [place], [address] GAP 15 Normal 5-15 [facility] Comment on above: Performed By: #### L 3100.2300, L500.4050, L100.0100 #### [facility] [address] [place], [address] GFR/1.73 sq M.predicted among non-blacks MDRD (S/P/Bld) [Vol rate/Area] 70 mL/min/{1.73_m2} Normal >60 [facility] Comment on above: Result Comment: mL/m in/1.73m2 CKD-EPI Creatinine Equation (2020) Performed By: #### L 3100.2300, L500.4050, L100.0100 #### [facility] [address] [place], [address] Globulin (S) [Mass/Vol] 2.5 g/dL Normal 2.2-4.2 [facility] Comment on above: Performed By: #### L 3100.2300, L500.4050, L100.0100 #### [facility] [address] [place], [address] Glucose [Mass/Vol] 169 mg/dL High 70-99 [facility] Comment on above: Performed By: #### L 3100.2300, L500.4050, L100.0100 #### [facility] [address] [place], [address] Potassium [Moles/Vol] 4.5 mmol/L Normal 3.3-5.1 [facility] Comment on above: Performed By: #### L 3100.2300, L500.4050, L100.0100 #### [facility] [address] [place], [address] Sodium [Moles/Vol] 140 mmol/L Normal 133-145 [facility] Comment on above: Performed By: #### L 3100.2300, L500.4050, L100.0100 #### [facility] [address] [place], [address] T PROT 6.7 g/dL Normal 5.9-8.4 [facility] Comment on above: Performed By: #### L 3100.2300, L500.4050, L100.0100 #### [facility] [address] [place], [address] Urea nitrogen [Mass/Vol] 20 mg/dL High 4-19 [facility] Comment on above: Performed By: #### L 3100.2300, L500.4050, L100.0100 #### [facility] [address] [place], [address] Eosinophil percentageOrdered By: Gerson Cifuentes on 12-04-2024 Eosinophils/100 WBC (Bld) 2.3 % 0-5 [facility] Erythrocyte distribution wid th ratioOrdered By: [facility] on 12-04-2024 Erythrocyte distribution width (RBC) [Ratio] 14.3 % 11.6-14.6 [facility] Erythrocyte distribution wid th standard deviationOrdered By: [facility] on 12-04-2024 Erythrocyte distribution width (RBC) [Ratio] 43.4 fl 35.1-43.9 [facility] Glomerular filtration rate ( GFR) estimation/1.73 sq m using serum, plasma, or whole bOrdered By: [facility] on 12-04-2024 GFR/1.73 sq M.predicted among non-blacks MDRD (S/P/Bld) [Vol rate/Area] 70 mL/min/{1.73_m2} >60 [facility] Comment on above: mL/min/1.73m2 CKD-EP I Creatinine Equation (2020) Hematocrit Auto (Bld) [Volum e fraction]Ordered By: Gerson Cifuentes on 12-04-2024 Hematocrit (Bld) [Volume fraction] 50.5 % 40-54 [facility] Hemoglobin A1con 12-04-2024 HbA1c (Bld) [Mass fraction] 7.1 % High <=5.6 [facility] Comment on above: Result Comment: Norm al < 5.7 % Prediabetic 5.7 - 6.4 % Diabetic >or= 6.5 % Please note range changes. Performed By: #### L 3100.2300 #### [facility] [address] [place], [address] Hemoglobin A1c percentageOrd ered By: Debora Orourke on 12-04-2024 HbA1c (Bld) [Mass fraction] 7.1 % High <5.7 [facility] Comment on above: Normal < 5.7 % Predi abetic 5.7 - 6.4 % Diabetic >or= 6.5 % Please note range changes. Hemoglobin measurementOrdere d By: Gerson Cifuentes on 12-04-2024 Hemoglobin (Bld) [Mass/Vol] 17.1 g/dL High 13.0-16.5 [facility] Immature granulocytes/100 WB C Auto (Bld)Ordered By: Gerson Cifuentes on 12-04-2024 Immature granulocytes/100 WBC (Bld) 0.600 % 0.0-0.9 [facility] Comment on above: IG% - Immature Granu locytes (promyelocytes, myelocytes and metamyelocytes) > 1% indicates that a LEFT SHIFT is Present. LDL calc ser/plasOrdered By: Debora Orourke on 12-04-2024 Cholesterol in LDL [Mass/Vol] 106 mg/dL [facility] Comment on above: Wbylmqjgho=808-609 m g/dL & Higher Aatw=470 mg/dL or greaterFriedwald Equation for LDL-C Laboratory - Chemistry and C hemistry - challengeOrdered By: Gerson Cifuentes on 12-04-2024 AST [Catalytic activity/Vol] 26 U/L <38 [facility] Lipid Profileon 12-04-2024 CHOL:HDL 3.66 Normal [facility] Comment on above: Performed By: #### L 500.4100, L501.9985, L501.9910, L506.1001, L501.9520 #### [facility] [address] [place], [address] Cholesterol [Mass/Vol] 204 mg/dL High <=200 [facility] Comment on above: Result Comment: Chol esterol level, Desirable <200 mg/dL Borderline high cholesterol 200-239 mg/dL High cholesterol >=240 mg/dL Recommendations of the NCEP Adult Treatment Panel for the following risk-cutoff thresholds for the [place] population. Performed By: #### L 500.4100, L501.9985, L501.9910, L506.1001, L501.9520 #### [facility] [address] [place], [address] Cholesterol in HDL [Mass/Vol] 56 mg/dL Normal [facility] Comment on above: Result Comment: Thea onal Cholesterol Education Program (NCEP) guidelines: <40 mg/dL: Low HDL-cholesterol (major risk factor for CHD) >= 60 mg/dL: High HDL-cholesterol (negative risk factor for CHD) HDL-cholesterol is affected by a number of factors, e.g. smoking, exercise, hormones, sex and age. Performed By: #### L 500.4100, L501.9985, L501.9910, L506.1001, L501.9520 #### [facility] [address] [place], [address] Cholesterol in LDL [Mass/Vol] 106 mg/dL Normal [facility] Comment on above: Result Comment: Bord ckogpb=258-521 mg/dL Higher Wuue=229 mg/dL or greater Friedwald Equation for LDL-C Performed By: #### L 500.4100, L501.9985, L501.9910, L506.1001, L501.9520 #### [facility] [address] [place], [address] Cholesterol in VLDL [Mass/Vol] 42 mg/dL High 5-40 [facility] Comment on above: Performed By: #### L 500.4100, L501.9985, L501.9910, L506.1001, L501.9520 #### [facility] [address] [place], [address] Triglyceride [Mass/Vol] 212 mg/dL High [facility] Comment on above: Result Comment: The drugs N-Acetylcysteine and Metamizole may falsely depress this assay. Normal range: <150 mg/dL Borderline High: 150-199 mg/dL High: 200-499 mg/dL Very High: >500 mg/dL Performed By: #### L 500.4100, L501.9985, L501.9910, L506.1001, L501.9520 #### [facility] [address] [place], [address] MCV (mean corpuscular volume ) determinationOrdered By: Andieloyd Cifuentes on 12-04-2024 MCV (RBC) [Entitic vol] 83.9 fL 80-94 [facility] Mean corpuscular hemoglobin (MCH) determinationOrdered By: Andieloyd Cifuentes on 12-04-2024 MCH (RBC) [Entitic mass] 28.4 pg 27.0-32.0 [facility] Mean corpuscular hemoglobin concentration (MCHC) determinationOrdered By: Andieloyd Cifuentes on 12-04-2024 MCHC (RBC) [Mass/Vol] 33.9 g/dL 32-36 [facility] Mean platelet volume determi nationOrdered By: Andieloyd Cifuentes on 12-04-2024 Platelet mean volume (Bld) [Entitic vol] 9.4 fL 6.2-12.0 [facility] Monocyte percentageOrdered B y: Andieloyd Cifuentes on 12-04-2024 Monocytes/100 WBC (Bld) 7.3 % 0-10 [facility] Neutrophil percentageOrdered By: [facility] on 12-04-2024 Neutrophils/100 WBC (Bld) 73.0 % High 47-70 [facility] Nucleated red blood cell per centageOrdered By: [facility] on 12-04-2024 Nucleated RBC/100 WBC (Bld) [Ratio] 0 % 0-5 [facility] PSA,Total - Annual Screenon 12-04-2024 PSA,TOT SCREEN 1.05 ng/mL Normal 0.02-4.00 [facility] Comment on above: Result Comment: This test was performed using the [employer] tPSA method. Measured values of a patient??sample can vary depending on the testing procedure used. PSA values determined on patient samples by different testing procedures cannot be used interchangeably. If there is a change in PSA assays while monitoring therapy, sequential testing should be performed to confirm baseline values. Performed By: #### L 3100.2300 #### [facility] [address] [place], [address] Platelet countOrdered By: Robin Cifuentes on 12-04-2024 Platelets (Bld) [#/Vol] 292 10*3/uL 150-450 [facility] Potassium measurement (mass/ volume)Ordered By: Gerson Cifuentes on 12-04-2024 Potassium (Unsp spec) [Mass/Vol] 4.5 mmol/L 3.3-5.1 [facility] RBC Auto (Bld) [#/Vol]Ordere d By: Gerson Cifuentes on 12-04-2024 RBC (Bld) [#/Vol] 6.02 10*6/uL 4.6-6.2 [facility] Screening total cholesterol/ high density lipoprotein (HDL) cholesterol ratioOrdered By: Debora Orourke on 12-04-2024 Cholesterol.total/Cho lesterol in HDL [Mass ratio] 3.66 {ratio} [facility] Serum creatinine measurement (mass/volume)Ordered By: Gerson Cifuentes on 12-04-2024 Creatinine [Mass/Vol] 1.20 mg/dL 0.70-1.20 [facility] Serum globulin measurementOr dered By: Gerson Cifuentes on 12-04-2024 Globulin (S) [Mass/Vol] 2.5 g/dL 2.2-4.2 [facility] Serum glucose measurement (m ass/volume)Ordered By: Gerson Cifuentes on 12-04-2024 Glucose [Mass/Vol] 169 mg/dL High 70-99 [facility] Serum or plasma alanine rodriguez otransferase (ALT) measurementOrdered By: Gerson Cifuentes on 12-04-2024 ALT [Catalytic activity/Vol] 27 U/L <47 [facility] Serum or plasma albumin ivelisse urement (mass/volume)Ordered By: Gerson Cifuentes on 12-04-2024 Albumin [Mass/Vol] 4.2 g/dL 3.5-5.0 [facility] Serum or plasma albumin/glob ulin mass ratioOrdered By: Gerson Cifuentes on 12-04-2024 Albumin/Globulin [Mass ratio] 1.7 {ratio} 0.9-2.4 [facility] Serum or plasma alkaline ilir sphatase measurementOrdered By: Gerson Cifuentes on 12-04-2024 ALP [Catalytic activity/Vol] 81 U/L 40-129 [facility] Serum or plasma calcium ivelisse urement (mass/volume)Ordered By: Gerson Cifuentes on 12-04-2024 Calcium [Mass/Vol] 9.2 mg/dL 7.6-11.0 [facility] Serum or plasma carcinoembry onic antigen measurement (mass/volume)Ordered By: Gerson Cifuentes on 12-04-2024 Carcinoembryonic Ag [Mass/Vol] 1.9 ng/mL 0.0-4.7 [facility] Comment on above: Nonsmokers <3.9 Smok ers <5.6[employer] Electrochemiluminescence Immunoassay(ECLIA)Values obtained with different assay methods or kitscannot be used interchangeably. Results cannot beinterpreted as absolute evidence of the presence orabsence of malignant disease.Performed at: [facility] [id number] Director: Esteban Page PhD, Phone: [phone] Serum or plasma cholesterol in HDL measurement (mass/volume)Ordered By: Debora Orourke on 12-04-2024 Cholesterol in HDL [Mass/Vol] 56 mg/dL >40 [facility] Comment on above: National Cholesterol Education Program (NCEP) guidelines:<40 mg/dL: Low HDL-cholesterol (major risk factor for CHD)>= 60 mg/dL: High HDL-cholesterol (negative risk factor for CHD)HDL-cholesterol is affected by a number of factors, e.g. smoking, exercise, hormones, sex and age. Serum or plasma cholesterol measurement (mass/volume)Ordered By: Debora Orourke on 12-04-2024 Cholesterol [Mass/Vol] 204 mg/dL High <201 [facility] Comment on above: Cholesterol level, D esirable <200 mg/dLBorderline high cholesterol 200-239 mg/dLHigh cholesterol >=240 mg/dLRecommendations of the NCEP Adult Treatment Panel for the following risk-cutoff thresholds for the [place] population. Serum or plasma urea nitroge n measurement (mass/volume)Ordered By: Gerson Cifuentes on 12-04-2024 Urea nitrogen [Mass/Vol] 20 mg/dL High 4-19 [facility] Sodium levelOrdered By: Andie Cifuentes on 12-04-2024 Sodium [Moles/Vol] 140 mmol/L 133-145 [facility] TSH DL <= 0.005 mIU/L QnOrde red By: Debora Orourke on 12-04-2024 TSH Qn 0.923 uIU/mL 0.300-4.20 0 [facility] Thyroid Stim Hormone (TSH)on 12-04-2024 TSH 0.923 uIU/mL Normal 0.300-4.20 0 [facility] Comment on above: Performed By: #### L 500.4100, L501.9985, L501.9910, L506.1001, L501.9520 #### [facility] Laboratory [address] [place], [address] Total proteinOrdered By: Kevin Cifuentes on 12-04-2024 Protein [Mass/Vol] 6.7 g/dL 5.9-8.4 [facility] Triglycerides measurementOrd ered By: Debora Orourke on 12-04-2024 Triglyceride [Mass/Vol] 212 mg/dL High <199 [facility] Comment on above: The drugs N-Acetylcy steine and Metamizole may falsely depress this assay. Normal range: <150 mg/dLBorderline High: 150-199 mg/dLHigh: 200-499 mg/dLVery High: >500 mg/dL Vitamin D,25 Hydroxyon 12-04 Vitamin D 25-OH 46.7 ng/mL Normal 30-100 [facility] Comment on above: Result Comment: Danae min D Status Deficiency: <20 ng/mL (50nmol/L) Insufficiency: 20-30 ng/mL (50-75 nmol/L) Sufficiency: 30-100 ng/mL (75-250 nmol/L) Toxicity: >100 ng/mL (>250 nmol/L) Performed By: #### L 3100.2300 #### [facility] [address] [place], [place], [id number] White blood cell (WBC) count Ordered By: Gerson Cifuentes on 12-04-2024 WBC (Bld) [#/Vol] 10.2 10*3/uL 4.4-11.0 [facility] Hemoglobin A1con 09-25-2024 HbA1c (Bld) [Mass fraction] 7.1 % High <=5.6 [facility] Comment on above: Result Comment: Norm al < 5.7 % Prediabetic 5.7 - 6.4 % Diabetic >or= 6.5 % Please note range changes. Performed By: #### L 501.9985 #### [facility] [address] [place], [address] Hemoglobin A1c percentageOrd ered By: Debora Orourke on 09-25-2024 HbA1c (Bld) [Mass fraction] 7.1 % High <5.7 [facility] Comment on above: Normal < 5.7 % Predi abetic 5.7 - 6.4 % Diabetic >or= 6.5 % Please note range changes. Pulmonary Visit Reporton Pulmonary Visit Report [facility] [place] 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 Plan Details Follow Up: 03/12/25 ([facility]) HPI Sleep concern Chief Complaint: Sleep apnea [...] morning headaches. 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 [...] He has never been seen by a security advisor. He is a lifelong never smoker. He [...] Pulse Oxi (more content not included)... Normal [facility] MR/BMS.[facility] 06-07-2024 MR/BMS.[facility] [address] [place] [address] OFFICE VISIT Date of Service: 06/07/24 MR#: [id number] Acct: [id number] Name: ARTEM MCDERMOTT Rep #: [id number] : 1965 Provider: Dr. Debora hoskins MD Age/Sex: 58/M Location: [facility] Status: Signed Intake Vital Signs 03/02/24 15:53 [...] M FU Chief Complaint: 3 M FU Ear Flap Binder Required: No Accompanied by: Self Is patient [...] mg/3 mL) subcutaneous pen injector mL (Ozempic) [facility] Medical History Chewing tobacco nicotine dependence Wears [...] Light sensitivity (more content not included)... Normal [facility] Oncology Visit Reporton 05-14 Oncology Visit Report [facility] [address] [place] [address] OFFICE VISIT Date of Service: 06/07/24 1525 MR#: [id number] Acct: [id number] Name: ARTEM MCDERMOTT Rep #: [id number] : 1965 From: Gerson Cifuentes MD Age/Sex: 58/M Location: [facility] Status: Signed HPI Subjective Date of Service [...] is present close to the luminal surface. [facility] Medical History Chewing tobacco nicotine dependence Wears [...] ???Recorded ? (more content not included)... Normal [facility] Carcinoembryonic Antigenon 0 06-03-2024 CEA 1.6 ng/mL Normal 0.0-4.7 [facility] Comment on above: Result Comment: Nons mokers <3.9 Smokers <5.6 [facility] Electrochemiluminescence Immunoassay (ECLIA) Values obtained with different assay methods or kits cannot be used interchangeably. Results cannot be interpreted as absolute evidence of the presence or absence of malignant disease. Performed at: [facility] [address] [id number] Delicatessen Manager: Esteban Page PhD, Phone: [phone] Performed By: #### L 3100.2300 #### [facility] [address] [place], [address] Albumin to globulin ratioOrd ered By: Debora Orourke on 06-01-2024 Albumin/Globulin [Mass ratio] 0.9 {ratio} 0.9-2.4 [facility] Bilirubin, totalOrdered By: Debora Orourke on 06-01-2024 Bilirubin [Mass/Vol] 0.40 mg/dL 0.20-1.00 [facility] Comment on above: For patients on eltr ombopag therapy, use of Dimension Avalon TBIL is not recommended. Blood urea nitrogen (BUN)/cr eatinine ratioOrdered By: Debora Orourke on 06-01-2024 Urea nitrogen/Creatinine [Mass ratio] 16.9 mg/mg 10- [facility] Carbon dioxide measurementOr dered By: Debora Orourke on 06-01-2024 CO2 [Moles/Vol] 24.0 mmol/L 21.0-32.0 [facility] Chloride measurementOrdered By: Debora Orourke on 06-01-2024 Chloride [Moles/Vol] 107 mmol/L 98-107 [facility] Comprehensive Metabolic Prof ilon 06-01-2024 Albumin [Mass/Vol] 3.5 g/dL Normal 3.2-5.0 [facility] Comment on above: Performed By: #### L 500.4050, L501.9985 #### [facility] [address] [place], [address] Albumin/Globulin [Mass ratio] 0.9 {ratio} Normal 0.9-2.4 [facility] Comment on above: Performed By: #### L 500.4050, L501.9985 #### [facility] [address] [place], [address] ALK P 84 U/L Normal 45-117 [facility] Comment on above: Performed By: #### L 500.4050, L501.9985 #### [facility] [address] [place], [address] ALT [Catalytic activity/Vol] 44 U/L Normal 16-61 [facility] Comment on above: Performed By: #### L 500.4050, L501.9985 #### [facility] [address] [place], [address] AST [Catalytic activity/Vol] 17 U/L Normal 15-37 [facility] Comment on above: Performed By: #### L 500.4050, L501.9985 #### [facility] [address] [place], [address] Bilirubin [Mass/Vol] 0.40 mg/dL Normal 0.20-1.00 [facility] Comment on above: Result Comment: For patients on eltrombopag therapy, use of Dimension Avalon TBIL is not recommended. Performed By: #### L 500.4050, L501.9985 #### [facility] [address] [place], [address] BUN/CRE 16.9 RATIO Normal 10-20 [facility] Comment on above: Performed By: #### L 500.4050, L501.9985 #### [facility] [address] [place], [address] CA,Total 9.4 mg/dL Normal 8.5-10.1 [facility] Comment on above: Performed By: #### L 500.4050, L501.9985 #### [facility] [address] [place], [address] Chloride [Moles/Vol] 107 mmol/L Normal 98-107 [facility] Comment on above: Performed By: #### L 500.4050, L501.9985 #### [facility] [address] [place], [address] CO2 [Moles/Vol] 24.0 mmol/L Normal 21.0-32.0 [facility] Comment on above: Performed By: #### L 500.4050, L501.9985 #### [facility] [address] [place], [address] Creatinine [Mass/Vol] 1.54 mg/dL High 0.70-1.30 [facility] Comment on above: Result Comment: The validity of the calculated GFR GFRAA in patients over 70 years has not been determined. Clinical correlation is essential. Performed By: #### L 500.4050, L501.9985 #### [facility] [address] [place], [address] ECRCL 67.43 ml/min Normal [facility] Comment on above: Performed By: #### L 500.4050, L501.9985 #### [facility] [address] [place], [address] EST GFR - AA 60 mL/min Normal >60 [facility] Comment on above: Result Comment: Afri can Cymro GFR Calc Performed By: #### L 500.4050, L501.9985 #### [facility] [address] [place], [address] GAP 8 Normal 5-15 [facility] Comment on above: Performed By: #### L 500.4050, L501.9985 #### [facility] [address] [place], [address] GFR/1.73 sq M.predicted among non-blacks MDRD (S/P/Bld) [Vol rate/Area] 49 mL/min/{1.73_m2} Low >60 [facility] Comment on above: Result Comment: Non- GFR Calc Performed By: #### L 500.4050, L501.9985 #### [facility] [address] [place], [address] Globulin (S) [Mass/Vol] 3.7 g/dL Normal 2.2-4.2 [facility] Comment on above: Performed By: #### L 500.4050, L501.9985 #### [facility] [address] [place], [address] Glucose [Mass/Vol] 231 mg/dL High 74-106 [facility] Comment on above: Result Comment: Gluc ose result greater than or equal to 200 mg/dL suggests DIABETES MELLITUS per A.D.A. criteria. Performed By: #### L 500.4050, L501.9985 #### [facility] [address] [place], [address] Potassium [Moles/Vol] 4.0 mmol/L Normal 3.5-5.1 [facility] Comment on above: Performed By: #### L 500.4050, L501.9985 #### [facility] [address] [place], [address] Sodium [Moles/Vol] 139 mmol/L Normal 136-145 [facility] Comment on above: Performed By: #### L 500.4050, L501.9985 #### [facility] [address] [place], [address] T PROT 7.2 g/dL Normal 6.4-8.2 [facility] Comment on above: Performed By: #### L 500.4050, L501.9985 #### [facility] [address] [place], [address] Urea nitrogen [Mass/Vol] 26 mg/dL High 7-18 [facility] Comment on above: Performed By: #### L 500.4050, L501.9985 #### [facility] [address] [place], [address] Glomerular filtration rate ( GFR) estimationOrdered By: Debora Orourke on 06-01-2024 GFR/1.73 sq M.predicted among non-blacks MDRD (S/P/Bld) [Vol rate/Area] 49 mL/min/{1.73_m2} Low >60 [facility] Comment on above: Non- GFR Calc Glucose measurementOrdered B y: Debora Orourke on 06-01-2024 Glucose [Mass/Vol] 231 mg/dL High 74-106 [facility] Comment on above: Glucose result great er than or equal to 200 mg/dLsuggests DIABETES MELLITUS per A.D.A. criteria. Hemoglobin A1con 06-01-2024 HbA1c (Bld) [Mass fraction] 7.8 % High 3.8-5.6 [facility] Comment on above: Result Comment: Norm al < 5.7 % Prediabetic 5.7 - 6.4 % Diabetic >or= 6.5 % Please note range changes. Performed By: #### L 500.4050, L501.9985 #### [facility] [address] [place], [address] Hemoglobin A1c percentageOrd ered By: Debora Orourke on 06-01-2024 HbA1c (Bld) [Mass fraction] 7.8 % High 3.8-5.6 [facility] Comment on above: Normal < 5.7 % Predi abetic 5.7 - 6.4 % Diabetic >or= 6.5 % Please note range changes. Laboratory - Chemistry and C hemistry - challengeOrdered By: Debora Orourke on 06-01-2024 AST [Catalytic activity/Vol] 17 U/L 15-37 [facility] Potassium measurementOrdered By: Debora Orourke on 06-01-2024 Potassium [Moles/Vol] 4.0 mmol/L 3.5-5.1 [facility] Serum anion gap measurementO rdered By: Debora Orourke on 06-01-2024 Anion gap [Moles/Vol] 8 mmol/L 5-15 [facility] Serum globulin measurementOr dered By: Debora Orourke on 06-01-2024 Globulin (S) [Mass/Vol] 3.7 g/dL 2.2-4.2 [facility] Serum or plasma alanine rodriguez otransferase (ALT) measurementOrdered By: Debora Orourke on 06-01-2024 ALT [Catalytic activity/Vol] 44 U/L 16-61 [facility] Serum or plasma albumin ivelisse urement (mass/volume)Ordered By: Debora Orourke on 06-01-2024 Albumin [Mass/Vol] 3.5 g/dL 3.2-5.0 [facility] Serum or plasma alkaline ilir sphatase measurementOrdered By: Debora Orourke on 06-01-2024 ALP [Catalytic activity/Vol] 84 U/L 45-117 [facility] Serum or plasma calcium ivelisse urement (mass/volume)Ordered By: Debora Orourke on 06-01-2024 Calcium [Mass/Vol] 9.4 mg/dL 8.5-10.1 [facility] Serum or plasma carcinoembry onic antigen measurement (mass/volume)Ordered By: Gerson Cifuentes on 06-01-2024 Carcinoembryonic Ag [Mass/Vol] 1.6 ng/mL 0.0-4.7 [facility] Comment on above: Nonsmokers <3.9 Smok ers <5.6[facility] Electrochemiluminescence Immunoassay(ECLIA)Values obtained with different assay methods or kitscannot be used interchangeably. Results cannot beinterpreted as absolute evidence of the presence orabsence of malignant disease.Performed at: [facility] [employer] [id number] Director: Esteban Page PhD, Phone: [phone] Serum or plasma creatinine m easurement (mass/volume)Ordered By: Debora Orourke on 06-01-2024 Creatinine [Mass/Vol] 1.54 mg/dL High 0.70-1.30 [facility] Comment on above: The validity of the calculated GFR & GFRAA in patients over 70 years has not been determined. Clinical correlation is essential. Serum or plasma urea nitroge n measurement (mass/volume)Ordered By: Debora Orourke on 06-01-2024 Urea nitrogen [Mass/Vol] 26 mg/dL High 7-18 [facility] Sodium levelOrdered By: Calista Orourke on 06-01-2024 Sodium [Moles/Vol] 139 mmol/L 136-145 [facility] Total proteinOrdered By: Sarah Orourke on 06-01-2024 Protein [Mass/Vol] 7.2 g/dL 6.4-8.2 [facility] MR/BMS.[facility] 03-02-2024 MR/BMS.[facility] [address] [place] [address] OFFICE VISIT Date of Service: 03/02/24 MR#: [id number] Acct: [id number] Name: ARTEM MCDERMOTT Rep #: [id number] : 1965 Provider: Dr. 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 Normal [facility] Oncology Visit Reporton 12-12 Oncology Visit Report [facility] [address] [place] [address] OFFICE VISIT Date of Service: 01/04/24 1525 MR#: [id number] Acct: [id number] Name: ARTEM MCDERMOTT Rep #: [id number] : 1965 From: Gerson Cifuentes MD Age/Sex: 58/M Location: [facility] Status: Signed HPI Subjective Date [...] is present close to the luminal surface. [facility] Medical History Chewing tobacco nicotine dependence Wears [...] 01/04/24 Histo (more content not included)... Normal [facility] Carcinoembryonic Antigenon 0 01-01-2024 CEA 1.8 ng/mL Normal 0.0-4.7 [facility] Comment on above: Result Comment: Nons mokers <3.9 Smokers <5.6 [facility] Electrochemiluminescence Immunoassay (ECLIA) Values obtained with different assay methods or kits cannot be used interchangeably. Results cannot be interpreted as absolute evidence of the presence or absence of malignant disease. Performed at: [facility] [address] [id number] Delicatessen Manager: Esteban Page PhD, Phone: [phone] Performed By: #### L 3100.2300 #### [facility] [address] [place], [address] Basophil percentageOrdered B y: Debora Orourke on 06-14-2023 Bilirubin [Mass/Vol] 0.60 mg/dL 0.20-1.00 [facility] Comment on above: For patients on eltr ombopag therapy, use of Dimension Avalon TBIL is not recommended. Chloride [Moles/Vol] 110 mmol/L 98-107 [facility] Glucose [Mass/Vol] 154 mg/dL 74-106 [facility] Comment on above: Fasting Glucose resu lt greater than or equal to 126 mg/dL suggests DIABETES MELLITUS per A.D.A. criteria. Potassium [Moles/Vol] 3.8 mmol/L 3.5-5.1 [facility] Protein [Mass/Vol] 7.3 g/dL 6.4-8.2 [facility] Sodium [Moles/Vol] 141 mmol/L 136-145 [facility] Laboratory - Chemistry and C hemistry - challengeOrdered By: Debora Orourke on 06-14-2023 Albumin/Globulin [Mass ratio] 1.1 {ratio} 0.9-2.4 [facility] ALP [Catalytic activity/Vol] 75 U/L 45-117 [facility] ALT [Catalytic activity/Vol] 43 U/L 16-61 [facility] CO2 [Moles/Vol] 24.0 mmol/L 21.0-32.0 [facility] Globulin (S) [Mass/Vol] 3.4 g/dL 2.2-4.2 [facility] Urea nitrogen/Creatinine [Mass ratio] 16.9 mg/mg 10-20 [facility] No Panel InformationOrdered By: Debora Orourke on 06-14-2023 Estimated GFR (MDRD) Amer 69 mL/min >60 [facility] Comment on above: GFR Calc Estimated GFR (MDRD) Non-Af Amer 57 mL/min >60 [facility] Comment on above: Non- GFR Calc Serum or plasma calcium ivelisse urement (mass/volume)Ordered By: Debora Orourke on 06-14-2023 Calcium [Mass/Vol] 10.1 mg/dL 8.5-10.1 [facility] Serum or plasma creatinine m easurement (mass/volume)Ordered By: Debora Orourke on 06-14-2023 Creatinine [Mass/Vol] 1.36 mg/dL 0.70-1.30 [facility] Comment on above: The validity of the calculated GFR & GFRAA in patients over 70 years has not been determined. Clinical correlation is essential. Serum or plasma urea nitroge n measurement (mass/volume)Ordered By: Debora Orourke on 06-14-2023 Urea nitrogen [Mass/Vol] 23 mg/dL 7-18 [facility] Thin prep Papanicolaou smear with manual screeningOrdered By: Debora Orourke on 06-14-2023 Thin prep Papanicolaou smear with manual screening 3.9 g/dL 3.2-5.0 [facility] Thin prep Papanicolaou smear with manual screening 20 U/L 15-37 [facility] Thin prep Papanicolaou smear with manual screening 7 5-15 [facility] Whole blood hemoglobin A1c/t otal hemoglobin ratio (mass fraction)Ordered By: Debora Orourke on 06-14-2023 HbA1c (Bld) [Mass fraction] 7.3 % 3.8-5.6 [facility] Comment on above: Normal < 5.7 % Predi abetic 5.7 - 6.4 % Diabetic >or= 6.5 % Please note range changes. Serum or plasma carcinoembry onic antigen measurement (mass/volume)Ordered By: Gerson Cifuentes on 05-27-2023 Carcinoembryonic Ag [Mass/Vol] 1.8 ng/mL 0.0-4.7 [facility] Comment on above: Nonsmokers <3.9 Smok ers <5.6[facility] Electrochemiluminescence Immunoassay(ECLIA)Values obtained with different assay methods or kitscannot be used interchangeably. Results cannot beinterpreted as absolute evidence of the presence orabsence of malignant disease.Performed at: - [address] [id number] Director: Esteban Page PhD, Phone: [phone] Basophil percentageOrdered B y: Debora rOourke on 03-17-2023 Bilirubin [Mass/Vol] 0.60 mg/dL 0.20-1.00 [facility] Comment on above: For patients on eltr ombopag therapy, use of Dimension Avalon TBIL is not recommended. Chloride [Moles/Vol] 107 mmol/L 98-107 [facility] Glucose [Mass/Vol] 226 mg/dL 74-106 [facility] Comment on above: Glucose result great er than or equal to 200 mg/dLsuggests DIABETES MELLITUS per A.D.A. criteria. Potassium [Moles/Vol] 3.9 mmol/L 3.5-5.1 [facility] Protein [Mass/Vol] 7.2 g/dL 6.4-8.2 [facility] Sodium [Moles/Vol] 137 mmol/L 136-145 [facility] Laboratory - Chemistry and C hemistry - challengeOrdered By: Debora Orourke on 03-17-2023 ALP [Catalytic activity/Vol] 78 U/L 45-117 [facility] ALT [Catalytic activity/Vol] 36 U/L 16-61 [facility] CO2 [Moles/Vol] 24.0 mmol/L 21.0-32.0 [facility] Globulin (S) [Mass/Vol] 3.7 g/dL 2.2-4.2 [facility] Urea nitrogen/Creatinine [Mass ratio] 13.8 mg/mg 10-20 [facility] No Panel InformationOrdered By: Debora Orourke on 03-17-2023 Estimated GFR (MDRD) Amer 58 mL/min >60 [facility] Comment on above: GFR Calc Estimated GFR (MDRD) Non-Af Amer 48 mL/min >60 [facility] Comment on above: Non- GFR Calc Insulin Level 140.7 mU/L 2.6-37.6 [facility] Serum or plasma albumin ivelisse urement (mass/volume)Ordered By: Debora Orourke on 03-17-2023 Albumin [Mass/Vol] 3.5 g/dL 3.2-5.0 [facility] Serum or plasma albumin/glob ulin mass ratioOrdered By: Debora Orourke on 03-17-2023 Albumin/Globulin [Mass ratio] 0.9 {ratio} 0.9-2.4 [facility] Serum or plasma calcium ivelisse urement (mass/volume)Ordered By: Debora Orourke on 03-17-2023 Calcium [Mass/Vol] 9.5 mg/dL 8.5-10.1 [facility] Serum or plasma creatinine m easurement (mass/volume)Ordered By: Debora Orourke on 03-17-2023 Creatinine [Mass/Vol] 1.59 mg/dL 0.70-1.30 [facility] Comment on above: The validity of the calculated GFR & GFRAA in patients over 70 years has not been determined. Clinical correlation is essential. Serum or plasma urea nitroge n measurement (mass/volume)Ordered By: Debora Orourke on 03-17-2023 Urea nitrogen [Mass/Vol] 22 mg/dL 7-18 [facility] Thin prep Papanicolaou smear with manual screeningOrdered By: Debora Orourke on 03-17-2023 Thin prep Papanicolaou smear with manual screening 17 U/L 15-37 [facility] Thin prep Papanicolaou smear with manual screening 6 5-15 [facility] Whole blood hemoglobin A1c/t otal hemoglobin ratio (mass fraction)Ordered By: Debora Orourke on 03-17-2023 HbA1c (Bld) [Mass fraction] 6.8 % 3.8-5.6 [facility] Comment on above: Normal < 5.7 % Predi abetic 5.7 - 6.4 % Diabetic >or= 6.5 % Please note range changes. Absolute lymphocyte countOrd ered By: Debora Orourke on 11-23-2022 Lymphocytes Auto (Unsp spec) [#/Vol] 1.84 10*3/uL 0.83-4.51 [facility] Basophil percentageOrdered B y: Debora Orourke on 11-23-2022 Basophils/100 WBC (Bld) 0.3 % 0-1 [facility] Bilirubin [Mass/Vol] 0.40 mg/dL 0.20-1.00 [facility] Comment on above: For patients on eltr ombopag therapy, use of Dimension Avalon TBIL is not recommended. Chloride [Moles/Vol] 105 mmol/L 98-107 [facility] Eosinophils/100 WBC (Bld) 1.1 % 0-5 [facility] Glucose [Mass/Vol] 324 mg/dL 74-106 [facility] Comment on above: Glucose result great er than or equal to 200 mg/dLsuggests DIABETES MELLITUS per A.D.A. criteria. Neutrophils (Bld) [#/Vol] 7.0 10*3/uL 2.0-7.7 [facility] Neutrophils/100 WBC (Bld) 72.2 % 47-70 [facility] Potassium [Moles/Vol] 4.2 mmol/L 3.5-5.1 [facility] Comment on above: Slight Hemolysis, Re sult may be falsely increased. Protein [Mass/Vol] 7.1 g/dL 6.4-8.2 [facility] Sodium [Moles/Vol] 136 mmol/L 136-145 [facility] WBC (Bld) [#/Vol] 9.7 10*3/uL 4.4-11.0 [facility] Blood erythrocytes count (nu mber/volume)Ordered By: Debora Orourke on 11-23-2022 RBC (Bld) [#/Vol] 5.93 10*6/uL 4.6-6.2 [facility] Blood hemoglobin measurement (mass/volume)Ordered By: Debora Orourke on 11-23-2022 Hemoglobin (Bld) [Mass/Vol] 16.9 g/dL 13.0-16.5 [facility] Blood lymphocytes/100 leukoc ytesOrdered By: Debora Orourke on 11-23-2022 Lymphocytes/100 WBC (Bld) 19.0 % 19-41 [facility] Blood monocytes/100 leukocyt esOrdered By: Debora Orourke on 11-23-2022 Monocytes/100 WBC (Bld) 6.7 % 0-10 [facility] Blood platelet mean volumeOr dered By: Debora Orourke on 11-23-2022 Platelet mean volume (Bld) [Entitic vol] 9.6 fL 6.2-12.0 [facility] Determination of erythrocyte mean corpuscular volume (MCV)Ordered By: Debora Orourke on 11-23-2022 MCV (RBC) [Entitic vol] 86.8 fL 80-94 [facility] Hematocrit Auto (Bld) [Volum e fraction]Ordered By: Debora Orourke on 11-23-2022 Hematocrit (Bld) [Volume fraction] 51.5 % 40-54 [facility] Laboratory - Chemistry and C hemistry - challengeOrdered By: Debora Orourke on 11-23-2022 ALP [Catalytic activity/Vol] 74 U/L 45-117 [facility] ALT [Catalytic activity/Vol] 43 U/L 16-61 [facility] CO2 [Moles/Vol] 24.0 mmol/L 21.0-32.0 [facility] Globulin (S) [Mass/Vol] 3.6 g/dL 2.2-4.2 [facility] Urea nitrogen/Creatinine [Mass ratio] 17.5 mg/mg 10-20 [facility] Laboratory - Hematology and Cell countsOrdered By: Debora Orourke on 11-23-2022 Erythrocyte distribution width (RBC) [Entitic vol] 44.6 fL 35.1-43.9 [facility] Erythrocyte distribution width (RBC) [Ratio] 14.0 % 11.6-14.6 [facility] Immature granulocytes/100 WBC (Bld) 0.700 % 0.0-0.9 [facility] Comment on above: IG% - Immature Granu locytes (promyelocytes, myelocytes and metamyelocytes) > 1% indicates that a LEFT SHIFT is Present. MCH (RBC) [Entitic mass] 28.5 pg 27.0-32.0 [facility] Nucleated RBC/100 WBC (Bld) [Ratio] 0 % 0-5 [facility] Auto (RBC) [Mass/Vol]Or dered By: Debora Orourke on 11-23-2022 MCHC (RBC) [Mass/Vol] 32.8 g/dL 32-36 [facility] No Panel InformationOrdered By: Debora Orourke on 11-23-2022 Estimated Creatinine Clearance Calc 63.36 ml/min [facility] Estimated GFR (MDRD) Amer 69 mL/min >60 [facility] Comment on above: GFR Calc Estimated GFR (MDRD) Non-Af Amer 57 mL/min >60 [facility] Comment on above: Non- GFR Calc Insulin Level 196.8 mU/L 2.6-37.6 [facility] Prostate Specific Antigen Screen 1.01 ng/mL 0.00-4.00 [facility] Comment on above: This test was perfor med using the TPSA assay method for [employer] chemistry system. Values obtained with differentassay methods cannot be used interchangably.When changing PSA assays in the course of monitoring apatient, additional sequential testing should be carriedout to confirm baseline values. Platelets bldOrdered By: Sarah Orourke on 11-23-2022 Platelets (Bld) [#/Vol] 253 10*3/uL 150-450 [facility] Serum or plasma albumin ivelisse urement (mass/volume)Ordered By: Debora Orourke on 11-23-2022 Albumin [Mass/Vol] 3.5 g/dL 3.2-5.0 [facility] Serum or plasma albumin/glob ulin mass ratioOrdered By: Debora Orourke on 11-23-2022 Albumin/Globulin [Mass ratio] 1.0 {ratio} 0.9-2.4 [facility] Serum or plasma calcium ivelisse urement (mass/volume)Ordered By: Debora Orourke on 11-23-2022 Calcium [Mass/Vol] 8.7 mg/dL 8.5-10.1 [facility] Serum or plasma creatinine m easurement (mass/volume)Ordered By: Debora Orourke on 11-23-2022 Creatinine [Mass/Vol] 1.37 mg/dL 0.70-1.30 [facility] Comment on above: The validity of the calculated GFR & GFRAA in patients over 70 years has not been determined. Clinical correlation is essential. Serum or plasma urea nitroge n measurement (mass/volume)Ordered By: Debora Orourke on 11-23-2022 Urea nitrogen [Mass/Vol] 24 mg/dL 10-27 [facility] Thin prep Papanicolaou smear with manual screeningOrdered By: Debora Orourke on 11-23-2022 Thin prep Papanicolaou smear with manual screening 20 U/L [facility] Comment on above: Slight Hemolysis, Re sult may be falsely increased. Thin prep Papanicolaou smear with manual screening 7 - [facility] Whole blood hemoglobin A1c/t otal hemoglobin ratio (mass fraction)Ordered By: Debora Orourke on 11-23-2022 HbA1c (Bld) [Mass fraction] 8.1 % 3.8-5.6 [facility] Comment on above: Normal < 5.7 % Predi abetic 5.7 - 6.4 % Diabetic >or= 6.5 % Please note range changes. Serum or plasma carcinoembry onic antigen measurement (mass/volume)Ordered By: Gerson Cifuentes on 09-17-2022 Carcinoembryonic Ag [Mass/Vol] 1.6 ng/mL 0.0-4.7 [facility] Comment on above: Nonsmokers <3.9 Smok ers <5.6[employer] Electrochemiluminescence Immunoassay(ECLIA)Values obtained with different assay methods or kitscannot be used interchangeably. Results cannot beinterpreted as absolute evidence of the presence orabsence of malignant disease.Performed at: [facility] [facility] [id number] Director: Esteban Page PhD, Phone: [phone] Basophil percentageOrdered B y: Debora Orourke on 05-21-2022 Chloride [Moles/Vol] 104 mmol/L 98-107 [facility] Glucose [Mass/Vol] 192 mg/dL 74-106 [facility] Comment on above: Fasting Glucose resu lt greater than or equal to 126 mg/dL suggests DIABETES MELLITUS per A.D.A. criteria. Potassium [Moles/Vol] 3.9 mmol/L 3.5-5.1 [facility] Sodium [Moles/Vol] 140 mmol/L 136-145 [facility] Laboratory - Chemistry and C hemistry - challengeOrdered By: Debora Orourke on 05-21-2022 CO2 [Moles/Vol] 25.0 mmol/L 21.0-32.0 [facility] Urea nitrogen/Creatinine [Mass ratio] 11.6 mg/mg 10-20 [facility] No Panel InformationOrdered By: Debora Orourke on 05-21-2022 Estimated Creatinine Clearance Calc 59.76 ml/min [facility] Estimated GFR (MDRD) Amer 64 mL/min >60 [facility] Comment on above: GFR Calc Estimated GFR (MDRD) Non-Af Amer 53 mL/min >60 [facility] Comment on above: Non- GFR Calc Serum or plasma calcium ivelisse urement (mass/volume)Ordered By: Debora Orourke on 05-21-2022 Calcium [Mass/Vol] 9.1 mg/dL 8.5-10.1 [facility] Serum or plasma creatinine m easurement (mass/volume)Ordered By: Debora Orourke on 05-21-2022 Creatinine [Mass/Vol] 1.47 mg/dL 0.70-1.30 [facility] Comment on above: The validity of the calculated GFR & GFRAA in patients over 70 years has not been determined. Clinical correlation is essential. Serum or plasma urea nitroge n measurement (mass/volume)Ordered By: Debora Orourke on 05-21-2022 Urea nitrogen [Mass/Vol] 17 mg/dL 7-18 [facility] Thin prep Papanicolaou smear with manual screeningOrdered By: Debora Orourke on 05-21-2022 Thin prep Papanicolaou smear with manual screening 11 5-15 [facility] Absolute lymphocyte countOrd ered By: Debora Orourke on 11-24-2021 Lymphocytes Auto (Unsp spec) [#/Vol] 1.70 10*3/uL 0.83-4.51 [facility] Basophil percentageOrdered B y: Debora Orourke on 11-24-2021 Basophils/100 WBC (Bld) 0.7 % 0-1 [facility] Bilirubin [Mass/Vol] 0.60 mg/dL 0.20-1.00 [facility] Comment on above: For patients on eltr ombopag therapy, use of Dimension Avalon TBIL is not recommended. Eosinophils/100 WBC (Bld) 4.3 % 0-5 [facility] Neutrophils (Bld) [#/Vol] 4.8 10*3/uL 2.0-7.7 [facility] Neutrophils/100 WBC (Bld) 64.7 % 47-70 [facility] Protein [Mass/Vol] 7.3 g/dL 6.4-8.2 [facility] WBC (Bld) [#/Vol] 7.4 10*3/uL 4.4-11.0 [facility] Blood erythrocytes count (nu mber/volume)Ordered By: Debora Orourke on 11-24-2021 RBC (Bld) [#/Vol] 6.28 10*6/uL High 4.6-6.2 [facility] Blood hemoglobin measurement (mass/volume)Ordered By: Debora Orourke on 11-24-2021 Hemoglobin (Bld) [Mass/Vol] 17.5 g/dL High 13.0-16.5 [facility] Blood lymphocytes/100 leukoc ytesOrdered By: Debora Orourke on 11-24-2021 Lymphocytes/100 WBC (Bld) 23.1 % 19-41 [facility] Blood monocytes/100 leukocyt esOrdered By: Debora Orourke on 11-24-2021 Monocytes/100 WBC (Bld) 6.7 % 0-10 [facility] Blood platelet mean volumeOr dered By: Debora Orourke on 11-24-2021 Platelet mean volume (Bld) [Entitic vol] 9.2 fL 6.2-12.0 [facility] Determination of erythrocyte mean corpuscular volume (MCV)Ordered By: Debora Orourke on 11-24-2021 MCV (RBC) [Entitic vol] 84.1 fL 80-94 [facility] Hematocrit Auto (Bld) [Volum e fraction]Ordered By: Debora Orourke on 11-24-2021 Hematocrit (Bld) [Volume fraction] 52.8 % 40-54 [facility] Laboratory - Chemistry and C hemistry - challengeOrdered By: Debora Orourke on 11-24-2021 ALP [Catalytic activity/Vol] 92 U/L 45-117 [facility] ALT [Catalytic activity/Vol] 40 U/L 16-61 [facility] Globulin (S) [Mass/Vol] 3.6 g/dL 2.2-4.2 [facility] Laboratory - Hematology and Cell countsOrdered By: Debora Orourke on 11-24-2021 Erythrocyte distribution width (RBC) [Entitic vol] 40.5 fL 35.1-43.9 [facility] Erythrocyte distribution width (RBC) [Ratio] 13.2 % 11.6-14.6 [facility] Immature granulocytes/100 WBC (Bld) 0.500 % 0.0-0.9 [facility] Comment on above: IG% - Immature Granu locytes (promyelocytes, myelocytes and metamyelocytes) > 1% indicates that a LEFT SHIFT is Present. MCH (RBC) [Entitic mass] 27.9 pg 27.0-32.0 [facility] Nucleated RBC/100 WBC (Bld) [Ratio] 0 % 0-5 [facility] MCHC Auto (RBC) [Mass/Vol]Or dered By: Debora Orourke on 11-24-2021 MCHC (RBC) [Mass/Vol] 33.1 g/dL 32-36 [facility] No Panel InformationOrdered By: Debora Orourke on 11-24-2021 Vitamin D 25-Hydroxy 66.3 ng/mL [facility] Comment on above: Vitamin D 25(OH) Sta tus Range Deficiency <20 ng/mL (50nmol/L) Insufficiency 20 - 30 ng/mL (50 - 75 nmol/L) Sufficiency 30 - 100 ng/mL (75 - 250 nmol/L) Toxicity >100 ng/mL (>250 nmol/L) Platelets bldOrdered By: Sarah Orourke on 11-24-2021 Platelets (Bld) [#/Vol] 227 10*3/uL 150-450 [facility] Serum or plasma albumin ivelisse urement (mass/volume)Ordered By: Debora Orourke on 11-24-2021 Albumin [Mass/Vol] 3.7 g/dL 3.2-5.0 [facility] Serum or plasma albumin/glob ulin mass ratioOrdered By: Debora Orourke on 11-24-2021 Albumin/Globulin [Mass ratio] 1.0 {ratio} 0.9-2.4 [facility] Thin prep Papanicolaou smear with manual screeningOrdered By: Debora Orourke on 11-24-2021 Thin prep Papanicolaou smear with manual screening 21 U/L 1537 [facility] Whole blood hemoglobin A1c/t otal hemoglobin ratio (mass fraction)Ordered By: Debora Orourke on 11-24-2021 HbA1c (Bld) [Mass fraction] 5.9 % 3.8-5.6 [facility] Comment on above: Normal < 5.7 % Predi abetic 5.7 - 6.4 % Diabetic >or= 6.5 % Please note range changes. Serum or plasma carcinoembry onic antigen measurement (mass/volume)on 08-20-2021 Carcinoembryonic Ag [Mass/Vol] 1.7 ng/mL 0.0-4.7 [facility] Work Phone: Comment on above: Nonsmokers <3.9 Smok ers <5.6[employer] Electrochemiluminescence Immunoassay(ECLIA)Values obtained with different assay methods or kitscannot be used interchangeably. Results cannot beinterpreted as absolute evidence of the presence orabsence of malignant disease.Performed at: [address] [id number] Director: Esteban Page PhD, Phone: [phone] [facility] MAIN OR Intraop Recordon 06-01-2017 [facility] MAIN OR Intraop Record Normal [facility] ([place]) Anesthesiology Consultationo n 06-01-2017 Anesthesiology Consultation Normal Replaced by [facility]) Depart Summaryon 06-01-2017 Depart Summary Normal Replaced by [facility]) [facility] Operative Reporton 06-01-2017 [facility] Report Normal Replaced by [facility]) [facility] Out[facility] Patient Summaryon 06-01-2017 [facility] Patient Summary Normal Replaced by [facility]) XR FLUORO 1-2 HRS TECH TIMEo n 06-01-2017 XR FLUORO 1-2 HRS TECH TIME ORIGINAL Images acquired, not reported on this accession number. Normal [facility] ([place]) XR WRIST MINIMUM 3 VIEWS LEF Ton [...] 1:57:49 PM Sign Date: 06/01/2017 1:58:12 PM [facility] ([place]) XR WRIST TWO VIEWS LEFTon XR WRIST [...] 1:55:13 PM Sign Date: 06/01/2017 1:56:23 PM [facility] ED NOTEon 05-26-2017 ED NOTE HNO ID: [id number] thor: Jordyn RosenoliService: Emergency MedicineAuthor Type: PhysicianType: ED NotesFiled: 05/29/2017 9:00 PMNote Text:Emergency Services: ED Call Back QuestionnaireSERVICE DATE: 05/26/2017Are you feeling better? YesAny questions about discharge instructions and follow-up care? NoWere you able to make a follow up appointment? YesDo you have any further questions? NoIs there anything that we could have done differently to improve your EDvisit? NoSIGNATURE: oJrdyn Driscoll MD PATIENT NAME: Artem PlattTE: May 29, 2017 : 6:28 PM [facility] ED NOTE HNO ID: [id number] thor: Jordyn Burciagaervice: Emergency MedicineAuthor Type: PhysicianType: [...] PlattTE: May 29, 2017 : 6:28 PM [facility] ED NOTE HNO ID: [id number] Author: Lillie RangelRn) IRINEO Frazier Service: (none) Author Type: Registered Nurse Type: ED Notes Filed: 05/26/2017 10:54 AM Note Text: Pt taken to radiology with tech via [facility] ED NOTE HNO ID: [id number] Author: Lillie RangelRn) IRINEO Frazier Service: (none) Author Type: Registered Nurse Type: ED Notes Filed: 05/26/2017 10:32 AM Note Text: Pt splinted by Dr Driscoll [facility] ED NOTE HNO ID: [id number] Author: Lillie RangelRn) IRINEO Frazier Service: (none) Author Type: Registered Nurse Type: ED Notes Filed: 05/26/2017 10:20 AM Note Text: Radiology at bedside portable xray [facility] ED NOTE HNO ID: [id number] Author: Lillie RangelRn) IRINEO Frazier Service: (none) Author Type: Registered Nurse Type: ED Notes Filed: 05/26/2017 7:32 AM Note Text: Pt taken to radiology with tech via [facility] ED NOTE HNO ID: [id number] thor: Newton RangelRn) SHABANA Binghamervice: (none)Author Type: Registered NurseType: ED NotesFiled: 05/26/2017 7:10 AMNote Text:Pt presents today complaining of left arm/wrist injury. Pt states hetripped over a bucket and fell, denies any LOC. Pain is # 10 /10 on painscale.Plan of care-Monitor Patient's Vital signs for changes in condition-Monitor patient for changes in pain-Maintain patient safety and privacy-Provide comfort measures [facility] ED PROV NOTEon 05-26-2017 ED PROV NOTE HNO ID: [id number] thor: Jordyn Carlosice: Emergency MedicineAuthor Type: PhysicianType: ED Provider NotesFiled: 05/27/2017 8:52 AMNote Text:ED Provider NotePatient Name: Artem McdermottMRN: [id number] DATE: 05/26/17HistoryPatient presents with:Arm Injury: leftHPI Comments: 51 year old male presenting with left wrist pain. Suddenonset, sharp, non-radiating, left distal wrist location, states severe,context- tripped and fell onto out-stretched hand. No other injury, noLOC. RHD.Allergies: NKDAMedications: nonePertinent Medical/Surgical: deniesSocial: No smoke, no etohHistory provided by: PatientLanguage replanting machine crew used: NoNo past medical history on file.No [...] yes Immobilization: Sling and splint Splint type: [employer] Supp[employer] used: Nalju-YlrktKttq-qneglhaai assessment: Neurological function: normal Distal perfusion: normal Range of motion comment: Splinted Patient tolerance of procedure: Tolerated well, no immediatecomplicationsMedica l Decision Making / ED CourseED [id number] with L wrist deformity c/w fracture. Given [...] and agreeable to plan.Thank you,Jordyn Driscoll MDEmergency DepartmentMercy Health Kings Mills HospitalATURE: Jordyn Driscoll, [facility] Centernga Nsbekpa04/15/18 0852 [facility] XR ELBOW 2V AP/LAT LTon 05-13 XR [...] No joint effusion is seen.IMPRESSION:No acute abnormality identified.Breadman: JANNIE Transcribe Date/Time: May 26 2017 7:58ADictated by : YARA KING MDThis examination was interpreted and the report reviewed and electronically signed by: YARA KING MD on May 26 2017 7:59AM [id number] [facility] XR HAND 3V PA/LAT/OBL LTon 0 05-26-2017 [...] angulation of the distal fracture component.Ulnar styloid fracture.Breadman: [facility] Transcribe Date/Time: May 26 2017 7:59ADictated by : Aman ESCOBAR examination was interpreted and the report reviewed and electronically signed by: YARA KING MD on May 26 2017 8:07AM [id number] St. [facility] W[facility]ST 3V PA/LAT/OBL LTon 05-26-2017 [...] the difference in technique and positioning.Ulnar styloid fracture.Breadman: [facility] Transcribe Date/Time: May 26 2017 10:37ADictated by : Aman NAGUIANO examination was interpreted and the report reviewed and electronically signed by: RUBY MCINTOSH MD on May 26 2017 10:39AM [id number] [facility] XR WRIST 4V PA/LAT/OBL/SCAPH LTon 05-26-2017 XR [...] the distal radius fracture and placement of cast.Breadman: JANNIE Transcribe Date/Time: May 26 2017 11:17ADictated by : RUBY MCINTOSH MDThiantoni examination was interpreted and the report reviewed and electronically signed by: RUBY MCINTOSH MD on May 26 2017 11:21AM [id number] [facility] XR WRIST 4V PA/LAT/OBL/SCAPH LT * * [...] angulation of the distal fracture component.Ulnar styloid fracture.Breadman: [facility] Transcribe Date/Time: May 26 2017 7:59ADictated by : YARA KING MDThiantoni examination was interpreted and the report reviewed and electronically signed by: YARA KING MD on May 26 2017 8:07AM [id number] [facility] Vital Signs Date Time Vital Sign Value Performing Clinician Juliette [email or web address] 12-20-2024 15:59-0400 Body height 180.[address] Debora Orourke MD Work Phone: [facility] 12-20-2024 15:59-0400 Body mass index (BMI) [Ratio] 33.7 kg/m2 Dr. Debora Orourke MD Work Phone: [facility] 12-20-2024 15:59-0400 Body temperature 98 [degF] Dr. Dbeora Orourke MD Work Phone: [facility] 12-20-2024 15:59-0400 Body weight 109.[address] Debora Orourke MD Work Phone: [facility] 12-20-2024 15:59-0400 Diastolic blood pressure 79 mm[Hg] Dr. Debora Orourke MD Work Phone: [facility] 12-20-2024 15:59-0400 Heart rate 68 /min Dr. Debora Orourke MD Work Phone: [phone] [place] [address] 12-20-2024 15:59-0400 Respiratory rate 16 /min Dr. Debora Orourke MD Work Phone: [facility] 12-20-2024 15:59-0400 SaO2% (BldA) [Mass fraction] 95 % Dr. Debora Orourke MD Work Phone: [facility] 12-20-2024 15:59-0400 Systolic blood pressure 131 mm[Hg] Dr. Debora Orourke MD Work Phone: [facility] 12-07-2024 15:53-0400 Body height 180.[address] Debora Orourke MD Work Phone: [facility] 12-07-2024 15:53-0400 Body mass index (BMI) [Ratio] 33.6 kg/m2 Dr. Debora Orourke MD Work Phone: [facility] 12-07-2024 15:53-0400 Body temperature 98.2 [degF] Dr. Debora Orourke MD Work Phone: [facility] 12-07-2024 15:53-0400 Body weight 109.[address] Debora Orourke MD Work Phone: [facility] 12-07-2024 15:53-0400 Diastolic blood pressure 87 mm[Hg] Dr. Debora Orourke MD Work Phone: [facility] 12-07-2024 15:53-0400 Heart rate 70 /min Dr. Debora Orourke MD Work Phone: [facility] 12-07-2024 15:53-0400 Respiratory rate 16 /min Dr. Debora Orourke MD Work Phone: [facility] 12-07-2024 15:53-0400 SaO2% (BldA) [Mass fraction] 94 % Dr. Debora Orourke MD Work Phone: [facility] 12-07-2024 15:53-0400 Systolic blood pressure 144 mm[Hg] Dr. Debora Orourke MD Work Phone: [facility] 07-11-2024 08:55-0400 Body mass index (BMI) [Ratio] 34.5 kg/m2 Dr. Debora Orourke MD Work Phone: [facility] 07-11-2024 08:55-0400 Body temperature 97.4 [degF] Dr. Debora Orourke MD Work Phone: [facility] 07-11-2024 08:55-0400 Body weight 112.[address] Debora Orourke MD Work Phone: [facility] 07-11-2024 08:55-0400 Diastolic blood pressure 92 mm[Hg] Dr. Debora Orourke MD Work Phone: [facility] 07-11-2024 08:55-0400 Heart rate 64 /min Dr. Debora Orourke MD Work Phone: [facility] 07-11-2024 08:55-0400 Respiratory rate 18 /min Dr. Debora Orourke MD Work Phone: [facility] 07-11-2024 08:55-0400 SaO2% (BldA) [Mass fraction] 94 % Dr. Debora Orourke MD Work Phone: [facility] 07-11-2024 08:55-0400 Systolic blood pressure 142 mm[Hg] Dr. Debora Orourke MD Work Phone: [facility] 06-07-2024 16:06-0500 Body height 180.[address] Debora Orourke MD Work Phone: [facility] 06-07-2024 16:06-0500 Body mass index (BMI) [Ratio] 35.2 kg/m2 Dr. Debora Orourke MD Work Phone: [facility] [facility] 06-07-2024 16:06-0500 Body temperature 98 [degF] Dr. Debora Orourke MD Work Phone: [facility] 06-07-2024 16:06-0500 Body weight 114.[address] Debora Orourke MD Work Phone: [facility] 06-07-2024 16:06-0500 Diastolic blood pressure 87 mm[Hg] Dr. Debora Orourke MD Work Phone: [facility] 06-07-2024 16:06-0500 Heart rate 68 /min Dr. Debora Orourke MD Work Phone: [facility] 06-07-2024 16:06-0500 Respiratory rate 16 /min Dr. Debora Orourke MD Work Phone: [facility] 06-07-2024 16:06-0500 SaO2% (BldA) [Mass fraction] 92 % Dr. Debora Orourke MD Work Phone: [facility] 06-07-2024 16:06-0500 Systolic blood pressure 136 mm[Hg] Dr. Debora Orourke MD Work Phone: [facility] 06-07-2024 15:28-0500 Body mass index (BMI) [Ratio] 35.3 kg/m2 Dr. Debora Orourke MD Work Phone: [facility] 06-07-2024 15:28-0500 Body temperature 98 [degF] Dr. Debora Orourke MD Work Phone: [facility] 06-07-2024 15:28-0500 Body weight 114.[address] Debora Orourke MD Work Phone: [facility] 06-07-2024 15:28-0500 Diastolic blood pressure 90 mm[Hg] Dr. Debora Orourke MD Work Phone: [facility] 06-07-2024 15:28-0500 Heart rate 73 /min Dr. Debora Orourke MD Work Phone: [facility] 06-07-2024 15:28-0500 Respiratory rate 16 /min Dr. Debora Orourke MD Work Phone: [facility] 06-07-2024 15:28-0500 SaO2% (BldA) [Mass fraction] 93 % Dr. Debora Orourke MD Work Phone: [facility] 06-07-2024 15:28-0500 Systolic blood pressure 141 mm[Hg] Dr. Debora Orourke MD Work Phone: [facility] 06-17-2023 15:01-0500 Body height 180.[address] Tayo Carvalho Work Phone: [facility] 06-17-2023 15:01-0500 Body mass index (BMI) [Ratio] 35.3 kg/m2 Dr. Tayo Carvalho Work Phone: [facility] 06-17-2023 15:01-0500 Body temperature 97.8 [degF] Dr. Tayo Carvalho Work Phone: [facility] 06-17-2023 15:01-0500 Body weight 114.[address] Tayo Carvalho Work Phone: [facility] 06-17-2023 15:01-0500 Diastolic blood pressure 97 mm[Hg] Dr. Tayo Carvalho Work Phone: [facility] 06-17-2023 15:01-0500 Heart rate 68 /min Dr. Tayo Carvalho Work Phone: [facility] 06-17-2023 15:01-0500 Respiratory rate 16 /min Dr. Tayo Carvalho Work Phone: [facility] 06-17-2023 15:01-0500 SaO2% (BldA) [Mass fraction] 94 % Dr. Tayo Carvalho Work Phone: [facility] 06-17-2023 15:01-0500 Systolic blood pressure 147 mm[Hg] Dr. Tayo Carvalho Work Phone: [facility] 06-02-2023 15:08-0500 Body mass index (BMI) [Ratio] 35.3 kg/m2 Dr. Tayo Carvalho Work Phone: [facility] 06-02-2023 15:08-0500 Body temperature 98.6 [degF] Dr. Tayo Carvalho Work Phone: [facility] 06-02-2023 15:08-0500 Body weight 114.[address] Tayo Carvalho Work Phone: [facility] 06-02-2023 15:08-0500 Diastolic blood pressure 89 mm[Hg] Dr. Tayo Carvalho Work Phone: [facility] 06-02-2023 15:08-0500 Heart rate 66 /min Dr. Tayo Carvalho Work Phone: [facility] 06-02-2023 15:08-0500 Respiratory rate 16 /min Dr. Tayo Carvalho Work Phone: [facility] 06-02-2023 15:08-0500 SaO2% (BldA) [Mass fraction] 94 % Dr. Tayo Carvalho Work Phone: [facility] 06-02-2023 15:08-0500 Systolic blood pressure 146 mm[Hg] Dr. Tayo Carvalho Work Phone: [facility] 03-17-2023 15:33-0500 Body mass index (BMI) [Ratio] 34.9 kg/m2 Dr. Tayo Carvalho Work Phone: [facility] 03-17-2023 15:33-0500 Body temperature 98.2 [degF] Dr. Tayo Carvalho Work Phone: [facility] 03-17-2023 15:33-0500 Body weight 113.[address] Tayo Carvalho Work Phone: [facility] 03-17-2023 15:33-0500 Diastolic blood pressure 83 mm[Hg] Dr. Tayo Carvalho Work Phone: [facility] 03-17-2023 15:33-0500 Heart rate 77 /min Dr. Tayo Carvalho Work Phone: [facility] 03-17-2023 15:33-0500 Respiratory rate 16 /min Dr. Tayo Carvalho Work Phone: [facility] 03-17-2023 15:33-0500 SaO2% (BldA) [Mass fraction] 93 % Dr. Tayo Carvalho Work Phone: [facility] 03-17-2023 15:33-0500 Systolic blood pressure 144 mm[Hg] Dr. Tayo Carvalho Work Phone: [facility] 11-25-2022 15:52-0400 Body height 180.[address] Debora Orourke Work Phone: [facility] 11-25-2022 15:52-0400 Body mass index (BMI) [Ratio] 35.2 kg/m2 Dr. Debora Orourke Work Phone: [facility] 11-25-2022 15:52-0400 Body temperature 98.7 [degF] Dr. Debora Orourke Work Phone: [facility] 11-25-2022 15:52-0400 Body weight 114.[address] Debora Orourke Work Phone: [facility] 11-25-2022 15:52-0400 Diastolic blood pressure 89 mm[Hg] Dr. Debora Orourke Work Phone: [facility] 11-25-2022 15:52-0400 Heart rate 71 /min Dr. Debora Orourke Work Phone: [facility] 11-25-2022 15:52-0400 Respiratory rate 16 /min Dr. Debora Orourke Work Phone: [facility] 11-25-2022 15:52-0400 SaO2% (BldA) [Mass fraction] 93 % Dr. Debora Orourke Work Phone: [facility] 11-25-2022 15:52-0400 Systolic blood pressure 148 mm[Hg] Dr. Debora Orourke Work Phone: [facility] 10-16-2022 09:00-0400 Diastolic blood pressure 63 mm[Hg] Dr. Debora Orourke Work Phone: [facility] 10-16-2022 09:00-0400 Heart rate 70 /min Dr. Debora Orourke Work Phone: [facility] 10-16-2022 09:00-0400 Respiratory rate 16 /min Dr. Debora Orourke Work Phone: [facility] 10-16-2022 09:00-0400 SaO2% (BldA) [Mass fraction] 94 % Dr. Debora Orourke Work Phone: [facility] 10-16-2022 09:00-0400 Systolic blood pressure 95 mm[Hg] Dr. Debora Orourke Work Phone: [facility] 10-16-2022 07:35-0400 Body height 180.[address] Debora Orourke Work Phone: [facility] 10-16-2022 07:35-0400 Body mass index (BMI) [Ratio] 34.1 kg/m2 Dr. Debora Orourke Work Phone: [facility] 10-16-2022 07:35-0400 Body temperature 97.2 [degF] Dr. Debora Orourke Work Phone: [facility] 10-16-2022 07:35-0400 Body weight 110.[address] Debora Orourke Work Phone: [facility] 09-24-2022 11:06-0400 Body mass index (BMI) [Ratio] 33.5 kg/m2 Dr. Debora Orourke Work Phone: [facility] 09-24-2022 11:06-0400 Body weight 108.[address] Debora Orourke Work Phone: [facility] 09-23-2022 15:23-0400 Diastolic blood pressure 92 mm[Hg] Dr. Debora Orourke Work Phone: [facility] 09-23-2022 15:23-0400 Systolic blood pressure 147 mm[Hg] Dr. Debora Orourke Work Phone: [facility] 09-23-2022 15:21-0400 Body mass index (BMI) [Ratio] 34.2 kg/m2 Dr. Debora Orourke Work Phone: [facility] 09-23-2022 15:21-0400 Body temperature 98.2 [degF] Dr. Debora Orourke Work Phone: [facility] 09-23-2022 15:21-0400 Body weight 111.[address] Debora Orourke Work Phone: [facility] 09-23-2022 15:21-0400 Heart rate 64 /min Dr. Debora Orourke Work Phone: [facility] 09-23-2022 15:21-0400 Respiratory rate 16 /min Dr. Debora Orourke Work Phone: [facility] 09-23-2022 15:21-0400 SaO2% (BldA) [Mass fraction] 96 % Dr. Debora Orourke Work Phone: [facility] 10-17-2021 10:55-0400 Body temperature 97.9 [degF] Dr. Debora Orourke Work Phone: [facility] Work Phone: 10-17-2021 10:55-0400 Diastolic blood pressure 79 mm[Hg] Dr. Debora Orourke Work Phone: [facility] Work Phone: 10-17-2021 10:55-0400 Heart rate 53 /min Dr. Debora Orourke Work Phone: [facility] Work Phone: 10-17-2021 10:55-0400 Respiratory rate 16 /min Dr. Debora Orourke Work Phone: [facility] Work Phone: 10-17-2021 10:55-0400 SaO2% (BldA) [Mass fraction] 99 % Dr. Debora Orourke Work Phone: [facility] Work Phone: 10-17-2021 10:55-0400 Systolic blood pressure 106 mm[Hg] Dr. Debora Orourke Work Phone: [facility] Work Phone: 10-17-2021 08:20-0400 Body height 180.[address] Debora Orourke Work Phone: [facility] Work Phone: 10-17-2021 08:20-0400 Body mass index (BMI) [Ratio] 32.3 kg/m2 Dr. Debora Orourke Work Phone: [facility] Work Phone: 10-17-2021 08:20-0400 Body weight 105.[address] Debora Orourke Work Phone: [facility] Work Phone: 09-01-2021 15:36-0400 Body mass index (BMI) [Ratio] 32.1 kg/m2 Dr. Debora Orourke Work Phone: [facility] Work Phone: 09-01-2021 15:36-0400 Body weight 104.[address] Debora Orourke Work Phone: [facility] Work Phone: 08-28-2021 15:52-0400 Body mass index (BMI) [Ratio] 33.2 kg/m2 Dr. Debora Orourke Work Phone: [facility] Work Phone: 08-28-2021 15:52-0400 Body temperature 98.2 [degF] Dr. Debora Orourke Work Phone: [facility] Work Phone: 08-28-2021 15:52-0400 Body weight 108.[address] Debora Orourke Work Phone: [facility] Work Phone: 08-28-2021 15:52-0400 Diastolic blood pressure 82 mm[Hg] Dr. Debora Orourke Work Phone: [facility] Work Phone: 08-28-2021 15:52-0400 Heart rate 76 /min Dr. Debora Orourke Work Phone: [facility] Work Phone: 08-28-2021 15:52-0400 Respiratory rate 18 /min Dr. Debora Orourke Work Phone: [facility] Work Phone: 08-28-2021 15:52-0400 SaO2% (BldA) [Mass fraction] 93 % Dr. Debora Orourke Work Phone: [facility] Work Phone: 08-28-2021 15:52-0400 Systolic blood pressure 132 mm[Hg] Dr. Debora Orourke Work Phone: [facility] Work Phone: 08-26-2020 14:35-0400 Body mass index (BMI) [Ratio] 32.4 kg/m2 Dr. Debora Orourke Work Phone: [facility] 05-27-2020 15:28-0500 Body temperature 98.3 [degF] Dr. Debora Orourke Work Phone: [facility] 05-27-2020 15:28-0500 Body weight 113.[address] Debora Orourke Work Phone: [facility] 05-27-2020 15:28-0500 Diastolic blood pressure 100 mm[Hg] Dr. Debora Orourke Work Phone: [facility] 05-27-2020 15:28-0500 Heart rate 70 /min Dr. Debora Orourke Work Phone: [facility] 05-27-2020 15:28-0500 Respiratory rate 18 /min Dr. Debora Orourke Work Phone: [facility] 05-27-2020 15:28-0500 SaO2% (BldA) [Mass fraction] 96 % Dr. Debora Orourke Work Phone: [facility] 05-27-2020 15:28-0500 Systolic blood pressure 158 mm[Hg] Dr. Debora Orourke Work Phone: [facility] Encounters Encounter Date Encounter Type Care Provider Facility Start: 12-20-2024 End: 12-20-[address] Gerson Cifuentes MD -[facility] Work Phone: Start: 12-20-2024 End: 12-20-[address] Debora Orourke MD Work Phone: -[facility] Start: 12-07-2024 End: 12-07-[address] Debora Orourke MD -[facility] Work Phone: Start: 12-07-2024 End: 12-07-[address] Debora Orourke MD Work Phone: -[facility] Start: 12-04-[address] Gerson hyde MD -[facility] Start: 12-04-2024 ambulatory Gerson High ty:[facility] Start: 09-25-2024 End: 09-25-[address] Debora Orourke MD Work Phone: [facility] Work Phone: Start: 09-25-2024 End: 09-25-[address] 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 Debora Orourke MD -[facility] Work Phone: Start: 06-07-2024 End: 06-07-2024 ambulatory Debora Orourke Facility:[facility] Start: 06-01-[address] Gerson hyde MD -[facility] Start: 04-21-2024 End: 04-21-2024 ambulatory Deboraleeroy Orourke Facility:[facility] Start: 03-02-2024 End: 03-02-2024 ambulatory Deboraleeroy Orourke Facility:[facility] Start: 01-04-2024 End: 01-04-2024 ambulatory Debora Orourke Facility:[facility] Start: 06-17-2023 End: 06-17-[address] Tayo Carvalho Work Phone: [facility] [place] Work Phone: Start: 06-14-2023 End: 06-14-[address] Tayo Carvalho Work Phone: [facility] Work Phone: Start: 06-14-2023 End: 06-14-[address] Tayo Carvalho Work Phone: [facility] Start: 06-02-2023 End: 06-02-[address] Tayo Carvalho Work Phone: [facility] Work Phone: Start: 05-27-[address] Tayo Carvalho Work Phone: [facility] Start: 03-17-2023 End: 03-17-[address] Tayo Carvalho Work Phone: [facility] Work Phone: Start: 03-17-2023 End: 03-17-[address] Tayo Carvalho Work Phone: [facility] [place] Work Phone: Start: 11-25-2022 End: 11-25-[address] Debora Ororuke Work Phone: [facility] [place] Work Phone: Start: 11-23-2022 End: 11-23-[address] Debora Orourke Work Phone: [facility] Work Phone: Start: 11-23-2022 End: 11-23-[address] Debora Orourke Work Phone: [facility] Start: 10-16-2022 Non-patient / Non-visit Dr. Debora Orourke Work Phone: [facility] Start: 10-16-2022 End: 10-16-2022 Admission to same day surgery center Dr. Debora Orourke Work Phone: [facility] Work Phone: Start: 10-16-2022 End: 10-16-[address] Debora Orourke Work Phone: [facility] Work Phone: Start: 09-24-2022 Non-patient / Non-visit Dr. Debora Orourke Work Phone: [facility] Work Phone: Start: 09-23-2022 End: 09-23-[address] Debora Orourke Work Phone: [facility] Work Phone: Start: 09-17-[address] Debora Orourke Work Phone: [facility] Start: 10-17-2021 Non-patient / Non-visit Dr. Debora Orourke Work Phone: [facility] Start: 10-17-2021 End: 10-17-2021 Admission to same day surgery center Dr. Debora Orourke Work Phone: [facility] Start: 09-01-2021 Non-patient / Non-visit Dr. Debora Orourke Work Phone: [facility] Start: 08-28-2021 End: 08-28-[address] Debora Orourke Work Phone: [facility] Start: 08-20-[address] Debora Orourke Work Phone: [facility] Start: 06-01-2017 End: 06-01-2017 Ambulatory JENNIFER MITTAL Facility:[facility] Start: 05-31-2017 End: 06-01-2017 Ambulatory JENNIFER MITTAL Facility:[facility] Start: 05-26-2017 End: 05-26-2017 Emergency department patient visit [facility] Procedures Date Procedure Procedure Detail Performing Clinician [...] 10-16-2022 Colonoscopy w/biopsy single/multiple COLONOSCOPY AND BIOPSY [facility] Start: 10-16-2022 Patient discharge [facility] Start: 10-17-2021 Patient discharge [facility] Work Phone: Start: 08-28-2021 Patient referral [facility] Work Phone: Carcinoembryonic Ag [Mass/volume] in Serum or Plasma [facility] Work Phone: Carcinoembryonic Ag [Mass/volume] in Serum or Plasma [facility] Carcinoembryonic Ag [Mass/volume] in Serum or Plasma [facility] Carcinoembryonic Ag [Mass/volume] in Serum or Plasma [facility] CBC W Auto Different ial panel - Blood [facility] CBC W Auto Different ial panel - Blood [facility] Colonoscopy [facility] Work Phone: Colonoscopy [facility] Comprehensive metabo lic 1999 panel - Serum or Plasma [facility] metabo lic 1999 panel - Serum or Plasma [facility] Hemoglobin A1c/Hemoglobin.total in Blood [facility] Hemoglobin A1c/Hemoglobin.total in Blood [facility] Lipid 1995 panel - S ines or Plasma [facility] Lipid 1995 panel - S ines or Plasma [facility] Patient referral [facility] Work Phone: Prostate specific an tigen measurement [facility] Serum insulin measurement [facility] Thyroid stimulating hormone measurement [facility] Vitamin D, 25-hydrox y measurement [facility] Payers Date Payer Category Payer Self-pay [id number] 2020 Unknown [id number] 2017 Unknown [id number] Private Health Insurance [id number] Unknown [id number] 2.16.8 [id number] Unknown [id number] 2.16.8 [id number] Unknown [id number] 2.16.8 [id number] Unknown [id number] 2.16.8 [id number] Unknown [id number] 2.16.8 [id number] Unknown [id number] 2.16.8 [id number] Unknown [id number] 2.16.8 [id number] Unknown [id number] 2.16.8 [id number] Unknown [id number] 2.16.8 [id number] Unknown [id number] 2.16.8 [id number] Social History Date Type Detail Facility Start: 10-15-2021 End: 06-17-2023 Tobacco smoking status NHIS Unknown if ever smoked [facility] Start: 08-20-2020 [facility] Start: 1965 Sex Assigned At Male [facility] Start: 10-27-2023 Tobacco smoking stat us AZIS Never smoked tobacco (finding) [facility] Medical Equipment Procedure Code Equipment Code Equipment Origin al Text Equipment Identifier Dates Colonoscopy Ligation clip, metallic [id number] [facility] Start: 10-17-2021 Goals Date Patient Goal Desired Activity /State Mental Status Date Assessment Result Facility 10-16-2022 Cognitive function Level Of Cons ciousness Follows Commands;[facility] Work Phone: 10-16-2022 Cognitive function Patient Orien tation Person;Place;Time [facility] Work Phone: 10-17-2021 Cognitive function Level Of Cons ciousness [facility] Work Phone: Clinical Notes 10-16-2022 to 12-20-2024 Note Date & Type Note Facility 12-20-2024 Progress note [facility] Services 12-20-2024 Progress note Note Date/Time December 20, 2024 4:20pm [facility] [place] [address] OFFICE VISIT Date of Service: 12/20/24 1552 MR#: [id number] Acct: [id number] Name: ARTEM MCDERMOTT Rep #: [id number] : 1965 From: Gerson samuels MD Age/Sex: 59/M Location: [facility] Status: Signed HPI Subjective Date [...] is present close to the luminal surface. [facility] Medical History Chewing tobacco nicotine dependence Wears [...] no focal motor deficits Coordination / Balance: [id number] test normal Speech: speech normal Gait (Neuro): [...] Impression and recommendations discussed. Gerson Cifuentes MD Insurance Loss Adjuster, [facility] Divisions of Medical Oncology & Hematology Department of Internal Medicine [place] [id number] This note was generated using a voice [...] applicable) CC: Dr. Debora Orourke MD ~ [facility] Work Phone: 1(310) 317-586508-25-2025 Evaluation note* Diagnosis Onset Date Resolution Status Admit Date Rectal cancer acute November 2:26pm [facility] Work Phone: 1(441) 447-916608-25-2025 Evaluation note* Diagnosis Onset Date Resolution Status Admit Date Rectal cancer acute November 2:26pm Insulin resistance acute December 07, 2024 3:48pm Vitamin D deficiency acute 2024 3:48pm Obesity (BMI 30-39.9) chronic Nov 3:48pm SOPHIE (obstructive sleep apnea) chronic December 07 3:48pm Type 2 diabetes mellitus chronic December 07, 2024 3:48pm Rectal cancer acute December 112024 3:49pm [facility] Work Phone: 1([phone]) 732-562602-20-2025 Evaluation note* Diagnosis Onset Date Resolution Status [...] diabetes mellitus chronic July 11, 2024 3:15pm [facility] Work Phone: [phone]) 541-681607-07-2023 Procedure [facility] 10[facility]16-2022 [facility] Diagnosis Onset Date Resolution Status Rectal cancer acute Rectal cancer acute SOPHIE (obstructive sleep apnea) chronic 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, 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 Rectal cancer acute [facility] Work Phone: Evaluation note* Diagnosis Onset Date Resolution Status Rectal cancer acute Rectal cancer acute 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, 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 Rectal cancer acute [facility] Work Phone: Evaluation note* Diagnosis Onset Date Resolution Status Rectal cancer acute Rectal cancer acute 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, 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 Rectal cancer acute Insulin resistance acute Type 2 diabetes mellitus acu te Vitamin D deficiency acute Hypertension chronic Obesity (BMI 30-39.9) chroni c 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, 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 [facility] Work Phone: Evaluation note* Diagnosis Onset Date Resolution Status Insulin resistance acute Type 2 diabetes mellitus acu te Vitamin D deficiency acute Hypertension chronic Obesity (BMI 30-39.9) chroni c Rectal cancer acute Rectal cancer acute 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, 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 Elevated serum creatinine ac [place] Insulin resistance acute Rectal cancer acute Type 2 diabetes mellitus acu te Vitamin D deficiency acute Hypertension chronic [facility] Work Phone: History and physical note Author Nathan Ritchie [facility] October 16, 2022 8:14am Note Date/Time October 16, 2022 8:11a m [facility] Medical Records Department [address] [place] [address] History & Physical Exam 10/16/22 0809 MR#: [id number] Acct: [id number] Name: ARTEM MCDERMOTT Rep #:[id number] : 1965 57 From: Nathan Ritchie MD PCP: Dr. Debora Orourke MD [place] [facility] [place]: [place] [id number] HPI - General General Date of Service: [...] bowel habits. He denies any cardiopulmonary issues. [facility] Medical History (Updated 10/14/22 @ 12:09 by [...] Orourke MD; Dr. Nathan Ritchie MD~ Signed [facility] Work Phone: Reason for referral (narrative)No reason for referral information availableWOhio[facility] Work Phone: Summary Purpose Family History No Family History Records Found Relationship Condition Age at Onset Recorded Date/T sheyla brother Dementia Unknown Hypertension Unknown father Hypertension Unknown mother Hypertension Unknown daughter Diabetes mellitus Unknown Advance Directives No Advanced Directives Records Found Advance Directive Response Recorded Date/ Time Living Will No October 15, 2021 1 2:32pm Power of Food Beverage Manager No October 15, 2021 12:32pm Advance Directive Response Recorded Date/ Time Living Will No October 14, 2022 1 2:03pm Power of Food Beverage Manager No October 14, 2022 12:03pm Advance Directive Response Recorded Date/ Time Living Will No October 14, 2022 1 1:03am Power of Food Beverage Manager No October 14, 2022 11:03am Advance Directive Response Recorded Date/ Time Living Will No August 20, 2020 3 :12pm Do you have a Healthcare Power of Food Beverage Manager? No August 20, 2020 3:12pm Chief Complaint [...] section and content) DATE CREATED AUTHOR 10/01/2017 [facility] ([place]) DATE CREATED AUTHOR AUTHOR'S ORGANIZ [...] Provider Active Start: June 01, 2024 Dr. aNthan Ritchie MD Referring Provider Active Start: June [...] July 11, 2024 Re De León NP RING ROLLING MACHINE OPERATOR-C Attending Provider Active Start: July 11, 2024 [...] Debora Orourke MD Primary Care Provider Active Counts Include [facility] Attending Provider Active Team Status: Active Member [...] 25, 2024 End: September 25, 2024 Dr. eDbora Orourke MD Referring Provider Active Start: September [...] BE BASED ON THE PRIMARY CLINICAL RECORDS. [employer] [facility]. provides no warranty or guarantee of the accuracy or completeness of information in this document.
[2025-04-06 10:30] LABS: Anion Gap 13 (7-18); BUN 29 mg/dL (4-19); BUN/Creat Ratio 21.7 RATIO (10-20); Calcium,Total 9.9 mg/dL (7.6-11.0); Carbon Dioxide 24.2 mmol/L (20.0-29.0); Chloride 102 mmol/L (96-106); Glucose 214 mg/dL (70-99); Potassium 4.2 mmol/L (3.5-5.1)
== END | disposition home or self-care (01) ==
LOC: MTLAB 09:06
PROVIDERS: PCP Internal Medicine; Referring Provider Internal Medicine; Visit Provider Internal Medicine
DX: R94.4 Abnormal results of kidney function studies (principal)
CPT/HCPCS: 36415; 80048